=== PATIENT | female | born 1985 | race Caucasian/White ===

== ENCOUNTER 2016-10-04 06:00 | Emergency (ER) | payer OTHER ==
[~2016-10-04] VITALS: Ht 152.4 cm; Wt 102.1 kg
[~2016-10-04 06:00] MED LIST: AMIKACIN S500 MG/2 M IJ; AMPICILLIN500 MG PO; ATIVAN1 MG ORAL; BACTRIM-DS1 EA ORAL; CEFEPIME-D2 GM/50 ML IVPB; CEPHALEXIN500 MG ORAL; CLARITIN10 M1 ORAL; CLOTRIMAZOLE15 GM TOPIC; COLACE100 MG ORAL; CRANBERRY425 MG PO; DEPAKOTE250 MG ORAL; DEPAKOTE250 MG PO; DEPAKOTE500 MG PO; DIFLUCAN100 MG ORAL; DIFLUCAN200 MG ORAL; DILAUDID2 MG IM; DILAUDID2 MG ORAL; DIPHENHYDRAMINE25 M1 ORAL; DITROPAN10 MG ORAL; DIVALPROEX SOD125 MG PO; DOCUSATE SODIU100 M2 ORAL; DULCOLAX10 MG RECTAL; FLUOXETINE HCL10 MG ORAL; HUMALOG100 UNIT/4 SUBQ; HYDROMORPHONE HC2 MG PO; IMITREX50 MG ORAL; KEFLEX500 MG ORAL; LANTUS SOL100 UNIT/1 SUBQ; LANTUS5 UNITS SUBQ; LEVOTHYROXINE100 MCG ORAL; LEVOTHYROXINE112 MCG ORAL; LEVOTHYROXINE25 MCG PO; LEVOTHYROXINE75 MCG ORAL; MACROBID100 MG ORAL; MELATONIN5 M5 ORAL; METFORMIN HCL1000 M1 ORAL; METFORMIN HCL500 M1 ORAL; MIRALAX17 GM ORAL; MULTIVITAMINS1 EAC2 ORAL; MULTIVITAMINS1 EAC8 ORAL; MVI; NEURONTIN100 MG ORAL; NORCO 10-325 T1 EACH PO; NORCO 5-325 TA1 EACH ORAL; NOVOLIN R100 UNIT/1 SUBQ; NOVOLOG100 UNIT/3 SUBQ; NOVOLOG100 UNITS1 SUBQ; NYSTOP POWDER15 GM TOPIC; OXYCODONE HCL15 M1 ORAL; PROTONIX40 MG ORAL; PROZAC10 MG ORAL; QUETIAPINE FUMA25 MG ORAL; RANITIDINE HCL150 MG ORAL; RESTORIL30 MG ORAL; SEROQUEL25 MG PO; SIMETHICONE80 MG ORAL; SUMATRIPTA6 MG/0.54 SQ; SYNTHROID75 MCG ORAL; TYGACIL50 MG IVPB; TYLENOL #21 EA ORAL; TYLENOL325 MG ORAL; VANCOMYCIN1 GM/2502 IVPB; VITAMIN C500 M1 ORAL; ZINC SULFATE220 M1 ORAL; ZOFRAN ODT4 MG ORAL; ZOFRAN ODT8 MG ORAL; ZOLPIDEM TARTRAT5 MG PO; ZOSYN 3.373.375 GM/1 IVPB; ZYVOX600 MG ORAL; mylicon PO
[2016-10-04] MEDS ORDERED: DiphenhydrAMINE 50mg/ml Inj ONE (06:01)
[2016-10-04] MEDS ORDERED: NS 55 ML IV ONE (06:01)
[2016-10-04] MEDS ORDERED: HYDROmorphone 1mg/ml Carpuject ONE (06:01)
[2016-10-04 06:20] VITALS: BP 125/88
[2016-10-04] MEDS ORDERED: DuoNeb 0.5-3(2.5)mg/3ml neb HHN ONE (06:45)
[2016-10-04] MEDS ORDERED: HYDROmorphone 1 MG, DiphenhydrAMINE 25 MG in NS 55 ML IVPB ONE (07:00)
[2016-10-04 07:36] LABS: BASOPHILS % (AUTO) 0.7 % (0.0-2.0); EOSINOPHILS % (AUTO) 2.2 % (0.0-3.0); MEAN CORPUSCULAR HEMOGLOBIN 28.8 PG (27.0-31.0); MEAN CORPUSCULAR HGB CONC 31.5 G/DL (32.0-36.0); MEAN CORPUSCULAR VOLUME 91 FL (80-99); MEAN PLATELET VOLUME 5.9 FL (6.5-10.1); MONOCYTES % (AUTO) 5.5 % (1.0-10.0); NEUTROPHILS % (AUTO) 82.7 % (45.0-75.0); PLATELET COUNT 341 K/UL (150-450); RED BLOOD COUNT 3.35 M/UL (4.20-5.40); RED CELL DISTRIBUTION WIDTH 17.5 % (11.6-14.8)
[2016-10-04 07:48] LABS: TROPONIN I < 0.30 ng/mL (<=0.30)
[2016-10-04 07:49] LABS: ALANINE AMINOTRANSFERASE 8 U/L (3-33); ANION GAP 14 (5-15); ASPARTATE AMINO TRANSFERASE 9 U/L (5-40); CALCIUM 7.5 mg/dL (8.6-10.2); CARBON DIOXIDE 27 mEQ/L (20-30); CHLORIDE 100 mEQ/L (98-107); CREATININE 1.3 mg/dL (0.5-0.9); GLOMERULAR FILTRATION RATE 47.5 mL/min (>60); HEMOLYSIS 10; POTASSIUM 3.7 mEQ/L (3.4-4.9); SODIUM 141 mEQ/L (135-145); TOTAL PROTEIN 6.4 g/dL (6.6-8.7)
[2016-10-04 07:52] VITALS: BP 150/92
[2016-10-04 07:59] LABS: CKMB < 1.5 ng/mL (< 3.8)
--- NOTE | 2016-10-04 08:04 | Emergency Room Report ---
History of Present Illness General Chief Complaint: Upper Respiratory Illness Source: Patient Present Illness HPI Patient is a 31-year-old female who is brought in by ambulance after increased cough and difficulty breathing. Patient prior history of asthma. Patient has not recently been taking any steroids been previously been hospitalized for urinary tract infection. Patient had been getting IV vancomycin and meropenem for urinary tract infection. Patient has a prior complex medical course. Patient noted have multiple different types of allergies. Patient states that she has been having some recurrent cough. Allergies: Coded Allergies: CIPROFLOXACIN (Verified Allergy, Severe, Anaphylaxis, 05/18/12) KETOROLAC (Unverified Allergy, Severe, Anaphylaxis, 03/04/14) Throat collapsed LATEX (Verified Allergy, Severe, Anaphylaxis, 03/06/14) verbalized by pt LEVOFLOXACIN (Verified Allergy, Severe, Anaphylaxis, 05/18/12) MORPHINE (Verified Allergy, Intermediate, Itching, 05/18/12) ACETAMINOPHEN (Unverified Allergy, Unknown, 04/01/15) ALOE (Unverified Allergy, Unknown, 11/03/15) ALOE VERA (Unverified Allergy, Unknown, 04/01/15) CELERY (Unverified Allergy, Unknown, 04/01/15) COCONUT (Unverified Allergy, Unknown, 11/03/15) COCONUT OIL (Unverified Allergy, Unknown, 04/01/15) FISH CONTAINING PRODUCTS (Unverified Allergy, Unknown, 10/04/16) HYDROCODONE (Unverified Allergy, Unknown, 04/01/15) LIDOCAINE (Unverified Allergy, Unknown, Rash, 09/21/15) with lidocaine cream MELON (Unverified Allergy, Unknown, 04/01/15) ONION (Unverified Allergy, Unknown, 11/03/15) PINEAPPLE (Unverified Allergy, Unknown, 10/04/16) Red Pepper (Unverified Allergy, Unknown, 04/01/15) TRAMADOL (Unverified Allergy, Unknown, 04/01/15) TROMETHAMINE (Unverified Allergy, Unknown, 04/01/15) WITCH ANNA (Unverified Allergy, Unknown, 04/01/15) Uncoded Allergies: CRANBERRY JUICE (Allergy, Unknown, 10/04/16) onion (Allergy, Unknown, 04/01/15) glueten (Adverse Reaction, Unknown, 09/17/15) Patient History Past Medical History: see triage record Last Menstrual Period: TWO WEEKS AGO Now: No Reviewed Nursing Documentation: PMH: Agreed, PSxH: Agreed Nursing Documentation-PMH Hx Cardiac Problems: Yes Hx Hypertension: Yes Hx Asthma: Yes Hx Diabetes: Yes Hx Cancer: No Hx Dialysis: No Hx Cerebrovascular Accident: No Hx Transient Ischemic Attacks: No Hx Dementia: No Hx Alzheimer's Disease: No Hx Parkinson's Disease: No Hx Meningitis: No Hx Encephalitis: No Hx Seizures: Yes Hx Epilepsy: No Hx Multiple Sclerosis: No Hx Cerebral Palsy: No Hx Amyotrophic Lat Sclerosis: No Hx Guillian-[place] Syndrome: No Hx Paralysis: No Hx Peripheral Neuropathy: No Hx Spinal Cord Injury: Yes Hx Head Trauma: No Hx Traumatic Brain Injury: No Hx Memory Loss: No Hx Concentration Difficulty: No Hx Speech Problem: No Hx Tremors: No Hx Aphasia: No Hx Dysphasia: No Hx Neurologic Surgery: No Hx Brain Shunt: No Review of Systems All Other Systems: negative except mentioned in HPI Physical Exam Vital Signs Date Time Temp Pulse Resp B/P Pulse Ox O2 Delivery O2 Flow Rate FiO2 10/04/16 05:57 98.2 80 18 183/110 97 Room Air 10/04/16 06:20 2.0 General Appearance: alert, GCS 15, non-toxic, obese - cushenoid, Chronically Ill Eyes: bilateral eye PERRL ENT: hearing grossly normal, normal pharynx Neck: supple Respiratory: chest non-tender, lungs clear, normal breath sounds Cardiovascular #1: normal peripheral pulses, regular rate, rhythm Gastrointestinal: normal bowel sounds, non tender Musculoskeletal: decreased range of motion, other Neurologic: normal inspection, alert, oriented x3, responsive, manager printing III-XII nml as tested, motor weakness Skin: normal inspection Medical Decision Making Diagnostic Impression: Primary Impression: Narcotic dependence Additional Impressions: Chronic pain Spina bifida Diabetes mellitus ER Course Patient presented for cough. Differential diagnosis included but was not limited to bronchitis, pneumonia, pulmonary embolism, pericarditis, asthma, foreign body. Chest x-ray one view interpreted by me showed atelectasis without evident infiltrateThe patient was noted to have a white blood count was minimally elevated. The patient is currently on IV antibiotics. The patient was given pain medications. Patient was discussed with Dr. mendenhall. Patient will be sent back to her nursing facility for further IV antibiotics. She does not appear to require inpatient management at this time. Labs Test 10/04/16 07:30 White Blood Count 14.0 K/UL (4.8-10.8) Red Blood Count 3.35 M/UL (4.20-5.40) Hemoglobin 9.6 G/DL (12.0-16.0) Hematocrit 30.6 % (37.0-47.0) Mean Corpuscular Volume 91 FL (80-99) Mean Corpuscular Hemoglobin 28.8 PG (27.0-31.0) Mean Corpuscular Hemoglobin Concent 31.5 G/DL (32.0-36.0) Red Cell Distribution Width 17.5 % (11.6-14.8) Platelet Count 341 K/UL (150-450) Mean Platelet Volume 5.9 FL (6.5-10.1) Neutrophils (%) (Auto) 82.7 % (45.0-75.0) Lymphocytes (%) (Auto) 9.0 % (20.0-45.0) Monocytes (%) (Auto) 5.5 % (1.0-10.0) Eosinophils (%) (Auto) 2.2 % (0.0-3.0) Basophils (%) (Auto) 0.7 % (0.0-2.0) Sodium Level 141 mEQ/L (135-145) Potassium Level 3.7 mEQ/L (3.4-4.9) Chloride Level 100 mEQ/L (98-107) Carbon Dioxide Level 27 mEQ/L (20-30) Anion Gap 14 (5-15) Blood Urea Nitrogen 22 mg/dL (7-23) Creatinine 1.3 mg/dL (0.5-0.9) Estimat Glomerular Filtration Rate 47.5 mL/min (>60) Glucose Level 135 mg/dL (74-106) Lactic Acid Level 0.80 mmol/L (0.66-2.22) Calcium Level 7.5 mg/dL (8.6-10.2) Total Bilirubin 0.2 mg/dL (0.0-1.2) Aspartate Amino Transf (AST/SGOT) 9 U/L (5-40) Alanine Aminotransferase (ALT/SGPT) 8 U/L (3-33) Alkaline Phosphatase 97 U/L (35-104) Total Creatine Kinase 23 U/L (26-140) Creatine Kinase MB < 1.5 ng/mL (< 3.8) Creatine Kinase MB Relative Index Troponin I < 0.30 ng/mL (<=0.30) Total Protein 6.4 g/dL (6.6-8.7) Albumin 3.2 g/dL (3.5-5.2) Globulin 3.2 g/dL Albumin/Globulin Ratio 1.0 (1.0-2.7) Last Vital Signs Date Time Temp Pulse Resp B/P Pulse Ox O2 Delivery O2 Flow Rate FiO2 10/04/16 06:20 98.8 76 24 125/88 96 Nasal Cannula 2.0 Status: improved Disposition: HOME, SELF-CARE Condition: Stable Referrals: [facility],REFERRING (PCP) Bob Rae Oct 04, 2016 08:04
[2016-10-04 09:21] VITALS: BP 149/94
[2016-10-04] MEDS ORDERED: HYDROmorphone 1mg/ml Carpuject IM ONE (11:15)
--- NOTE | 2016-10-04 11:39 | Diagnostic Imaging Report ---
Indication: Chest Pain Comparison: 08/01/16 A single view chest radiograph was obtained. Findings: Tubes and lines are stable. Heart is mildly enlarged but stable. Lung volumes are low. There maybe mild interstitial edema present. Impression: No significant change. Mild interstitial edema may be present
[2016-10-04 11:40] VITALS: BP 139/89
--- NOTE | 2016-10-05 23:25 | Cardiology Report ---
APPROVED REPORT EKG Measurement Heart [id number] Normal sinus rhythm Right axis deviation Possible Right ventricular hypertrophy Abnormal ECG
== END 2016-10-04 11:43 | disposition home or self-care (01) ==
LOC: EDBD 06:00 → EMR 06:54
DX: F11.20 Opioid dependence, uncomplicated (principal); G89.29 Other chronic pain; Z88.6 Allergy status to analgesic agent; Z91.040 Latex allergy status; Z88.8 Allergy status to other drugs, medicaments and biological substances; Z91.018 Allergy to other foods; I10 Essential (primary) hypertension; E11.9 Type 2 diabetes mellitus without complications
CPT/HCPCS: 36415; 71010; 80053; 82550; 82553; 83605; 84484; 85025; 93005; 94640; 94664; 96372; 99283; J1170; J1200; J7620

== ENCOUNTER 2017-02-27 13:35 | Inpatient (IN) | payer OTHER ==
[~2017-02-27] VITALS: Ht 152.4 cm; Wt 103.9 kg
[2017-02-27] VITALS (14 sets, daily range): BP systolic 103–145; BP diastolic 58–78
[2017-02-27] MEDS ORDERED: Ipratropium 0.02% Inh Soln 2.5ml UD HHN ONE (13:45)
[2017-02-27] MEDS ORDERED: Solu-MEDROL 125mg Inj IVP ONE (13:45)
[2017-02-27] MEDS ORDERED: Albuterol ud Inhalation HHN ONE (13:45)
[2017-02-27 14:13] LABS: APPEARANCE,URINE CLOUDY; KETONES,URINE NEGATIVE (NEGATIVE); LEUKOCYTE ESTERASE ,URINE 3+ (NEGATIVE); NITRITE,URINE POSITIVE (NEGATIVE); PH,URINE 6 (4.5-8.0); PROTEIN,URINE 3+ (NEGATIVE); UROBILINOGEN,URINE NORMAL MG/DL (0.0-1.0)
[2017-02-27 14:14] LABS: MEAN CORPUSCULAR VOLUME 97 FL (80-99); MEAN PLATELET VOLUME 5.9 FL (6.5-10.1); PLATELET COUNT 379 K/UL (150-450); RED BLOOD COUNT 3.86 M/UL (4.20-5.40); RED CELL DISTRIBUTION WIDTH 17.4 % (11.6-14.8); WHITE BLOOD COUNT 14.2 K/UL (4.8-10.8)
[2017-02-27 14:24] LABS: BACTERIA,URINE MODERATE /HPF; SQUAMOUS EPITHELIAL CELL,UR FEW /LPF (NONE/OCC); WBC,URINE 60-80 /HPF (0 - 2)
[2017-02-27] MEDS ORDERED: Piperacillin/Tazobactam 3.375 GM in NS 110 ML IVPB ONE (14:30)
[2017-02-27 14:32] LABS: TROPONIN I < 0.30 ng/mL (<=0.30)
[2017-02-27 14:33] LABS: ALANINE AMINOTRANSFERASE 12 U/L (3-33); ALBUMIN/GLOBULIN RATIO 1.2 (1.0-2.7); ANION GAP 14 (5-15); ASPARTATE AMINO TRANSFERASE 7 U/L (5-40); CALCIUM 8.9 mg/dL (8.6-10.2); CARBON DIOXIDE 19 mEQ/L (20-30); CHLORIDE 100 mEQ/L (98-107); CREATININE 2.3 mg/dL (0.5-0.9); GLOMERULAR FILTRATION RATE 24.6 mL/min (>60); HEMOLYSIS 6; POTASSIUM 5.1 mEQ/L (3.4-4.9); SODIUM 133 mEQ/L (135-145); TOTAL PROTEIN 7.3 g/dL (6.6-8.7)
[2017-02-27 14:37] LABS: ANISOCYTOSIS 1+; BAND NEUTROPHILS % (MANUAL) 0 % (0-8); BASOPHILS % (MANUAL) 0 % (0-2); EOSINOPHILS % (MANUAL) 0 % (0-3); HYPOCHROMASIA 1+; LYMPHOCYTES % (MANUAL) 6 % (20-45); NEUTROPHILS % (MANUAL) 87 % (45-75); PLATELET ESTIMATE ADEQUATE; PLATELET MORPHOLOGY NORMAL; TOTAL CELLS COUNTED 100
[2017-02-27 14:38] LABS: POLYCHROMASIA RARE
[2017-02-27 14:44] LABS: ABG PCO2 85.2 mmHg (35.0-45.0)
[2017-02-27 14:44] LABS: CKMB 2.2 ng/mL (< 3.8)
[2017-02-27 14:45] LABS: ABG ALLEN TEST POSITIVE; ABG BASE EXCESS -13.9
[2017-02-27] MEDS ORDERED: Zosyn 3.375gm inj ONE (14:57)
[2017-02-27] MEDS ORDERED: TRICOR48 MG ORAL (15:06)
[2017-02-27] MEDS ORDERED: BENADRYL25 MG ORAL (15:06)
[2017-02-27] MEDS ORDERED: DUONEB 0.5-3(2.53 ML HHN (15:06)
[2017-02-27] MEDS ORDERED: PEPCID20 MG ORAL (15:06)
[2017-02-27] MEDS ORDERED: GLIMEPIRIDE1 MG ORAL (15:06)
[2017-02-27] MEDS ORDERED: METOPROLOL TART25 MG ORAL (15:06)
[2017-02-27] MEDS ORDERED: FERROUS SULFAT325 MG ORAL (15:06)
[2017-02-27] MEDS ORDERED: LANTUS SOL100 UNIT/1 SUBQ (15:06)
[2017-02-27] MEDS ORDERED: PROMETHAZI6.25 MG/1 ORAL (15:06)
[2017-02-27] MEDS ORDERED: DITROPAN XL5 MG ORAL (15:06)
[2017-02-27] MEDS ORDERED: MAGNESIUM OXID500 M2 PO (15:06)
[2017-02-27] MEDS ORDERED: PROZAC20 MG ORAL (15:06)
[2017-02-27] MEDS ORDERED: ZOFRAN ODT4 MG ORAL (15:06)
[2017-02-27] MEDS ORDERED: SIMVASTATIN40 MG ORAL (15:06)
[2017-02-27] MEDS ORDERED: NIACIN50 MG PO (15:06)
[2017-02-27 15:23] LABS: ABG ALLEN TEST POSITIVE; ABG BASE EXCESS -13.9
--- NOTE | 2017-02-27 15:50 | Diagnostic Imaging Report ---
Indication: SOB Technique: One view of the chest Comparison: 10/04/2016 Findings: Again demonstrated is a left chest Port-A-Cath. The shaft of the catheter appears to be broken at the level of the jugular vein insertion site. Again demonstrated is right-sided ventriculoperitoneal shunt tubing. The heart is enlarged. There are left perihilar atelectatic changes. There is suggestion of mild interstitial congestion. The pleural spaces are clear Impression: Cardiomegaly and suggestion of mild interstitial congestion Left chest Port-A-Cath, with interim fracture of the tubing at or near the left jugular vein insertion site Other findings as noted, including ventriculoperitoneal shunt Findings discussed by phone with Dr. Abbott emergency room at the time of interpretation.
[2017-02-27] MEDS ORDERED: Sodium Polystyrene Sulfonate 15gm Powder GT ONE (16:15)
--- NOTE | 2017-02-27 16:26 | Emergency Room Report ---
History of Present Illness General Chief Complaint: Dyspnea/Respdistress Source: Patient Present Illness HPI 31-year-old female presents ED for evaluation. Per EMS patient has short of breath and altered from her group home. Upon arrival patient is in labor breathing and altered. O2 saturations improved after placed on supplemental. Patient is unable to provide any additional history at this time. No reported fevers or chills. No reported chest pain. No other aggravating or relieving factors. No other associated symptoms Allergies: Coded Allergies: CIPROFLOXACIN (Verified Allergy, Severe, Anaphylaxis, 05/18/12) KETOROLAC (Unverified Allergy, Severe, Anaphylaxis, 03/04/14) Throat collapsed LATEX (Verified Allergy, Severe, Anaphylaxis, 03/06/14) verbalized by pt LEVOFLOXACIN (Verified Allergy, Severe, Anaphylaxis, 05/18/12) MORPHINE (Verified Allergy, Intermediate, Itching, 05/18/12) ACETAMINOPHEN (Unverified Allergy, Unknown, 04/01/15) ALOE (Unverified Allergy, Unknown, 11/03/15) ALOE VERA (Unverified Allergy, Unknown, 04/01/15) CELERY (Unverified Allergy, Unknown, 04/01/15) COCONUT (Unverified Allergy, Unknown, 11/03/15) COCONUT OIL (Unverified Allergy, Unknown, 04/01/15) FISH CONTAINING PRODUCTS (Unverified Allergy, Unknown, 10/04/16) HYDROCODONE (Unverified Allergy, Unknown, 04/01/15) LIDOCAINE (Unverified Allergy, Unknown, Rash, 09/21/15) with lidocaine cream MELON (Unverified Allergy, Unknown, 04/01/15) ONION (Unverified Allergy, Unknown, 11/03/15) PINEAPPLE (Unverified Allergy, Unknown, 10/04/16) Red Pepper (Unverified Allergy, Unknown, 04/01/15) TRAMADOL (Unverified Allergy, Unknown, 04/01/15) TROMETHAMINE (Unverified Allergy, Unknown, 04/01/15) WITCH ANNA (Unverified Allergy, Unknown, 04/01/15) Uncoded Allergies: CRANBERRY JUICE (Allergy, Unknown, 10/04/16) onion (Allergy, Unknown, 04/01/15) glueten (Adverse Reaction, Unknown, 09/17/15) Patient History Past Medical History: none Past Surgical History: none Pertinent Family History: none Social History: Denies: alcohol use, drug use, smoking Now: No Immunizations: UTD Reviewed Nursing Documentation: PMH: Agreed, PSxH: Agreed Nursing Documentation-PMH Hx Cardiac Problems: Yes Hx Hypertension: Yes Hx Asthma: Yes Hx Diabetes: Yes Hx Cancer: No Hx Dialysis: No Hx Cerebrovascular Accident: No Hx Transient Ischemic Attacks: No Hx Dementia: No Hx Alzheimer's Disease: No Hx Parkinson's Disease: No Hx Meningitis: No Hx Encephalitis: No Hx Seizures: Yes Hx Epilepsy: No Hx Multiple Sclerosis: No Hx Cerebral Palsy: No Hx Amyotrophic Lat Sclerosis: No Hx Guillian-[place] Syndrome: No Hx Paralysis: No Hx Peripheral Neuropathy: No Hx Spinal Cord Injury: Yes Hx Head Trauma: No Hx Traumatic Brain Injury: No Hx Memory Loss: No Hx Concentration Difficulty: No Hx Speech Problem: No Hx Tremors: No Hx Aphasia: No Hx Dysphasia: No Hx Neurologic Surgery: No Hx Brain Shunt: No Review of Systems All Other Systems: limited Physical Exam Vital Signs Date Time Temp Pulse Resp B/P Pulse Ox O2 Delivery O2 Flow Rate FiO2 02/27/17 13:17 90 18 99 Facial 15.0 50 02/27/17 13:35 97.9 113/66 Sp02 EP Interpretation: reviewed, normal General Appearance: mild distress, lethargic, obese Head: normocephalic Eyes: bilateral eye PERRL, bilateral eye normal inspection ENT: hearing grossly normal, normal pharynx, no angioedema, normal voice Neck: full range of motion, supple/symm/no masses Respiratory: chest non-tender, decreased breath sounds, speaking full sentences , wheezing Cardiovascular #1: regular rate, rhythm, no edema Gastrointestinal: normal inspection Rectal: deferred Genitourinary: no CVA tenderness Musculoskeletal: normal inspection Neurologic: other - lethargic Psychiatric: other - lethargic Skin: normal inspection Lymphatic: normal inspection Procedures Critical Care Time Critical Care Time i. I feel this is a highly complex case requiring extensive working including EKG/Rhythm strip, Xray/CT/US, Blood/urine lab work, repeat exams while in ED, and administration of strong opiates/narcotics for pain control, admission to hospital or close patient follow up. Total time: 30 min bedside evaluation and treatment excludes procedures (EKG). Reason for critical care: respiratory distress. hypercapnia. Possible complications: hypotension, hypertension, GA, shock, arrhythmias, metabolic acidosis, end organ damage, respiratory failure. Interventions: labs, IVFs, EKG, CXR. Abx. BIPAP. nebs. intuabtion. central line Course: Patient brought in with respiratory distress. Hypoxic, lethargic. Patient started on BiPAP. PH 6.9 with PCO2 markedly elevated. Patient intubated. Central line placed. Propofol started. Antibiotics given Consultations: nursing staff, EMS, family Performed by: Dr Abbott Tolerated well condition = critical j. because of unstable vital signs this patient had a condition that could potentially threaten life or limb. I feel this is a critical patient who required my full attention while patient was considered critical. Total Critical Care Time excluding procedures was greater than 35 minutes Central Line Central Line : Consent: Emergent Central Line Lumen: triple Maximal Sterile Barrier Tech: yes cap, yes mask, yes sterile gown, yes sterile gloves, yes large sterile sheet, yes hand hygiene, yes chlorhexidine prep Central Line Postion: femoral (R) Complications: none Central Line Post Position: sutured, good blood return Attempts: One Patient Tolerated: Well Complications: None Intubation Intubation : Consent: Emergent Intubation Method: orotracheal Tube Size (cm): 7.0 Medications: Etomidate, Rocuronium Breath Sounds after Intubation: equal Intubation Complications: no complications Post Intubation Xray: Yes Attempts: One Patient Tolerated: Well Complications: None Medical Decision Making Diagnostic Impression: Primary Impression: Respiratory distress Additional Impressions: UTI (lower urinary tract infection) Morbid obesity Hypercapnia Spina bifida Qualified Codes: Q05.9 - Spina bifida, unspecified ARF (acute renal failure) Qualified Codes: N17.9 - Acute kidney failure, unspecified Hyperkalemia, diminished renal excretion ER Course Hospital Course 31-year-old F presenting to ED with respiratory distress, altered Differential diagnoses include: Pneumonia, CHF exacerbation, pneumothorax, fluid overload Clinical course Patient placed on stretcher. On telemetry monitor with hypoxia on room air. After initial history and physical, I ordered nebulizer treatments, BIPAP. I ordered labs, IV fluids, EKG, chest x-ray, blood cultures, UA. Labs -leukocytosis noted, hemoglobin/hematocrit stable, BUN/Cr elevated, K 5.1, UA grossly positive, lactate ok, trop negative CXR - cardiomegaly. bilalateral congestion ABG - pH 6.9, PCO2 > 80; unimproved while on BiPAP EKG - NSR, no acute changes interpreted by me Patient intubated for airway protection using glidescope. Right femoral central line placed. IV fluids continued. Propofol started. Antibiotics given. Kayexelate given Case discussed with Dr. Smith and he agreed to the patient to his service for further care and support I feel this is a highly complex case requiring extensive working including EKG/ Rhythm strip, Xray/CT/US, Blood/urine lab work, repeat exams while in ED, and administration of strong opiates/narcotics for pain control, admission to hospital or close patient follow up. Diagnosis - respiratory distress, UTI, morbid obesity, hypertension and, spina bifida, ARF, hyperkalemia Patient admitted to ICU in critical condiiton Labs Test 02/27/17 13:50 02/27/17 14:30 02/27/17 15:12 White Blood Count 14.2 K/UL (4.8-10.8) Red Blood Count 3.86 M/UL (4.20-5.40) Hemoglobin 11.2 G/DL (12.0-16.0) Hematocrit 37.3 % (37.0-47.0) Mean Corpuscular Volume 97 FL (80-99) Mean Corpuscular Hemoglobin 29.0 PG (27.0-31.0) Mean Corpuscular Hemoglobin Concent 30.0 G/DL (32.0-36.0) Red Cell Distribution Width 17.4 % (11.6-14.8) Platelet Count 379 K/UL (150-450) Mean Platelet Volume 5.9 FL (6.5-10.1) Neutrophils (%) (Auto) % (45.0-75.0) Lymphocytes (%) (Auto) % (20.0-45.0) Monocytes (%) (Auto) % (1.0-10.0) Eosinophils (%) (Auto) % (0.0-3.0) Basophils (%) (Auto) % (0.0-2.0) Differential Total Cells Counted 100 Neutrophils % (Manual) 87 % (45-75) Lymphocytes % (Manual) 6 % (20-45) Monocytes % (Manual) 7 % (1-10) Eosinophils % (Manual) 0 % (0-3) Basophils % (Manual) 0 % (0-2) Band Neutrophils 0 % (0-8) Platelet Estimate Adequate Platelet Morphology Normal Polychromasia Rare Hypochromasia 1+ Anisocytosis 1+ Urine Color Pale yellow Urine Appearance Cloudy Urine pH 6 (4.5-8.0) Urine Specific [place] 1.015 (1.005-1.035) Urine Protein 3+ (NEGATIVE) Urine Glucose (UA) 3+ (NEGATIVE) Urine Ketones Negative (NEGATIVE) Urine Occult Blood 3+ (NEGATIVE) Urine Nitrite Positive (NEGATIVE) Urine Bilirubin Negative (NEGATIVE) Urine Urobilinogen Normal MG/DL (0.0-1.0) Urine Leukocyte Esterase 3+ (NEGATIVE) Urine RBC 5-10 /HPF (0 - 2) Urine WBC 60-80 /HPF (0 - 2) Urine Squamous Epithelial Cells Few /LPF (NONE/OCC) Urine Bacteria Moderate /HPF (NONE) Sodium Level 133 mEQ/L (135-145) Potassium Level 5.1 mEQ/L (3.4-4.9) Chloride Level 100 mEQ/L (98-107) Carbon Dioxide Level 19 mEQ/L (20-30) Anion Gap 14 (5-15) Blood Urea Nitrogen 61 mg/dL (7-23) Creatinine 2.3 mg/dL (0.5-0.9) Estimat Glomerular Filtration Rate 24.6 mL/min (>60) Glucose Level 359 mg/dL (74-106) Lactic Acid Level 1.10 mmol/L (0.66-2.22) Calcium Level 8.9 mg/dL (8.6-10.2) Total Bilirubin < 0.2 mg/dL (0.0-1.2) Aspartate Amino Transf (AST/SGOT) 7 U/L (5-40) Alanine Aminotransferase (ALT/SGPT) 12 U/L (3-33) Alkaline Phosphatase 106 U/L (35-104) Total Creatine Kinase 27 U/L (26-140) Creatine Kinase MB 2.2 ng/mL (< 3.8) Creatine Kinase MB Relative Index 8.1 Troponin I < 0.30 ng/mL (<=0.30) Pro-B-Type Natriuretic Peptide 9607 pg/mL (0-125) Total Protein 7.3 g/dL (6.6-8.7) Albumin 4.0 g/dL (3.5-5.2) Globulin 3.3 g/dL Albumin/Globulin Ratio 1.2 (1.0-2.7) Arterial Blood pH 6.963 (7.350-7.450) 6.960 (7.350-7.450) Arterial Blood Partial Pressure CO2 85.2 mmHg (35.0-45.0) 86.0 mmHg (35.0-45.0) Arterial Blood Partial Pressure O2 180.4 mmHg (75.0-100.0) 160.6 mmHg (75.0-100.0) Arterial Blood HCO3 18.9 mmol/L (22.0-26.0) 18.9 mmol/L (22.0-26.0) Arterial Blood Oxygen Saturation 97.8 % (92.0-98.0) 98.0 % (92.0-98.0) Arterial Blood Base Excess -13.9 -13.9 Cristian Test Positive Positive EKG Diagnostic Results Rate: normal Rhythm: NSR ST Segments: no acute changes ASA given to the pt in ED: No Rhythm Strip Diag. Results EP Interpretation: yes Rhythm: NSR, no PVC's, no ectopy Chest X-Ray Diagnostic Results Chest X-Ray Diagnostic Results : Chest X-Ray Ordered: Yes # of Views/Limited/Complete: 1 View Indication: Shortness of Breath EP Interpretation: Yes Interpretation: no pneumothorax, no acute cardiopulmonary disease, other - cardiomegaly. interstitial congestion. Impression: Other - cardiomegaly Interpreting ER Provider: Electronically signed by Willie Abbott MD Last Vital Signs Date Time Temp Pulse Resp B/P Pulse Ox O2 Delivery O2 Flow Rate FiO2 02/27/17 15:05 96 20 99 Facial 15.0 50 02/27/17 13:40 97.9 124/67 Status: improved Disposition: ADMITTED INPATIENT Condition: Critical Referrals: [facility],REFERRING (PCP) WILLIE ABBOTT M.D. Feb 27, 2017 16:26
[2017-02-27] MEDS ORDERED: Atropine Inj 1mg/10ml Syr ONE (16:50)
[2017-02-27] MEDS ORDERED: Sodium Polystyrene Sulfonate Enema RECTAL ONE (17:00)
[2017-02-27] MEDS ORDERED: Tubing IV Cassette IV ONE (17:02)
[2017-02-27 17:41] LABS: ABG ALLEN TEST POSITIVE; ABG BASE EXCESS -12.9
[2017-02-27] MEDS ORDERED: DuoNeb 0.5-3(2.5)mg/3ml neb HHN PRN (18:00)
[2017-02-27] MEDS ORDERED: Miralax 17gm pkt ORAL PRN (18:00)
[2017-02-27] MEDS ORDERED: Amikacin Rx to dose MISC PRN (19:30)
[2017-02-27] MEDS ORDERED: Ertapenem 1 GM in NS 55 ML IV ONE (20:00)
[2017-02-27] MEDS ORDERED: Depakote 125mg Sprinkles GT SCH (21:00)
--- NOTE | 2017-02-27 21:10 | History and Physical ---
History of Present Illness General Date patient seen: Feb 27, 2017 Reason for Hospitalization: Dyspnea/Respdistress Present Illness HPI 31-year-old female, with hx of DM, bed bound presents ED for evaluation of short of breath and altered from her group home. Upon arrival patient is in labor breathing and altered. O2 saturations improved after placed on supplemental. Patient is unable to provide any additional history at this time. No reported fevers or chills. Pt was intubated and transferred to ICU. Allergies: Coded Allergies: CIPROFLOXACIN (Verified Allergy, Severe, Anaphylaxis, 05/18/12) KETOROLAC (Unverified Allergy, Severe, Anaphylaxis, 03/04/14) Throat collapsed LATEX (Verified Allergy, Severe, Anaphylaxis, 03/06/14) verbalized by pt LEVOFLOXACIN (Verified Allergy, Severe, Anaphylaxis, 05/18/12) MORPHINE (Verified Allergy, Intermediate, Itching, 05/18/12) ACETAMINOPHEN (Unverified Allergy, Unknown, 04/01/15) ALOE (Unverified Allergy, Unknown, 11/03/15) ALOE VERA (Unverified Allergy, Unknown, 04/01/15) CELERY (Unverified Allergy, Unknown, 04/01/15) COCONUT (Unverified Allergy, Unknown, 11/03/15) COCONUT OIL (Unverified Allergy, Unknown, 04/01/15) FISH CONTAINING PRODUCTS (Unverified Allergy, Unknown, 10/04/16) HYDROCODONE (Unverified Allergy, Unknown, 04/01/15) LIDOCAINE (Unverified Allergy, Unknown, Rash, 09/21/15) with lidocaine cream MELON (Unverified Allergy, Unknown, 04/01/15) ONION (Unverified Allergy, Unknown, 11/03/15) PINEAPPLE (Unverified Allergy, Unknown, 10/04/16) Red Pepper (Unverified Allergy, Unknown, 04/01/15) TRAMADOL (Unverified Allergy, Unknown, 04/01/15) TROMETHAMINE (Unverified Allergy, Unknown, 04/01/15) WITCH ANNA (Unverified Allergy, Unknown, 04/01/15) Uncoded Allergies: CRANBERRY JUICE (Allergy, Unknown, 10/04/16) onion (Allergy, Unknown, 04/01/15) glueten (Adverse Reaction, Unknown, 09/17/15) Medication History Scheduled Amikacin Sulfate (Amikacin Sulfate*), 1,000 MG IJ DAILY Ascorbic Acid* (Vitamin C*), 500 MG ORAL TWICE A DAY, (Reported) Divalproex Sodium (Depakote), 500 MG PO BID, (Reported) Divalproex Sodium* (Depakote*), 500 MG PO Q12HR, (Reported) Docusate Sodium (Docusate Sodium), 100 MG ORAL TWICE A DAY, (Reported) Famotidine (Pepcid), 20 MG ORAL BID, (Reported) Fenofibrate Nanocrystallized (Tricor), 48 MG ORAL HS, (Reported) Ferrous Sulfate* (Ferrous Sulfate*), 325 MG ORAL DAILY, (Reported) Fluoxetine Hcl* (Prozac*), 10 MG ORAL BID, (Reported) Fluoxetine Hcl* (Prozac*), 20 MG ORAL DAILY, (Reported) Glimepiride* (Glimepiride*), 2 MG ORAL DAILY, (Reported) Hydromorphone HCl (Dilaudid), 2 MG IM Q4H, (Reported) Insulin Aspart (Novolog Flexpen), 10 UNITS SUBQ TIAC Insulin Glargine (Lantus), 10 SUBQ BEDTIME, (Reported) Insulin Glargine (Lantus), 20 SUBQ DAILY, (Reported) Insulin Regular, Human* (Novolin R*), 0 SUBQ .SLIDING SCALE, (Reported) Levothyroxine Sodium* (Levothyroxine Sodium*), 100 MCG ORAL DAILY@0630 Levothyroxine Sodium* (Synthroid*), 75 MCG ORAL DAILY, (Reported) Levothyroxine Sodium* (Levothyroxine Sodium*), 112 MCG ORAL DAILY@0630 Loratadine (Claritin), 10 MG ORAL DAILY, (Reported) Magnesium Oxide (Magnesium Oxide), 400 MG PO BID, (Reported) Metformin Hcl* (Metformin Hcl*), 1,000 MG ORAL BID, (Reported) Metoprolol Tartrate* (Metoprolol Tartrate*), 25 MG ORAL EVERY 12 HOURS, ( Reported) Multivitamin With Minerals (Multivitamins With Minerals*), 1 TAB ORAL DAILY, ( Reported) Niacin* (Niacin*), 250 MG PO DAILY, (Reported) Oxybutynin Chloride (Ditropan Xl), 5 MG ORAL DAILY, (Reported) Lyefiywwgtri-Fsgw-Iduafyax,Iso (Zosyn 3.375 Gm Pre Mix-Bag), 3.375 GM IVPB EVERY 8 HOURS Quetiapine Fumarate* (Seroquel*), 50 MG PO DAILY, (Reported) Ranitidine Hcl* (Zantac*), 150 MG ORAL TWICE A DAY, (Reported) Simvastatin (Zocor), 40 MG ORAL BEDTIME, (Reported) Sumatriptan Succinate* (Imitrex*), 25 MG ORAL DAILY PRN MIGRAINE, (Reported) Temazepam (Restoril*), 30 MG ORAL BEDTIME, (Reported) Tigecycline (Tygacil), 12 MG IVPB EVERY 12 HOURS Vancomycin Hcl/D5w (Vancomycin-D5w 1 G/250 Ml), 1.25 GM IVPB Q24H Zinc Sulfate (Zinc Sulfate*), 220 MG ORAL DAILY, (Reported) Scheduled PRN Acetaminophen (Tylenol), 650 MG ORAL Q6H PRN for Mild Pain (Pain Scale 1-3), ( Reported) Acetaminophen/Codeine (Acetaminophen-Cod #2 Tablet), Unknown Dose ORAL Q4H PRN for For Pain, (Reported) Bisacodyl (Dulcolax), 10 MG RECTAL HSPRN PRN for Constipation Diphenhydramine Hcl* (Diphenhydramine Hcl*), 25 MG ORAL Q6H PRN for Itching, ( Reported) Diphenhydramine Hcl* (Benadryl*), 50 MG ORAL Q6H PRN for Itching, (Reported) Hydromorphone HCl (Dilaudid), 2 MG ORAL Q4H PRN for severe pain Ipratropium/Albuterol Sulfate (DuoNeb 0.5-3(2.5)mg/3ml), 3 ML HHN Q4HR PRN for Shortness of Breath, (Reported) Lorazepam* (Ativan*), 1.5 MG ORAL Q6HR PRN for For Anxiety, (Reported) Melatonin (Melatonin), 5 MG ORAL BEDTIME PRN for Insomnia, (Reported) Ondansetron Odt* (Zofran Odt*), 4 MG ORAL Q4HR PRN for Nausea & Vomiting, ( Reported) Promethazine Hcl (Promethazine Hcl*), 5 ML ORAL Q6H PRN for For Cough, (Reported ) Simethicone* (Simethicone*), 80 MG ORAL EVERY 6 HOURS PRN for For Pain, ( Reported) Miscellaneous Medications Cranberry Extract (Cranberry), 425 MG PO, (Reported) Insulin Lispro (Humalog), 0 SUBQ, (Reported) Sumatriptan Succinate (Sumatriptan Succinate), 4 MG SQ, (Reported) Patient History Healthcare decision maker Resuscitation status Advanced Directive on File Past Medical/Surgical History Past Medical/Surgical History: (1) Spina bifida (2) Diabetes mellitus (3) Neuropathic pain (4) Hypothyroidism (5) Bipolar 1 disorder Review of Systems All Other Systems: negative except mentioned in HPI Physical Exam General Appearance: WD/WN Lines, tubes and drains: central line HEENT: normocephalic Neck: non-tender, normal alignment Respiratory/Chest: chest wall non-tender, normal breath sounds Cardiovascular/Chest: normal peripheral pulses, normal rate Last 24 Hour Vital Signs Date Time Temp Pulse Resp B/P Pulse Ox O2 Delivery O2 Flow Rate FiO2 02/27/17 20:48 40 02/27/17 20:30 99.4 100 18 145/68 100 Mechanical Ventilator 40 02/27/17 20:30 100 02/27/17 19:32 97.9 76 18 131/64 100 Mechanical Ventilator 15.0 40 02/27/17 19:02 78 18 Mechanical Ventilator 02/27/17 19:00 76 18 131/64 100 Mechanical Ventilator 40 02/27/17 18:46 79 18 40 02/27/17 18:30 81 18 125/69 100 Mechanical Ventilator 40 02/27/17 18:10 18 02/27/17 18:00 75 18 119/64 100 Mechanical Ventilator 40 02/27/17 17:35 40 02/27/17 17:35 91 18 40 02/27/17 17:30 88 18 127/78 100 Mechanical Ventilator 35 02/27/17 17:14 35 02/27/17 17:10 18 02/27/17 17:00 90 18 122/69 100 Mechanical Ventilator 35 02/27/17 16:30 88 18 121/78 97 Mechanical Ventilator 35 02/27/17 16:00 103 18 145/69 99 Mechanical Ventilator 35 02/27/17 15:55 103 18 35 02/27/17 15:05 96 20 99 Facial 15.0 50 02/27/17 15:00 96 26 127/72 99 Bi-pap 50 02/27/17 14:00 99 28 127/72 100 Bi-pap 50 02/27/17 13:40 97.9 93 20 124/67 97 Non-Rebreather 15.0 02/27/17 13:35 97.9 97 21 113/66 100 Venturi Mask 50 02/27/17 13:35 50 02/27/17 13:35 97 28 Bi-pap 50 02/27/17 13:17 90 18 99 Facial 15.0 50 Laboratory Tests Test 02/27/17 13:50 02/27/17 14:30 02/27/17 15:12 02/27/17 17:18 White Blood Count 14.2 K/UL (4.8-10.8) H Red Blood Count 3.86 M/UL (4.20-5.40) L Hemoglobin 11.2 G/DL (12.0-16.0) L Hematocrit 37.3 % (37.0-47.0) Mean Corpuscular Volume 97 FL (80-99) Mean Corpuscular Hemoglobin 29.0 PG (27.0-31.0) Mean Corpuscular Hemoglobin Concent 30.0 G/DL (32.0-36.0) L Red Cell Distribution Width 17.4 % (11.6-14.8) H Platelet Count 379 K/UL (150-450) Mean Platelet Volume 5.9 FL (6.5-10.1) L Neutrophils (%) (Auto) % (45.0-75.0) Lymphocytes (%) (Auto) % (20.0-45.0) Monocytes (%) (Auto) % (1.0-10.0) Eosinophils (%) (Auto) % (0.0-3.0) Basophils (%) (Auto) % (0.0-2.0) Differential Total Cells Counted 100 Neutrophils % (Manual) 87 % (45-75) H Lymphocytes % (Manual) 6 % (20-45) L Monocytes % (Manual) 7 % (1-10) Eosinophils % (Manual) 0 % (0-3) Basophils % (Manual) 0 % (0-2) Band Neutrophils 0 % (0-8) Platelet Estimate Adequate Platelet Morphology Normal Polychromasia Rare Hypochromasia 1+ Anisocytosis 1+ Urine Color Pale yellow Urine Appearance Cloudy Urine pH 6 (4.5-8.0) Urine Specific [place] 1.015 (1.005-1.035) Urine Protein 3+ (NEGATIVE) H Urine Glucose (UA) 3+ (NEGATIVE) H Urine Ketones Negative (NEGATIVE) Urine Occult Blood 3+ (NEGATIVE) H Urine Nitrite Positive (NEGATIVE) H Urine Bilirubin Negative (NEGATIVE) Urine Urobilinogen Normal MG/DL (0.0-1.0) Urine Leukocyte Esterase 3+ (NEGATIVE) H Urine RBC 5-10 /HPF (0 - 2) H Urine WBC 60-80 /HPF (0 - 2) H Urine Squamous Epithelial Cells Few /LPF (NONE/OCC) Urine Bacteria Moderate /HPF (NONE) H Sodium Level 133 mEQ/L (135-145) L Potassium Level 5.1 mEQ/L (3.4-4.9) H Chloride Level 100 mEQ/L (98-107) Carbon Dioxide Level 19 mEQ/L (20-30) L Anion Gap 14 (5-15) Blood Urea Nitrogen 61 mg/dL (7-23) H Creatinine 2.3 mg/dL (0.5-0.9) H Estimat Glomerular Filtration Rate 24.6 mL/min (>60) Glucose Level 359 mg/dL (74-106) H Lactic Acid Level 1.10 mmol/L (0.66-2.22) Calcium Level 8.9 mg/dL (8.6-10.2) Total Bilirubin < 0.2 mg/dL (0.0-1.2) Aspartate Amino Transf (AST/SGOT) 7 U/L (5-40) Alanine Aminotransferase (ALT/SGPT) 12 U/L (3-33) Alkaline Phosphatase 106 U/L (35-104) H Total Creatine Kinase 27 U/L (26-140) Creatine Kinase MB 2.2 ng/mL (< 3.8) Creatine Kinase MB Relative Index 8.1 Troponin I < 0.30 ng/mL (<=0.30) Pro-B-Type Natriuretic Peptide 9607 pg/mL (0-125) H Total Protein 7.3 g/dL (6.6-8.7) Albumin 4.0 g/dL (3.5-5.2) Globulin 3.3 g/dL Albumin/Globulin Ratio 1.2 (1.0-2.7) Triglycerides Level 792 mg/dL (< 150) H Arterial Blood pH 6.963 (7.350-7.450) 6.960 (7.350-7.450) 7.124 (7.350-7.450) Arterial Blood Partial Pressure CO2 85.2 mmHg (35.0-45.0) *H 86.0 mmHg (35.0-45.0) *H 50.0 mmHg (35.0-45.0) H Arterial Blood Partial Pressure O2 180.4 mmHg (75.0-100.0) H 160.6 mmHg (75.0-100.0) H 67.1 mmHg (75.0-100.0) L Arterial Blood HCO3 18.9 mmol/L (22.0-26.0) L 18.9 mmol/L (22.0-26.0) L 16.0 mmol/L (22.0-26.0) L Arterial Blood Oxygen Saturation 97.8 % (92.0-98.0) 98.0 % (92.0-98.0) 89.5 % (92.0-98.0) L Arterial Blood Base Excess -13.9 -13.9 -12.9 Cristian Test Positive Positive Positive Height (Feet): 5 Height (Inches): 3.00 Weight (Pounds): 200 Medications Current Medications Medications (Trade) Dose Ordered Sig/Cabrera Route PRN Reason Start Time Stop Time Status Last Admin Dose Admin Albuterol/ Ipratropium (DuoNeb 0.5-3(2.5)mg/3ml) 3 ml Q4H PRN HHN Shortness of Breath 02/27/17 18:00 03/04/17 17:59 Amikacin Protocol (Amikacin pharmacy to dose) 1 ea DAILY PRN MISC PRN RX PROTOCOL 02/27/17 19:30 03/29/17 19:29 Amikacin Sulfate/ Sodium Chloride (Amikin/Sodium Chloride) 114 ml @ 114 mls/hr Q48H IV 02/27/17 23:00 03/06/17 22:59 Divalproex Sodium (Depakote Sprinkles) 500 mg Q12HR GT 02/27/17 21:00 03/29/17 20:59 Heparin Sodium (Porcine) (Heparin 5000 units/ml) 5,000 units EVERY 12 HOURS SUBQ 02/27/17 21:00 03/29/17 20:59 Levothyroxine Sodium 100 mcg 100 mcg DAILY@0630 ORAL 02/28/17 06:30 03/30/17 06:29 Lorazepam 2 mg 2 mg Q2H PRN IV For Anxiety 02/27/17 18:00 03/06/17 17:59 Norepinephrine Bitartrate/ Dextrose (Levophed/D5W) 254 ml @ 0 mls/hr Q24H IV 02/27/17 18:00 03/29/17 17:59 Ondansetron HCl (Zofran) 4 mg Q6H PRN IVP Nausea & Vomiting 02/27/17 18:00 03/29/17 17:59 Pantoprazole (Protonix) 40 mg DAILY IVP 02/28/17 09:00 03/30/17 08:59 Polyethylene Glycol (Miralax) 17 gm DAILYPRN PRN ORAL Constipation 02/27/17 18:00 03/29/17 17:59 Propofol (Diprivan) 100 ml @ 0 mls/hr Q24H IV 02/27/17 16:15 03/01/17 16:14 02/27/17 17:10 Sodium Chloride (Sodium Chloride 1000ml bag) 1,000 ml @ 100 mls/hr Q10H IVLG 02/27/17 19:00 03/29/17 18:59 Vancomycin HCl 1 ea 1 ea DAILY PRN MISC PRN RX PROTOCOL 02/27/17 19:15 03/29/17 19:14 Vancomycin HCl/ Dextrose 250 ml @ 125 mls/hr QHS IVPB 02/27/17 21:00 03/04/17 20:59 Assessment/Plan Problem List: (1) Septic shock ICD Codes: A41.9 - Sepsis, unspecified organism; R65.21 - Severe sepsis with septic shock SNOMED: 04461587 (2) Respiratory distress ICD Codes: R06.00 - Dyspnea, unspecified SNOMED: 081048397 (3) ATN (acute tubular necrosis) ICD Codes: N17.0 - Acute kidney failure with tubular necrosis SNOMED: 08388214 (4) Hypothyroidism ICD Codes: E03.9 - Hypothyroidism SNOMED: 09701488 (5) Diabetes mellitus ICD Codes: E11.9 - Diabetes mellitus SNOMED: 73913650 Respiratory: monitor respiratory rate, adjust FIO2, CXR Cardiac: continue to monitor HR/BP Renal: F/U I&O, keep IV fluid Infectious Disease: check cultures Gastrointestinal: continue feedings/current rate Endocrine: monitor blood sugar, check TSH, continue sliding scale insulin Hematologic: monitor H/H, transfuse if hgb<8.5 Neurologic: PRN Ativan, keep patient comfortable Affect: PRN ativan Prophylaxis: Protonix Time Spent (Minutes): 40 Notes Reviewed: pharmaceutical development technician, cardio, 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, consultants, director case management LORNE DENNEY Feb 27, 2017 21:10
[2017-02-27] MEDS: Vancomycin 1.5gm/D5W 250ml 250 ML IVPB SCH (21:56)
[2017-02-27] MEDS: Heparin 5000 units/ml inj SUBQ SCH (22:11)
[2017-02-27] MEDS ORDERED: Amikacin 1,000 MG in NS 110 ML IV SCH (23:00)
[2017-02-27] MEDS: Valproic Acid 250mg/5ml Liquid GT SCH (23:20)
[2017-02-27] MEDS ORDERED: Amikacin 0 MG in NS 110 ML IV SCH (23:45)
[2017-02-27] MEDS ORDERED: Vancomycin 1 GM in D5W 275 ML IV SCH (23:45)
[2017-02-28] VITALS (24 sets, daily range): BP systolic 99–150; BP diastolic 58–80
--- NOTE | 2017-02-28 01:10 | Wound Care Consultation ---
Wound Assessment Wound Assessment #1: Wound Number: #1 Wound Present on Admission: Yes New Wound: No Status Change of Wound: No Wound Location Body Site Modif: mid Wound Location Body Site: sacral Wound Type: pressure ulcer Fred Test: Does not Fred Pressure Ulcer Stage: II - scattered Wound Thickness: Partial Thickness Wound Length: 4.0 Wound Width: 3.0 Wound Depth: less than 0.1 Percent of Wound [place]/Red: 100 Wound Drainage Description: Serosanguineous Wound Drainage Amount: Scant Wound Drainage Odor: None/Absent Tissue Surrounding Wound: Erythemic Wound General Appearance: Reddened Wound Assessment #2: Wound Number: #2 Wound Present on Admission: Yes New Wound: No Status Change of Wound: No Wound Location Body Site Modif: right, lateral Wound Location Body Site: metatarsal head - 1st Wound Type: scab Fred Test: Does not Fred Pressure Ulcer Stage: IV/unstageable - dry scab Wound Thickness: Full Thickness Wound Length: 0.5 Wound Width: 0.5 Wound Depth: utd Percent of Wound Bed Yellow/Wh: 100 Wound Drainage Amount: None Wound Drainage Odor: None/Absent Tissue Surrounding Wound: Erythemic Wound General Appearance: Asymptomatic, Reddened Wound Assessment #3: Wound Number: #3 Wound Present on Admission: Yes New Wound: No Status Change of Wound: No Wound Location Body Site Modif: right, plantar Wound Location Body Site: metatarsal head - 3rd Fred Test: Does not Fred Vascular Issues: diabetic foot ulcers Wound Thickness: Full Thickness Wound Length: 1.0 Wound Width: 1.0 Wound Depth: 0.2 Percent of Wound Bed Yellow/Wh: 100 Wound Drainage Description: Serosanguineous Wound Drainage Amount: Scant Wound Drainage Odor: None/Absent Tissue Surrounding Wound: Intact Wound General Appearance: Draining Wound Assessment #4: Wound Number: #4 Wound Present on Admission: Yes New Wound: No Status Change of Wound: No Wound Location Body Site: perineal area Wound Type: chemical burn Fred Test: Does not Fred Percent of Wound [place]/Red: 100 Wound Drainage Amount: None Wound Drainage Odor: None/Absent Tissue Surrounding Wound: Erythemic Wound General Appearance: Reddened Wound Assessment #5: Wound Number: #5 Wound Present on Admission: Yes New Wound: No Status Change of Wound: No Wound Location Body Site: abdominal fold Wound Type: rash Fred Test: Does not Fred Percent of Wound [place]/Red: 100 Wound Drainage Amount: None Wound Drainage Odor: None/Absent Tissue Surrounding Wound: Erythemic Wound General Appearance: Reddened Wound Comment #1 Sacral scattered stage II pressure ulcers #2 Left ischial tuberosity scattered stage II pressure ulcers #3 Perineal chemical burn #4 Right lateral metatarsal head pressure ulcer with dry yellow scab #5 Right plantar 3rd metatarsal head DM ulcer #6 Abdominal fold rashes Recommendation -Sacral scattered stage II pressure ulcers and Left ischial tuberosity scattered stage II pressure ulcers Cleanse with saline, pat dry, apply Triad cream, cover with bordered gauze daily and PRN soiled/dislodged -Perineal chemical burn and Abdominal fold rashes Cleanse with saline, pat dry, apply Lotrimin lotion daily and leave area open to air -Right plantar 3rd metatarsal head DM ulcer Cleanse with saline, apply Silvasorb gel to wound bed, cover with bordered gauze daily and PRN soiled/dislodged -Right lateral metatarsal head pressure ulcer with dry yellow scab Cleanse with saline, pat dry, apply skin barrier film daily and leave area open to air -keep clean and dry -Turn and reposition -Optimize nutrition -Low air loss mattress -Offload both heels -Heel protector on both heels -Assess and f/u accordingly for any changes EDER ANGUIANO RN Feb 28, 2017 01:10
[2017-02-28] MEDS: LORazepam Inj 2mg/ml 1ml IV PRN (04:51)
[2017-02-28 05:25] LABS: MEAN CORPUSCULAR HEMOGLOBIN 29.7 PG (27.0-31.0); MEAN CORPUSCULAR VOLUME 96 FL (80-99); MEAN PLATELET VOLUME 5.7 FL (6.5-10.1); PLATELET COUNT 294 K/UL (150-450); RED BLOOD COUNT 3.13 M/UL (4.20-5.40); RED CELL DISTRIBUTION WIDTH 17.1 % (11.6-14.8)
[2017-02-28 05:45] LABS: ALANINE AMINOTRANSFERASE 12 U/L (3-33); ALBUMIN/GLOBULIN RATIO 0.9 (1.0-2.7); ANION GAP 13 (5-15); ASPARTATE AMINO TRANSFERASE 9 U/L (5-40); CALCIUM 8.2 mg/dL (8.6-10.2); CARBON DIOXIDE 17 mEQ/L (20-30); CHLORIDE 108 mEQ/L (98-107); CREATININE 2.2 mg/dL (0.5-0.9); GLOMERULAR FILTRATION RATE 25.9 mL/min (>60); HEMOLYSIS 7; POTASSIUM 4.2 mEQ/L (3.4-4.9); SODIUM 138 mEQ/L (135-145); TOTAL PROTEIN 6.3 g/dL (6.6-8.7)
[2017-02-28] MEDS ORDERED: Amikacin 1,000 MG in NS 110 ML IV SCH (07:17)
[2017-02-28 07:28] LABS: BILIRUBIN,DIRECT 0.1 mg/dL (0.1-0.3)
--- NOTE | 2017-02-28 08:16 | Consultation ---
DATE OF CONSULTATION: 02/28/2017 ENDOCRINE CONSULTATION CONSULTING PHYSICIAN: Michael Yepez M.D. REFERRING PHYSICIAN: Micheal Smith M.D. REASON FOR CONSULTATION: 1. Diabetes management. 2. Hypothyroidism. HISTORY OF PRESENT ILLNESS: It is important to know that history is obtained from review of the chart and medical record since the patient is intubated in the ICU and not able to provide any meaningful history. The patient is a 31-year-old morbidly obese female with history of sleep apnea as well as spina bifida, hypothyroidism, and diabetes, who was brought to the emergency department for evaluation by paramedics. The patient has been short of breath and she had altered mental status. She was intubated and admitted in the ICU. Blood glucose is about 300 to 400 mg/dL. Endocrinology was consulted. PAST MEDICAL HISTORY: 1. Morbid Obesity. 2. Spina bifida. 3. Hypothyroidism. 4. Diabetes. 5. Sleep apnea. MEDICATIONS: Medication as an outpatient reviewed and reconciled. SOCIAL HISTORY: Residing in the assisted facility. FAMILY HISTORY: Noncontributory. REVIEW OF SYSTEMS: Unobtainable. PHYSICAL EXAMINATION: VITAL SIGNS: Blood pressure is 113/66, respiratory rate 18, pulse of 90, and temperature of 97.9. HEENT: Pupils are equal and reactive to light. Orally intubated. NECK: No JVD. HEART: Regular. LUNGS: Decreased breath sounds. ABDOMEN: Distended. EXTREMITIES: Positive for edema. LABORATORY VALUES: Sodium 138, potassium 4.2, chloride 108, bicarb 17, BUN 58, creatinine 2.2, and glucose of 356. Lactic acid 1.0. Triglycerides 792. DIAGNOSES: 1. Respiratory failure. 2. Urinary tract infection. 3. Sleep apnea. 4. Spina bifida. 5. Diabetes out of control. 6. Hypothyroidism. PLAN: 1. Discontinue all the outpatient diabetic medication. 2. Blood glucose was monitored every four hours with high dose NovoLog sliding scale. 3. Add Levemir 15 units b.i.d. 4. Check thyroid function test. TSH and free T4. 5. Adjust Levothyroxine dosage as indicated. 6. I will follow the patient during hospital stay. Thank you, Dr. Smith, for the courtesy of this consultation. Michael Yepez M.D. DR: DORIS JOB#: [id number] CC: JEFF
[2017-02-28 08:57] LABS: THYROID STIMULATING HORMONE 2.44 uIU/mL (0.300-4.500)
--- NOTE | 2017-02-28 09:28 | Pulmonolgy Critical Care Note ---
Critical Care - Asmt/Plan Problems: (1) Respiratory distress (2) Septic shock (3) ATN (acute tubular necrosis) (4) Diabetes mellitus (5) Spina bifida Respiratory: monitor respiratory rate, adjust FIO2, CXR Cardiac: continue to monitor HR/BP Renal: F/U I&O, keep IV fluid Infectious Disease: check cultures, continue antibiotics Gastrointestinal: continue feedings/current rate Endocrine: monitor blood sugar, check TSH, check HgA1C Hematologic: transfuse if hgb<8.5 Neurologic: PRN Ativan, PRN Morphine, keep patient comfortable Affect: PRN ativan Prophylaxis: Protonix, Heparin Notes Reviewed: childcare provider, cardio 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, consultants, family caseworkermanager clinical applications - Objective Last 24 Hour Vital Signs Date Time Temp Pulse Resp B/P Pulse Ox O2 Delivery O2 Flow Rate FiO2 02/28/17 07:40 100 16 40 02/28/17 07:40 100 16 Mechanical Ventilator 40 02/28/17 07:18 107/66 02/28/17 07:00 102 18 107/68 99 Mechanical Ventilator 40 02/28/17 06:00 100 18 113/60 99 Mechanical Ventilator 40 02/28/17 05:00 100 18 113/71 99 Mechanical Ventilator 40 02/28/17 04:54 118 18 40 02/28/17 04:00 98.5 103 18 104/68 99 Mechanical Ventilator 40 02/28/17 04:00 101 02/28/17 04:00 40 02/28/17 03:12 101 16 40 02/28/17 03:00 102 18 108/65 99 Mechanical Ventilator 40 02/28/17 02:00 102 18 105/67 99 Mechanical Ventilator 40 02/28/17 01:17 99 16 40 02/28/17 01:00 102 18 103/58 99 Mechanical Ventilator 40 02/28/17 00:00 97 18 103/58 98 Mechanical Ventilator 40 02/28/17 00:00 101 02/27/17 23:10 92 16 40 02/27/17 23:00 99.5 94 16 103/58 99 Mechanical Ventilator 40 02/27/17 22:00 98 18 103/58 100 Mechanical Ventilator 40 02/27/17 21:28 92 16 40 02/27/17 21:00 94 18 105/63 100 Mechanical Ventilator 40 02/27/17 20:48 40 02/27/17 20:30 99.4 100 18 145/68 100 Mechanical Ventilator 40 02/27/17 20:30 100 02/27/17 19:32 97.9 76 18 131/64 100 Mechanical Ventilator 15.0 40 02/27/17 19:02 78 18 Mechanical Ventilator 02/27/17 19:00 76 18 131/64 100 Mechanical Ventilator 40 02/27/17 18:46 79 18 40 02/27/17 18:30 81 18 125/69 100 Mechanical Ventilator 40 02/27/17 18:10 18 02/27/17 18:00 75 18 119/64 100 Mechanical Ventilator 40 02/27/17 18:00 103/58 02/27/17 17:35 40 02/27/17 17:35 91 18 40 02/27/17 17:30 88 18 127/78 100 Mechanical Ventilator 35 02/27/17 17:14 35 02/27/17 17:10 18 02/27/17 17:00 90 18 122/69 100 Mechanical Ventilator 35 02/27/17 16:30 88 18 121/78 97 Mechanical Ventilator 35 02/27/17 16:00 103 18 145/69 99 Mechanical Ventilator 35 02/27/17 15:55 103 18 35 02/27/17 15:05 96 20 99 Facial 15.0 50 02/27/17 15:00 96 26 127/72 99 Bi-pap 50 02/27/17 14:00 99 28 127/72 100 Bi-pap 50 02/27/17 13:40 97.9 93 20 124/67 97 Non-Rebreather 15.0 02/27/17 13:35 97.9 97 21 113/66 100 Venturi Mask 50 02/27/17 13:35 50 02/27/17 13:35 97 28 Bi-pap 50 02/27/17 13:17 90 18 99 Facial 15.0 50 Status: sedated Condition: critical HEENT: atraumatic Neck: full ROM Lungs: clear Heart: HR/BP stable, regular Abdomen: soft, active bowel sounds, feeding tube Extremities: no C/C/E, edema Accucheck: 385 Critical Care - Subjective ICU Day: 2 Intubation Day: 2 Condition: critical EKG Rhythm: Sinus Rhythm FI02: 40 Vent Support Breath Rate: 16 Vent Support Mode: AC Vent Tidal Volume: 600 Sputum Amount: None PIP: 29 Fluids: NS 100 cc/hour Drips: none I&O: Intake and Output 02/27/17 02/28/17 19:00 07:00 Intake Total 2112.7 ml 1039 ml Output Total 1200 ml 1920 ml Balance 912.7 ml -881 ml Intake Oral 0 ml IV Total 2112.7 ml 1039 ml Output Urine Total 1200 ml 1920 ml # Bowel Movements 4 CXR: ET in good position ET-Tube: 7.5 ET Position: 23 Labs: Laboratory Tests Test 02/27/17 13:50 02/27/17 14:30 02/27/17 15:12 02/27/17 17:18 White Blood Count 14.2 K/UL (4.8-10.8) H Red Blood Count 3.86 M/UL (4.20-5.40) L Hemoglobin 11.2 G/DL (12.0-16.0) L Hematocrit 37.3 % (37.0-47.0) Mean Corpuscular Volume 97 FL (80-99) Mean Corpuscular Hemoglobin 29.0 PG (27.0-31.0) Mean Corpuscular Hemoglobin Concent 30.0 G/DL (32.0-36.0) L Red Cell Distribution Width 17.4 % (11.6-14.8) H Platelet Count 379 K/UL (150-450) Mean Platelet Volume 5.9 FL (6.5-10.1) L Neutrophils (%) (Auto) % (45.0-75.0) Lymphocytes (%) (Auto) % (20.0-45.0) Monocytes (%) (Auto) % (1.0-10.0) Eosinophils (%) (Auto) % (0.0-3.0) Basophils (%) (Auto) % (0.0-2.0) Differential Total Cells Counted 100 Neutrophils % (Manual) 87 % (45-75) H Lymphocytes % (Manual) 6 % (20-45) L Monocytes % (Manual) 7 % (1-10) Eosinophils % (Manual) 0 % (0-3) Basophils % (Manual) 0 % (0-2) Band Neutrophils 0 % (0-8) Platelet Estimate Adequate Platelet Morphology Normal Polychromasia Rare Hypochromasia 1+ Anisocytosis 1+ Urine Color Pale yellow Urine Appearance Cloudy Urine pH 6 (4.5-8.0) Urine Specific [place] 1.015 (1.005-1.035) Urine Protein 3+ (NEGATIVE) H Urine Glucose (UA) 3+ (NEGATIVE) H Urine Ketones Negative (NEGATIVE) Urine Occult Blood 3+ (NEGATIVE) H Urine Nitrite Positive (NEGATIVE) H Urine Bilirubin Negative (NEGATIVE) Urine Urobilinogen Normal MG/DL (0.0-1.0) Urine Leukocyte Esterase 3+ (NEGATIVE) H Urine RBC 5-10 /HPF (0 - 2) H Urine WBC 60-80 /HPF (0 - 2) H Urine Squamous Epithelial Cells Few /LPF (NONE/OCC) Urine Bacteria Moderate /HPF (NONE) H Sodium Level 133 mEQ/L (135-145) L Potassium Level 5.1 mEQ/L (3.4-4.9) H Chloride Level 100 mEQ/L (98-107) Carbon Dioxide Level 19 mEQ/L (20-30) L Anion Gap 14 (5-15) Blood Urea Nitrogen 61 mg/dL (7-23) H Creatinine 2.3 mg/dL (0.5-0.9) H Estimat Glomerular Filtration Rate 24.6 mL/min (>60) Glucose Level 359 mg/dL (74-106) H Lactic Acid Level 1.10 mmol/L (0.66-2.22) Calcium Level 8.9 mg/dL (8.6-10.2) Total Bilirubin < 0.2 mg/dL (0.0-1.2) Aspartate Amino Transf (AST/SGOT) 7 U/L (5-40) Alanine Aminotransferase (ALT/SGPT) 12 U/L (3-33) Alkaline Phosphatase 106 U/L (35-104) H Total Creatine Kinase 27 U/L (26-140) Creatine Kinase MB 2.2 ng/mL (< 3.8) Creatine Kinase MB Relative Index 8.1 Troponin I < 0.30 ng/mL (<=0.30) Pro-B-Type Natriuretic Peptide 9607 pg/mL (0-125) H Total Protein 7.3 g/dL (6.6-8.7) Albumin 4.0 g/dL (3.5-5.2) Globulin 3.3 g/dL Albumin/Globulin Ratio 1.2 (1.0-2.7) Triglycerides Level 792 mg/dL (< 150) H Arterial Blood pH 6.963 (7.350-7.450) 6.960 (7.350-7.450) 7.124 (7.350-7.450) Arterial Blood Partial Pressure CO2 85.2 mmHg (35.0-45.0) *H 86.0 mmHg (35.0-45.0) *H 50.0 mmHg (35.0-45.0) H Arterial Blood Partial Pressure O2 180.4 mmHg (75.0-100.0) H 160.6 mmHg (75.0-100.0) H 67.1 mmHg (75.0-100.0) L Arterial Blood HCO3 18.9 mmol/L (22.0-26.0) L 18.9 mmol/L (22.0-26.0) L 16.0 mmol/L (22.0-26.0) L Arterial Blood Oxygen Saturation 97.8 % (92.0-98.0) 98.0 % (92.0-98.0) 89.5 % (92.0-98.0) L Arterial Blood Base Excess -13.9 -13.9 -12.9 Cristian Test Positive Positive Positive Test 02/28/17 04:00 02/28/17 04:10 White Blood Count 11.0 K/UL (4.8-10.8) H Red Blood Count 3.13 M/UL (4.20-5.40) L Hemoglobin 9.3 G/DL (12.0-16.0) L Hematocrit 30.0 % (37.0-47.0) L Mean Corpuscular Volume 96 FL (80-99) Mean Corpuscular Hemoglobin 29.7 PG (27.0-31.0) Mean Corpuscular Hemoglobin Concent 31.0 G/DL (32.0-36.0) L Red Cell Distribution Width 17.1 % (11.6-14.8) H Platelet Count 294 K/UL (150-450) Mean Platelet Volume 5.7 FL (6.5-10.1) L Neutrophils (%) (Auto) % (45.0-75.0) Lymphocytes (%) (Auto) % (20.0-45.0) Monocytes (%) (Auto) % (1.0-10.0) Eosinophils (%) (Auto) % (0.0-3.0) Basophils (%) (Auto) % (0.0-2.0) Sodium Level 138 mEQ/L (135-145) Potassium Level 4.2 mEQ/L (3.4-4.9) Chloride Level 108 mEQ/L (98-107) H Carbon Dioxide Level 17 mEQ/L (20-30) L Anion Gap 13 (5-15) Blood Urea Nitrogen 58 mg/dL (7-23) H Creatinine 2.2 mg/dL (0.5-0.9) H Estimat Glomerular Filtration Rate 25.9 mL/min (>60) Glucose Level 256 mg/dL (74-106) #H Calcium Level 8.2 mg/dL (8.6-10.2) L Total Bilirubin < 0.2 mg/dL (0.0-1.2) Direct Bilirubin 0.1 mg/dL (0.1-0.3) Aspartate Amino Transf (AST/SGOT) 9 U/L (5-40) Alanine Aminotransferase (ALT/SGPT) 12 U/L (3-33) Alkaline Phosphatase 98 U/L (35-104) Total Protein 6.3 g/dL (6.6-8.7) L Albumin 3.1 g/dL (3.5-5.2) L Globulin 3.2 g/dL Albumin/Globulin Ratio 0.9 (1.0-2.7) L Thyroid Stimulating Hormone (TSH) 2.440 uIU/mL (0.300-4.500) Free Thyroxine 0.79 ng/dL (0.86-1.85) L LORNE DENNEY Feb 28, 2017 09:28
[2017-02-28] MEDS: Valproic Acid 250mg/5ml Liquid GT SCH ×2 (09:37→21:16)
[2017-02-28] MEDS: Pantoprazole Inj IVP SCH (09:37)
[2017-02-28] MEDS: NovoLOG Insulin Flexpen SUBQ SCH ×4 (09:39→21:18)
[2017-02-28] MEDS: Levemir Flexpen SUBQ SCH ×2 (09:39→18:03)
[2017-02-28] MEDS: Heparin 5000 units/ml inj SUBQ SCH ×2 (09:40→21:19)
--- NOTE | 2017-02-28 10:05 | Infectious Diseases Prog Note ---
Assessment/Plan Assessment/Plan ID consult dictated # [id number] Subjective Allergies: Coded Allergies: CIPROFLOXACIN (Verified Allergy, Severe, Anaphylaxis, 05/18/12) KETOROLAC (Unverified Allergy, Severe, Anaphylaxis, 03/04/14) Throat collapsed LATEX (Verified Allergy, Severe, Anaphylaxis, 03/06/14) verbalized by pt LEVOFLOXACIN (Verified Allergy, Severe, Anaphylaxis, 05/18/12) MORPHINE (Verified Allergy, Intermediate, Itching, 05/18/12) ACETAMINOPHEN (Unverified Allergy, Unknown, 04/01/15) ALOE (Unverified Allergy, Unknown, 11/03/15) ALOE VERA (Unverified Allergy, Unknown, 04/01/15) CELERY (Unverified Allergy, Unknown, 04/01/15) COCONUT (Unverified Allergy, Unknown, 11/03/15) COCONUT OIL (Unverified Allergy, Unknown, 04/01/15) FISH CONTAINING PRODUCTS (Unverified Allergy, Unknown, 10/04/16) HYDROCODONE (Unverified Allergy, Unknown, 04/01/15) LIDOCAINE (Unverified Allergy, Unknown, Rash, 09/21/15) with lidocaine cream MELON (Unverified Allergy, Unknown, 04/01/15) ONION (Unverified Allergy, Unknown, 11/03/15) PINEAPPLE (Unverified Allergy, Unknown, 10/04/16) Red Pepper (Unverified Allergy, Unknown, 04/01/15) TRAMADOL (Unverified Allergy, Unknown, 04/01/15) TROMETHAMINE (Unverified Allergy, Unknown, 04/01/15) WITCH ANNA (Unverified Allergy, Unknown, 04/01/15) Uncoded Allergies: CRANBERRY JUICE (Allergy, Unknown, 10/04/16) onion (Allergy, Unknown, 04/01/15) glueten (Adverse Reaction, Unknown, 09/17/15) Objective Vital Signs Last 24 Hour Vital Signs Date Time Temp Pulse Resp B/P Pulse Ox O2 Delivery O2 Flow Rate FiO2 02/28/17 07:40 100 16 40 02/28/17 07:40 100 16 Mechanical Ventilator 40 02/28/17 07:18 107/66 02/28/17 07:00 102 18 107/68 99 Mechanical Ventilator 40 02/28/17 06:00 100 18 113/60 99 Mechanical Ventilator 40 02/28/17 05:00 100 18 113/71 99 Mechanical Ventilator 40 02/28/17 04:54 118 18 40 02/28/17 04:00 98.5 103 18 104/68 99 Mechanical Ventilator 40 02/28/17 04:00 101 02/28/17 04:00 40 02/28/17 03:12 101 16 40 02/28/17 03:00 102 18 108/65 99 Mechanical Ventilator 40 02/28/17 02:00 102 18 105/67 99 Mechanical Ventilator 40 02/28/17 01:17 99 16 40 02/28/17 01:00 102 18 103/58 99 Mechanical Ventilator 40 02/28/17 00:00 97 18 103/58 98 Mechanical Ventilator 40 02/28/17 00:00 101 02/27/17 23:10 92 16 40 02/27/17 23:00 99.5 94 16 103/58 99 Mechanical Ventilator 40 02/27/17 22:00 98 18 103/58 100 Mechanical Ventilator 40 02/27/17 21:28 92 16 40 02/27/17 21:00 94 18 105/63 100 Mechanical Ventilator 40 02/27/17 20:48 40 02/27/17 20:30 99.4 100 18 145/68 100 Mechanical Ventilator 40 02/27/17 20:30 100 02/27/17 19:32 97.9 76 18 131/64 100 Mechanical Ventilator 15.0 40 02/27/17 19:02 78 18 Mechanical Ventilator 02/27/17 19:00 76 18 131/64 100 Mechanical Ventilator 40 02/27/17 18:46 79 18 40 02/27/17 18:30 81 18 125/69 100 Mechanical Ventilator 40 17 18:10 18 17 18:00 75 18 119/64 100 Mechanical Ventilator 40 17 18:00 103/58 17 17:35 40 24/17 17:35 91 18 40 724/17 17:30 88 18 127/78 100 Mechanical Ventilator 35 24/17 17:14 35 724/17 17:10 18 724/17 17:00 90 18 122/69 100 Mechanical Ventilator 35 24/17 16:30 88 18 121/78 97 Mechanical Ventilator 35 7/24/17 16:00 103 18 145/69 99 Mechanical Ventilator 35 02/27/17 15:55 103 18 35 02/27/17 15:05 96 20 99 Facial 15.0 50 02/27/17 15:00 96 26 127/72 99 Bi-pap 50 02/27/17 14:00 99 28 127/72 100 Bi-pap 50 02/27/17 13:40 97.9 93 20 124/67 97 Non-Rebreather 15.0 02/27/17 13:35 97.9 97 21 113/66 100 Venturi Mask 50 02/27/17 13:35 50 02/27/17 13:35 97 28 Bi-pap 50 02/27/17 13:17 90 18 99 Facial 15.0 50 Height (Feet): 5 Height (Inches): 3.00 Weight (Pounds): 250 Laboratory Tests Test 02/27/17 13:50 02/27/17 14:30 02/27/17 15:12 02/27/17 17:18 White Blood Count 14.2 K/UL (4.8-10.8) H Red Blood Count 3.86 M/UL (4.20-5.40) L Hemoglobin 11.2 G/DL (12.0-16.0) L Hematocrit 37.3 % (37.0-47.0) Mean Corpuscular Volume 97 FL (80-99) Mean Corpuscular Hemoglobin 29.0 PG (27.0-31.0) Mean Corpuscular Hemoglobin Concent 30.0 G/DL (32.0-36.0) L Red Cell Distribution Width 17.4 % (11.6-14.8) H Platelet Count 379 K/UL (150-450) Mean Platelet Volume 5.9 FL (6.5-10.1) L Neutrophils (%) (Auto) % (45.0-75.0) Lymphocytes (%) (Auto) % (20.0-45.0) Monocytes (%) (Auto) % (1.0-10.0) Eosinophils (%) (Auto) % (0.0-3.0) Basophils (%) (Auto) % (0.0-2.0) Differential Total Cells Counted 100 Neutrophils % (Manual) 87 % (45-75) H Lymphocytes % (Manual) 6 % (20-45) L Monocytes % (Manual) 7 % (1-10) Eosinophils % (Manual) 0 % (0-3) Basophils % (Manual) 0 % (0-2) Band Neutrophils 0 % (0-8) Platelet Estimate Adequate Platelet Morphology Normal Polychromasia Rare Hypochromasia 1+ Anisocytosis 1+ Urine Color Pale yellow Urine Appearance Cloudy Urine pH 6 (4.5-8.0) Urine Specific [place] 1.015 (1.005-1.035) Urine Protein 3+ (NEGATIVE) H Urine Glucose (UA) 3+ (NEGATIVE) H Urine Ketones Negative (NEGATIVE) Urine Occult Blood 3+ (NEGATIVE) H Urine Nitrite Positive (NEGATIVE) H Urine Bilirubin Negative (NEGATIVE) Urine Urobilinogen Normal MG/DL (0.0-1.0) Urine Leukocyte Esterase 3+ (NEGATIVE) H Urine RBC 5-10 /HPF (0 - 2) H Urine WBC 60-80 /HPF (0 - 2) H Urine Squamous Epithelial Cells Few /LPF (NONE/OCC) Urine Bacteria Moderate /HPF (NONE) H Sodium Level 133 mEQ/L (135-145) L Potassium Level 5.1 mEQ/L (3.4-4.9) H Chloride Level 100 mEQ/L (98-107) Carbon Dioxide Level 19 mEQ/L (20-30) L Anion Gap 14 (5-15) Blood Urea Nitrogen 61 mg/dL (7-23) H Creatinine 2.3 mg/dL (0.5-0.9) H Estimat Glomerular Filtration Rate 24.6 mL/min (>60) Glucose Level 359 mg/dL (74-106) H Lactic Acid Level 1.10 mmol/L (0.66-2.22) Calcium Level 8.9 mg/dL (8.6-10.2) Total Bilirubin < 0.2 mg/dL (0.0-1.2) Aspartate Amino Transf (AST/SGOT) 7 U/L (5-40) Alanine Aminotransferase (ALT/SGPT) 12 U/L (3-33) Alkaline Phosphatase 106 U/L (35-104) H Total Creatine Kinase 27 U/L (26-140) Creatine Kinase MB 2.2 ng/mL (< 3.8) Creatine Kinase MB Relative Index 8.1 Troponin I < 0.30 ng/mL (<=0.30) Pro-B-Type Natriuretic Peptide 9607 pg/mL (0-125) H Total Protein 7.3 g/dL (6.6-8.7) Albumin 4.0 g/dL (3.5-5.2) Globulin 3.3 g/dL Albumin/Globulin Ratio 1.2 (1.0-2.7) Triglycerides Level 792 mg/dL (< 150) H Arterial Blood pH 6.963 (7.350-7.450) 6.960 (7.350-7.450) 7.124 (7.350-7.450) Arterial Blood Partial Pressure CO2 85.2 mmHg (35.0-45.0) *H 86.0 mmHg (35.0-45.0) *H 50.0 mmHg (35.0-45.0) H Arterial Blood Partial Pressure O2 180.4 mmHg (75.0-100.0) H 160.6 mmHg (75.0-100.0) H 67.1 mmHg (75.0-100.0) L Arterial Blood HCO3 18.9 mmol/L (22.0-26.0) L 18.9 mmol/L (22.0-26.0) L 16.0 mmol/L (22.0-26.0) L Arterial Blood Oxygen Saturation 97.8 % (92.0-98.0) 98.0 % (92.0-98.0) 89.5 % (92.0-98.0) L Arterial Blood Base Excess -13.9 -13.9 -12.9 Cristian Test Positive Positive Positive Test 02/28/17 04:00 02/28/17 04:10 White Blood Count 11.0 K/UL (4.8-10.8) H Red Blood Count 3.13 M/UL (4.20-5.40) L Hemoglobin 9.3 G/DL (12.0-16.0) L Hematocrit 30.0 % (37.0-47.0) L Mean Corpuscular Volume 96 FL (80-99) Mean Corpuscular Hemoglobin 29.7 PG (27.0-31.0) Mean Corpuscular Hemoglobin Concent 31.0 G/DL (32.0-36.0) L Red Cell Distribution Width 17.1 % (11.6-14.8) H Platelet Count 294 K/UL (150-450) Mean Platelet Volume 5.7 FL (6.5-10.1) L Neutrophils (%) (Auto) % (45.0-75.0) Lymphocytes (%) (Auto) % (20.0-45.0) Monocytes (%) (Auto) % (1.0-10.0) Eosinophils (%) (Auto) % (0.0-3.0) Basophils (%) (Auto) % (0.0-2.0) Sodium Level 138 mEQ/L (135-145) Potassium Level 4.2 mEQ/L (3.4-4.9) Chloride Level 108 mEQ/L (98-107) H Carbon Dioxide Level 17 mEQ/L (20-30) L Anion Gap 13 (5-15) Blood Urea Nitrogen 58 mg/dL (7-23) H Creatinine 2.2 mg/dL (0.5-0.9) H Estimat Glomerular Filtration Rate 25.9 mL/min (>60) Glucose Level 256 mg/dL (74-106) #H Calcium Level 8.2 mg/dL (8.6-10.2) L Total Bilirubin < 0.2 mg/dL (0.0-1.2) Direct Bilirubin 0.1 mg/dL (0.1-0.3) Aspartate Amino Transf (AST/SGOT) 9 U/L (5-40) Alanine Aminotransferase (ALT/SGPT) 12 U/L (3-33) Alkaline Phosphatase 98 U/L (35-104) Total Protein 6.3 g/dL (6.6-8.7) L Albumin 3.1 g/dL (3.5-5.2) L Globulin 3.2 g/dL Albumin/Globulin Ratio 0.9 (1.0-2.7) L Thyroid Stimulating Hormone (TSH) 2.440 uIU/mL (0.300-4.500) Free Thyroxine 0.79 ng/dL (0.86-1.85) L Current Medications Medications (Trade) Dose Ordered Sig/Cabrera Route PRN Reason Start Time Stop Time Status Last Admin Dose Admin Albuterol/ Ipratropium (DuoNeb 0.5-3(2.5)mg/3ml) 3 ml Q4H PRN HHN Shortness of Breath 02/27/17 18:00 03/04/17 17:59 Clotrimazole (Lotrimin) 1 applic EVERY 12 HOURS TOPIC 02/28/17 09:00 03/30/17 08:59 02/28/17 09:00 Dextrose STAT PRN IV Hypoglycemia 02/28/17 07:30 03/30/17 07:29 Heparin Sodium (Porcine) (Heparin 5000 units/ml) 5,000 units EVERY 12 HOURS SUBQ 02/27/17 21:00 03/29/17 20:59 02/28/17 09:40 Insulin Aspart (NovoLOG) EVERY 4 HOURS SUBQ 02/28/17 09:00 03/30/17 08:59 02/28/17 09:39 Insulin Detemir (Levemir) 15 units BID SUBQ 02/28/17 09:00 03/30/17 08:59 02/28/17 09:39 Levothyroxine Sodium 100 mcg 100 mcg DAILY@0630 ORAL 02/28/17 06:30 03/30/17 06:29 02/28/17 06:13 Lorazepam (Ativan 2mg/ml 1ml) 2 mg Q2H PRN IV For Anxiety 02/27/17 18:00 03/06/17 17:59 02/28/17 04:51 Ondansetron HCl (Zofran) 4 mg Q6H PRN IVP Nausea & Vomiting 02/27/17 18:00 03/29/17 17:59 02/28/17 09:38 Pantoprazole (Protonix) 40 mg DAILY IVP 02/28/17 09:00 03/30/17 08:59 02/28/17 09:37 Piperacillin Sod/ Tazobactam Sod/ Dextrose (Zosyn/D5W) 110 ml @ 27.5 mls/hr EVERY 12 HOURS IVPB 02/28/17 10:00 03/05/17 09:59 UNV Polyethylene Glycol (Miralax) 17 gm DAILYPRN PRN ORAL Constipation 02/27/17 18:00 03/29/17 17:59 Sodium Chloride (Sodium Chloride 1000ml bag) 1,000 ml @ 100 mls/hr Q10H IVLG 02/27/17 19:00 03/29/17 18:59 02/28/17 05:00 Valproic Acid (Depakene) 500 mg Q12HR GT 02/27/17 23:00 03/29/17 22:59 02/28/17 09:37 Vancomycin HCl 1 ea 1 ea DAILY PRN MISC PRN RX PROTOCOL 02/27/17 19:15 03/29/17 19:14 Vancomycin HCl/ Dextrose (Vancomycin 1.5gm/D5W 250ml) 250 ml @ 125 mls/hr QHS IVPB 02/27/17 21:00 03/04/17 20:59 02/27/17 21:56 JILL HOLLEY Feb 28, 2017 10:04
[2017-02-28 10:08] LABS: ABG BASE EXCESS -9.2; ABG PCO2 43.7 mmHg (35.0-45.0)
[2017-02-28 10:09] LABS: ABG ALLEN TEST POSITIVE
--- NOTE | 2017-02-28 10:13 | Diagnostic Imaging Report ---
Indication: TUBE PLCWY Technique: One view of the chest Comparison: 2-1/2 hours earlier Findings: Endotracheal intubation, endotracheal tube tip approximately 2 cm above the myla. Other findings are unchanged. Impression: Satisfactory endotracheal intubation
[2017-02-28 10:21] LABS: MAGNESIUM 1.8 mg/dL (1.7-2.5); PHOSPHORUS 4.4 mg/dL (2.5-4.8)
[2017-02-28] MEDS ORDERED: Piperacillin/Tazobactam 3.375 GM in D5W 110 ML IVPB SCH (11:30)
--- NOTE | 2017-02-28 11:57 | Diagnostic Imaging Report ---
Indication: DYSPNEA Technique: One view of the chest Comparison: 02/27/2017 Findings: Interstitial congestive changes persist. Probably unchanged. Heart remains borderline enlarged. Right-sided ventriculoperitoneal shunt tubing, broken left chest port catheter again demonstrated Impression: Unchanged, over one day, findings as above.
--- NOTE | 2017-02-28 13:36 | Diagnostic Imaging Report ---
Indication: Abnormal renal function tests Technique: Grayscale and duplex images of the kidneys, retroperitoneum, and bladder were obtained. Comparison:03/21/2016 Findings: Right kidney measures 12.3 cm in length. Left kidney measures 8.6 cm in length. Both kidneys demonstrate slightly increased echogenicity. No hydronephrosis. The right kidney demonstrates a 13 mm upper pole cyst. This is also described previously.. Normal inferior vena cava. Bladder is empty, contains a Alvarado catheter. Increased renal echogenicity is a new finding Impression: Mildly increased renal echogenicity, compatible with medical renal disease Negative for hydronephrosis Right renal upper pole cyst. Alvarado catheter within empty bladder
--- NOTE | 2017-02-28 15:46 | Consultation ---
DATE OF CONSULTATION: 02/28/2017 INFECTIOUS DISEASE CONSULTATION This consult is for coverage of Dr. Palma. PRIMARY ATTENDING PHYSICIAN: Micheal Smith M.D. REASON FOR CONSULT: Sepsis and UTI. HISTORY OF PRESENT ILLNESS: This is a 31-year-old white female who is a intermediate resident admitted with altered mental status and shortness of breath. It was found that the patient has acidosis, hypercapnic respiratory failure, and sepsis. She was admitted through the ICU and intubated. Currently, she is not a source of history. PAST MEDICAL HISTORY: Significant for morbid obesity, spina bifida, diabetes mellitus, hypothyroidism, bipolar disorder, and has left side Port-A-Cath. MEDICATIONS: The patient is getting medications, Protonix, Amikacin Levemir insulin, levothyroxine, valproic acid, vancomycin, DuoNeb inhaler, MiraLax, Zofran, and lorazepam. ALLERGIES: Allergy to Cipro, coconut, cranberry, fish, hydrocodone, and Latex. SOCIAL HISTORY: half-way resident. No history of alcohol, drug abuse, or smoking. REVIEW OF SYSTEMS: Unobtainable. PHYSICAL EXAMINATION: GENERAL APPEARANCE: She seems morbidly obese. VITAL SIGNS: Temperature 98.5 degrees, T-max is 99.5. HEAD AND NECK: Status post intubated orally. She has a NG tube. HEART: Tachycardic. LUNGS: Clear. ABDOMEN: Soft. Obese. The patient has a suprapubic catheter. EXTREMITIES: Recently had bilateral compression devices for legs. LABORATORY AND DIAGNOSTIC DATA: Blood gas showed pH of 7.124, pCO2 of 50, pO2 of 67, and O2 saturation 89.5. Sodium 138, potassium 4.2, chloride 108, bicarbonate 17, BUN 58, creatinine 2.2, and glucose is 256. . UA showed, leukocyte is trace 2+, nitrite positive. WBC today is 11 coming down from 14.2, hemoglobin 11.3, hematocrit 30, and platelets 294,000. Chest x-ray showed cardiomegaly, mild congestion, left side Port-A-Cath. IMPRESSION: 1. Severe sepsis. 2. Acute renal failure. 3. Hypercapnic respiratory failure. 4. The patient has complicated urinary tract infection. 5. Status post suprapubic catheter. 6. Diabetes mellitus, uncontrolled. 7. Hypothyroidism. 8. Morbid obesity. RECOMMENDATION: Continue with vancomycin. We will change amikacin to Zosyn. We will follow up the cultures. At the end of my exam, I thank Dr. Smith, for involving me in the care of this patient. Lalo Haddad M.D. DR: EDINSON JOB#: [id number] CC: [id number]
[2017-02-28] MEDS: Piperacillin/Tazobactam 3.375 GM in D5W 110 ML IVPB SCH (18:02)
--- NOTE | 2017-02-28 18:09 | Cardiology Report ---
APPROVED REPORT EXAM: Two-dimensional and M-mode echocardiogram with Doppler and color Doppler. INDICATION Left ventricular function M-Mode DIMENSIONS IVSd1.1 (0.7-1.1cm)Left Atrium (MM)3.2 (1.6-4.0cm) LVDd4.1 (3.5-5.6cm)Aortic Root2.3 (2.0-3.7cm) PWd1.0 (0.7-1.1cm)Aortic Cusp Exc.1.5 (1.5-2.0cm) LVDs2.7 (2.5-4.0cm) PWs1.1 cm Technically difficult study due to poor acoustic windows. Limited images due to lack of apical windows. Normal left ventricular chamber size, systolic function and wall motion. Left ventricular ejection fraction estimated to be 55-60% to extend visualized. No evidence of left ventricular hypertrophy. No evidence of pericardial fat or effusion. Focal aortic valve sclerosis with adequate cusp excursion Thickened mitral valve leaflets with normal excursion. Mitral annulus and aortic root calcification. Pulmonic valve not well visualized. Normal tricuspid valve structure. IVC not obtainable. A color flow and spectral Doppler study was performed and revealed: Trace tricuspid regurgitation. Tricuspid systolic velocities suggests peak right ventricular systolic pressure of 11 mmHg
--- NOTE | 2017-02-28 18:15 | Cardiology Report ---
APPROVED REPORT EKG Measurement Heart [id number] Normal sinus rhythm Inferior-posterior infarct, age undetermined Abnormal ECG
[2017-02-28] MEDS: Vancomycin 1.5gm/D5W 250ml 250 ML IVPB SCH (21:40)
[2017-03-01] VITALS (24 sets, daily range): BP systolic 93–159; BP diastolic 58–94
[2017-03-01] MEDS: LORazepam Inj 2mg/ml 1ml IV PRN ×3 (00:30→19:27)
[2017-03-01] MEDS: NovoLOG Insulin Flexpen SUBQ SCH ×6 (00:33→20:30)
[2017-03-01] MEDS: Piperacillin/Tazobactam 3.375 GM in D5W 110 ML IVPB SCH ×3 (04:11→18:04)
[2017-03-01] MEDS: Morphine Sulfate 2mg/ml Inj IVP PRN ×4 (05:07→23:00)
[2017-03-01 05:19] LABS: BASOPHILS % (AUTO) 0.8 % (0.0-2.0); EOSINOPHILS % (AUTO) 2.6 % (0.0-3.0); LYMPHOCYTES % (AUTO) 12.3 % (20.0-45.0); MEAN CORPUSCULAR HEMOGLOBIN 29.2 PG (27.0-31.0); MEAN CORPUSCULAR HGB CONC 30.5 G/DL (32.0-36.0); MEAN CORPUSCULAR VOLUME 96 FL (80-99); MEAN PLATELET VOLUME 6.9 FL (6.5-10.1); MONOCYTES % (AUTO) 7.5 % (1.0-10.0); NEUTROPHILS % (AUTO) 76.8 % (45.0-75.0); PLATELET COUNT 342 K/UL (150-450); RED BLOOD COUNT 3.35 M/UL (4.20-5.40); RED CELL DISTRIBUTION WIDTH 16.8 % (11.6-14.8); WHITE BLOOD COUNT 12.8 K/UL (4.8-10.8)
--- NOTE | 2017-03-01 05:59 | General Progress Note ---
Assessment/Plan Problem List: (1) UTI (lower urinary tract infection) ICD Codes: N39.0 - Urinary tract infection, site not specified SNOMED: 3739709 (2) Spina bifida ICD Codes: Q05.9 - Spina bifida SNOMED: 17055304 (3) Morbid obesity ICD Codes: E66.01 - Morbid (severe) obesity due to excess calories SNOMED: 648570617 (4) Hyperglycemia ICD Codes: R73.9 - Hyperglycemia, unspecified SNOMED: 85075547 (5) Hypercapnia ICD Codes: R06.89 - Other abnormalities of breathing SNOMED: 83068877 (6) Diabetes mellitus ICD Codes: E11.9 - Diabetes mellitus SNOMED: 06820369 (7) Hypothyroidism ICD Codes: E03.9 - Hypothyroidism SNOMED: 94192809 Assessment/Plan intubated in icu - not on TF BG values improved TSH is at target - continue Levemir 15 units bid + high dose SSI every 4 hours - continue LT4 100 mcg daily Subjective ROS Limited/Unobtainable: Yes Allergies: Coded Allergies: CIPROFLOXACIN (Verified Allergy, Severe, Anaphylaxis, 05/18/12) KETOROLAC (Unverified Allergy, Severe, Anaphylaxis, 03/04/14) Throat collapsed LATEX (Verified Allergy, Severe, Anaphylaxis, 03/06/14) verbalized by pt LEVOFLOXACIN (Verified Allergy, Severe, Anaphylaxis, 05/18/12) MORPHINE (Verified Allergy, Intermediate, Itching, 05/18/12) ACETAMINOPHEN (Unverified Allergy, Unknown, 04/01/15) ALOE (Unverified Allergy, Unknown, 11/03/15) ALOE VERA (Unverified Allergy, Unknown, 04/01/15) CELERY (Unverified Allergy, Unknown, 04/01/15) COCONUT (Unverified Allergy, Unknown, 11/03/15) COCONUT OIL (Unverified Allergy, Unknown, 04/01/15) FISH CONTAINING PRODUCTS (Unverified Allergy, Unknown, 10/04/16) HYDROCODONE (Unverified Allergy, Unknown, 04/01/15) LIDOCAINE (Unverified Allergy, Unknown, Rash, 09/21/15) with lidocaine cream MELON (Unverified Allergy, Unknown, 04/01/15) ONION (Unverified Allergy, Unknown, 11/03/15) PINEAPPLE (Unverified Allergy, Unknown, 10/04/16) Red Pepper (Unverified Allergy, Unknown, 04/01/15) TRAMADOL (Unverified Allergy, Unknown, 04/01/15) TROMETHAMINE (Unverified Allergy, Unknown, 04/01/15) WITCH ANNA (Unverified Allergy, Unknown, 04/01/15) Uncoded Allergies: CRANBERRY JUICE (Allergy, Unknown, 10/04/16) onion (Allergy, Unknown, 04/01/15) glueten (Adverse Reaction, Unknown, 09/17/15) Subjective remained intubated in icu awake Objective Last 24 Hour Vital Signs Date Time Temp Pulse Resp B/P Pulse Ox O2 Delivery O2 Flow Rate FiO2 03/01/17 05:12 75 22 40 03/01/17 03:10 75 16 40 03/01/17 01:09 85 16 40 03/01/17 00:00 40 02/28/17 23:14 81 16 40 02/28/17 22:00 78 17 125/73 99 Mechanical Ventilator 40 02/28/17 21:08 75 16 40 02/28/17 21:00 79 17 120/71 99 Mechanical Ventilator 40 02/28/17 20:00 80 02/28/17 20:00 40 02/28/17 20:00 99.4 80 16 129/71 99 Mechanical Ventilator 40 02/28/17 19:13 75 16 Mechanical Ventilator 40 02/28/17 19:12 77 16 40 02/28/17 19:00 81 20 113/70 99 Mechanical Ventilator 40 02/28/17 18:00 101 18 150/80 99 Mechanical Ventilator 40 02/28/17 17:20 106 20 40 02/28/17 17:00 109 18 115/67 99 Mechanical Ventilator 40 02/28/17 16:00 99.0 109 18 121/73 99 Mechanical Ventilator 40 02/28/17 16:00 40 02/28/17 16:00 110 02/28/17 15:00 106 20 40 02/28/17 15:00 114 18 106/61 99 Mechanical Ventilator 40 02/28/17 14:00 114 18 119/73 99 Mechanical Ventilator 40 02/28/17 13:06 103 16 40 02/28/17 13:00 113 1 111/67 99 Mechanical Ventilator 40 02/28/17 12:00 40 02/28/17 12:00 99 02/28/17 12:00 99.0 111 21 109/61 99 Mechanical Ventilator 40 02/28/17 11:22 105 16 40 02/28/17 11:00 105 23 113/78 99 Mechanical Ventilator 40 02/28/17 10:00 112 21 111/68 99 Mechanical Ventilator 40 02/28/17 09:30 104 16 40 02/28/17 09:00 110 22 103/65 99 Mechanical Ventilator 40 02/28/17 08:00 104 02/28/17 08:00 99.1 115 20 99/59 99 Mechanical Ventilator 40 02/28/17 08:00 40 02/28/17 07:40 100 16 40 02/28/17 07:40 100 16 Mechanical Ventilator 40 02/28/17 07:18 107/66 02/28/17 07:00 102 18 107/68 99 Mechanical Ventilator 40 02/28/17 06:00 100 18 113/60 99 Mechanical Ventilator 40 Intake and Output 02/28/17 03/01/17 19:00 07:00 Intake Total 1170.0 ml 0 ml Output Total 1235 ml 850 ml Balance -65.0 ml -850 ml Intake Oral 0 ml 0 ml IV Total 1170.0 ml Output Urine Total 1235 ml 850 ml # Bowel Movements 3 1 Laboratory Tests 02/28/17 09:45: Arterial Blood pH 7.230*L, Arterial Blood Partial Pressure CO2 43.7, Arterial Blood Partial Pressure O2 90.1, Arterial Blood HCO3 17.9L, Arterial Blood Oxygen Saturation 95.0, Arterial Blood Base Excess -9.2, Cristian Test Positive 03/01/17 04:45: White Blood Count 12.8H, Red Blood Count 3.35L, Hemoglobin 9.8L, Hematocrit 32.1L, Mean Corpuscular Volume 96, Mean Corpuscular Hemoglobin 29.2, Mean Corpuscular Hemoglobin Concent 30.5L, Red Cell Distribution Width 16.8H, Platelet Count 342, Mean Platelet Volume 6.9, Neutrophils (%) (Auto) 76.8H, Lymphocytes (%) (Auto) 12.3L, Monocytes (%) (Auto) 7.5, Eosinophils (%) (Auto) 2.6, Basophils (%) (Auto) 0.8, Sodium Level [Pending], Potassium Level [Pending] , Chloride Level [Pending], Carbon Dioxide Level [Pending], Blood Urea Nitrogen [Pending], Creatinine [Pending], Estimat Glomerular Filtration Rate [Pending], Glucose Level [Pending], Calcium Level [Pending], Phosphorus Level [Pending], Magnesium Level [Pending], Total Bilirubin [Pending], Aspartate Amino Transf ( AST/SGOT) [Pending], Alanine Aminotransferase (ALT/SGPT) [Pending], Alkaline Phosphatase [Pending], Total Protein [Pending], Albumin [Pending], Globulin [ Pending] Height (Feet): 5 Height (Inches): 3.00 Weight (Pounds): 246 General Appearance: no apparent distress Neck: normal alignment Cardiovascular: normal peripheral pulses Respiratory/Chest: decreased breath sounds Abdomen: normal bowel sounds Pelvis: normal external exam Edema: 1+ Arm (L), 1+ Arm (R), 1+ Leg (L), 1+ Leg (R), 1+ Pedal (L), 1+ Pedal ( R), 1+ Generalized Objective Current Medications Medications (Trade) Dose Ordered Sig/Cabrera Route PRN Reason Start Time Stop Time Status Last Admin Dose Admin Albuterol/ Ipratropium (DuoNeb 0.5-3(2.5)mg/3ml) 3 ml Q4H PRN HHN Shortness of Breath 02/27/17 18:00 03/04/17 17:59 Clotrimazole (Lotrimin) 1 applic EVERY 12 HOURS TOPIC 02/28/17 09:00 03/30/17 08:59 02/28/17 21:21 Dextrose STAT PRN IV Hypoglycemia 02/28/17 07:30 03/30/17 07:29 Heparin Sodium (Porcine) (Heparin 5000 units/ml) 5,000 units EVERY 12 HOURS SUBQ 02/27/17 21:00 03/29/17 20:59 02/28/17 21:19 Insulin Aspart (NovoLOG) EVERY 4 HOURS SUBQ 02/28/17 09:00 03/30/17 08:59 03/01/17 05:02 Insulin Detemir (Levemir) 15 units BID SUBQ 02/28/17 09:00 03/30/17 08:59 02/28/17 18:03 Levothyroxine Sodium 100 mcg 100 mcg DAILY@0630 ORAL 02/28/17 06:30 03/30/17 06:29 02/28/17 06:13 Lorazepam (Ativan 2mg/ml 1ml) 2 mg Q2H PRN IV For Anxiety 02/27/17 18:00 03/06/17 17:59 03/01/17 00:30 Morphine Sulfate (Morphine Sulfate) 2 mg Q4H PRN IVP Severe Pain (Pain Scale 7-10) 02/28/17 19:00 03/07/17 18:59 03/01/17 05:07 Ondansetron HCl (Zofran) 4 mg Q6H PRN IVP Nausea & Vomiting 02/27/17 18:00 03/29/17 17:59 02/28/17 09:38 Pantoprazole (Protonix) 40 mg DAILY IVP 02/28/17 09:00 03/30/17 08:59 02/28/17 09:37 Piperacillin Sod/ Tazobactam Sod/ Dextrose (Zosyn/D5W) 110 ml @ 27.5 mls/hr Q8HR@0400,1200,1800 IVPB 02/28/17 18:00 03/07/17 17:59 03/01/17 04:11 Polyethylene Glycol (Miralax) 17 gm DAILYPRN PRN ORAL Constipation 02/27/17 18:00 03/29/17 17:59 Sodium Chloride (Sodium Chloride 1000ml bag) 1,000 ml @ 100 mls/hr Q10H IVLG 02/27/17 19:00 03/29/17 18:59 02/28/17 22:42 Valproic Acid (Depakene) 500 mg Q12HR GT 02/27/17 23:00 03/29/17 22:59 02/28/17 21:16 Vancomycin HCl 1 ea 1 ea DAILY PRN MISC PRN RX PROTOCOL 02/27/17 19:15 03/29/17 19:14 Vancomycin HCl/ Dextrose (Vancomycin 1.5gm/D5W 250ml) 250 ml @ 125 mls/hr QHS IVPB 02/27/17 21:00 03/04/17 20:59 02/28/17 21:40 Item Value Date Time Bedside Blood Glucose 125 mg/dl H 03/01/17 0502 Bedside Blood Glucose 173 mg/dl H 03/01/17 0033 Bedside Blood Glucose 176 mg/dl H 02/28/17 2118 Bedside Blood Glucose 225 mg/dl H 02/28/17 1803 Bedside Blood Glucose 110 mg/dl 02/28/17 1300 Bedside Blood Glucose 254 mg/dl H 02/28/17 0939 LUPE MALDONADO Mar 01, 2017 05:59
[2017-03-01 06:03] LABS: ALANINE AMINOTRANSFERASE 11 U/L (3-33); ALBUMIN/GLOBULIN RATIO 0.9 (1.0-2.7); ANION GAP 16 (5-15); ASPARTATE AMINO TRANSFERASE 9 U/L (5-40); CALCIUM 8.4 mg/dL (8.6-10.2); CARBON DIOXIDE 17 mEQ/L (20-30); CHLORIDE 114 mEQ/L (98-107); CREATININE 2.3 mg/dL (0.5-0.9); GLOMERULAR FILTRATION RATE 24.6 mL/min (>60); HEMOLYSIS 2; MAGNESIUM 1.7 mg/dL (1.7-2.5); PHOSPHORUS 3.5 mg/dL (2.5-4.8); SODIUM 147 mEQ/L (135-145); TOTAL PROTEIN 6.4 g/dL (6.6-8.7)
--- NOTE | 2017-03-01 08:07 | Infectious Diseases Prog Note ---
Assessment/Plan Assessment/Plan A: 1. Severe sepsis. 2. Acute renal failure. 3. Hypercapnic respiratory failure. 4. The patient has complicated urinary tract infection. 5. Status post suprapubic catheter. 6. Diabetes mellitus, uncontrolled. 7. Hypothyroidism. 8. Morbid obesity. 9. s/p [employer] shunt, ? fractured P; Continue Zosyn & Vancomycin Will f/u cultures Subjective ROS Limited/Unobtainable: Yes Gastrointestinal/Abdominal: Reports: nausea, vomiting Allergies: Coded Allergies: CIPROFLOXACIN (Verified Allergy, Severe, Anaphylaxis, 05/18/12) KETOROLAC (Unverified Allergy, Severe, Anaphylaxis, 03/04/14) Throat collapsed LATEX (Verified Allergy, Severe, Anaphylaxis, 03/06/14) verbalized by pt LEVOFLOXACIN (Verified Allergy, Severe, Anaphylaxis, 05/18/12) MORPHINE (Verified Allergy, Intermediate, Itching, 05/18/12) ACETAMINOPHEN (Unverified Allergy, Unknown, 04/01/15) ALOE (Unverified Allergy, Unknown, 11/03/15) ALOE VERA (Unverified Allergy, Unknown, 04/01/15) CELERY (Unverified Allergy, Unknown, 04/01/15) COCONUT (Unverified Allergy, Unknown, 11/03/15) COCONUT OIL (Unverified Allergy, Unknown, 04/01/15) FISH CONTAINING PRODUCTS (Unverified Allergy, Unknown, 10/04/16) HYDROCODONE (Unverified Allergy, Unknown, 04/01/15) LIDOCAINE (Unverified Allergy, Unknown, Rash, 09/21/15) with lidocaine cream MELON (Unverified Allergy, Unknown, 04/01/15) ONION (Unverified Allergy, Unknown, 11/03/15) PINEAPPLE (Unverified Allergy, Unknown, 10/04/16) Red Pepper (Unverified Allergy, Unknown, 04/01/15) TRAMADOL (Unverified Allergy, Unknown, 04/01/15) TROMETHAMINE (Unverified Allergy, Unknown, 04/01/15) WITCH ANNA (Unverified Allergy, Unknown, 04/01/15) Uncoded Allergies: CRANBERRY JUICE (Allergy, Unknown, 10/04/16) onion (Allergy, Unknown, 04/01/15) glueten (Adverse Reaction, Unknown, 09/17/15) Objective Vital Signs Last 24 Hour Vital Signs Date Time Temp Pulse Resp B/P Pulse Ox O2 Delivery O2 Flow Rate FiO2 03/01/17 06:54 85 16 40 03/01/17 06:00 89 17 138/73 99 Mechanical Ventilator 40 03/01/17 05:12 75 22 40 03/01/17 05:00 93 18 149/88 100 Mechanical Ventilator 40 03/01/17 04:00 40 03/01/17 04:00 98.8 74 18 115/68 100 Mechanical Ventilator 40 03/01/17 04:00 92 03/01/17 03:10 75 16 40 03/01/17 03:00 74 16 119/72 99 Mechanical Ventilator 40 03/01/17 02:00 73 20 105/64 100 Mechanical Ventilator 40 03/01/17 01:09 85 16 40 03/01/17 01:00 85 20 147/84 98 Mechanical Ventilator 40 03/01/17 00:00 88 03/01/17 00:00 40 03/01/17 00:00 99.0 88 18 147/84 100 Mechanical Ventilator 40 02/28/17 23:14 81 16 40 02/28/17 23:00 81 16 129/77 100 Mechanical Ventilator 40 02/28/17 22:00 78 17 125/73 99 Mechanical Ventilator 40 02/28/17 21:08 75 16 40 02/28/17 21:00 79 17 120/71 99 Mechanical Ventilator 40 02/28/17 20:00 80 02/28/17 20:00 40 02/28/17 20:00 99.4 80 16 129/71 99 Mechanical Ventilator 40 02/28/17 19:13 75 16 Mechanical Ventilator 40 02/28/17 19:12 77 16 40 02/28/17 19:00 81 20 113/70 99 Mechanical Ventilator 40 02/28/17 18:00 101 18 150/80 99 Mechanical Ventilator 40 02/28/17 17:20 106 20 40 02/28/17 17:00 109 18 115/67 99 Mechanical Ventilator 40 02/28/17 16:00 99.0 109 18 121/73 99 Mechanical Ventilator 40 02/28/17 16:00 40 02/28/17 16:00 110 02/28/17 15:00 106 20 40 02/28/17 15:00 114 18 106/61 99 Mechanical Ventilator 40 02/28/17 14:00 114 18 119/73 99 Mechanical Ventilator 40 02/28/17 13:06 103 16 40 02/28/17 13:00 113 1 111/67 99 Mechanical Ventilator 40 02/28/17 12:00 40 02/28/17 12:00 99 02/28/17 12:00 99.0 111 21 109/61 99 Mechanical Ventilator 40 02/28/17 11:22 105 16 40 02/28/17 11:00 105 23 113/78 99 Mechanical Ventilator 40 02/28/17 10:00 112 21 111/68 99 Mechanical Ventilator 40 02/28/17 09:30 104 16 40 02/28/17 09:00 110 22 103/65 99 Mechanical Ventilator 40 02/28/17 08:00 104 02/28/17 08:00 99.1 115 20 99/59 99 Mechanical Ventilator 40 02/28/17 08:00 40 Height (Feet): 5 Height (Inches): 3.00 Weight (Pounds): 246 HEENT: other - orally intubated Respiratory/Chest: lungs clear, other - on ventilator Cardiovascular: normal rate, regular rhythm Abdomen: soft, non tender, other - NG tube Genitourinary: other - suprapubic catheter Extremities: other - righ femoral central line Neurologic/Psychiatric: alert, responsive Microbiology Date/Time Source Procedure Growth Status 02/27/17 13:50 Blood Blood Culture - Preliminary NO GROWTH AFTER 24 HOURS Resulted 02/27/17 13:40 Blood Blood Culture - Preliminary NO GROWTH AFTER 24 HOURS Resulted Laboratory Tests Test 02/28/17 09:45 03/01/17 04:45 Arterial Blood pH 7.230 (7.350-7.450) Arterial Blood Partial Pressure CO2 43.7 mmHg (35.0-45.0) Arterial Blood Partial Pressure O2 90.1 mmHg (75.0-100.0) Arterial Blood HCO3 17.9 mmol/L (22.0-26.0) L Arterial Blood Oxygen Saturation 95.0 % (92.0-98.0) Arterial Blood Base Excess -9.2 Cristian Test Positive White Blood Count 12.8 K/UL (4.8-10.8) H Red Blood Count 3.35 M/UL (4.20-5.40) L Hemoglobin 9.8 G/DL (12.0-16.0) L Hematocrit 32.1 % (37.0-47.0) L Mean Corpuscular Volume 96 FL (80-99) Mean Corpuscular Hemoglobin 29.2 PG (27.0-31.0) Mean Corpuscular Hemoglobin Concent 30.5 G/DL (32.0-36.0) L Red Cell Distribution Width 16.8 % (11.6-14.8) H Platelet Count 342 K/UL (150-450) Mean Platelet Volume 6.9 FL (6.5-10.1) Neutrophils (%) (Auto) 76.8 % (45.0-75.0) H Lymphocytes (%) (Auto) 12.3 % (20.0-45.0) L Monocytes (%) (Auto) 7.5 % (1.0-10.0) Eosinophils (%) (Auto) 2.6 % (0.0-3.0) Basophils (%) (Auto) 0.8 % (0.0-2.0) Sodium Level 147 mEQ/L (135-145) H Potassium Level 4.0 mEQ/L (3.4-4.9) Chloride Level 114 mEQ/L (98-107) H Carbon Dioxide Level 17 mEQ/L (20-30) L Anion Gap 16 (5-15) H Blood Urea Nitrogen 49 mg/dL (7-23) H Creatinine 2.3 mg/dL (0.5-0.9) H Estimat Glomerular Filtration Rate 24.6 mL/min (>60) Glucose Level 138 mg/dL (74-106) #H Calcium Level 8.4 mg/dL (8.6-10.2) L Phosphorus Level 3.5 mg/dL (2.5-4.8) Magnesium Level 1.7 mg/dL (1.7-2.5) Total Bilirubin < 0.2 mg/dL (0.0-1.2) Aspartate Amino Transf (AST/SGOT) 9 U/L (5-40) Alanine Aminotransferase (ALT/SGPT) 11 U/L (3-33) Alkaline Phosphatase 89 U/L (35-104) Total Protein 6.4 g/dL (6.6-8.7) L Albumin 3.1 g/dL (3.5-5.2) L Globulin 3.3 g/dL Albumin/Globulin Ratio 0.9 (1.0-2.7) L Current Medications Medications (Trade) Dose Ordered Sig/Cabrera Route PRN Reason Start Time Stop Time Status Last Admin Dose Admin Albuterol/ Ipratropium (DuoNeb 0.5-3(2.5)mg/3ml) 3 ml Q4H PRN HHN Shortness of Breath 02/27/17 18:00 03/04/17 17:59 Clotrimazole (Lotrimin) 1 applic EVERY 12 HOURS TOPIC 02/28/17 09:00 03/30/17 08:59 02/28/17 21:21 Dextrose STAT PRN IV Hypoglycemia 02/28/17 07:30 03/30/17 07:29 Heparin Sodium (Porcine) (Heparin 5000 units/ml) 5,000 units EVERY 12 HOURS SUBQ 02/27/17 21:00 03/29/17 20:59 02/28/17 21:19 Insulin Aspart (NovoLOG) EVERY 4 HOURS SUBQ 02/28/17 09:00 03/30/17 08:59 03/01/17 05:02 Insulin Detemir (Levemir) 15 units BID SUBQ 02/28/17 09:00 03/30/17 08:59 02/28/17 18:03 Levothyroxine Sodium 100 mcg 100 mcg DAILY@0630 ORAL 02/28/17 06:30 03/30/17 06:29 03/01/17 06:06 Lorazepam (Ativan 2mg/ml 1ml) 2 mg Q2H PRN IV For Anxiety 02/27/17 18:00 03/06/17 17:59 03/01/17 06:10 Morphine Sulfate (Morphine Sulfate) 2 mg Q4H PRN IVP Severe Pain (Pain Scale 7-10) 02/28/17 19:00 03/07/17 18:59 03/01/17 05:07 Ondansetron HCl (Zofran) 4 mg Q6H PRN IVP Nausea & Vomiting 02/27/17 18:00 03/29/17 17:59 02/28/17 09:38 Pantoprazole (Protonix) 40 mg DAILY IVP 02/28/17 09:00 03/30/17 08:59 02/28/17 09:37 Piperacillin Sod/ Tazobactam Sod/ Dextrose (Zosyn/D5W) 110 ml @ 27.5 mls/hr Q8HR@0400,1200,1800 IVPB 02/28/17 18:00 03/07/17 17:59 03/01/17 04:11 Polyethylene Glycol (Miralax) 17 gm DAILYPRN PRN ORAL Constipation 02/27/17 18:00 03/29/17 17:59 Sodium Chloride (Sodium Chloride 1000ml bag) 1,000 ml @ 100 mls/hr Q10H IVLG 02/27/17 19:00 03/29/17 18:59 02/28/17 22:42 Valproic Acid (Depakene) 500 mg Q12HR GT 02/27/17 23:00 03/29/17 22:59 02/28/17 21:16 Vancomycin HCl 1 ea 1 ea DAILY PRN MISC PRN RX PROTOCOL 02/27/17 19:15 03/29/17 19:14 Vancomycin HCl/ Dextrose (Vancomycin 1.5gm/D5W 250ml) 250 ml @ 125 mls/hr QHS IVPB 02/27/17 21:00 03/04/17 20:59 02/28/17 21:40 JILL HOLLEY Mar 01, 2017 08:07
[2017-03-01] MEDS: Pantoprazole Inj IVP SCH (09:02)
[2017-03-01] MEDS: Valproic Acid 250mg/5ml Liquid GT SCH ×2 (09:02→20:28)
[2017-03-01] MEDS: Heparin 5000 units/ml inj SUBQ SCH ×2 (09:04→20:30)
[2017-03-01] MEDS: Levemir Flexpen SUBQ SCH ×2 (09:05→18:04)
[2017-03-01 09:41] LABS: ABG ALLEN TEST POSITIVE; ABG BASE EXCESS -11.1; ABG PCO2 38.1 mmHg (35.0-45.0)
--- NOTE | 2017-03-01 11:24 | Pulmonolgy Critical Care Note ---
Critical Care - Asmt/Plan Problems: (1) Respiratory distress (2) Septic shock (3) ATN (acute tubular necrosis) (4) Diabetes mellitus (5) Spina bifida Respiratory: monitor respiratory rate, adjust FIO2, CXR Cardiac: continue pressors, continue to monitor HR/BP Renal: F/U I&O, keep IV fluid Infectious Disease: check cultures, continue antibiotics Gastrointestinal: continue feedings/current rate, hold feedings Endocrine: check TSH, check HgA1C Neurologic: PRN Ativan, PRN Morphine Prophylaxis: Protonix Disposition: keep in ICU Notes Reviewed: ID 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, consultants, case management directormanager configuration - Objective Last 24 Hour Vital Signs Date Time Temp Pulse Resp B/P Pulse Ox O2 Delivery O2 Flow Rate FiO2 03/01/17 10:00 78 17 103/59 100 Mechanical Ventilator 40 03/01/17 09:15 96 16 40 03/01/17 09:00 79 17 112/61 99 Mechanical Ventilator 40 03/01/17 08:00 40 03/01/17 08:00 79 03/01/17 08:00 98.8 80 15 117/70 100 Mechanical Ventilator 40 03/01/17 07:00 81 17 121/73 99 Mechanical Ventilator 40 03/01/17 06:54 85 16 40 03/01/17 06:00 89 17 138/73 99 Mechanical Ventilator 40 03/01/17 05:12 75 22 40 03/01/17 05:00 93 18 149/88 100 Mechanical Ventilator 40 03/01/17 04:00 40 03/01/17 04:00 98.8 74 18 115/68 100 Mechanical Ventilator 40 03/01/17 04:00 92 03/01/17 03:10 75 16 40 03/01/17 03:00 74 16 119/72 99 Mechanical Ventilator 40 03/01/17 02:00 73 20 105/64 100 Mechanical Ventilator 40 03/01/17 01:09 85 16 40 03/01/17 01:00 85 20 147/84 98 Mechanical Ventilator 40 03/01/17 00:00 88 03/01/17 00:00 40 03/01/17 00:00 99.0 88 18 147/84 100 Mechanical Ventilator 40 02/28/17 23:14 81 16 40 02/28/17 23:00 81 16 129/77 100 Mechanical Ventilator 40 02/28/17 22:00 78 17 125/73 99 Mechanical Ventilator 40 02/28/17 21:08 75 16 40 02/28/17 21:00 79 17 120/71 99 Mechanical Ventilator 40 02/28/17 20:00 80 02/28/17 20:00 40 02/28/17 20:00 99.4 80 16 129/71 99 Mechanical Ventilator 40 02/28/17 19:13 75 16 Mechanical Ventilator 40 02/28/17 19:12 77 16 40 02/28/17 19:00 81 20 113/70 99 Mechanical Ventilator 40 02/28/17 18:00 101 18 150/80 99 Mechanical Ventilator 40 02/28/17 17:20 106 20 40 02/28/17 17:00 109 18 115/67 99 Mechanical Ventilator 40 02/28/17 16:00 99.0 109 18 121/73 99 Mechanical Ventilator 40 02/28/17 16:00 40 02/28/17 16:00 110 02/28/17 15:00 106 20 40 02/28/17 15:00 114 18 106/61 99 Mechanical Ventilator 40 02/28/17 14:00 114 18 119/73 99 Mechanical Ventilator 40 02/28/17 13:06 103 16 40 02/28/17 13:00 113 1 111/67 99 Mechanical Ventilator 40 02/28/17 12:00 40 02/28/17 12:00 99 02/28/17 12:00 99.0 111 21 109/61 99 Mechanical Ventilator 40 Status: awake Condition: critical, grave HEENT: atraumatic Neck: full ROM Lungs: clear, chest wall tender Heart: HR/BP stable, regular Abdomen: soft, non-tender, active bowel sounds Extremities: no C/C/E, edema Decubiti: stage Micro: Microbiology Date/Time Source Procedure Growth Status 02/27/17 13:50 Blood Blood Culture - Preliminary NO GROWTH AFTER 24 HOURS Resulted 02/27/17 13:40 Blood Blood Culture - Preliminary NO GROWTH AFTER 24 HOURS Resulted 02/27/17 13:50 Urine,Clean Catch Urine Culture - Preliminary Gram Negative Bacillus 1 Gram Negative Bacillus 2 Resulted Accucheck: 182 Critical Care - Subjective ROS Limited/Unobtainable: Yes ICU Day: 3 Intubation Day: 3 Condition: critical EKG Rhythm: Sinus Rhythm FI02: 40 Vent Support Breath Rate: 16 Vent Support Mode: AC Vent Tidal Volume: 600 Sputum Amount: Small PIP: 29 I&O: Intake and Output 02/28/17 03/01/17 19:00 07:00 Intake Total 1170.0 ml 1282.5 ml Output Total 1235 ml 1350 ml Balance -65.0 ml -67.5 ml Intake Oral 0 ml 0 ml IV Total 1170.0 ml 1282.5 ml Output Urine Total 1235 ml 1350 ml # Bowel Movements 3 1 CXR: no change ET-Tube: 7.5 ET Position: 23 Labs: Laboratory Tests Test 03/01/17 04:45 03/01/17 09:10 White Blood Count 12.8 K/UL (4.8-10.8) H Red Blood Count 3.35 M/UL (4.20-5.40) L Hemoglobin 9.8 G/DL (12.0-16.0) L Hematocrit 32.1 % (37.0-47.0) L Mean Corpuscular Volume 96 FL (80-99) Mean Corpuscular Hemoglobin 29.2 PG (27.0-31.0) Mean Corpuscular Hemoglobin Concent 30.5 G/DL (32.0-36.0) L Red Cell Distribution Width 16.8 % (11.6-14.8) H Platelet Count 342 K/UL (150-450) Mean Platelet Volume 6.9 FL (6.5-10.1) Neutrophils (%) (Auto) 76.8 % (45.0-75.0) H Lymphocytes (%) (Auto) 12.3 % (20.0-45.0) L Monocytes (%) (Auto) 7.5 % (1.0-10.0) Eosinophils (%) (Auto) 2.6 % (0.0-3.0) Basophils (%) (Auto) 0.8 % (0.0-2.0) Sodium Level 147 mEQ/L (135-145) H Potassium Level 4.0 mEQ/L (3.4-4.9) Chloride Level 114 mEQ/L (98-107) H Carbon Dioxide Level 17 mEQ/L (20-30) L Anion Gap 16 (5-15) H Blood Urea Nitrogen 49 mg/dL (7-23) H Creatinine 2.3 mg/dL (0.5-0.9) H Estimat Glomerular Filtration Rate 24.6 mL/min (>60) Glucose Level 138 mg/dL (74-106) #H Calcium Level 8.4 mg/dL (8.6-10.2) L Phosphorus Level 3.5 mg/dL (2.5-4.8) Magnesium Level 1.7 mg/dL (1.7-2.5) Total Bilirubin < 0.2 mg/dL (0.0-1.2) Aspartate Amino Transf (AST/SGOT) 9 U/L (5-40) Alanine Aminotransferase (ALT/SGPT) 11 U/L (3-33) Alkaline Phosphatase 89 U/L (35-104) Total Protein 6.4 g/dL (6.6-8.7) L Albumin 3.1 g/dL (3.5-5.2) L Globulin 3.3 g/dL Albumin/Globulin Ratio 0.9 (1.0-2.7) L Arterial Blood pH 7.229 (7.350-7.450) Arterial Blood Partial Pressure CO2 38.1 mmHg (35.0-45.0) Arterial Blood Partial Pressure O2 114.6 mmHg (75.0-100.0) H Arterial Blood HCO3 15.6 mmol/L (22.0-26.0) L Arterial Blood Oxygen Saturation 96.8 % (92.0-98.0) Arterial Blood Base Excess -11.1 Cristian Test Positive LORNE DENNEY Mar 01, 2017 11:24
[2017-03-01] MEDS ORDERED: Sodium Bicarbonate 50ml Carp IV ONE ×2 (13:00→13:15)
[2017-03-01] MEDS ORDERED: Tubing IV Secondary IV ONE ×2 (13:55→14:13)
[2017-03-01] MEDS ORDERED: NS 275ml ONE (13:55)
--- NOTE | 2017-03-01 15:49 | Diagnostic Imaging Report ---
Indication: DYSPNEA Technique: One view of the chest Comparison: 02/28/17 Findings: Patient's chin obscures the upper mediastinum and lung apices. Interstitial and alveolar infiltrates versus edema persists, unchanged. Heart size is borderline enlarged. Pleural spaces are clear. Right-sided ventricular peritoneal shunt tubing, left chest port catheter with broken shaft, endotracheal and nasogastric tubes remain. Findings are overall unchanged Impression: Unchanged, over one day, findings as above.
[2017-03-01] MEDS: Vancomycin 1.5gm/D5W 250ml 250 ML IVPB SCH (21:49)
[2017-03-01] MEDS ORDERED: Amikacin 1,000 MG in NS 110 ML IV SCH (23:00)
[2017-03-02] VITALS (24 sets, daily range): BP systolic 112–155; BP diastolic 45–77
[2017-03-02] MEDS: LORazepam Inj 2mg/ml 1ml IV PRN ×4 (00:38→22:55)
[2017-03-02] MEDS: NovoLOG Insulin Flexpen SUBQ SCH ×6 (00:38→20:31)
[2017-03-02] MEDS: Piperacillin/Tazobactam 3.375 GM in D5W 110 ML IVPB SCH ×2 (03:50→11:36)
[2017-03-02] MEDS: Morphine Sulfate 2mg/ml Inj IVP PRN ×3 (05:28→20:34)
[2017-03-02 05:59] LABS: BASOPHILS % (AUTO) 0.6 % (0.0-2.0); EOSINOPHILS % (AUTO) 3.8 % (0.0-3.0); LYMPHOCYTES % (AUTO) 9.9 % (20.0-45.0); MEAN CORPUSCULAR HEMOGLOBIN 29.6 PG (27.0-31.0); MEAN CORPUSCULAR HGB CONC 30.7 G/DL (32.0-36.0); MEAN CORPUSCULAR VOLUME 96 FL (80-99); MEAN PLATELET VOLUME 5.7 FL (6.5-10.1); MONOCYTES % (AUTO) 6.4 % (1.0-10.0); NEUTROPHILS % (AUTO) 79.3 % (45.0-75.0); PLATELET COUNT 277 K/UL (150-450); RED CELL DISTRIBUTION WIDTH 17.3 % (11.6-14.8); WHITE BLOOD COUNT 9.9 K/UL (4.8-10.8)
[2017-03-02 06:20] LABS: ALBUMIN/GLOBULIN RATIO 0.9 (1.0-2.7); CALCIUM 8.2 mg/dL (8.6-10.2); CREATININE 2.2 mg/dL (0.5-0.9); GLOMERULAR FILTRATION RATE 25.9 mL/min (>60); MAGNESIUM 1.6 mg/dL (1.7-2.5); PHOSPHORUS 3.5 mg/dL (2.5-4.8); POTASSIUM 3.8 mEQ/L (3.4-4.9); TOTAL PROTEIN 6.2 g/dL (6.6-8.7)
--- NOTE | 2017-03-02 06:39 | General Progress Note ---
Assessment/Plan Problem List: (1) UTI (lower urinary tract infection) ICD Codes: N39.0 - Urinary tract infection, site not specified SNOMED: 5140318 (2) Spina bifida ICD Codes: Q05.9 - Spina bifida SNOMED: 09797385 (3) Morbid obesity ICD Codes: E66.01 - Morbid (severe) obesity due to excess calories SNOMED: 742618986 (4) Hyperglycemia ICD Codes: R73.9 - Hyperglycemia, unspecified SNOMED: 07805434 (5) Hypercapnia ICD Codes: R06.89 - Other abnormalities of breathing SNOMED: 55413491 (6) Diabetes mellitus ICD Codes: E11.9 - Diabetes mellitus SNOMED: 90251702 (7) Hypothyroidism ICD Codes: E03.9 - Hypothyroidism SNOMED: 06620765 Assessment/Plan - continue Levemir 15 units bid + high dose SSI every 4 hours - continue LT4 100 mcg daily Subjective ROS Limited/Unobtainable: Yes Allergies: Coded Allergies: CIPROFLOXACIN (Verified Allergy, Severe, Anaphylaxis, 05/18/12) KETOROLAC (Unverified Allergy, Severe, Anaphylaxis, 03/04/14) Throat collapsed LATEX (Verified Allergy, Severe, Anaphylaxis, 03/06/14) verbalized by pt LEVOFLOXACIN (Verified Allergy, Severe, Anaphylaxis, 05/18/12) MORPHINE (Verified Allergy, Intermediate, Itching, 05/18/12) ACETAMINOPHEN (Unverified Allergy, Unknown, 04/01/15) ALOE (Unverified Allergy, Unknown, 11/03/15) ALOE VERA (Unverified Allergy, Unknown, 04/01/15) CELERY (Unverified Allergy, Unknown, 04/01/15) COCONUT (Unverified Allergy, Unknown, 11/03/15) COCONUT OIL (Unverified Allergy, Unknown, 04/01/15) FISH CONTAINING PRODUCTS (Unverified Allergy, Unknown, 10/04/16) HYDROCODONE (Unverified Allergy, Unknown, 04/01/15) LIDOCAINE (Unverified Allergy, Unknown, Rash, 09/21/15) with lidocaine cream MELON (Unverified Allergy, Unknown, 04/01/15) ONION (Unverified Allergy, Unknown, 11/03/15) PINEAPPLE (Unverified Allergy, Unknown, 10/04/16) Red Pepper (Unverified Allergy, Unknown, 04/01/15) TRAMADOL (Unverified Allergy, Unknown, 04/01/15) TROMETHAMINE (Unverified Allergy, Unknown, 04/01/15) WITCH ANNA (Unverified Allergy, Unknown, 04/01/15) Uncoded Allergies: CRANBERRY JUICE (Allergy, Unknown, 10/04/16) onion (Allergy, Unknown, 04/01/15) glueten (Adverse Reaction, Unknown, 09/17/15) Subjective remained intubated in icu awake Objective Last 24 Hour Vital Signs Date Time Temp Pulse Resp B/P Pulse Ox O2 Delivery O2 Flow Rate FiO2 03/02/17 06:00 94 18 146/67 100 Mechanical Ventilator 40 03/02/17 05:20 99 18 40 03/02/17 05:00 98 18 138/58 99 Mechanical Ventilator 40 03/02/17 04:00 73 03/02/17 04:00 98.6 74 16 125/48 100 Mechanical Ventilator 40 03/02/17 04:00 40 03/02/17 03:17 72 16 40 03/02/17 03:00 77 16 133/58 100 Mechanical Ventilator 40 03/02/17 02:00 85 16 129/55 100 Mechanical Ventilator 40 03/02/17 01:04 101 17 40 03/02/17 01:00 99 16 116/66 100 Mechanical Ventilator 40 03/02/17 00:00 98.6 93 17 119/59 100 Mechanical Ventilator 40 03/02/17 00:00 40 03/02/17 00:00 101 03/01/17 23:25 92 16 40 03/01/17 23:00 96 16 159/87 100 Mechanical Ventilator 40 03/01/17 22:00 80 16 110/94 100 Mechanical Ventilator 40 03/01/17 21:00 78 20 114/65 98 Mechanical Ventilator 40 03/01/17 20:54 70 16 40 03/01/17 20:00 40 03/01/17 20:00 98.3 73 17 93/63 100 Mechanical Ventilator 40 03/01/17 20:00 95 03/01/17 19:00 97 20 120/72 98 Mechanical Ventilator 40 03/01/17 18:59 92 16 40 03/01/17 18:33 98.1 03/01/17 18:00 103 19 120/91 98 Mechanical Ventilator 40 03/01/17 17:00 98 18 128/87 100 Mechanical Ventilator 40 03/01/17 16:57 94 16 40 03/01/17 16:00 40 03/01/17 16:00 98.1 71 17 115/58 100 Mechanical Ventilator 40 03/01/17 16:00 80 03/01/17 15:29 85 19 40 03/01/17 15:00 92 18 106/63 100 Mechanical Ventilator 40 03/01/17 14:00 92 18 147/83 100 Mechanical Ventilator 40 03/01/17 13:20 107 19 40 03/01/17 13:00 98 18 130/69 100 Mechanical Ventilator 40 03/01/17 12:00 74 03/01/17 12:00 40 03/01/17 12:00 98.1 72 17 109/58 100 Mechanical Ventilator 40 03/01/17 11:25 92 18 40 03/01/17 11:00 77 18 105/63 100 Mechanical Ventilator 40 03/01/17 10:00 78 17 103/59 100 Mechanical Ventilator 40 03/01/17 09:15 96 16 40 03/01/17 09:00 79 17 112/61 99 Mechanical Ventilator 40 03/01/17 08:00 40 03/01/17 08:00 79 03/01/17 08:00 98.8 80 15 117/70 100 Mechanical Ventilator 40 03/01/17 07:00 81 17 121/73 99 Mechanical Ventilator 40 03/01/17 06:54 85 16 40 Intake and Output 03/01/17 03/02/17 19:00 07:00 Intake Total 1365.0 ml 1824.5 ml Output Total 790 ml 910 ml Balance 575.0 ml 914.5 ml Intake Oral 0 ml IV Total 1265.0 ml 1462.5 ml Tube Feeding 100 ml 332 ml Other 30 ml Output Urine Total 790 ml 910 ml # Bowel Movements 1 Laboratory Tests 03/01/17 09:10: Arterial Blood pH 7.229*L, Arterial Blood Partial Pressure CO2 38.1, Arterial Blood Partial Pressure O2 114.6H, Arterial Blood HCO3 15.6L, Arterial Blood Oxygen Saturation 96.8, Arterial Blood Base Excess -11.1, Cristian Test Positive 03/02/17 05:00: White Blood Count 9.9, Red Blood Count 3.10L, Hemoglobin 9.2L, Hematocrit 29.8L , Mean Corpuscular Volume 96, Mean Corpuscular Hemoglobin 29.6, Mean Corpuscular Hemoglobin Concent 30.7L, Red Cell Distribution Width 17.3H, Platelet Count 277, Mean Platelet Volume 5.7L, Neutrophils (%) (Auto) 79.3H, Lymphocytes (%) (Auto) 9.9L, Monocytes (%) (Auto) 6.4, Eosinophils (%) (Auto) 3.8H, Basophils (%) (Auto) 0.6, Sodium Level 148H, Potassium Level 3.8, Chloride Level 116H, Carbon Dioxide Level 18L, Anion Gap 14, Blood Urea Nitrogen 41H, Creatinine 2.2H, Estimat Glomerular Filtration Rate 25.9, Glucose Level 187H, Calcium Level 8.2L, Phosphorus Level 3.5, Magnesium Level 1.6L, Total Bilirubin 0.2, Aspartate Amino Transf (AST/SGOT) 18, Alanine Aminotransferase (ALT/SGPT) 16, Alkaline Phosphatase 95, Total Protein 6.2L, Albumin 3.0L, Globulin 3.2, Albumin/Globulin Ratio 0.9L Height (Feet): 5 Height (Inches): 3.00 Weight (Pounds): 250 General Appearance: no apparent distress Neck: normal alignment Cardiovascular: normal rate Respiratory/Chest: lungs clear Abdomen: normal bowel sounds Pelvis: normal external exam Edema: 1+ Arm (L), 1+ Arm (R), 1+ Leg (L), 1+ Leg (R), 1+ Pedal (L), 1+ Pedal ( R), 1+ Generalized Objective Current Medications Medications (Trade) Dose Ordered Sig/Cabrera Route PRN Reason Start Time Stop Time Status Last Admin Dose Admin Albuterol/ Ipratropium (DuoNeb 0.5-3(2.5)mg/3ml) 3 ml Q4H PRN HHN Shortness of Breath 02/27/17 18:00 03/04/17 17:59 Chlorhexidine Gluconate (Karen-Hex 2%) 1 applic DAILY TOPIC 03/02/17 09:00 04/01/17 08:59 03/02/17 05:28 Clotrimazole (Lotrimin) 1 applic EVERY 12 HOURS TOPIC 02/28/17 09:00 8/24/17 08:59 03/01/17 20:32 Dextrose STAT PRN IV Hypoglycemia 02/28/17 07:30 03/30/17 07:29 Heparin Sodium (Porcine) (Heparin 5000 units/ml) 5,000 units EVERY 12 HOURS SUBQ 02/27/17 21:00 03/29/17 20:59 03/01/17 20:30 Insulin Aspart (NovoLOG) EVERY 4 HOURS SUBQ 02/28/17 09:00 03/30/17 08:59 03/02/17 05:28 Insulin Detemir (Levemir) 15 units BID SUBQ 02/28/17 09:00 03/30/17 08:59 03/01/17 18:04 Levothyroxine Sodium 100 mcg 100 mcg DAILY@0630 ORAL 02/28/17 06:30 03/30/17 06:29 03/02/17 05:48 Lorazepam (Ativan 2mg/ml 1ml) 2 mg Q2H PRN IV For Anxiety 02/27/17 18:00 03/06/17 17:59 03/02/17 00:38 Morphine Sulfate (Morphine Sulfate) 2 mg Q4H PRN IVP Severe Pain (Pain Scale 7-10) 02/28/17 19:00 03/07/17 18:59 03/02/17 05:28 Ondansetron HCl (Zofran) 4 mg Q6H PRN IVP Nausea & Vomiting 02/27/17 18:00 03/29/17 17:59 03/01/17 09:02 Pantoprazole (Protonix) 40 mg DAILY IVP 02/28/17 09:00 03/30/17 08:59 03/01/17 09:02 Piperacillin Sod/ Tazobactam Sod/ Dextrose (Zosyn/D5W) 110 ml @ 27.5 mls/hr Q8HR@0400,1200,1800 IVPB 02/28/17 18:00 03/07/17 17:59 03/02/17 03:50 Polyethylene Glycol (Miralax) 17 gm DAILYPRN PRN ORAL Constipation 02/27/17 18:00 03/29/17 17:59 Sodium Chloride (Sodium Chloride 1000ml bag) 1,000 ml @ 100 mls/hr Q10H IVLG 02/27/17 19:00 03/29/17 18:59 03/02/17 05:32 Valproic Acid (Depakene) 500 mg Q12HR GT 02/27/17 23:00 03/29/17 22:59 03/01/17 20:28 Vancomycin HCl 1 ea 1 ea DAILY PRN MISC PRN RX PROTOCOL 02/27/17 19:15 03/29/17 19:14 Vancomycin HCl/ Dextrose (Vancomycin 1.5gm/D5W 250ml) 250 ml @ 125 mls/hr QHS IVPB 02/27/17 21:00 03/04/17 20:59 03/01/17 21:49 Item Value Date Time Bedside Blood Glucose 169 mg/dl H 03/02/17 0528 Bedside Blood Glucose 174 mg/dl H 03/02/17 0038 Bedside Blood Glucose 162 mg/dl H 03/01/17 2032 Bedside Blood Glucose 178 mg/dl H 03/01/17 1805 Bedside Blood Glucose 157 mg/dl H 03/01/17 1300 Bedside Blood Glucose 182 mg/dl H 03/01/17 0906 Bedside Blood Glucose 125 mg/dl H 03/01/17 0502 Bedside Blood Glucose 173 mg/dl H 03/01/17 0033 LUPE MALDONADO Mar 02, 2017 06:39
[2017-03-02] MEDS: Valproic Acid 250mg/5ml Liquid GT SCH ×2 (08:37→20:29)
[2017-03-02] MEDS: Pantoprazole Inj IVP SCH (08:37)
[2017-03-02] MEDS: Heparin 5000 units/ml inj SUBQ SCH ×2 (08:37→20:32)
[2017-03-02] MEDS: Levemir Flexpen SUBQ SCH ×2 (08:38→17:19)
[2017-03-02] MEDS ORDERED: Dyna-Hex 2% Top Sol 8oz TOPIC SCH (09:00)
[2017-03-02 09:10] LABS: ABG ALLEN TEST POSITIVE; ABG BASE EXCESS -8.7; ABG PCO2 38.2 mmHg (35.0-45.0)
[2017-03-02] MEDS: Heparin 2000 units/Ns 1000ml INJ SCH (10:00)
[2017-03-02] MEDS ORDERED: Lidocaine 1% Plain 30 ml INJ SCH (10:00)
--- NOTE | 2017-03-02 10:53 | Diagnostic Imaging Report ---
Indications: DYSPNEA Technique: Portable AP chest Findings: Comparison: None Image quality remains poor, limiting evaluation. Bilateral interstitial prominence unchanged. Left midlung subsegmental atelectasis versus scarring more prominent. Focal consolidative opacity right lung base unchanged. Cardiac mediastinal silhouette stable. Lines and tubes remain in place. No new abnormality identified. IMPRESSION: No significant change from one day prior
--- NOTE | 2017-03-02 11:34 | Pulmonolgy Critical Care Note ---
Critical Care - Asmt/Plan Problems: (1) Respiratory distress (2) Septic shock (3) ATN (acute tubular necrosis) (4) Diabetes mellitus (5) Spina bifida Respiratory: monitor respiratory rate, adjust FIO2, CXR Cardiac: continue pressors, continue to monitor HR/BP Renal: F/U I&O, keep IV fluid Infectious Disease: check cultures, continue antibiotics Gastrointestinal: hold feedings Endocrine: check TSH, check HgA1C, continue sliding scale insulin Hematologic: transfuse if hgb<8.5 Neurologic: PRN Ativan, PRN Morphine, keep patient comfortable Prophylaxis: Protonix Notes Reviewed: cardio, 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, consultants, onsite case managertrade show manager - Objective Last 24 Hour Vital Signs Date Time Temp Pulse Resp B/P Pulse Ox O2 Delivery O2 Flow Rate FiO2 03/02/17 11:18 93 16 40 03/02/17 11:00 95 20 155/77 100 Mechanical Ventilator 40 03/02/17 10:00 67 19 112/46 100 Mechanical Ventilator 40 03/02/17 09:00 75 18 115/49 100 Mechanical Ventilator 40 03/02/17 08:55 79 16 40 03/02/17 08:00 40 03/02/17 08:00 85 03/02/17 08:00 98.1 83 17 114/45 100 Mechanical Ventilator 40 03/02/17 07:25 84 16 40 03/02/17 07:00 90 18 154/71 100 Mechanical Ventilator 40 03/02/17 06:00 94 18 146/67 100 Mechanical Ventilator 40 03/02/17 05:20 99 18 40 03/02/17 05:00 98 18 138/58 99 Mechanical Ventilator 40 03/02/17 04:00 73 03/02/17 04:00 98.6 74 16 125/48 100 Mechanical Ventilator 40 03/02/17 04:00 40 03/02/17 03:17 72 16 40 03/02/17 03:00 77 16 133/58 100 Mechanical Ventilator 40 03/02/17 02:00 85 16 129/55 100 Mechanical Ventilator 40 03/02/17 01:04 101 17 40 03/02/17 01:00 99 16 116/66 100 Mechanical Ventilator 40 03/02/17 00:00 98.6 93 17 119/59 100 Mechanical Ventilator 40 03/02/17 00:00 40 03/02/17 00:00 101 03/01/17 23:25 92 16 40 03/01/17 23:00 96 16 159/87 100 Mechanical Ventilator 40 03/01/17 22:00 80 16 110/94 100 Mechanical Ventilator 40 03/01/17 21:00 78 20 114/65 98 Mechanical Ventilator 40 03/01/17 20:54 70 16 40 03/01/17 20:00 40 03/01/17 20:00 98.3 73 17 93/63 100 Mechanical Ventilator 40 03/01/17 20:00 95 03/01/17 19:00 97 20 120/72 98 Mechanical Ventilator 40 03/01/17 18:59 92 16 40 03/01/17 18:33 98.1 03/01/17 18:00 103 19 120/91 98 Mechanical Ventilator 40 03/01/17 17:00 98 18 128/87 100 Mechanical Ventilator 40 03/01/17 16:57 94 16 40 03/01/17 16:00 40 03/01/17 16:00 98.1 71 17 115/58 100 Mechanical Ventilator 40 03/01/17 16:00 80 03/01/17 15:29 85 19 40 03/01/17 15:00 92 18 106/63 100 Mechanical Ventilator 40 03/01/17 14:00 92 18 147/83 100 Mechanical Ventilator 40 03/01/17 13:20 107 19 40 03/01/17 13:00 98 18 130/69 100 Mechanical Ventilator 40 03/01/17 12:00 74 03/01/17 12:00 40 03/01/17 12:00 98.1 72 17 109/58 100 Mechanical Ventilator 40 Status: awake Condition: critical, grave Neck: full ROM Lungs: clear Abdomen: active bowel sounds, feeding tube Extremities: edema Decubiti: location Micro: Microbiology Date/Time Source Procedure Growth Status 02/27/17 13:50 Blood Blood Culture - Preliminary Staphylococcus Sp Coag Neg Resulted 02/27/17 13:40 Blood Blood Culture - Preliminary NO GROWTH AFTER 48 HOURS Resulted 02/27/17 13:50 Urine,Clean Catch Urine Culture - Final Escherichia Coli Proteus Mirabilis Complete Accucheck: 170 Critical Care - Subjective ROS Limited/Unobtainable: No Condition: critical EKG Rhythm: Sinus Rhythm FI02: 40 Vent Support Breath Rate: 16 Vent Support Mode: AC Vent Tidal Volume: 600 Sputum Amount: Moderate PIP: 37 Fluids: Ns 100 cc.hour Tube Feeding Amount: 34 I&O: Intake and Output 03/01/17 03/02/17 19:00 07:00 Intake Total 1365.0 ml 1958.5 ml Output Total 790 ml 990 ml Balance 575.0 ml 968.5 ml Intake Oral 0 ml IV Total 1265.0 ml 1562.5 ml Tube Feeding 100 ml 366 ml Other 30 ml Output Urine Total 790 ml 990 ml # Bowel Movements 1 CXR: Et in good position RLL infiltrate ET-Tube: 7.0 ET Position: 23 Labs: Laboratory Tests Test 03/02/17 05:00 03/02/17 08:59 White Blood Count 9.9 K/UL (4.8-10.8) Red Blood Count 3.10 M/UL (4.20-5.40) L Hemoglobin 9.2 G/DL (12.0-16.0) L Hematocrit 29.8 % (37.0-47.0) L Mean Corpuscular Volume 96 FL (80-99) Mean Corpuscular Hemoglobin 29.6 PG (27.0-31.0) Mean Corpuscular Hemoglobin Concent 30.7 G/DL (32.0-36.0) L Red Cell Distribution Width 17.3 % (11.6-14.8) H Platelet Count 277 K/UL (150-450) Mean Platelet Volume 5.7 FL (6.5-10.1) L Neutrophils (%) (Auto) 79.3 % (45.0-75.0) H Lymphocytes (%) (Auto) 9.9 % (20.0-45.0) L Monocytes (%) (Auto) 6.4 % (1.0-10.0) Eosinophils (%) (Auto) 3.8 % (0.0-3.0) H Basophils (%) (Auto) 0.6 % (0.0-2.0) Sodium Level 148 mEQ/L (135-145) H Potassium Level 3.8 mEQ/L (3.4-4.9) Chloride Level 116 mEQ/L (98-107) H Carbon Dioxide Level 18 mEQ/L (20-30) L Anion Gap 14 (5-15) Blood Urea Nitrogen 41 mg/dL (7-23) H Creatinine 2.2 mg/dL (0.5-0.9) H Estimat Glomerular Filtration Rate 25.9 mL/min (>60) Glucose Level 187 mg/dL (74-106) H Calcium Level 8.2 mg/dL (8.6-10.2) L Phosphorus Level 3.5 mg/dL (2.5-4.8) Magnesium Level 1.6 mg/dL (1.7-2.5) L Total Bilirubin 0.2 mg/dL (0.0-1.2) Aspartate Amino Transf (AST/SGOT) 18 U/L (5-40) Alanine Aminotransferase (ALT/SGPT) 16 U/L (3-33) Alkaline Phosphatase 95 U/L (35-104) Total Protein 6.2 g/dL (6.6-8.7) L Albumin 3.0 g/dL (3.5-5.2) L Globulin 3.2 g/dL Albumin/Globulin Ratio 0.9 (1.0-2.7) L Arterial Blood pH 7.270 (7.350-7.450) Arterial Blood Partial Pressure CO2 38.2 mmHg (35.0-45.0) Arterial Blood Partial Pressure O2 119.1 mmHg (75.0-100.0) H Arterial Blood HCO3 17.4 mmol/L (22.0-26.0) L Arterial Blood Oxygen Saturation 97.3 % (92.0-98.0) Arterial Blood Base Excess -8.7 Cristian Test Positive LORNE DENNEY Mar 02, 2017 11:34
--- NOTE | 2017-03-02 13:09 | Infectious Diseases Prog Note ---
Assessment/Plan Assessment/Plan ASSESSMENT: 31 y/o female with: Recurrent complicated UTI - UCx P.mirabilis, E.coli - US: Mildly increased renal echogenicity, compatible with medical renal disease. Negative for hydronephrosis. Right renal upper pole cyst. - SPC in place - h/o E Coli and Morganella, PSA CONS bacteremia 08/10 c/w contaminant - TTE(-) SBE Left chest Port-A-Cath, with interim fracture of the tubing at or near the left jugular vein insertion site Leukocytosis - resolved, afebrile Acute VDRF - intubated 02/27 Possible CHF exacerbation - TTE: EF 65% ARF on CKD3 - stable - US: Mildly increased renal echogenicity, compatible with medical renal disease. Negative for hydronephrosis. Right renal upper pole cyst. hx of CVA s/p VPS seizure disorder DM Bipolar disorder Spina bifida [place] resident Quinolone allergy Full Code PLAN: - change IV vancomycin, zosyn d# 4 to rocephin d# 1 ( ABX d# / ) based on cultures - f/u final cultures - monitor CBC, temperatures - monitor BMP - vent support, wean as tolerated Subjective Allergies: Coded Allergies: CIPROFLOXACIN (Verified Allergy, Severe, Anaphylaxis, 05/18/12) KETOROLAC (Unverified Allergy, Severe, Anaphylaxis, 03/04/14) Throat collapsed LATEX (Verified Allergy, Severe, Anaphylaxis, 03/06/14) verbalized by pt LEVOFLOXACIN (Verified Allergy, Severe, Anaphylaxis, 05/18/12) MORPHINE (Verified Allergy, Intermediate, Itching, 05/18/12) ACETAMINOPHEN (Unverified Allergy, Unknown, 04/01/15) ALOE (Unverified Allergy, Unknown, 11/03/15) ALOE VERA (Unverified Allergy, Unknown, 04/01/15) CELERY (Unverified Allergy, Unknown, 04/01/15) COCONUT (Unverified Allergy, Unknown, 11/03/15) COCONUT OIL (Unverified Allergy, Unknown, 04/01/15) FISH CONTAINING PRODUCTS (Unverified Allergy, Unknown, 10/04/16) HYDROCODONE (Unverified Allergy, Unknown, 04/01/15) LIDOCAINE (Unverified Allergy, Unknown, Rash, 09/21/15) with lidocaine cream MELON (Unverified Allergy, Unknown, 04/01/15) ONION (Unverified Allergy, Unknown, 11/03/15) PINEAPPLE (Unverified Allergy, Unknown, 10/04/16) Red Pepper (Unverified Allergy, Unknown, 04/01/15) TRAMADOL (Unverified Allergy, Unknown, 04/01/15) TROMETHAMINE (Unverified Allergy, Unknown, 04/01/15) WITCH ANNA (Unverified Allergy, Unknown, 04/01/15) Uncoded Allergies: CRANBERRY JUICE (Allergy, Unknown, 10/04/16) onion (Allergy, Unknown, 04/01/15) glueten (Adverse Reaction, Unknown, 09/17/15) Subjective remains afebrile on vent Objective Vital Signs Last 24 Hour Vital Signs Date Time Temp Pulse Resp B/P Pulse Ox O2 Delivery O2 Flow Rate FiO2 03/02/17 12:43 79 16 40 03/02/17 12:06 98.4 03/02/17 12:00 98.4 77 18 120/52 100 Mechanical Ventilator 40 03/02/17 12:00 77 03/02/17 12:00 40 03/02/17 11:18 93 16 40 03/02/17 11:00 95 20 155/77 100 Mechanical Ventilator 40 03/02/17 10:00 67 19 112/46 100 Mechanical Ventilator 40 03/02/17 09:00 75 18 115/49 100 Mechanical Ventilator 40 03/02/17 08:55 79 16 40 03/02/17 08:00 40 03/02/17 08:00 85 03/02/17 08:00 98.1 83 17 114/45 100 Mechanical Ventilator 40 03/02/17 07:25 84 16 40 03/02/17 07:00 90 18 154/71 100 Mechanical Ventilator 40 03/02/17 06:00 94 18 146/67 100 Mechanical Ventilator 40 03/02/17 05:20 99 18 40 03/02/17 05:00 98 18 138/58 99 Mechanical Ventilator 40 03/02/17 04:00 73 03/02/17 04:00 98.6 74 16 125/48 100 Mechanical Ventilator 40 03/02/17 04:00 40 03/02/17 03:17 72 16 40 03/02/17 03:00 77 16 133/58 100 Mechanical Ventilator 40 03/02/17 02:00 85 16 129/55 100 Mechanical Ventilator 40 03/02/17 01:04 101 17 40 03/02/17 01:00 99 16 116/66 100 Mechanical Ventilator 40 03/02/17 00:00 98.6 93 17 119/59 100 Mechanical Ventilator 40 03/02/17 00:00 40 03/02/17 00:00 101 03/01/17 23:25 92 16 40 03/01/17 23:00 96 16 159/87 100 Mechanical Ventilator 40 03/01/17 22:00 80 16 110/94 100 Mechanical Ventilator 40 03/01/17 21:00 78 20 114/65 98 Mechanical Ventilator 40 03/01/17 20:54 70 16 40 03/01/17 20:00 40 03/01/17 20:00 98.3 73 17 93/63 100 Mechanical Ventilator 40 03/01/17 20:00 95 03/01/17 19:00 97 20 120/72 98 Mechanical Ventilator 40 03/01/17 18:59 92 16 40 03/01/17 18:00 103 19 120/91 98 Mechanical Ventilator 40 03/01/17 17:00 98 18 128/87 100 Mechanical Ventilator 40 03/01/17 16:57 94 16 40 03/01/17 16:00 40 03/01/17 16:00 98.1 71 17 115/58 100 Mechanical Ventilator 40 03/01/17 16:00 80 03/01/17 15:29 85 19 40 03/01/17 15:00 92 18 106/63 100 Mechanical Ventilator 40 03/01/17 14:00 92 18 147/83 100 Mechanical Ventilator 40 03/01/17 13:20 107 19 40 Height (Feet): 5 Height (Inches): 3.00 Weight (Pounds): 250 General Appearance: other - intubated, sedated Respiratory/Chest: decreased breath sounds Cardiovascular: normal rate, regular rhythm Abdomen: normal bowel sounds, soft, non tender, non distended Microbiology Date/Time Source Procedure Growth Status 02/27/17 13:50 Blood Blood Culture - Preliminary Staphylococcus Sp Coag Neg Resulted 02/27/17 13:40 Blood Blood Culture - Preliminary NO GROWTH AFTER 48 HOURS Resulted 02/27/17 13:50 Urine,Clean Catch Urine Culture - Final Escherichia Coli Proteus Mirabilis Complete Laboratory Tests Test 03/02/17 05:00 03/02/17 08:59 White Blood Count 9.9 K/UL (4.8-10.8) Red Blood Count 3.10 M/UL (4.20-5.40) L Hemoglobin 9.2 G/DL (12.0-16.0) L Hematocrit 29.8 % (37.0-47.0) L Mean Corpuscular Volume 96 FL (80-99) Mean Corpuscular Hemoglobin 29.6 PG (27.0-31.0) Mean Corpuscular Hemoglobin Concent 30.7 G/DL (32.0-36.0) L Red Cell Distribution Width 17.3 % (11.6-14.8) H Platelet Count 277 K/UL (150-450) Mean Platelet Volume 5.7 FL (6.5-10.1) L Neutrophils (%) (Auto) 79.3 % (45.0-75.0) H Lymphocytes (%) (Auto) 9.9 % (20.0-45.0) L Monocytes (%) (Auto) 6.4 % (1.0-10.0) Eosinophils (%) (Auto) 3.8 % (0.0-3.0) H Basophils (%) (Auto) 0.6 % (0.0-2.0) Sodium Level 148 mEQ/L (135-145) H Potassium Level 3.8 mEQ/L (3.4-4.9) Chloride Level 116 mEQ/L (98-107) H Carbon Dioxide Level 18 mEQ/L (20-30) L Anion Gap 14 (5-15) Blood Urea Nitrogen 41 mg/dL (7-23) H Creatinine 2.2 mg/dL (0.5-0.9) H Estimat Glomerular Filtration Rate 25.9 mL/min (>60) Glucose Level 187 mg/dL (74-106) H Calcium Level 8.2 mg/dL (8.6-10.2) L Phosphorus Level 3.5 mg/dL (2.5-4.8) Magnesium Level 1.6 mg/dL (1.7-2.5) L Total Bilirubin 0.2 mg/dL (0.0-1.2) Aspartate Amino Transf (AST/SGOT) 18 U/L (5-40) Alanine Aminotransferase (ALT/SGPT) 16 U/L (3-33) Alkaline Phosphatase 95 U/L (35-104) Total Protein 6.2 g/dL (6.6-8.7) L Albumin 3.0 g/dL (3.5-5.2) L Globulin 3.2 g/dL Albumin/Globulin Ratio 0.9 (1.0-2.7) L Arterial Blood pH 7.270 (7.350-7.450) Arterial Blood Partial Pressure CO2 38.2 mmHg (35.0-45.0) Arterial Blood Partial Pressure O2 119.1 mmHg (75.0-100.0) H Arterial Blood HCO3 17.4 mmol/L (22.0-26.0) L Arterial Blood Oxygen Saturation 97.3 % (92.0-98.0) Arterial Blood Base Excess -8.7 Cristian Test Positive Current Medications Medications (Trade) Dose Ordered Sig/Cabrera Route PRN Reason Start Time Stop Time Status Last Admin Dose Admin Albuterol/ Ipratropium (DuoNeb 0.5-3(2.5)mg/3ml) 3 ml Q4H PRN HHN Shortness of Breath 02/27/17 18:00 03/04/17 17:59 Chlorhexidine Gluconate 1 applic 1 applic QHS TOPIC 03/02/17 21:00 04/01/17 20:59 Clotrimazole (Lotrimin) 1 applic EVERY 12 HOURS TOPIC 02/28/17 09:00 03/30/17 08:59 03/02/17 08:39 Dextrose STAT PRN IV Hypoglycemia 02/28/17 07:30 03/30/17 07:29 Heparin Sodium (Porcine) (Heparin 5000 units/ml) 5,000 units EVERY 12 HOURS SUBQ 02/27/17 21:00 03/29/17 20:59 03/02/17 08:37 Heparin Sodium/ Sodium Chloride (Heparin 2000 units/Ns 1000ml premix) 2,000 unit ONCE INJ 03/02/17 10:00 03/03/17 23:59 Insulin Aspart (NovoLOG) EVERY 4 HOURS SUBQ 02/28/17 09:00 03/30/17 08:59 03/02/17 12:55 Insulin Detemir (Levemir) 15 units BID SUBQ 02/28/17 09:00 03/30/17 08:59 03/02/17 08:38 Levothyroxine Sodium (Synthroid) 100 mcg DAILY@0630 ORAL 02/28/17 06:30 03/30/17 06:29 03/02/17 05:48 Lorazepam (Ativan 2mg/ml 1ml) 2 mg Q2H PRN IV For Anxiety 02/27/17 18:00 03/06/17 17:59 03/02/17 07:36 Morphine Sulfate (Morphine Sulfate) 2 mg Q4H PRN IVP Severe Pain (Pain Scale 7-10) 02/28/17 19:00 03/07/17 18:59 03/02/17 11:36 Ondansetron HCl (Zofran) 4 mg Q6H PRN IVP Nausea & Vomiting 02/27/17 18:00 03/29/17 17:59 03/01/17 09:02 Pantoprazole (Protonix) 40 mg DAILY IVP 02/28/17 09:00 03/30/17 08:59 03/02/17 08:37 Piperacillin Sod/ Tazobactam Sod/ Dextrose (Zosyn/D5W) 110 ml @ 27.5 mls/hr Q8HR@0400,1200,1800 IVPB 02/28/17 18:00 03/07/17 17:59 03/02/17 11:36 Polyethylene Glycol (Miralax) 17 gm DAILYPRN PRN ORAL Constipation 02/27/17 18:00 03/29/17 17:59 Valproic Acid (Depakene) 500 mg Q12HR GT 02/27/17 23:00 03/29/17 22:59 03/02/17 08:37 Vancomycin HCl (Vanco rx to dose) 1 ea DAILY PRN MISC PRN RX PROTOCOL 02/27/17 19:15 03/29/17 19:14 Vancomycin HCl/ Dextrose (Vancomycin 1.5gm/D5W 250ml) 250 ml @ 125 mls/hr Q24H IVPB 03/02/17 21:00 03/07/17 20:59 LUCITA WEBSTER Mar 02, 2017 13:09
[2017-03-02] MEDS: cefTRIAXone 1 GM in D5W 55 ML IVPB SCH (17:18)
[2017-03-02] MEDS: Dyna-Hex 2% Top Sol 8oz TOPIC SCH (20:33)
[2017-03-02] MEDS ORDERED: Vancomycin 1.5gm/D5W 250ml 250 ML IVPB SCH ×2 (21:00)
[2017-03-03] VITALS (24 sets, daily range): BP systolic 100–155; BP diastolic 42–85
[2017-03-03] MEDS: Morphine Sulfate 2mg/ml Inj IVP PRN ×4 (00:38→20:06)
[2017-03-03] MEDS: NovoLOG Insulin Flexpen SUBQ SCH ×6 (00:42→20:45)
[2017-03-03] MEDS: LORazepam Inj 2mg/ml 1ml IV PRN ×5 (00:59→20:59)
[2017-03-03 06:53] LABS: CALCIUM 8.7 mg/dL (8.6-10.2); CREATININE 2.4 mg/dL (0.5-0.9); GLOMERULAR FILTRATION RATE 23.4 mL/min (>60); POTASSIUM 4.1 mEQ/L (3.4-4.9)
[2017-03-03 06:54] LABS: ALBUMIN/GLOBULIN RATIO 0.9 (1.0-2.7); TOTAL PROTEIN 6.4 g/dL (6.6-8.7)
[2017-03-03 07:00] LABS: BASOPHILS % (AUTO) 0.6 % (0.0-2.0); EOSINOPHILS % (AUTO) 3.9 % (0.0-3.0); LYMPHOCYTES % (AUTO) 8.1 % (20.0-45.0); MEAN CORPUSCULAR HEMOGLOBIN 31.2 PG (27.0-31.0); MEAN CORPUSCULAR HGB CONC 31.4 G/DL (32.0-36.0); MEAN CORPUSCULAR VOLUME 100 FL (80-99); MEAN PLATELET VOLUME 5.9 FL (6.5-10.1); MONOCYTES % (AUTO) 5.2 % (1.0-10.0); NEUTROPHILS % (AUTO) 82.2 % (45.0-75.0); PLATELET COUNT 252 K/UL (150-450); RED BLOOD COUNT 3.07 M/UL (4.20-5.40); RED CELL DISTRIBUTION WIDTH 17.8 % (11.6-14.8); WHITE BLOOD COUNT 10.4 K/UL (4.8-10.8)
[2017-03-03] MEDS: Valproic Acid 250mg/5ml Liquid GT SCH ×2 (09:10→20:44)
[2017-03-03] MEDS: Heparin 5000 units/ml inj SUBQ SCH ×2 (09:11→20:45)
[2017-03-03] MEDS: Docusate 100mg/10ml Liq ORAL SCH ×2 (09:11→17:57)
[2017-03-03] MEDS: Pantoprazole Inj IVP SCH (09:11)
[2017-03-03] MEDS: Levemir Flexpen SUBQ SCH ×2 (09:12→17:57)
[2017-03-03] MEDS: Heparin 2000 units/Ns 1000ml INJ SCH (09:15)
--- NOTE | 2017-03-03 09:18 | Infectious Diseases Prog Note ---
Assessment/Plan Assessment/Plan ASSESSMENT: 31 y/o female with: Recurrent complicated UTI - UCx P.mirabilis, E.coli - US: Mildly increased renal echogenicity, compatible with medical renal disease. Negative for hydronephrosis. Right renal upper pole cyst. - SPC in place - h/o E Coli and Morganella, PSA CONS bacteremia 08/10 c/w contaminant - TTE(-) SBE Left chest Port-A-Cath, with interim fracture of the tubing at or near the left jugular vein insertion site Leukocytosis - resolved, afebrile Acute VDRF - intubated 02/27 Possible CHF exacerbation - TTE: EF 65% ARF on CKD3 - stable - US: Mildly increased renal echogenicity, compatible with medical renal disease. Negative for hydronephrosis. Right renal upper pole cyst. hx of CVA s/p VPS seizure disorder DM Bipolar disorder Spina bifida [place] resident Quinolone allergy Full Code PLAN: - continue rocephin d# 2 ( ABX d# 5 / 10 ) ( 03/02 SP IV vancomycin, zosyn d# 4 ) - f/u final cultures - monitor CBC, temperatures - monitor BMP - vent support, wean as tolerated Subjective Allergies: Coded Allergies: CIPROFLOXACIN (Verified Allergy, Severe, Anaphylaxis, 05/18/12) KETOROLAC (Unverified Allergy, Severe, Anaphylaxis, 03/04/14) Throat collapsed LATEX (Verified Allergy, Severe, Anaphylaxis, 03/06/14) verbalized by pt LEVOFLOXACIN (Verified Allergy, Severe, Anaphylaxis, 05/18/12) MORPHINE (Verified Allergy, Intermediate, Itching, 05/18/12) ACETAMINOPHEN (Unverified Allergy, Unknown, 04/01/15) ALOE (Unverified Allergy, Unknown, 11/03/15) ALOE VERA (Unverified Allergy, Unknown, 04/01/15) CELERY (Unverified Allergy, Unknown, 04/01/15) COCONUT (Unverified Allergy, Unknown, 11/03/15) COCONUT OIL (Unverified Allergy, Unknown, 04/01/15) FISH CONTAINING PRODUCTS (Unverified Allergy, Unknown, 10/04/16) HYDROCODONE (Unverified Allergy, Unknown, 04/01/15) LIDOCAINE (Unverified Allergy, Unknown, Rash, 09/21/15) with lidocaine cream MELON (Unverified Allergy, Unknown, 04/01/15) ONION (Unverified Allergy, Unknown, 11/03/15) PINEAPPLE (Unverified Allergy, Unknown, 10/04/16) Red Pepper (Unverified Allergy, Unknown, 04/01/15) TRAMADOL (Unverified Allergy, Unknown, 04/01/15) TROMETHAMINE (Unverified Allergy, Unknown, 04/01/15) WITCH ANNA (Unverified Allergy, Unknown, 04/01/15) Uncoded Allergies: CRANBERRY JUICE (Allergy, Unknown, 10/04/16) onion (Allergy, Unknown, 04/01/15) glueten (Adverse Reaction, Unknown, 09/17/15) Subjective remains afebrile on vent Objective Vital Signs Last 24 Hour Vital Signs Date Time Temp Pulse Resp B/P Pulse Ox O2 Delivery O2 Flow Rate FiO2 03/03/17 08:00 97.7 100 20 155/77 99 Mechanical Ventilator 40 03/03/17 08:00 40 03/03/17 07:02 100 16 40 03/03/17 07:00 101 19 146/83 99 Mechanical Ventilator 40 03/03/17 06:00 106 18 151/85 99 Mechanical Ventilator 40 03/03/17 05:12 102 16 40 03/03/17 05:00 103 18 152/81 99 Mechanical Ventilator 40 03/03/17 04:00 103 03/03/17 04:00 40 03/03/17 04:00 98.2 103 17 152/81 99 Mechanical Ventilator 40 03/03/17 03:29 107 18 40 03/03/17 03:00 107 20 122/60 99 Mechanical Ventilator 40 03/03/17 02:00 102 18 122/60 98 Mechanical Ventilator 40 03/03/17 01:20 103 16 40 03/03/17 01:00 101 20 140/59 98 Mechanical Ventilator 40 03/03/17 00:00 40 03/03/17 00:00 98.4 102 20 138/70 98 Mechanical Ventilator 40 03/03/17 00:00 96 03/02/17 23:25 97 16 40 03/02/17 23:00 96 20 140/70 98 Mechanical Ventilator 40 03/02/17 22:00 99 18 139/68 98 Mechanical Ventilator 40 03/02/17 21:14 102 18 40 03/02/17 21:00 101 18 145/68 98 Mechanical Ventilator 40 03/02/17 20:00 40 03/02/17 20:00 98.6 106 20 137/54 97 Mechanical Ventilator 40 03/02/17 20:00 96 03/02/17 19:18 95 16 40 03/02/17 19:00 98 17 140/57 100 Mechanical Ventilator 40 03/02/17 18:00 70 18 140/57 100 Mechanical Ventilator 40 03/02/17 17:15 82 16 40 03/02/17 17:00 98.1 62 19 132/61 100 Mechanical Ventilator 40 03/02/17 16:00 77 18 137/71 100 Mechanical Ventilator 40 03/02/17 16:00 40 03/02/17 16:00 72 03/02/17 15:00 78 20 129/60 99 Mechanical Ventilator 40 03/02/17 14:35 73 15 40 03/02/17 14:00 74 19 115/46 99 Mechanical Ventilator 40 03/02/17 13:00 72 19 115/46 100 Mechanical Ventilator 40 03/02/17 12:43 79 16 40 03/02/17 12:06 98.4 03/02/17 12:00 98.4 77 18 120/52 100 Mechanical Ventilator 40 03/02/17 12:00 77 03/02/17 12:00 40 03/02/17 11:18 93 16 40 03/02/17 11:00 95 20 155/77 100 Mechanical Ventilator 40 03/02/17 10:00 67 19 112/46 100 Mechanical Ventilator 40 Height (Feet): 5 Height (Inches): 3.00 Weight (Pounds): 248 General Appearance: other - intubated, awake Respiratory/Chest: decreased breath sounds Cardiovascular: normal rate, regular rhythm Abdomen: normal bowel sounds, soft, non tender, non distended Laboratory Tests Test 03/03/17 05:00 03/03/17 09:05 White Blood Count 10.4 K/UL (4.8-10.8) Red Blood Count 3.07 M/UL (4.20-5.40) L Hemoglobin 9.6 G/DL (12.0-16.0) L Hematocrit 30.6 % (37.0-47.0) L Mean Corpuscular Volume 100 FL (80-99) H Mean Corpuscular Hemoglobin 31.2 PG (27.0-31.0) H Mean Corpuscular Hemoglobin Concent 31.4 G/DL (32.0-36.0) L Red Cell Distribution Width 17.8 % (11.6-14.8) H Platelet Count 252 K/UL (150-450) Mean Platelet Volume 5.9 FL (6.5-10.1) L Neutrophils (%) (Auto) 82.2 % (45.0-75.0) H Lymphocytes (%) (Auto) 8.1 % (20.0-45.0) L Monocytes (%) (Auto) 5.2 % (1.0-10.0) Eosinophils (%) (Auto) 3.9 % (0.0-3.0) H Basophils (%) (Auto) 0.6 % (0.0-2.0) Sodium Level 152 mEQ/L (135-145) H Potassium Level 4.1 mEQ/L (3.4-4.9) Chloride Level 119 mEQ/L (98-107) H Carbon Dioxide Level 19 mEQ/L (20-30) L Anion Gap 3 (5-15) L Blood Urea Nitrogen 39 mg/dL (7-23) H Creatinine 2.4 mg/dL (0.5-0.9) H Estimat Glomerular Filtration Rate 23.4 mL/min (>60) Glucose Level 176 mg/dL (74-106) H Calcium Level 8.7 mg/dL (8.6-10.2) Total Bilirubin 0.3 mg/dL (0.0-1.2) Aspartate Amino Transf (AST/SGOT) 55 U/L (5-40) H Alanine Aminotransferase (ALT/SGPT) 43 U/L (3-33) H Alkaline Phosphatase 131 U/L (35-104) H Total Protein 6.4 g/dL (6.6-8.7) L Albumin 3.1 g/dL (3.5-5.2) L Globulin 3.3 g/dL Albumin/Globulin Ratio 0.9 (1.0-2.7) L Arterial Blood pH Pending Arterial Blood Partial Pressure CO2 Pending Arterial Blood Partial Pressure O2 Pending Arterial Blood HCO3 Pending Arterial Blood Oxygen Saturation Pending Arterial Blood Base Excess Pending Cristian Test Pending Current Medications Medications (Trade) Dose Ordered Sig/Cabrera Route PRN Reason Start Time Stop Time Status Last Admin Dose Admin Albuterol/ Ipratropium (DuoNeb 0.5-3(2.5)mg/3ml) 3 ml Q4H PRN HHN Shortness of Breath 02/27/17 18:00 03/04/17 17:59 Ceftriaxone Sodium/Dextrose (Rocephin/D5W) 55 ml @ 110 mls/hr Q24H IVPB 03/02/17 18:00 03/09/17 17:59 03/02/17 17:18 Chlorhexidine Gluconate 1 applic 1 applic QHS TOPIC 03/02/17 21:00 04/01/17 20:59 03/02/17 20:33 Clotrimazole (Lotrimin) 1 applic EVERY 12 HOURS TOPIC 02/28/17 09:00 03/30/17 08:59 03/03/17 09:13 Dextrose (Dextrose 50%) STAT PRN IV Hypoglycemia 02/28/17 07:30 03/30/17 07:29 Docusate Sodium (Colace) 100 mg TWICE A DAY ORAL 03/03/17 09:00 04/02/17 08:59 03/03/17 09:11 Heparin Sodium (Porcine) (Heparin 5000 units/ml) 5,000 units EVERY 12 HOURS SUBQ 02/27/17 21:00 03/29/17 20:59 03/03/17 09:11 Heparin Sodium/ Sodium Chloride (Heparin 2000 units/Ns 1000ml premix) 2,000 unit ONCE INJ 03/02/17 10:00 03/03/17 23:59 Insulin Aspart (NovoLOG) EVERY 4 HOURS SUBQ 02/28/17 09:00 03/30/17 08:59 03/03/17 09:13 Insulin Detemir (Levemir) 15 units BID SUBQ 02/28/17 09:00 03/30/17 08:59 03/03/17 09:12 Levothyroxine Sodium (Synthroid) 100 mcg DAILY@0630 ORAL 02/28/17 06:30 03/30/17 06:29 03/03/17 06:31 Lorazepam (Ativan 2mg/ml 1ml) 2 mg Q2H PRN IV For Anxiety 02/27/17 18:00 03/06/17 17:59 03/03/17 09:11 Morphine Sulfate (Morphine Sulfate) 2 mg Q4H PRN IVP Severe Pain (Pain Scale 7-10) 02/28/17 19:00 03/07/17 18:59 03/03/17 05:15 Ondansetron HCl (Zofran) 4 mg Q6H PRN IVP Nausea & Vomiting 02/27/17 18:00 03/29/17 17:59 03/01/17 09:02 Pantoprazole (Protonix) 40 mg DAILY IVP 02/28/17 09:00 03/30/17 08:59 03/03/17 09:11 Polyethylene Glycol (Miralax) 17 gm DAILYPRN PRN ORAL Constipation 02/27/17 18:00 03/29/17 17:59 Valproic Acid (Depakene) 500 mg Q12HR GT 02/27/17 23:00 03/29/17 22:59 03/03/17 09:10 LUCITA WEBSTER Mar 03, 2017 09:18
--- NOTE | 2017-03-03 11:30 | Pulmonolgy Critical Care Note ---
Critical Care - Asmt/Plan Problems: (1) Respiratory distress (2) Septic shock (3) ATN (acute tubular necrosis) (4) Diabetes mellitus (5) Spina bifida Respiratory: monitor respiratory rate, adjust FIO2, CXR Cardiac: continue to monitor HR/BP Renal: F/U I&O, keep IV fluid, check electrolytes Infectious Disease: check cultures, continue antibiotics Gastrointestinal: continue feedings/current rate Endocrine: monitor blood sugar, check TSH, continue sliding scale insulin Hematologic: transfuse if hgb<8.5 Neurologic: PRN Ativan, PRN Morphine, keep patient comfortable Affect: PRN ativan Prophylaxis: Protonix, Heparin Notes Reviewed: cardio, 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, consultants, 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 - Objective Last 24 Hour Vital Signs Date Time Temp Pulse Resp B/P Pulse Ox O2 Delivery O2 Flow Rate FiO2 03/03/17 11:23 82 15 40 03/03/17 11:00 91 18 113/57 100 Mechanical Ventilator 50 03/03/17 10:00 91 18 130/58 100 Mechanical Ventilator 50 03/03/17 09:20 50 03/03/17 09:00 103 16 129/57 99 Mechanical Ventilator 40 03/03/17 08:59 96 15 40 03/03/17 08:00 97.7 100 20 155/77 99 Mechanical Ventilator 40 03/03/17 08:00 103 03/03/17 08:00 40 03/03/17 07:02 100 16 40 03/03/17 07:00 101 19 146/83 99 Mechanical Ventilator 40 03/03/17 06:00 106 18 151/85 99 Mechanical Ventilator 40 03/03/17 05:12 102 16 40 03/03/17 05:00 103 18 152/81 99 Mechanical Ventilator 40 03/03/17 04:00 103 03/03/17 04:00 40 03/03/17 04:00 98.2 103 17 152/81 99 Mechanical Ventilator 40 03/03/17 03:29 107 18 40 03/03/17 03:00 107 20 122/60 99 Mechanical Ventilator 40 03/03/17 02:00 102 18 122/60 98 Mechanical Ventilator 40 03/03/17 01:20 103 16 40 03/03/17 01:00 101 20 140/59 98 Mechanical Ventilator 40 03/03/17 00:00 40 03/03/17 00:00 98.4 102 20 138/70 98 Mechanical Ventilator 40 03/03/17 00:00 96 03/02/17 23:25 97 16 40 03/02/17 23:00 96 20 140/70 98 Mechanical Ventilator 40 03/02/17 22:00 99 18 139/68 98 Mechanical Ventilator 40 03/02/17 21:14 102 18 40 03/02/17 21:00 101 18 145/68 98 Mechanical Ventilator 40 03/02/17 20:00 40 03/02/17 20:00 98.6 106 20 137/54 97 Mechanical Ventilator 40 03/02/17 20:00 96 03/02/17 19:18 95 16 40 03/02/17 19:00 98 17 140/57 100 Mechanical Ventilator 40 03/02/17 18:00 70 18 140/57 100 Mechanical Ventilator 40 03/02/17 17:15 82 16 40 03/02/17 17:00 98.1 62 19 132/61 100 Mechanical Ventilator 40 03/02/17 16:00 77 18 137/71 100 Mechanical Ventilator 40 03/02/17 16:00 40 03/02/17 16:00 72 03/02/17 15:00 78 20 129/60 99 Mechanical Ventilator 40 03/02/17 14:35 73 15 40 03/02/17 14:00 74 19 115/46 99 Mechanical Ventilator 40 03/02/17 13:00 72 19 115/46 100 Mechanical Ventilator 40 03/02/17 12:43 79 16 40 03/02/17 12:06 98.4 03/02/17 12:00 98.4 77 18 120/52 100 Mechanical Ventilator 40 03/02/17 12:00 77 03/02/17 12:00 40 Status: awake Condition: critical HEENT: atraumatic Heart: HR/BP stable, HR/BP unstable Abdomen: soft, non-tender Extremities: no C/C/E Decubiti: location Accucheck: 154 Critical Care - Subjective ROS Limited/Unobtainable: No ICU Day: 4 Intubation Day: 4 Condition: critical EKG Rhythm: Sinus Rhythm FI02: 40 Vent Support Breath Rate: 16 Vent Support Mode: AC Vent Tidal Volume: 600 Sputum Amount: Moderate PIP: 33 Tube Feeding Amount: 34 I&O: Intake and Output 03/02/17 03/03/17 19:00 07:00 Intake Total 1023.0 ml 370 ml Output Total 1390 ml 1250 ml Balance -367.0 ml -880 ml Free Water 100 ml IV Total 455.0 ml Tube Feeding 408 ml 340 ml Other 60 ml 30 ml Output Urine Total 1390 ml 1250 ml Stool Total 0 ml # Bowel Movements 1 CXR: no change ET-Tube: 7.0 ET Position: 23 Labs: Laboratory Tests Test 03/03/17 05:00 03/03/17 09:05 White Blood Count 10.4 K/UL (4.8-10.8) Red Blood Count 3.07 M/UL (4.20-5.40) L Hemoglobin 9.6 G/DL (12.0-16.0) L Hematocrit 30.6 % (37.0-47.0) L Mean Corpuscular Volume 100 FL (80-99) H Mean Corpuscular Hemoglobin 31.2 PG (27.0-31.0) H Mean Corpuscular Hemoglobin Concent 31.4 G/DL (32.0-36.0) L Red Cell Distribution Width 17.8 % (11.6-14.8) H Platelet Count 252 K/UL (150-450) Mean Platelet Volume 5.9 FL (6.5-10.1) L Neutrophils (%) (Auto) 82.2 % (45.0-75.0) H Lymphocytes (%) (Auto) 8.1 % (20.0-45.0) L Monocytes (%) (Auto) 5.2 % (1.0-10.0) Eosinophils (%) (Auto) 3.9 % (0.0-3.0) H Basophils (%) (Auto) 0.6 % (0.0-2.0) Sodium Level 152 mEQ/L (135-145) H Potassium Level 4.1 mEQ/L (3.4-4.9) Chloride Level 119 mEQ/L (98-107) H Carbon Dioxide Level 19 mEQ/L (20-30) L Anion Gap 3 (5-15) L Blood Urea Nitrogen 39 mg/dL (7-23) H Creatinine 2.4 mg/dL (0.5-0.9) H Estimat Glomerular Filtration Rate 23.4 mL/min (>60) Glucose Level 176 mg/dL (74-106) H Calcium Level 8.7 mg/dL (8.6-10.2) Total Bilirubin 0.3 mg/dL (0.0-1.2) Aspartate Amino Transf (AST/SGOT) 55 U/L (5-40) H Alanine Aminotransferase (ALT/SGPT) 43 U/L (3-33) H Alkaline Phosphatase 131 U/L (35-104) H Total Protein 6.4 g/dL (6.6-8.7) L Albumin 3.1 g/dL (3.5-5.2) L Globulin 3.3 g/dL Albumin/Globulin Ratio 0.9 (1.0-2.7) L Arterial Blood pH Pending Arterial Blood Partial Pressure CO2 Pending Arterial Blood Partial Pressure O2 Pending Arterial Blood HCO3 Pending Arterial Blood Oxygen Saturation Pending Arterial Blood Base Excess Pending Cristian Test Pending LORNE DENNEY Mar 03, 2017 11:30
--- NOTE | 2017-03-03 15:04 | General Progress Note ---
Assessment/Plan Problem List: (1) UTI (lower urinary tract infection) ICD Codes: N39.0 - Urinary tract infection, site not specified SNOMED: 1628047 (2) Spina bifida ICD Codes: Q05.9 - Spina bifida SNOMED: 88023741 (3) Morbid obesity ICD Codes: E66.01 - Morbid (severe) obesity due to excess calories SNOMED: 880236258 (4) Hyperglycemia ICD Codes: R73.9 - Hyperglycemia, unspecified SNOMED: 84125907 (5) Hypercapnia ICD Codes: R06.89 - Other abnormalities of breathing SNOMED: 59175879 (6) Diabetes mellitus ICD Codes: E11.9 - Diabetes mellitus SNOMED: 24016187 (7) Hypothyroidism ICD Codes: E03.9 - Hypothyroidism SNOMED: 19797659 Assessment/Plan - continue Levemir 15 units bid + high dose SSI every 4 hours - continue LT4 100 mcg daily Subjective Allergies: Coded Allergies: CIPROFLOXACIN (Verified Allergy, Severe, Anaphylaxis, 05/18/12) KETOROLAC (Unverified Allergy, Severe, Anaphylaxis, 03/04/14) Throat collapsed LATEX (Verified Allergy, Severe, Anaphylaxis, 03/06/14) verbalized by pt LEVOFLOXACIN (Verified Allergy, Severe, Anaphylaxis, 05/18/12) MORPHINE (Verified Allergy, Intermediate, Itching, 05/18/12) ACETAMINOPHEN (Unverified Allergy, Unknown, 04/01/15) ALOE (Unverified Allergy, Unknown, 11/03/15) ALOE VERA (Unverified Allergy, Unknown, 04/01/15) CELERY (Unverified Allergy, Unknown, 04/01/15) COCONUT (Unverified Allergy, Unknown, 11/03/15) COCONUT OIL (Unverified Allergy, Unknown, 04/01/15) FISH CONTAINING PRODUCTS (Unverified Allergy, Unknown, 10/04/16) HYDROCODONE (Unverified Allergy, Unknown, 04/01/15) LIDOCAINE (Unverified Allergy, Unknown, Rash, 09/21/15) with lidocaine cream MELON (Unverified Allergy, Unknown, 04/01/15) ONION (Unverified Allergy, Unknown, 11/03/15) PINEAPPLE (Unverified Allergy, Unknown, 10/04/16) Red Pepper (Unverified Allergy, Unknown, 04/01/15) TRAMADOL (Unverified Allergy, Unknown, 04/01/15) TROMETHAMINE (Unverified Allergy, Unknown, 04/01/15) WITCH ANNA (Unverified Allergy, Unknown, 04/01/15) Uncoded Allergies: CRANBERRY JUICE (Allergy, Unknown, 10/04/16) onion (Allergy, Unknown, 04/01/15) glueten (Adverse Reaction, Unknown, 09/17/15) Subjective remained intubated in icu awake Objective Last 24 Hour Vital Signs Date Time Temp Pulse Resp B/P Pulse Ox O2 Delivery O2 Flow Rate FiO2 03/03/17 14:00 98 17 144/76 100 Mechanical Ventilator 50 03/03/17 13:32 97.8 03/03/17 13:05 97 16 40 03/03/17 13:00 99 16 130/61 100 Mechanical Ventilator 50 03/03/17 12:00 97.8 88 20 111/56 99 Mechanical Ventilator 50 03/03/17 12:00 95 03/03/17 11:23 82 15 40 03/03/17 11:00 91 18 113/57 100 Mechanical Ventilator 50 03/03/17 10:00 91 18 130/58 100 Mechanical Ventilator 50 03/03/17 09:20 50 03/03/17 09:00 103 16 129/57 99 Mechanical Ventilator 40 03/03/17 08:59 96 15 40 03/03/17 08:00 97.7 100 20 155/77 99 Mechanical Ventilator 40 03/03/17 08:00 103 03/03/17 08:00 40 03/03/17 07:02 100 16 40 03/03/17 07:00 101 19 146/83 99 Mechanical Ventilator 40 03/03/17 06:00 106 18 151/85 99 Mechanical Ventilator 40 03/03/17 05:12 102 16 40 03/03/17 05:00 103 18 152/81 99 Mechanical Ventilator 40 03/03/17 04:00 103 03/03/17 04:00 40 03/03/17 04:00 98.2 103 17 152/81 99 Mechanical Ventilator 40 03/03/17 03:29 107 18 40 03/03/17 03:00 107 20 122/60 99 Mechanical Ventilator 40 03/03/17 02:00 102 18 122/60 98 Mechanical Ventilator 40 03/03/17 01:20 103 16 40 03/03/17 01:00 101 20 140/59 98 Mechanical Ventilator 40 03/03/17 00:00 40 03/03/17 00:00 98.4 102 20 138/70 98 Mechanical Ventilator 40 03/03/17 00:00 96 03/02/17 23:25 97 16 40 03/02/17 23:00 96 20 140/70 98 Mechanical Ventilator 40 03/02/17 22:00 99 18 139/68 98 Mechanical Ventilator 40 03/02/17 21:14 102 18 40 03/02/17 21:00 101 18 145/68 98 Mechanical Ventilator 40 03/02/17 20:00 40 03/02/17 20:00 98.6 106 20 137/54 97 Mechanical Ventilator 40 03/02/17 20:00 96 03/02/17 19:18 95 16 40 03/02/17 19:00 98 17 140/57 100 Mechanical Ventilator 40 03/02/17 18:00 70 18 140/57 100 Mechanical Ventilator 40 03/02/17 17:15 82 16 40 03/02/17 17:00 98.1 62 19 132/61 100 Mechanical Ventilator 40 03/02/17 16:00 77 18 137/71 100 Mechanical Ventilator 40 03/02/17 16:00 40 03/02/17 16:00 72 Intake and Output 03/02/17 03/03/17 19:00 07:00 Intake Total 1023.0 ml 370 ml Output Total 1390 ml 1250 ml Balance -367.0 ml -880 ml Free Water 100 ml IV Total 455.0 ml Tube Feeding 408 ml 340 ml Other 60 ml 30 ml Output Urine Total 1390 ml 1250 ml Stool Total 0 ml # Bowel Movements 1 Laboratory Tests 03/03/17 05:00: White Blood Count 10.4, Red Blood Count 3.07L, Hemoglobin 9.6L, Hematocrit 30.6L , Mean Corpuscular Volume 100H, Mean Corpuscular Hemoglobin 31.2H, Mean Corpuscular Hemoglobin Concent 31.4L, Red Cell Distribution Width 17.8H, Platelet Count 252, Mean Platelet Volume 5.9L, Neutrophils (%) (Auto) 82.2H, Lymphocytes (%) (Auto) 8.1L, Monocytes (%) (Auto) 5.2, Eosinophils (%) (Auto) 3.9H, Basophils (%) (Auto) 0.6, Sodium Level 152H, Potassium Level 4.1, Chloride Level 119H, Carbon Dioxide Level 19L, Anion Gap 3L, Blood Urea Nitrogen 39H, Creatinine 2.4H, Estimat Glomerular Filtration Rate 23.4, Glucose Level 176H, Calcium Level 8.7, Total Bilirubin 0.3, Aspartate Amino Transf (AST/ SGOT) 55H, Alanine Aminotransferase (ALT/SGPT) 43H, Alkaline Phosphatase 131H, Total Protein 6.4L, Albumin 3.1L, Globulin 3.3, Albumin/Globulin Ratio 0.9L 03/03/17 09:05: Arterial Blood pH [Pending], Arterial Blood Partial Pressure CO2 [Pending], Arterial Blood Partial Pressure O2 [Pending], Arterial Blood HCO3 [Pending], Arterial Blood Oxygen Saturation [Pending], Arterial Blood Base Excess [Pending] , Cristian Test [Pending] Height (Feet): 5 Height (Inches): 3.00 Weight (Pounds): 248 General Appearance: moderate distress Cardiovascular: normal rate Respiratory/Chest: decreased breath sounds Abdomen: normal bowel sounds Pelvis: normal external exam Edema: 1+ Arm (L), 1+ Arm (R), 1+ Leg (L), 1+ Leg (R), 1+ Pedal (L), 1+ Pedal ( R), 1+ Generalized Objective Current Medications Medications (Trade) Dose Ordered Sig/Cabrera Route PRN Reason Start Time Stop Time Status Last Admin Dose Admin Albuterol/ Ipratropium (DuoNeb 0.5-3(2.5)mg/3ml) 3 ml Q4H PRN HHN Shortness of Breath 02/27/17 18:00 03/04/17 17:59 Ceftriaxone Sodium/Dextrose (Rocephin/D5W) 55 ml @ 110 mls/hr Q24H IVPB 03/02/17 18:00 03/09/17 17:59 03/02/17 17:18 Chlorhexidine Gluconate 1 applic 1 applic QHS TOPIC 03/02/17 21:00 04/01/17 20:59 03/02/17 20:33 Clotrimazole (Lotrimin) 1 applic EVERY 12 HOURS TOPIC 02/28/17 09:00 03/30/17 08:59 03/03/17 09:13 Dextrose (Dextrose 50%) STAT PRN IV Hypoglycemia 02/28/17 07:30 03/30/17 07:29 Docusate Sodium (Colace) 100 mg TWICE A DAY ORAL 03/03/17 09:00 04/02/17 08:59 03/03/17 09:11 Heparin Sodium (Porcine) (Heparin 5000 units/ml) 5,000 units EVERY 12 HOURS SUBQ 02/27/17 21:00 03/29/17 20:59 03/03/17 09:11 Heparin Sodium/ Sodium Chloride (Heparin 2000 units/Ns 1000ml premix) 2,000 unit ONCE INJ 03/02/17 10:00 03/03/17 23:59 Insulin Aspart (NovoLOG) EVERY 4 HOURS SUBQ 02/28/17 09:00 03/30/17 08:59 03/03/17 12:57 Insulin Detemir (Levemir) 15 units BID SUBQ 02/28/17 09:00 03/30/17 08:59 03/03/17 09:12 Levothyroxine Sodium (Synthroid) 100 mcg DAILY@0630 ORAL 02/28/17 06:30 03/30/17 06:29 03/03/17 06:31 Lorazepam (Ativan 2mg/ml 1ml) 2 mg Q2H PRN IV For Anxiety 02/27/17 18:00 03/06/17 17:59 03/03/17 09:11 Morphine Sulfate (Morphine Sulfate) 2 mg Q4H PRN IVP Severe Pain (Pain Scale 7-10) 02/28/17 19:00 03/07/17 18:59 03/03/17 13:02 Ondansetron HCl (Zofran) 4 mg Q6H PRN IVP Nausea & Vomiting 02/27/17 18:00 03/29/17 17:59 03/01/17 09:02 Pantoprazole (Protonix) 40 mg DAILY IVP 02/28/17 09:00 03/30/17 08:59 03/03/17 09:11 Polyethylene Glycol (Miralax) 17 gm DAILYPRN PRN ORAL Constipation 02/27/17 18:00 03/29/17 17:59 Valproic Acid (Depakene) 500 mg Q12HR GT 02/27/17 23:00 03/29/17 22:59 03/03/17 09:10 Item Value Date Time Bedside Blood Glucose 156 mg/dl H 03/03/17 1258 Bedside Blood Glucose 154 mg/dl H 03/03/17 0913 Bedside Blood Glucose 183 mg/dl H 03/03/17 0523 Bedside Blood Glucose 124 mg/dl H 03/03/17 0042 Bedside Blood Glucose 158 mg/dl H 03/02/17 2042 Bedside Blood Glucose 197 mg/dl H 03/02/17 1722 Bedside Blood Glucose 183 mg/dl H 03/02/17 1256 LUPE MALDONADO Mar 03, 2017 15:04
[2017-03-03 15:54] LABS: ABG PCO2 44.8 mmHg (35.0-45.0)
[2017-03-03 15:55] LABS: ABG ALLEN TEST POSITIVE; ABG BASE EXCESS -8.5
[2017-03-03] MEDS ORDERED: NS 275ml ONE (16:37)
--- NOTE | 2017-03-03 17:24 | Consultation ---
Consult Note Consult Note asked to evsl for renal failure- This is a 31-year-old white female who is a prison resident admitted with altered mental status and shortness of breath. It was found that the patient has acidosis, hypercapnic respiratory failure, and sepsis. She was admitted through the ICU and intubated. Currently, she is not a source of history. PAST MEDICAL HISTORY: Significant for morbid obesity, spina bifida, diabetes mellitus, hypothyroidism, bipolar disorder, and has left side Port-A-Cath. Assessment/Plan (1) Respiratory distress, intubated (2) Septic shock , UTI and Pneumonia (3) Renal Failure ( Diabetic) and Hyper Natremia (4) Diabetes mellitus (5) Spina bifida (6) HypoThyroid (7) Anemia (8) Sz disorder (9) Full Code D5W Monitor renal parameters Avoid nephrotoxics Anemia chanel per orders ALVIN LUQUE Mar 03, 2017 17:24
[2017-03-03] MEDS: cefTRIAXone 1 GM in D5W 55 ML IVPB SCH (17:57)
[2017-03-03] MEDS: Dyna-Hex 2% Top Sol 8oz TOPIC SCH (20:49)
[2017-03-04] VITALS (24 sets, daily range): BP systolic 104–156; BP diastolic 54–96
[2017-03-04] MEDS: Morphine Sulfate 2mg/ml Inj IVP PRN ×4 (00:30→23:29)
[2017-03-04] MEDS: NovoLOG Insulin Flexpen SUBQ SCH ×6 (00:35→21:09)
[2017-03-04] MEDS: Levemir Flexpen SUBQ SCH ×2 (08:51→17:31)
[2017-03-04] MEDS: Pantoprazole Inj IVP SCH (08:52)
[2017-03-04] MEDS: Docusate 100mg/10ml Liq ORAL SCH ×2 (08:52→17:31)
[2017-03-04] MEDS: LORazepam Inj 2mg/ml 1ml IV PRN ×3 (08:52→19:51)
[2017-03-04] MEDS: Valproic Acid 250mg/5ml Liquid GT SCH ×2 (08:52→21:03)
[2017-03-04] MEDS: Heparin 5000 units/ml inj SUBQ SCH ×2 (08:53→21:07)
[2017-03-04 09:13] LABS: BASOPHILS % (AUTO) 0.8 % (0.0-2.0); EOSINOPHILS % (AUTO) 4.8 % (0.0-3.0); LYMPHOCYTES % (AUTO) 11.6 % (20.0-45.0); MEAN CORPUSCULAR HEMOGLOBIN 28.6 PG (27.0-31.0); MEAN CORPUSCULAR HGB CONC 29.6 G/DL (32.0-36.0); MEAN CORPUSCULAR VOLUME 97 FL (80-99); MEAN PLATELET VOLUME 5.9 FL (6.5-10.1); MONOCYTES % (AUTO) 5.4 % (1.0-10.0); NEUTROPHILS % (AUTO) 77.3 % (45.0-75.0); PLATELET COUNT 264 K/UL (150-450); RED BLOOD COUNT 3.22 M/UL (4.20-5.40); RED CELL DISTRIBUTION WIDTH 17.7 % (11.6-14.8); WHITE BLOOD COUNT 9.1 K/UL (4.8-10.8)
[2017-03-04 09:26] LABS: HEMOGLOBIN A1C 10.2 % (< 6.0)
[2017-03-04 09:38] LABS: ALANINE AMINOTRANSFERASE 59 U/L (3-33); ANION GAP 13 (5-15); ASPARTATE AMINO TRANSFERASE 40 U/L (5-40); CALCIUM 8.7 mg/dL (8.6-10.2); CARBON DIOXIDE 20 mEQ/L (20-30); CHLORIDE 115 mEQ/L (98-107); CHOLESTEROL 252 mg/dL (< 200); CHOLESTEROL/HDL RATIO 7.9 (3.3-4.4); CREATININE 2.4 mg/dL (0.5-0.9); CRP QUANT 5.8 mg/dL (< 0.5); GLOMERULAR FILTRATION RATE 23.4 mL/min (>60); LDL CHOLESTEROL (CALC.) 76 mg/dL (60-99); POTASSIUM 4.2 mEQ/L (3.4-4.9); SODIUM 148 mEQ/L (135-145); TOTAL PROTEIN 6.2 g/dL (6.6-8.7); URIC ACID 6.9 mg/dL (3.0-7.5)
[2017-03-04 09:39] LABS: HEMOLYSIS 7; IRON 50 ug/dL (37-145); TOTAL IRON BINDING CAPACITY 270 ug/dL (250-400)
--- NOTE | 2017-03-04 09:44 | General Progress Note ---
Assessment/Plan Status: unchanged Assessment/Plan status: (1) Respiratory distress, intubated (2) Septic shock , UTI and Pneumonia (3) Renal Failure ( Diabetic) and Hyper Natremia (4) Diabetes mellitus (5) Spina bifida (6) HypoThyroid (7) Anemia (8) Sz disorder (9) Full Code status: Today's labs pending D5W Monitor renal parameters Avoid nephrotoxics Anemia chanel per orders Subjective ROS Limited/Unobtainable: Yes Allergies: Coded Allergies: CIPROFLOXACIN (Verified Allergy, Severe, Anaphylaxis, 05/18/12) KETOROLAC (Unverified Allergy, Severe, Anaphylaxis, 03/04/14) Throat collapsed LATEX (Verified Allergy, Severe, Anaphylaxis, 03/06/14) verbalized by pt LEVOFLOXACIN (Verified Allergy, Severe, Anaphylaxis, 05/18/12) MORPHINE (Verified Allergy, Intermediate, Itching, 05/18/12) ACETAMINOPHEN (Unverified Allergy, Unknown, 04/01/15) ALOE (Unverified Allergy, Unknown, 11/03/15) ALOE VERA (Unverified Allergy, Unknown, 04/01/15) CELERY (Unverified Allergy, Unknown, 04/01/15) COCONUT (Unverified Allergy, Unknown, 11/03/15) COCONUT OIL (Unverified Allergy, Unknown, 04/01/15) FISH CONTAINING PRODUCTS (Unverified Allergy, Unknown, 10/04/16) HYDROCODONE (Unverified Allergy, Unknown, 04/01/15) LIDOCAINE (Unverified Allergy, Unknown, Rash, 09/21/15) with lidocaine cream MELON (Unverified Allergy, Unknown, 04/01/15) ONION (Unverified Allergy, Unknown, 11/03/15) PINEAPPLE (Unverified Allergy, Unknown, 10/04/16) Red Pepper (Unverified Allergy, Unknown, 04/01/15) TRAMADOL (Unverified Allergy, Unknown, 04/01/15) TROMETHAMINE (Unverified Allergy, Unknown, 04/01/15) WITCH ANNA (Unverified Allergy, Unknown, 04/01/15) Uncoded Allergies: CRANBERRY JUICE (Allergy, Unknown, 10/04/16) onion (Allergy, Unknown, 04/01/15) glueten (Adverse Reaction, Unknown, 09/17/15) Objective Last 24 Hour Vital Signs Date Time Temp Pulse Resp B/P Pulse Ox O2 Delivery O2 Flow Rate FiO2 03/04/17 09:00 93 18 142/71 100 Mechanical Ventilator 40 03/04/17 09:00 99 16 40 03/04/17 08:00 40 03/04/17 08:00 98.5 80 16 124/63 100 Mechanical Ventilator 40 03/04/17 08:00 84 03/04/17 07:08 101 19 40 03/04/17 07:00 98 16 133/65 98 Mechanical Ventilator 40 03/04/17 06:00 90 16 127/96 100 Mechanical Ventilator 40 03/04/17 05:29 101 17 40 03/04/17 05:21 98.0 03/04/17 05:00 102 19 127/96 100 Mechanical Ventilator 40 03/04/17 04:00 103 03/04/17 04:00 98.1 98 17 145/71 100 Mechanical Ventilator 40 03/04/17 04:00 40 03/04/17 03:34 96 18 40 03/04/17 03:00 99 17 141/81 100 Mechanical Ventilator 40 03/04/17 02:00 91 16 119/57 100 Mechanical Ventilator 40 03/04/17 01:48 99 16 40 03/04/17 01:00 100 18 135/69 100 Mechanical Ventilator 40 03/04/17 00:00 98.0 103 16 118/64 100 Mechanical Ventilator 40 03/04/17 00:00 40 03/04/17 00:00 102 03/03/17 23:37 103 18 40 03/03/17 23:00 98 16 105/50 100 Mechanical Ventilator 40 03/03/17 22:00 93 16 100/56 98 Mechanical Ventilator 40 03/03/17 21:40 95 16 40 03/03/17 21:00 93 16 119/73 100 Mechanical Ventilator 40 03/03/17 20:00 103 03/03/17 20:00 40 03/03/17 20:00 98.4 103 19 137/62 100 Mechanical Ventilator 40 03/03/17 19:50 101 17 40 03/03/17 19:00 96 19 124/71 100 Mechanical Ventilator 40 03/03/17 18:00 98 20 122/71 100 Mechanical Ventilator 40 03/03/17 17:15 97 16 40 03/03/17 17:00 92 19 130/68 100 Mechanical Ventilator 40 03/03/17 16:00 98.1 81 18 104/42 100 Mechanical Ventilator 50 03/03/17 16:00 103 03/03/17 16:00 40 03/03/17 15:11 93 16 40 03/03/17 15:00 95 18 121/53 100 Mechanical Ventilator 50 03/03/17 14:00 98 17 144/76 100 Mechanical Ventilator 50 03/03/17 13:05 97 16 40 03/03/17 13:00 99 16 130/61 100 Mechanical Ventilator 50 03/03/17 12:00 97.8 88 20 111/56 99 Mechanical Ventilator 50 03/03/17 12:00 50 03/03/17 12:00 95 03/03/17 11:23 82 15 40 03/03/17 11:00 91 18 113/57 100 Mechanical Ventilator 50 03/03/17 10:00 91 18 130/58 100 Mechanical Ventilator 50 Intake and Output 03/03/17 03/04/17 19:00 07:00 Intake Total 758 ml 1460 ml Output Total 1450 ml 1300 ml Balance -692 ml 160 ml Free Water 100 ml 100 ml IV Total 130 ml 900 ml Tube Feeding 408 ml 340 ml Other 120 ml 120 ml Output Urine Total 1450 ml 1300 ml # Bowel Movements 1 Laboratory Tests 03/04/17 08:45: White Blood Count 9.1, Red Blood Count 3.22L, Hemoglobin 9.2L, Hematocrit 31.2L , Mean Corpuscular Volume 97, Mean Corpuscular Hemoglobin 28.6, Mean Corpuscular Hemoglobin Concent 29.6L, Red Cell Distribution Width 17.7H, Platelet Count 264, Mean Platelet Volume 5.9L, Neutrophils (%) (Auto) 77.3H, Lymphocytes (%) (Auto) 11.6L, Monocytes (%) (Auto) 5.4, Eosinophils (%) (Auto) 4.8H, Basophils (%) (Auto) 0.8, Sodium Level 148H, Potassium Level 4.2, Chloride Level 115H, Carbon Dioxide Level 20, Anion Gap 13, Blood Urea Nitrogen 39H, Creatinine 2.4H, Estimat Glomerular Filtration Rate 23.4, Glucose Level 191H, Hemoglobin A1c 10.2H, Uric Acid 6.9, Calcium Level 8.7, Magnesium Level 2.0, Iron Level [Pending], Unsaturated Iron Binding [Pending], Ferritin [Pending ], Total Bilirubin < 0.2, Gamma Glutamyl Transpeptidase 129H, Aspartate Amino Transf (AST/SGOT) 40, Alanine Aminotransferase (ALT/SGPT) 59H, Alkaline Phosphatase 149H, Total Creatine Kinase 16L, C-Reactive Protein, Quantitative 5.8H, Pro-B-Type Natriuretic Peptide [Pending], Total Protein 6.2L, Albumin 3.1L , Globulin 3.1, Albumin/Globulin Ratio 1.0, Triglycerides Level 722H, Cholesterol Level 252H, LDL Cholesterol 76, HDL Cholesterol 32, Cholesterol/HDL Ratio 7.9H, Vitamin B12 Level [Pending], Folate [Pending], Thyroid Stimulating Hormone (TSH) [Pending], Cortisol AM Sample [Pending] Height (Feet): 5 Height (Inches): 3.00 Weight (Pounds): 242 General Appearance: no apparent distress Cardiovascular: tachycardia Respiratory/Chest: decreased breath sounds Abdomen: distended Objective no change in PE ALVIN LUUQE Mar 04, 2017 09:44
[2017-03-04 09:49] LABS: CORTISOL AM 17.7 ug/dL (6.0-20.0); FERRITIN 130 ng/mL (13-150)
--- NOTE | 2017-03-04 11:18 | Pulmonolgy Critical Care Note ---
Critical Care - Asmt/Plan Problems: (1) Respiratory distress (2) Septic shock (3) ATN (acute tubular necrosis) (4) Diabetes mellitus (5) Spina bifida Respiratory: monitor respiratory rate Cardiac: continue pressors, continue to monitor HR/BP Renal: F/U I&O, keep IV fluid, check electrolytes Infectious Disease: check cultures, continue antibiotics Gastrointestinal: continue feedings/current rate, adjust feedings, start feedings Endocrine: check TSH, check HgA1C, continue sliding scale insulin Hematologic: monitor H/H Neurologic: PRN Ativan, PRN Morphine Prophylaxis: Heparin Disposition: keep in ICU Notes Reviewed: renal, ID 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, 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, 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 - Objective Last 24 Hour Vital Signs Date Time Temp Pulse Resp B/P Pulse Ox O2 Delivery O2 Flow Rate FiO2 03/04/17 11:00 86 16 108/54 100 Mechanical Ventilator 40 03/04/17 10:56 83 16 40 03/04/17 10:00 79 16 118/56 98 Mechanical Ventilator 40 03/04/17 09:00 93 18 142/71 100 Mechanical Ventilator 40 03/04/17 09:00 99 16 40 03/04/17 08:00 40 03/04/17 08:00 98.5 80 16 124/63 100 Mechanical Ventilator 40 03/04/17 08:00 84 03/04/17 07:08 101 19 40 03/04/17 07:00 98 16 133/65 98 Mechanical Ventilator 40 03/04/17 06:00 90 16 127/96 100 Mechanical Ventilator 40 03/04/17 05:29 101 17 40 03/04/17 05:21 98.0 03/04/17 05:00 102 19 127/96 100 Mechanical Ventilator 40 03/04/17 04:00 103 03/04/17 04:00 98.1 98 17 145/71 100 Mechanical Ventilator 40 03/04/17 04:00 40 03/04/17 03:34 96 18 40 03/04/17 03:00 99 17 141/81 100 Mechanical Ventilator 40 03/04/17 02:00 91 16 119/57 100 Mechanical Ventilator 40 03/04/17 01:48 99 16 40 03/04/17 01:00 100 18 135/69 100 Mechanical Ventilator 40 03/04/17 00:00 98.0 103 16 118/64 100 Mechanical Ventilator 40 03/04/17 00:00 40 03/04/17 00:00 102 03/03/17 23:37 103 18 40 03/03/17 23:00 98 16 105/50 100 Mechanical Ventilator 40 03/03/17 22:00 93 16 100/56 98 Mechanical Ventilator 40 03/03/17 21:40 95 16 40 03/03/17 21:00 93 16 119/73 100 Mechanical Ventilator 40 03/03/17 20:00 103 03/03/17 20:00 40 03/03/17 20:00 98.4 103 19 137/62 100 Mechanical Ventilator 40 03/03/17 19:50 101 17 40 03/03/17 19:00 96 19 124/71 100 Mechanical Ventilator 40 03/03/17 18:00 98 20 122/71 100 Mechanical Ventilator 40 03/03/17 17:15 97 16 40 03/03/17 17:00 92 19 130/68 100 Mechanical Ventilator 40 03/03/17 16:00 98.1 81 18 104/42 100 Mechanical Ventilator 50 03/03/17 16:00 103 03/03/17 16:00 40 03/03/17 15:11 93 16 40 03/03/17 15:00 95 18 121/53 100 Mechanical Ventilator 50 03/03/17 14:00 98 17 144/76 100 Mechanical Ventilator 50 03/03/17 13:05 97 16 40 03/03/17 13:00 99 16 130/61 100 Mechanical Ventilator 50 03/03/17 12:00 97.8 88 20 111/56 99 Mechanical Ventilator 50 03/03/17 12:00 50 03/03/17 12:00 95 03/03/17 11:23 82 15 40 Status: awake Condition: critical HEENT: atraumatic Neck: full ROM Heart: HR/BP unstable Abdomen: soft, non-tender, active bowel sounds Extremities: no C/C/E, edema Decubiti: location Accucheck: 184 Critical Care - Subjective ROS Limited/Unobtainable: Yes - 6 ICU Day: 6 Condition: critical EKG Rhythm: Sinus Rhythm FI02: 40 Vent Support Breath Rate: 16 Vent Support Mode: AC Vent Tidal Volume: 600 Sputum Amount: Moderate PIP: 32 Fluids: d5w 75 cc.hour Drips: none Tube Feeding Amount: 34 I&O: Intake and Output 03/03/17 03/04/17 19:00 07:00 Intake Total 758 ml 1460 ml Output Total 1450 ml 1300 ml Balance -692 ml 160 ml Free Water 100 ml 100 ml IV Total 130 ml 900 ml Tube Feeding 408 ml 340 ml Other 120 ml 120 ml Output Urine Total 1450 ml 1300 ml # Bowel Movements 1 CXR: no change ET-Tube: 7.0 ET Position: 23 Labs: Laboratory Tests Test 03/04/17 08:45 White Blood Count 9.1 K/UL (4.8-10.8) Red Blood Count 3.22 M/UL (4.20-5.40) L Hemoglobin 9.2 G/DL (12.0-16.0) L Hematocrit 31.2 % (37.0-47.0) L Mean Corpuscular Volume 97 FL (80-99) Mean Corpuscular Hemoglobin 28.6 PG (27.0-31.0) Mean Corpuscular Hemoglobin Concent 29.6 G/DL (32.0-36.0) L Red Cell Distribution Width 17.7 % (11.6-14.8) H Platelet Count 264 K/UL (150-450) Mean Platelet Volume 5.9 FL (6.5-10.1) L Neutrophils (%) (Auto) 77.3 % (45.0-75.0) H Lymphocytes (%) (Auto) 11.6 % (20.0-45.0) L Monocytes (%) (Auto) 5.4 % (1.0-10.0) Eosinophils (%) (Auto) 4.8 % (0.0-3.0) H Basophils (%) (Auto) 0.8 % (0.0-2.0) Sodium Level 148 mEQ/L (135-145) H Potassium Level 4.2 mEQ/L (3.4-4.9) Chloride Level 115 mEQ/L (98-107) H Carbon Dioxide Level 20 mEQ/L (20-30) Anion Gap 13 (5-15) Blood Urea Nitrogen 39 mg/dL (7-23) H Creatinine 2.4 mg/dL (0.5-0.9) H Estimat Glomerular Filtration Rate 23.4 mL/min (>60) Glucose Level 191 mg/dL (74-106) H Hemoglobin A1c 10.2 % (< 6.0) H Uric Acid 6.9 mg/dL (3.0-7.5) Calcium Level 8.7 mg/dL (8.6-10.2) Magnesium Level 2.0 mg/dL (1.7-2.5) Iron Level 50 ug/dL (37-145) Total Iron Binding Capacity 270 ug/dL (250-400) Percent Iron Saturation 19 % (15-50) Unsaturated Iron Binding 220 ug/dL (112-346) Ferritin 130 ng/mL (13-150) Total Bilirubin < 0.2 mg/dL (0.0-1.2) Gamma Glutamyl Transpeptidase 129 U/L (5-36) H Aspartate Amino Transf (AST/SGOT) 40 U/L (5-40) Alanine Aminotransferase (ALT/SGPT) 59 U/L (3-33) H Alkaline Phosphatase 149 U/L (35-104) H Total Creatine Kinase 16 U/L (26-140) L C-Reactive Protein, Quantitative 5.8 mg/dL (< 0.5) H Pro-B-Type Natriuretic Peptide 531 pg/mL (0-125) H Total Protein 6.2 g/dL (6.6-8.7) L Albumin 3.1 g/dL (3.5-5.2) L Globulin 3.1 g/dL Albumin/Globulin Ratio 1.0 (1.0-2.7) Triglycerides Level 722 mg/dL (< 150) H Cholesterol Level 252 mg/dL (< 200) H LDL Cholesterol 76 mg/dL (60-99) HDL Cholesterol 32 mg/dL (> 60) Cholesterol/HDL Ratio 7.9 (3.3-4.4) H Vitamin B12 Level 808 pg/mL (211-946) Folate Pending Thyroid Stimulating Hormone (TSH) 3.980 uIU/mL (0.300-4.500) Cortisol AM Sample 17.7 ug/dL (6.0-20.0) LORNE DENNEY Mar 04, 2017 11:18
[2017-03-04] MEDS: cefTRIAXone 1 GM in D5W 55 ML IVPB SCH (17:30)
[2017-03-04] MEDS: Dyna-Hex 2% Top Sol 8oz TOPIC SCH (21:09)
[2017-03-05] VITALS (24 sets, daily range): BP systolic 99–142; BP diastolic 42–84
[2017-03-05] MEDS: NovoLOG Insulin Flexpen SUBQ SCH ×6 (01:06→20:45)
[2017-03-05] MEDS: LORazepam Inj 2mg/ml 1ml IV PRN ×3 (02:23→20:07)
[2017-03-05] MEDS: Morphine Sulfate 2mg/ml Inj IVP PRN ×3 (04:53→18:01)
[2017-03-05 05:33] LABS: BASOPHILS % (AUTO) 0.6 % (0.0-2.0); EOSINOPHILS % (AUTO) 4.5 % (0.0-3.0); LYMPHOCYTES % (AUTO) 11.1 % (20.0-45.0); MEAN CORPUSCULAR HEMOGLOBIN 29.8 PG (27.0-31.0); MEAN CORPUSCULAR HGB CONC 30.5 G/DL (32.0-36.0); MEAN CORPUSCULAR VOLUME 97 FL (80-99); MEAN PLATELET VOLUME 5.7 FL (6.5-10.1); MONOCYTES % (AUTO) 5.1 % (1.0-10.0); NEUTROPHILS % (AUTO) 78.6 % (45.0-75.0); PLATELET COUNT 258 K/UL (150-450); RED BLOOD COUNT 3.01 M/UL (4.20-5.40); RED CELL DISTRIBUTION WIDTH 17.8 % (11.6-14.8)
[2017-03-05 06:03] LABS: ALANINE AMINOTRANSFERASE 44 U/L (3-33); ANION GAP 15 (5-15); ASPARTATE AMINO TRANSFERASE 16 U/L (5-40); CALCIUM 8.6 mg/dL (8.6-10.2); CARBON DIOXIDE 18 mEQ/L (20-30); CHLORIDE 112 mEQ/L (98-107); CREATININE 2.2 mg/dL (0.5-0.9); GLOMERULAR FILTRATION RATE 25.9 mL/min (>60); HEMOLYSIS 8; PHOSPHORUS 4.2 mg/dL (2.5-4.8); POTASSIUM 4.1 mEQ/L (3.4-4.9); SODIUM 145 mEQ/L (135-145); TOTAL PROTEIN 6.5 g/dL (6.6-8.7)
--- NOTE | 2017-03-05 09:04 | Infectious Diseases Prog Note ---
Assessment/Plan Assessment/Plan A: 1. Severe sepsis. 2. Acute renal failure. 3. Hypercapnic respiratory failure. 4. The patient has complicated urinary tract infection. 5. Status post suprapubic catheter. 6. Diabetes mellitus, uncontrolled. 7. Hypothyroidism. 8. Morbid obesity. 9. elevated transaminase P; Continue Rocephin Gallbladder/liver US Subjective ROS Limited/Unobtainable: Yes Neurologic: Reports: other - more alert Musculoskeletal: Reports: other - in right flank, pain Allergies: Coded Allergies: CIPROFLOXACIN (Verified Allergy, Severe, Anaphylaxis, 05/18/12) KETOROLAC (Unverified Allergy, Severe, Anaphylaxis, 03/04/14) Throat collapsed LATEX (Verified Allergy, Severe, Anaphylaxis, 03/06/14) verbalized by pt LEVOFLOXACIN (Verified Allergy, Severe, Anaphylaxis, 05/18/12) MORPHINE (Verified Allergy, Intermediate, Itching, 05/18/12) ACETAMINOPHEN (Unverified Allergy, Unknown, 04/01/15) ALOE (Unverified Allergy, Unknown, 11/03/15) ALOE VERA (Unverified Allergy, Unknown, 04/01/15) CELERY (Unverified Allergy, Unknown, 04/01/15) COCONUT (Unverified Allergy, Unknown, 11/03/15) COCONUT OIL (Unverified Allergy, Unknown, 04/01/15) FISH CONTAINING PRODUCTS (Unverified Allergy, Unknown, 10/04/16) HYDROCODONE (Unverified Allergy, Unknown, 04/01/15) LIDOCAINE (Unverified Allergy, Unknown, Rash, 09/21/15) with lidocaine cream MELON (Unverified Allergy, Unknown, 04/01/15) ONION (Unverified Allergy, Unknown, 11/03/15) PINEAPPLE (Unverified Allergy, Unknown, 10/04/16) Red Pepper (Unverified Allergy, Unknown, 04/01/15) TRAMADOL (Unverified Allergy, Unknown, 04/01/15) TROMETHAMINE (Unverified Allergy, Unknown, 04/01/15) WITCH ANNA (Unverified Allergy, Unknown, 04/01/15) Uncoded Allergies: CRANBERRY JUICE (Allergy, Unknown, 10/04/16) onion (Allergy, Unknown, 04/01/15) glueten (Adverse Reaction, Unknown, 09/17/15) Objective Vital Signs Last 24 Hour Vital Signs Date Time Temp Pulse Resp B/P Pulse Ox O2 Delivery O2 Flow Rate FiO2 03/05/17 08:00 40 03/05/17 08:00 103 03/05/17 07:03 102 20 40 03/05/17 07:00 102 17 121/84 100 Mechanical Ventilator 40 03/05/17 06:00 104 16 104/56 100 Mechanical Ventilator 40 03/05/17 05:22 89 22 40 03/05/17 05:00 103 16 101/42 100 Mechanical Ventilator 40 03/05/17 04:00 103 03/05/17 04:00 40 03/05/17 04:00 98.0 100 16 128/65 100 Mechanical Ventilator 40 03/05/17 03:06 98 17 40 03/05/17 03:00 100 16 116/56 100 Mechanical Ventilator 40 03/05/17 02:00 99 16 115/51 100 Mechanical Ventilator 40 03/05/17 01:22 98 17 40 03/05/17 01:00 84 16 113/56 100 Mechanical Ventilator 40 03/05/17 00:00 94 03/05/17 00:00 40 03/05/17 00:00 84 16 110/53 100 Mechanical Ventilator 40 03/04/17 23:47 107 25 40 03/04/17 23:00 84 16 128/64 100 Mechanical Ventilator 40 03/04/17 22:00 84 16 104/56 100 Mechanical Ventilator 40 03/04/17 21:55 97 21 40 03/04/17 21:00 86 16 104/55 100 Mechanical Ventilator 40 03/04/17 20:00 98.6 98 20 113/62 100 Mechanical Ventilator 40 03/04/17 20:00 40 03/04/17 20:00 98 03/04/17 19:35 100 22 40 03/04/17 19:00 84 16 113/62 100 Mechanical Ventilator 40 03/04/17 18:00 86 16 124/60 99 Mechanical Ventilator 40 03/04/17 17:00 88 16 122/56 98 Mechanical Ventilator 40 03/04/17 16:40 101 17 40 03/04/17 16:00 107 03/04/17 16:00 98.6 107 19 156/88 99 Mechanical Ventilator 40 03/04/17 16:00 40 03/04/17 15:00 109 16 150/84 100 Mechanical Ventilator 40 03/04/17 14:58 107 21 40 03/04/17 14:00 79 16 122/66 100 Mechanical Ventilator 40 03/04/17 13:09 93 16 40 03/04/17 13:00 98.8 03/04/17 13:00 93 17 128/63 100 Mechanical Ventilator 40 03/04/17 12:00 98.8 99 18 134/74 99 Mechanical Ventilator 40 03/04/17 12:00 40 03/04/17 12:00 99 03/04/17 11:00 86 16 108/54 100 Mechanical Ventilator 40 03/04/17 10:56 83 16 40 03/04/17 10:00 79 16 118/56 98 Mechanical Ventilator 40 03/04/17 09:00 93 18 142/71 100 Mechanical Ventilator 40 03/04/17 09:00 99 16 40 Height (Feet): 5 Height (Inches): 3.00 Weight (Pounds): 241 HEENT: other - orally intubated Respiratory/Chest: lungs clear, other - on ventilator Cardiovascular: tachycardia, other - R femoral line Abdomen: non distended, other - NG tube feeding Genitourinary: other - Suprapubic catheter Extremities: no edema Neurologic/Psychiatric: alert, responsive Laboratory Tests Test 03/05/17 04:45 White Blood Count 11.0 K/UL (4.8-10.8) H Red Blood Count 3.01 M/UL (4.20-5.40) L Hemoglobin 9.0 G/DL (12.0-16.0) L Hematocrit 29.4 % (37.0-47.0) L Mean Corpuscular Volume 97 FL (80-99) Mean Corpuscular Hemoglobin 29.8 PG (27.0-31.0) Mean Corpuscular Hemoglobin Concent 30.5 G/DL (32.0-36.0) L Red Cell Distribution Width 17.8 % (11.6-14.8) H Platelet Count 258 K/UL (150-450) Mean Platelet Volume 5.7 FL (6.5-10.1) L Neutrophils (%) (Auto) 78.6 % (45.0-75.0) H Lymphocytes (%) (Auto) 11.1 % (20.0-45.0) L Monocytes (%) (Auto) 5.1 % (1.0-10.0) Eosinophils (%) (Auto) 4.5 % (0.0-3.0) H Basophils (%) (Auto) 0.6 % (0.0-2.0) Sodium Level 145 mEQ/L (135-145) Potassium Level 4.1 mEQ/L (3.4-4.9) Chloride Level 112 mEQ/L (98-107) H Carbon Dioxide Level 18 mEQ/L (20-30) L Anion Gap 15 (5-15) Blood Urea Nitrogen 38 mg/dL (7-23) H Creatinine 2.2 mg/dL (0.5-0.9) H Estimat Glomerular Filtration Rate 25.9 mL/min (>60) Glucose Level 208 mg/dL (74-106) H Calcium Level 8.6 mg/dL (8.6-10.2) Phosphorus Level 4.2 mg/dL (2.5-4.8) Magnesium Level 2.0 mg/dL (1.7-2.5) Total Bilirubin < 0.2 mg/dL (0.0-1.2) Aspartate Amino Transf (AST/SGOT) 16 U/L (5-40) Alanine Aminotransferase (ALT/SGPT) 44 U/L (3-33) H Alkaline Phosphatase 144 U/L (35-104) H Total Protein 6.5 g/dL (6.6-8.7) L Albumin 3.4 g/dL (3.5-5.2) L Globulin 3.1 g/dL Albumin/Globulin Ratio 1.0 (1.0-2.7) Current Medications Medications (Trade) Dose Ordered Sig/Cabrera Route PRN Reason Start Time Stop Time Status Last Admin Dose Admin Ceftriaxone Sodium/Dextrose (Rocephin/D5W) 55 ml @ 110 mls/hr Q24H IVPB 03/02/17 18:00 03/09/17 17:59 03/04/17 17:30 Chlorhexidine Gluconate 1 applic 1 applic QHS TOPIC 03/02/17 21:00 04/01/17 20:59 03/04/17 21:09 Clotrimazole (Lotrimin) 1 applic EVERY 12 HOURS TOPIC 02/28/17 09:00 03/30/17 08:59 03/04/17 21:09 Dextrose (D5W 1000ml) 1,000 ml @ 75 mls/hr [id number] IV 03/03/17 18:00 04/02/17 17:59 03/04/17 21:02 Dextrose (Dextrose 50%) STAT PRN IV Hypoglycemia 02/28/17 07:30 03/30/17 07:29 Docusate Sodium 100 mg 100 mg TWICE A DAY ORAL 03/03/17 09:00 04/02/17 08:59 03/04/17 17:31 Heparin Sodium (Porcine) (Heparin 5000 units/ml) 5,000 units EVERY 12 HOURS SUBQ 02/27/17 21:00 03/29/17 20:59 03/04/17 21:07 Insulin Aspart (NovoLOG) EVERY 4 HOURS SUBQ 02/28/17 09:00 03/30/17 08:59 03/05/17 04:56 Insulin Detemir (Levemir) 15 units BID SUBQ 02/28/17 09:00 03/30/17 08:59 03/04/17 17:31 Levothyroxine Sodium (Synthroid) 100 mcg DAILY@0630 ORAL 02/28/17 06:30 03/30/17 06:29 03/05/17 06:34 Lorazepam (Ativan 2mg/ml 1ml) 2 mg Q2H PRN IV For Anxiety 02/27/17 18:00 03/06/17 17:59 03/05/17 06:34 Morphine Sulfate (Morphine Sulfate) 2 mg Q4H PRN IVP Severe Pain (Pain Scale 7-10) 02/28/17 19:00 03/07/17 18:59 03/05/17 04:53 Ondansetron HCl (Zofran) 4 mg Q6H PRN IVP Nausea & Vomiting 02/27/17 18:00 03/29/17 17:59 03/01/17 09:02 Pantoprazole (Protonix) 40 mg DAILY IVP 02/28/17 09:00 03/30/17 08:59 03/04/17 08:52 Polyethylene Glycol (Miralax) 17 gm DAILYPRN PRN ORAL Constipation 02/27/17 18:00 03/29/17 17:59 Valproic Acid (Depakene) 500 mg Q12HR GT 02/27/17 23:00 03/29/17 22:59 03/04/17 21:03 JILL HOLLEY Mar 05, 2017 09:04
[2017-03-05] MEDS: Levemir Flexpen SUBQ SCH ×2 (09:24→18:04)
[2017-03-05] MEDS: Pantoprazole Inj IVP SCH (09:25)
[2017-03-05] MEDS: Heparin 5000 units/ml inj SUBQ SCH ×2 (09:25→20:46)
[2017-03-05] MEDS: Docusate 100mg/10ml Liq ORAL SCH ×2 (09:26→18:01)
[2017-03-05] MEDS: Valproic Acid 250mg/5ml Liquid GT SCH ×2 (09:26→20:43)
[2017-03-05 09:36] LABS: ABG ALLEN TEST POSITIVE; ABG BASE EXCESS -7.1; ABG PCO2 45.6 mmHg (35.0-45.0)
--- NOTE | 2017-03-05 11:15 | General Progress Note ---
Assessment/Plan Status: stable Status Narrative Cr down 2.2 Assessment/Plan status: (1) Respiratory distress, intubated (2) Septic shock , UTI and Pneumonia (3) Renal Failure ( Diabetic) and Hyper Natremia (4) Diabetes mellitus (5) Spina bifida (6) HypoThyroid (7) Anemia (8) Sz disorder (9) Full Code status: D5W Monitor renal parameters Avoid nephrotoxics Anemia chanel per orders Subjective ROS Limited/Unobtainable: Yes Allergies: Coded Allergies: CIPROFLOXACIN (Verified Allergy, Severe, Anaphylaxis, 05/18/12) KETOROLAC (Unverified Allergy, Severe, Anaphylaxis, 03/04/14) Throat collapsed LATEX (Verified Allergy, Severe, Anaphylaxis, 03/06/14) verbalized by pt LEVOFLOXACIN (Verified Allergy, Severe, Anaphylaxis, 05/18/12) MORPHINE (Verified Allergy, Intermediate, Itching, 05/18/12) ACETAMINOPHEN (Unverified Allergy, Unknown, 04/01/15) ALOE (Unverified Allergy, Unknown, 11/03/15) ALOE VERA (Unverified Allergy, Unknown, 04/01/15) CELERY (Unverified Allergy, Unknown, 04/01/15) COCONUT (Unverified Allergy, Unknown, 11/03/15) COCONUT OIL (Unverified Allergy, Unknown, 04/01/15) FISH CONTAINING PRODUCTS (Unverified Allergy, Unknown, 10/04/16) HYDROCODONE (Unverified Allergy, Unknown, 04/01/15) LIDOCAINE (Unverified Allergy, Unknown, Rash, 09/21/15) with lidocaine cream MELON (Unverified Allergy, Unknown, 04/01/15) ONION (Unverified Allergy, Unknown, 11/03/15) PINEAPPLE (Unverified Allergy, Unknown, 10/04/16) Red Pepper (Unverified Allergy, Unknown, 04/01/15) TRAMADOL (Unverified Allergy, Unknown, 04/01/15) TROMETHAMINE (Unverified Allergy, Unknown, 04/01/15) WITCH ANNA (Unverified Allergy, Unknown, 04/01/15) Uncoded Allergies: CRANBERRY JUICE (Allergy, Unknown, 10/04/16) onion (Allergy, Unknown, 04/01/15) glueten (Adverse Reaction, Unknown, 09/17/15) Objective Last 24 Hour Vital Signs Date Time Temp Pulse Resp B/P Pulse Ox O2 Delivery O2 Flow Rate FiO2 03/05/17 11:00 92 20 119/53 100 Mechanical Ventilator 40 03/05/17 10:00 94 19 106/47 100 Mechanical Ventilator 40 03/05/17 09:19 92 16 40 03/05/17 09:00 101 19 120/60 100 Mechanical Ventilator 40 03/05/17 08:00 97.9 103 17 135/79 100 Mechanical Ventilator 40 03/05/17 08:00 40 03/05/17 08:00 103 03/05/17 07:03 102 20 40 03/05/17 07:00 102 17 121/84 100 Mechanical Ventilator 40 03/05/17 06:00 104 16 104/56 100 Mechanical Ventilator 40 03/05/17 05:22 89 22 40 03/05/17 05:00 103 16 101/42 100 Mechanical Ventilator 40 03/05/17 04:00 103 03/05/17 04:00 40 03/05/17 04:00 98.0 100 16 128/65 100 Mechanical Ventilator 40 03/05/17 03:06 98 17 40 03/05/17 03:00 100 16 116/56 100 Mechanical Ventilator 40 03/05/17 02:00 99 16 115/51 100 Mechanical Ventilator 40 03/05/17 01:22 98 17 40 03/05/17 01:00 84 16 113/56 100 Mechanical Ventilator 40 03/05/17 00:00 94 03/05/17 00:00 40 03/05/17 00:00 84 16 110/53 100 Mechanical Ventilator 40 03/04/17 23:47 107 25 40 03/04/17 23:00 84 16 128/64 100 Mechanical Ventilator 40 03/04/17 22:00 84 16 104/56 100 Mechanical Ventilator 40 03/04/17 21:55 97 21 40 03/04/17 21:00 86 16 104/55 100 Mechanical Ventilator 40 03/04/17 20:00 98.6 98 20 113/62 100 Mechanical Ventilator 40 03/04/17 20:00 40 03/04/17 20:00 98 03/04/17 19:35 100 22 40 03/04/17 19:00 84 16 113/62 100 Mechanical Ventilator 40 03/04/17 18:00 86 16 124/60 99 Mechanical Ventilator 40 03/04/17 17:00 88 16 122/56 98 Mechanical Ventilator 40 03/04/17 16:40 101 17 40 03/04/17 16:00 107 03/04/17 16:00 98.6 107 19 156/88 99 Mechanical Ventilator 40 03/04/17 16:00 40 03/04/17 15:00 109 16 150/84 100 Mechanical Ventilator 40 03/04/17 14:58 107 21 40 03/04/17 14:00 79 16 122/66 100 Mechanical Ventilator 40 03/04/17 13:09 93 16 40 03/04/17 13:00 98.8 03/04/17 13:00 93 17 128/63 100 Mechanical Ventilator 40 03/04/17 12:00 98.8 99 18 134/74 99 Mechanical Ventilator 40 03/04/17 12:00 40 03/04/17 12:00 99 Intake and Output 03/04/17 03/05/17 19:00 07:00 Intake Total 1503 ml 1493 ml Output Total 1295 ml 2225 ml Balance 208 ml -732 ml Free Water 60 ml 200 ml IV Total 915 ml 825 ml Tube Feeding 408 ml 408 ml Other 120 ml 60 ml Output Urine Total 1295 ml 2225 ml Laboratory Tests 03/05/17 04:45: White Blood Count 11.0H, Red Blood Count 3.01L, Hemoglobin 9.0L, Hematocrit 29.4L, Mean Corpuscular Volume 97, Mean Corpuscular Hemoglobin 29.8, Mean Corpuscular Hemoglobin Concent 30.5L, Red Cell Distribution Width 17.8H, Platelet Count 258, Mean Platelet Volume 5.7L, Neutrophils (%) (Auto) 78.6H, Lymphocytes (%) (Auto) 11.1L, Monocytes (%) (Auto) 5.1, Eosinophils (%) (Auto) 4.5H, Basophils (%) (Auto) 0.6, Sodium Level 145, Potassium Level 4.1, Chloride Level 112H, Carbon Dioxide Level 18L, Anion Gap 15, Blood Urea Nitrogen 38H, Creatinine 2.2H, Estimat Glomerular Filtration Rate 25.9, Glucose Level 208H, Calcium Level 8.6, Phosphorus Level 4.2, Magnesium Level 2.0, Total Bilirubin < 0.2, Aspartate Amino Transf (AST/SGOT) 16, Alanine Aminotransferase (ALT/SGPT) 44H, Alkaline Phosphatase 144H, Total Protein 6.5L, Albumin 3.4L, Globulin 3.1, Albumin/Globulin Ratio 1.0 03/05/17 09:20: Arterial Blood pH 7.256L, Arterial Blood Partial Pressure CO2 45.6H, Arterial Blood Partial Pressure O2 106.6H, Arterial Blood HCO3 19.8L, Arterial Blood Oxygen Saturation 96.8, Arterial Blood Base Excess -7.1, Cristian Test Positive Height (Feet): 5 Height (Inches): 3.00 Weight (Pounds): 241 General Appearance: no apparent distress Objective no change in PE ALVIN LUUQE Mar 05, 2017 11:15
--- NOTE | 2017-03-05 11:17 | Pulmonolgy Critical Care Note ---
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, 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, 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, 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 - Objective Last 24 Hour Vital Signs Date Time Temp Pulse Resp B/P Pulse Ox O2 Delivery O2 Flow Rate FiO2 03/05/17 11:00 92 20 119/53 100 Mechanical Ventilator 40 03/05/17 10:00 94 19 106/47 100 Mechanical Ventilator 40 03/05/17 09:19 92 16 40 03/05/17 09:00 101 19 120/60 100 Mechanical Ventilator 40 03/05/17 08:00 97.9 103 17 135/79 100 Mechanical Ventilator 40 03/05/17 08:00 40 03/05/17 08:00 103 03/05/17 07:03 102 20 40 03/05/17 07:00 102 17 121/84 100 Mechanical Ventilator 40 03/05/17 06:00 104 16 104/56 100 Mechanical Ventilator 40 03/05/17 05:22 89 22 40 03/05/17 05:00 103 16 101/42 100 Mechanical Ventilator 40 03/05/17 04:00 103 03/05/17 04:00 40 03/05/17 04:00 98.0 100 16 128/65 100 Mechanical Ventilator 40 03/05/17 03:06 98 17 40 03/05/17 03:00 100 16 116/56 100 Mechanical Ventilator 40 03/05/17 02:00 99 16 115/51 100 Mechanical Ventilator 40 03/05/17 01:22 98 17 40 03/05/17 01:00 84 16 113/56 100 Mechanical Ventilator 40 03/05/17 00:00 94 03/05/17 00:00 40 03/05/17 00:00 84 16 110/53 100 Mechanical Ventilator 40 03/04/17 23:47 107 25 40 03/04/17 23:00 84 16 128/64 100 Mechanical Ventilator 40 03/04/17 22:00 84 16 104/56 100 Mechanical Ventilator 40 03/04/17 21:55 97 21 40 03/04/17 21:00 86 16 104/55 100 Mechanical Ventilator 40 03/04/17 20:00 98.6 98 20 113/62 100 Mechanical Ventilator 40 03/04/17 20:00 40 03/04/17 20:00 98 03/04/17 19:35 100 22 40 03/04/17 19:00 84 16 113/62 100 Mechanical Ventilator 40 03/04/17 18:00 86 16 124/60 99 Mechanical Ventilator 40 03/04/17 17:00 88 16 122/56 98 Mechanical Ventilator 40 03/04/17 16:40 101 17 40 03/04/17 16:00 107 03/04/17 16:00 98.6 107 19 156/88 99 Mechanical Ventilator 40 03/04/17 16:00 40 03/04/17 15:00 109 16 150/84 100 Mechanical Ventilator 40 03/04/17 14:58 107 21 40 03/04/17 14:00 79 16 122/66 100 Mechanical Ventilator 40 03/04/17 13:09 93 16 40 03/04/17 13:00 98.8 03/04/17 13:00 93 17 128/63 100 Mechanical Ventilator 40 03/04/17 12:00 98.8 99 18 134/74 99 Mechanical Ventilator 40 03/04/17 12:00 40 03/04/17 12:00 99 Status: awake Condition: critical HEENT: atraumatic Neck: full ROM Lungs: chest wall tender Heart: HR/BP unstable, regular Abdomen: soft, active bowel sounds, feeding tube Extremities: no C/C/E Decubiti: location Accucheck: 200 Critical Care - Subjective ROS Limited/Unobtainable: No EKG Rhythm: Sinus Rhythm FI02: 40 Vent Support Breath Rate: 16 Vent Support Mode: AC Vent Tidal Volume: 600 Sputum Amount: Small PIP: 22 Fluids: d5 w 75 cc.hour Tube Feeding Amount: 34 I&O: Intake and Output 03/04/17 03/05/17 19:00 07:00 Intake Total 1503 ml 1493 ml Output Total 1295 ml 2225 ml Balance 208 ml -732 ml Free Water 60 ml 200 ml IV Total 915 ml 825 ml Tube Feeding 408 ml 408 ml Other 120 ml 60 ml Output Urine Total 1295 ml 2225 ml CXR: no change ET-Tube: 7.0 ET Position: 23 Labs: Laboratory Tests Test 03/05/17 04:45 03/05/17 09:20 White Blood Count 11.0 K/UL (4.8-10.8) H Red Blood Count 3.01 M/UL (4.20-5.40) L Hemoglobin 9.0 G/DL (12.0-16.0) L Hematocrit 29.4 % (37.0-47.0) L Mean Corpuscular Volume 97 FL (80-99) Mean Corpuscular Hemoglobin 29.8 PG (27.0-31.0) Mean Corpuscular Hemoglobin Concent 30.5 G/DL (32.0-36.0) L Red Cell Distribution Width 17.8 % (11.6-14.8) H Platelet Count 258 K/UL (150-450) Mean Platelet Volume 5.7 FL (6.5-10.1) L Neutrophils (%) (Auto) 78.6 % (45.0-75.0) H Lymphocytes (%) (Auto) 11.1 % (20.0-45.0) L Monocytes (%) (Auto) 5.1 % (1.0-10.0) Eosinophils (%) (Auto) 4.5 % (0.0-3.0) H Basophils (%) (Auto) 0.6 % (0.0-2.0) Sodium Level 145 mEQ/L (135-145) Potassium Level 4.1 mEQ/L (3.4-4.9) Chloride Level 112 mEQ/L (98-107) H Carbon Dioxide Level 18 mEQ/L (20-30) L Anion Gap 15 (5-15) Blood Urea Nitrogen 38 mg/dL (7-23) H Creatinine 2.2 mg/dL (0.5-0.9) H Estimat Glomerular Filtration Rate 25.9 mL/min (>60) Glucose Level 208 mg/dL (74-106) H Calcium Level 8.6 mg/dL (8.6-10.2) Phosphorus Level 4.2 mg/dL (2.5-4.8) Magnesium Level 2.0 mg/dL (1.7-2.5) Total Bilirubin < 0.2 mg/dL (0.0-1.2) Aspartate Amino Transf (AST/SGOT) 16 U/L (5-40) Alanine Aminotransferase (ALT/SGPT) 44 U/L (3-33) H Alkaline Phosphatase 144 U/L (35-104) H Total Protein 6.5 g/dL (6.6-8.7) L Albumin 3.4 g/dL (3.5-5.2) L Globulin 3.1 g/dL Albumin/Globulin Ratio 1.0 (1.0-2.7) Arterial Blood pH 7.256 (7.350-7.450) Arterial Blood Partial Pressure CO2 45.6 mmHg (35.0-45.0) H Arterial Blood Partial Pressure O2 106.6 mmHg (75.0-100.0) H Arterial Blood HCO3 19.8 mmol/L (22.0-26.0) L Arterial Blood Oxygen Saturation 96.8 % (92.0-98.0) Arterial Blood Base Excess -7.1 Cristian Test Positive LORNE DENNEY Mar 05, 2017 11:17
[2017-03-05] MEDS ORDERED: NS 275ml ONE (13:56)
[2017-03-05] MEDS ORDERED: Tubing IV Secondary IV ONE (13:56)
[2017-03-05] MEDS: cefTRIAXone 1 GM in D5W 55 ML IVPB SCH (18:01)
[2017-03-05] MEDS: Dyna-Hex 2% Top Sol 8oz TOPIC SCH (20:46)
[2017-03-06] VITALS (24 sets, daily range): BP systolic 90–154; BP diastolic 44–85
[2017-03-06] MEDS: NovoLOG Insulin Flexpen SUBQ SCH ×6 (01:05→20:44)
[2017-03-06] MEDS: Morphine Sulfate 2mg/ml Inj IVP PRN ×4 (01:15→20:16)
[2017-03-06] MEDS: LORazepam Inj 2mg/ml 1ml IV PRN ×3 (02:31→23:44)
[2017-03-06 04:44] LABS: BASOPHILS % (AUTO) 0.8 % (0.0-2.0); EOSINOPHILS % (AUTO) 3.6 % (0.0-3.0); LYMPHOCYTES % (AUTO) 9.3 % (20.0-45.0); MEAN CORPUSCULAR HEMOGLOBIN 30.3 PG (27.0-31.0); MEAN CORPUSCULAR VOLUME 98 FL (80-99); MEAN PLATELET VOLUME 6.5 FL (6.5-10.1); MONOCYTES % (AUTO) 5.2 % (1.0-10.0); NEUTROPHILS % (AUTO) 81.2 % (45.0-75.0); PLATELET COUNT 252 K/UL (150-450); RED BLOOD COUNT 2.83 M/UL (4.20-5.40); RED CELL DISTRIBUTION WIDTH 17.9 % (11.6-14.8); WHITE BLOOD COUNT 11.2 K/UL (4.8-10.8)
[2017-03-06 05:10] LABS: ALANINE AMINOTRANSFERASE 30 U/L (3-33); ALBUMIN/GLOBULIN RATIO 1.1 (1.0-2.7); ANION GAP 14 (5-15); ASPARTATE AMINO TRANSFERASE 12 U/L (5-40); CALCIUM 8.3 mg/dL (8.6-10.2); CARBON DIOXIDE 21 mEQ/L (20-30); CHLORIDE 110 mEQ/L (98-107); CREATININE 1.9 mg/dL (0.5-0.9); GLOMERULAR FILTRATION RATE 30.6 mL/min (>60); HEMOLYSIS 3; PHOSPHORUS 4.2 mg/dL (2.5-4.8); SODIUM 145 mEQ/L (135-145)
--- NOTE | 2017-03-06 08:45 | Infectious Diseases Prog Note ---
Assessment/Plan Assessment/Plan ASSESSMENT: 31 y/o female with: Recurrent complicated UTI - UCx P.mirabilis, E.coli - US: Mildly increased renal echogenicity, compatible with medical renal disease. Negative for hydronephrosis. Right renal upper pole cyst. - SPC in place - h/o E Coli and Morganella, PSA CONS bacteremia 08/10 c/w contaminant - TTE(-) SBE Left chest Port-A-Cath, with interim fracture of the tubing at or near the left jugular vein insertion site Leukocytosis - recurrent, mild, afebrile Acute VDRF - intubated 02/27 Possible CHF exacerbation - TTE: EF 65% ARF on CKD3 - stable - US: Mildly increased renal echogenicity, compatible with medical renal disease. Negative for hydronephrosis. Right renal upper pole cyst. hx of CVA s/p VPS seizure disorder DM Bipolar disorder Spina bifida [place] resident Quinolone allergy Full Code PLAN: - continue rocephin d# 5 ( ABX d# 8 / 10 ) ( 03/02 SP IV vancomycin, zosyn d# 4 ) - monitor CBC, temperatures, re-culture if acute change - monitor BMP - vent support, wean as tolerated Subjective Allergies: Coded Allergies: CIPROFLOXACIN (Verified Allergy, Severe, Anaphylaxis, 05/18/12) KETOROLAC (Unverified Allergy, Severe, Anaphylaxis, 03/04/14) Throat collapsed LATEX (Verified Allergy, Severe, Anaphylaxis, 03/06/14) verbalized by pt LEVOFLOXACIN (Verified Allergy, Severe, Anaphylaxis, 05/18/12) MORPHINE (Verified Allergy, Intermediate, Itching, 05/18/12) ACETAMINOPHEN (Unverified Allergy, Unknown, 04/01/15) ALOE (Unverified Allergy, Unknown, 11/03/15) ALOE VERA (Unverified Allergy, Unknown, 04/01/15) CELERY (Unverified Allergy, Unknown, 04/01/15) COCONUT (Unverified Allergy, Unknown, 11/03/15) COCONUT OIL (Unverified Allergy, Unknown, 04/01/15) FISH CONTAINING PRODUCTS (Unverified Allergy, Unknown, 10/04/16) HYDROCODONE (Unverified Allergy, Unknown, 04/01/15) LIDOCAINE (Unverified Allergy, Unknown, Rash, 09/21/15) with lidocaine cream MELON (Unverified Allergy, Unknown, 04/01/15) ONION (Unverified Allergy, Unknown, 11/03/15) PINEAPPLE (Unverified Allergy, Unknown, 10/04/16) Red Pepper (Unverified Allergy, Unknown, 04/01/15) TRAMADOL (Unverified Allergy, Unknown, 04/01/15) TROMETHAMINE (Unverified Allergy, Unknown, 04/01/15) WITCH ANNA (Unverified Allergy, Unknown, 04/01/15) Uncoded Allergies: CRANBERRY JUICE (Allergy, Unknown, 10/04/16) onion (Allergy, Unknown, 04/01/15) glueten (Adverse Reaction, Unknown, 09/17/15) Subjective remains afebrile on vent Objective Vital Signs Last 24 Hour Vital Signs Date Time Temp Pulse Resp B/P Pulse Ox O2 Delivery O2 Flow Rate FiO2 03/06/17 08:00 98.6 93 16 130/46 100 Mechanical Ventilator 40 03/06/17 08:00 96 03/06/17 08:00 40 03/06/17 07:00 94 16 131/54 100 Mechanical Ventilator 40 03/06/17 06:49 98 18 40 03/06/17 06:00 99 17 114/61 97 Mechanical Ventilator 40 03/06/17 05:09 109 20 40 03/06/17 05:00 100 17 125/66 100 Mechanical Ventilator 40 03/06/17 04:00 98.7 98 16 127/69 95 Mechanical Ventilator 40 03/06/17 04:00 40 03/06/17 04:00 99 03/06/17 03:30 95 16 40 03/06/17 03:00 96 16 125/61 100 Mechanical Ventilator 40 03/06/17 02:00 98 16 135/80 100 Mechanical Ventilator 40 03/06/17 01:30 100 16 40 03/06/17 01:00 95 16 112/53 87 Mechanical Ventilator 40 03/06/17 00:00 77 03/06/17 00:00 40 03/06/17 00:00 98.6 77 16 96/44 95 Mechanical Ventilator 40 03/05/17 23:30 87 16 40 03/05/17 23:00 88 16 137/66 92 Mechanical Ventilator 40 03/05/17 22:00 80 16 107/51 100 Mechanical Ventilator 40 03/05/17 21:28 84 16 40 03/05/17 21:00 85 16 121/56 99 Mechanical Ventilator 40 03/05/17 20:00 98.4 90 16 119/68 100 Mechanical Ventilator 40 03/05/17 20:00 90 03/05/17 20:00 40 03/05/17 19:30 75 16 40 03/05/17 19:00 86 16 99/47 98 Mechanical Ventilator 40 03/05/17 18:00 87 17 142/69 100 Mechanical Ventilator 40 03/05/17 17:00 80 16 108/53 100 Mechanical Ventilator 40 03/05/17 16:49 96 16 40 03/05/17 16:00 40 03/05/17 16:00 98.2 94 20 137/72 98 Mechanical Ventilator 40 03/05/17 16:00 89 03/05/17 15:06 71 16 40 03/05/17 15:00 91 19 117/53 98 Mechanical Ventilator 40 03/05/17 14:00 81 19 109/46 98 Mechanical Ventilator 40 03/05/17 13:28 96 17 40 03/05/17 13:00 97 20 142/81 100 Mechanical Ventilator 40 03/05/17 12:00 40 03/05/17 12:00 86 03/05/17 12:00 98.0 84 19 110/55 100 Mechanical Ventilator 40 03/05/17 11:23 82 16 40 03/05/17 11:00 92 20 119/53 100 Mechanical Ventilator 40 03/05/17 10:00 94 19 106/47 100 Mechanical Ventilator 40 03/05/17 09:19 92 16 40 03/05/17 09:00 101 19 120/60 100 Mechanical Ventilator 40 Height (Feet): 5 Height (Inches): 3.00 Weight (Pounds): 243 General Appearance: other - intubated Respiratory/Chest: decreased breath sounds Cardiovascular: normal rate, regular rhythm Abdomen: normal bowel sounds, soft, non tender, non distended Laboratory Tests Test 03/05/17 09:20 03/06/17 04:00 Arterial Blood pH 7.256 (7.350-7.450) Arterial Blood Partial Pressure CO2 45.6 mmHg (35.0-45.0) H Arterial Blood Partial Pressure O2 106.6 mmHg (75.0-100.0) H Arterial Blood HCO3 19.8 mmol/L (22.0-26.0) L Arterial Blood Oxygen Saturation 96.8 % (92.0-98.0) Arterial Blood Base Excess -7.1 Cristian Test Positive White Blood Count 11.2 K/UL (4.8-10.8) H Red Blood Count 2.83 M/UL (4.20-5.40) L Hemoglobin 8.6 G/DL (12.0-16.0) L Hematocrit 27.6 % (37.0-47.0) L Mean Corpuscular Volume 98 FL (80-99) Mean Corpuscular Hemoglobin 30.3 PG (27.0-31.0) Mean Corpuscular Hemoglobin Concent 31.0 G/DL (32.0-36.0) L Red Cell Distribution Width 17.9 % (11.6-14.8) H Platelet Count 252 K/UL (150-450) Mean Platelet Volume 6.5 FL (6.5-10.1) Neutrophils (%) (Auto) 81.2 % (45.0-75.0) H Lymphocytes (%) (Auto) 9.3 % (20.0-45.0) L Monocytes (%) (Auto) 5.2 % (1.0-10.0) Eosinophils (%) (Auto) 3.6 % (0.0-3.0) H Basophils (%) (Auto) 0.8 % (0.0-2.0) Sodium Level 145 mEQ/L (135-145) Potassium Level 4.0 mEQ/L (3.4-4.9) Chloride Level 110 mEQ/L (98-107) H Carbon Dioxide Level 21 mEQ/L (20-30) Anion Gap 14 (5-15) Blood Urea Nitrogen 38 mg/dL (7-23) H Creatinine 1.9 mg/dL (0.5-0.9) H Estimat Glomerular Filtration Rate 30.6 mL/min (>60) Glucose Level 219 mg/dL (74-106) H Calcium Level 8.3 mg/dL (8.6-10.2) L Phosphorus Level 4.2 mg/dL (2.5-4.8) Magnesium Level 2.0 mg/dL (1.7-2.5) Total Bilirubin < 0.2 mg/dL (0.0-1.2) Aspartate Amino Transf (AST/SGOT) 12 U/L (5-40) Alanine Aminotransferase (ALT/SGPT) 30 U/L (3-33) Alkaline Phosphatase 135 U/L (35-104) H Total Protein 6.0 g/dL (6.6-8.7) L Albumin 3.2 g/dL (3.5-5.2) L Globulin 2.8 g/dL Albumin/Globulin Ratio 1.1 (1.0-2.7) Current Medications Medications (Trade) Dose Ordered Sig/Cabrera Route PRN Reason Start Time Stop Time Status Last Admin Dose Admin Ceftriaxone Sodium/Dextrose (Rocephin/D5W) 55 ml @ 110 mls/hr Q24H IVPB 03/02/17 18:00 03/09/17 17:59 03/05/17 18:01 Chlorhexidine Gluconate 1 applic 1 applic QHS TOPIC 03/02/17 21:00 04/01/17 20:59 03/05/17 20:46 Clotrimazole (Lotrimin) 1 applic EVERY 12 HOURS TOPIC 02/28/17 09:00 03/30/17 08:59 03/05/17 20:46 Dextrose (D5W 1000ml) 1,000 ml @ 75 mls/hr [id number] IV 03/03/17 18:00 04/02/17 17:59 03/05/17 22:48 Dextrose (Dextrose 50%) STAT PRN IV Hypoglycemia 02/28/17 07:30 03/30/17 07:29 Docusate Sodium 100 mg 100 mg TWICE A DAY ORAL 03/03/17 09:00 04/02/17 08:59 03/05/17 18:01 Heparin Sodium (Porcine) (Heparin 5000 units/ml) 5,000 units EVERY 12 HOURS SUBQ 02/27/17 21:00 03/29/17 20:59 03/05/17 20:46 Insulin Aspart (NovoLOG) EVERY 4 HOURS SUBQ 02/28/17 09:00 03/30/17 08:59 03/06/17 04:52 Insulin Detemir (Levemir) 15 units BID SUBQ 02/28/17 09:00 03/30/17 08:59 03/05/17 18:04 Levothyroxine Sodium (Synthroid) 100 mcg DAILY@0630 ORAL 02/28/17 06:30 03/30/17 06:29 03/06/17 05:52 Lorazepam (Ativan 2mg/ml 1ml) 2 mg Q2H PRN IV For Anxiety 02/27/17 18:00 03/06/17 17:59 03/06/17 02:31 Morphine Sulfate (Morphine Sulfate) 2 mg Q4H PRN IVP Severe Pain (Pain Scale 7-10) 02/28/17 19:00 03/07/17 18:59 03/06/17 05:20 Ondansetron HCl (Zofran) 4 mg Q6H PRN IVP Nausea & Vomiting 02/27/17 18:00 03/29/17 17:59 03/01/17 09:02 Pantoprazole (Protonix) 40 mg DAILY IVP 02/28/17 09:00 03/30/17 08:59 03/05/17 09:25 Polyethylene Glycol (Miralax) 17 gm DAILYPRN PRN ORAL Constipation 02/27/17 18:00 03/29/17 17:59 Valproic Acid (Depakene) 500 mg Q12HR GT 02/27/17 23:00 03/29/17 22:59 03/05/17 20:43 LUCITA WEBSTER Mar 06, 2017 08:45
[2017-03-06] MEDS: Valproic Acid 250mg/5ml Liquid GT SCH ×2 (08:51→20:42)
[2017-03-06] MEDS: Docusate 100mg/10ml Liq ORAL SCH ×2 (08:51→17:26)
[2017-03-06] MEDS: Pantoprazole Inj IVP SCH (08:51)
[2017-03-06] MEDS: Heparin 5000 units/ml inj SUBQ SCH ×2 (09:00→20:43)
[2017-03-06] MEDS: Levemir Flexpen SUBQ SCH ×2 (09:00→17:30)
--- NOTE | 2017-03-06 10:16 | Pulmonolgy Critical Care Note ---
Critical Care - Asmt/Plan Problems: (1) Respiratory distress (2) Septic shock (3) ATN (acute tubular necrosis) (4) Diabetes mellitus (5) Spina bifida Respiratory: monitor respiratory rate, weaning trial Cardiac: continue pressors, continue to monitor HR/BP Renal: F/U I&O, keep IV fluid Infectious Disease: check cultures, continue antibiotics Gastrointestinal: continue feedings/current rate Endocrine: monitor blood sugar Hematologic: monitor H/H Neurologic: PRN Morphine Prophylaxis: Protonix Disposition: keep in ICU Notes Reviewed: cardio, 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 Critical Care - Objective Last 24 Hour Vital Signs Date Time Temp Pulse Resp B/P Pulse Ox O2 Delivery O2 Flow Rate FiO2 03/06/17 09:15 90 18 40 03/06/17 09:00 84 16 143/72 99 Mechanical Ventilator 40 03/06/17 08:00 98.6 93 16 130/46 100 Mechanical Ventilator 40 03/06/17 08:00 96 03/06/17 08:00 40 03/06/17 07:00 94 16 131/54 100 Mechanical Ventilator 40 03/06/17 06:49 98 18 40 03/06/17 06:00 99 17 114/61 97 Mechanical Ventilator 40 03/06/17 05:09 109 20 40 03/06/17 05:00 100 17 125/66 100 Mechanical Ventilator 40 03/06/17 04:00 98.7 98 16 127/69 95 Mechanical Ventilator 40 03/06/17 04:00 40 03/06/17 04:00 99 03/06/17 03:30 95 16 40 03/06/17 03:00 96 16 125/61 100 Mechanical Ventilator 40 03/06/17 02:00 98 16 135/80 100 Mechanical Ventilator 40 03/06/17 01:30 100 16 40 03/06/17 01:00 95 16 112/53 87 Mechanical Ventilator 40 03/06/17 00:00 77 03/06/17 00:00 40 03/06/17 00:00 98.6 77 16 96/44 95 Mechanical Ventilator 40 03/05/17 23:30 87 16 40 03/05/17 23:00 88 16 137/66 92 Mechanical Ventilator 40 03/05/17 22:00 80 16 107/51 100 Mechanical Ventilator 40 03/05/17 21:28 84 16 40 03/05/17 21:00 85 16 121/56 99 Mechanical Ventilator 40 03/05/17 20:00 98.4 90 16 119/68 100 Mechanical Ventilator 40 03/05/17 20:00 90 03/05/17 20:00 40 03/05/17 19:30 75 16 40 03/05/17 19:00 86 16 99/47 98 Mechanical Ventilator 40 03/05/17 18:00 87 17 142/69 100 Mechanical Ventilator 40 03/05/17 17:00 80 16 108/53 100 Mechanical Ventilator 40 03/05/17 16:49 96 16 40 03/05/17 16:00 40 03/05/17 16:00 98.2 94 20 137/72 98 Mechanical Ventilator 40 03/05/17 16:00 89 03/05/17 15:06 71 16 40 03/05/17 15:00 91 19 117/53 98 Mechanical Ventilator 40 03/05/17 14:00 81 19 109/46 98 Mechanical Ventilator 40 03/05/17 13:28 96 17 40 03/05/17 13:00 97 20 142/81 100 Mechanical Ventilator 40 03/05/17 12:00 40 03/05/17 12:00 86 03/05/17 12:00 98.0 84 19 110/55 100 Mechanical Ventilator 40 03/05/17 11:23 82 16 40 03/05/17 11:00 92 20 119/53 100 Mechanical Ventilator 40 Accucheck: 179 Critical Care - Subjective ICU Day: 7 Intubation Day: 7 Condition: critical EKG Rhythm: Sinus Rhythm FI02: 40 Vent Support Breath Rate: 16 Vent Support Mode: AC Vent Tidal Volume: 600 Sputum Amount: Small PIP: 26 Fluids: d5w 75n cc/hour Tube Feeding Amount: 34 I&O: Intake and Output 03/05/17 03/06/17 19:00 07:00 Intake Total 1663 ml 1170 ml Output Total 1640 ml 1620 ml Balance 23 ml -450 ml Free Water 300 ml IV Total 955 ml 900 ml Tube Feeding 408 ml 170 ml Other 100 ml Output Urine Total 1640 ml 1620 ml CXR: no change ET-Tube: 7.0 ET Position: 23 Labs: Laboratory Tests Test 03/06/17 04:00 White Blood Count 11.2 K/UL (4.8-10.8) H Red Blood Count 2.83 M/UL (4.20-5.40) L Hemoglobin 8.6 G/DL (12.0-16.0) L Hematocrit 27.6 % (37.0-47.0) L Mean Corpuscular Volume 98 FL (80-99) Mean Corpuscular Hemoglobin 30.3 PG (27.0-31.0) Mean Corpuscular Hemoglobin Concent 31.0 G/DL (32.0-36.0) L Red Cell Distribution Width 17.9 % (11.6-14.8) H Platelet Count 252 K/UL (150-450) Mean Platelet Volume 6.5 FL (6.5-10.1) Neutrophils (%) (Auto) 81.2 % (45.0-75.0) H Lymphocytes (%) (Auto) 9.3 % (20.0-45.0) L Monocytes (%) (Auto) 5.2 % (1.0-10.0) Eosinophils (%) (Auto) 3.6 % (0.0-3.0) H Basophils (%) (Auto) 0.8 % (0.0-2.0) Sodium Level 145 mEQ/L (135-145) Potassium Level 4.0 mEQ/L (3.4-4.9) Chloride Level 110 mEQ/L (98-107) H Carbon Dioxide Level 21 mEQ/L (20-30) Anion Gap 14 (5-15) Blood Urea Nitrogen 38 mg/dL (7-23) H Creatinine 1.9 mg/dL (0.5-0.9) H Estimat Glomerular Filtration Rate 30.6 mL/min (>60) Glucose Level 219 mg/dL (74-106) H Calcium Level 8.3 mg/dL (8.6-10.2) L Phosphorus Level 4.2 mg/dL (2.5-4.8) Magnesium Level 2.0 mg/dL (1.7-2.5) Total Bilirubin < 0.2 mg/dL (0.0-1.2) Aspartate Amino Transf (AST/SGOT) 12 U/L (5-40) Alanine Aminotransferase (ALT/SGPT) 30 U/L (3-33) Alkaline Phosphatase 135 U/L (35-104) H Total Protein 6.0 g/dL (6.6-8.7) L Albumin 3.2 g/dL (3.5-5.2) L Globulin 2.8 g/dL Albumin/Globulin Ratio 1.1 (1.0-2.7) LORNE DENNEY Mar 06, 2017 10:16
--- NOTE | 2017-03-06 11:04 | Diagnostic Imaging Report ---
Indication: DYSPNEA Technique: One view of the chest Comparison: 03/05/2017 Findings: Stable satisfactory positions of endotracheal and nasogastric tube. Perihilar interstitial congestion persists. Heart remains enlarged. Other findings are stable Impression: Unchanged, over one day, findings as above.
--- NOTE | 2017-03-06 12:04 | General Progress Note ---
Assessment/Plan Status: stable Status Narrative Cr lower- High Na corrected Assessment/Plan status: (1) Respiratory distress, intubated (2) Septic shock , UTI and Pneumonia (3) Renal Failure ( Diabetic) and Hyper Natremia (4) Diabetes mellitus (5) Spina bifida (6) HypoThyroid (7) Anemia (8) Sz disorder (9) Full Code status: stop D5W Monitor renal parameters Avoid nephrotoxics Anemia chanel per orders Subjective ROS Limited/Unobtainable: Yes Allergies: Coded Allergies: CIPROFLOXACIN (Verified Allergy, Severe, Anaphylaxis, 05/18/12) KETOROLAC (Unverified Allergy, Severe, Anaphylaxis, 03/04/14) Throat collapsed LATEX (Verified Allergy, Severe, Anaphylaxis, 03/06/14) verbalized by pt LEVOFLOXACIN (Verified Allergy, Severe, Anaphylaxis, 05/18/12) MORPHINE (Verified Allergy, Intermediate, Itching, 05/18/12) ACETAMINOPHEN (Unverified Allergy, Unknown, 04/01/15) ALOE (Unverified Allergy, Unknown, 11/03/15) ALOE VERA (Unverified Allergy, Unknown, 04/01/15) CELERY (Unverified Allergy, Unknown, 04/01/15) COCONUT (Unverified Allergy, Unknown, 11/03/15) COCONUT OIL (Unverified Allergy, Unknown, 04/01/15) FISH CONTAINING PRODUCTS (Unverified Allergy, Unknown, 10/04/16) HYDROCODONE (Unverified Allergy, Unknown, 04/01/15) LIDOCAINE (Unverified Allergy, Unknown, Rash, 09/21/15) with lidocaine cream MELON (Unverified Allergy, Unknown, 04/01/15) ONION (Unverified Allergy, Unknown, 11/03/15) PINEAPPLE (Unverified Allergy, Unknown, 10/04/16) Red Pepper (Unverified Allergy, Unknown, 04/01/15) TRAMADOL (Unverified Allergy, Unknown, 04/01/15) TROMETHAMINE (Unverified Allergy, Unknown, 04/01/15) WITCH ANNA (Unverified Allergy, Unknown, 04/01/15) Uncoded Allergies: CRANBERRY JUICE (Allergy, Unknown, 10/04/16) onion (Allergy, Unknown, 04/01/15) glueten (Adverse Reaction, Unknown, 09/17/15) Objective Last 24 Hour Vital Signs Date Time Temp Pulse Resp B/P Pulse Ox O2 Delivery O2 Flow Rate FiO2 03/06/17 11:00 77 16 93/57 98 Mechanical Ventilator 40 03/06/17 10:38 75 18 40 03/06/17 10:00 81 16 104/67 99 Mechanical Ventilator 40 03/06/17 09:15 90 18 40 03/06/17 09:00 84 16 143/72 99 Mechanical Ventilator 40 03/06/17 08:00 98.6 93 16 130/46 100 Mechanical Ventilator 40 03/06/17 08:00 96 03/06/17 08:00 40 03/06/17 07:00 94 16 131/54 100 Mechanical Ventilator 40 03/06/17 06:49 98 18 40 03/06/17 06:00 99 17 114/61 97 Mechanical Ventilator 40 03/06/17 05:09 109 20 40 03/06/17 05:00 100 17 125/66 100 Mechanical Ventilator 40 03/06/17 04:00 98.7 98 16 127/69 95 Mechanical Ventilator 40 03/06/17 04:00 40 03/06/17 04:00 99 03/06/17 03:30 95 16 40 03/06/17 03:00 96 16 125/61 100 Mechanical Ventilator 40 03/06/17 02:00 98 16 135/80 100 Mechanical Ventilator 40 03/06/17 01:30 100 16 40 03/06/17 01:00 95 16 112/53 87 Mechanical Ventilator 40 03/06/17 00:00 77 03/06/17 00:00 40 03/06/17 00:00 98.6 77 16 96/44 95 Mechanical Ventilator 40 03/05/17 23:30 87 16 40 03/05/17 23:00 88 16 137/66 92 Mechanical Ventilator 40 03/05/17 22:00 80 16 107/51 100 Mechanical Ventilator 40 03/05/17 21:28 84 16 40 03/05/17 21:00 85 16 121/56 99 Mechanical Ventilator 40 03/05/17 20:00 98.4 90 16 119/68 100 Mechanical Ventilator 40 03/05/17 20:00 90 03/05/17 20:00 40 03/05/17 19:30 75 16 40 03/05/17 19:00 86 16 99/47 98 Mechanical Ventilator 40 03/05/17 18:00 87 17 142/69 100 Mechanical Ventilator 40 03/05/17 17:00 80 16 108/53 100 Mechanical Ventilator 40 03/05/17 16:49 96 16 40 03/05/17 16:00 40 03/05/17 16:00 98.2 94 20 137/72 98 Mechanical Ventilator 40 03/05/17 16:00 89 03/05/17 15:06 71 16 40 03/05/17 15:00 91 19 117/53 98 Mechanical Ventilator 40 03/05/17 14:00 81 19 109/46 98 Mechanical Ventilator 40 03/05/17 13:28 96 17 40 03/05/17 13:00 97 20 142/81 100 Mechanical Ventilator 40 Intake and Output 03/05/17 03/06/17 19:00 07:00 Intake Total 1663 ml 1170 ml Output Total 1640 ml 1620 ml Balance 23 ml -450 ml Free Water 300 ml IV Total 955 ml 900 ml Tube Feeding 408 ml 170 ml Other 100 ml Output Urine Total 1640 ml 1620 ml Laboratory Tests 03/06/17 04:00: White Blood Count 11.2H, Red Blood Count 2.83L, Hemoglobin 8.6L, Hematocrit 27.6L, Mean Corpuscular Volume 98, Mean Corpuscular Hemoglobin 30.3, Mean Corpuscular Hemoglobin Concent 31.0L, Red Cell Distribution Width 17.9H, Platelet Count 252, Mean Platelet Volume 6.5, Neutrophils (%) (Auto) 81.2H, Lymphocytes (%) (Auto) 9.3L, Monocytes (%) (Auto) 5.2, Eosinophils (%) (Auto) 3.6H, Basophils (%) (Auto) 0.8, Sodium Level 145, Potassium Level 4.0, Chloride Level 110H, Carbon Dioxide Level 21, Anion Gap 14, Blood Urea Nitrogen 38H, Creatinine 1.9H, Estimat Glomerular Filtration Rate 30.6, Glucose Level 219H, Calcium Level 8.3L, Phosphorus Level 4.2, Magnesium Level 2.0, Total Bilirubin < 0.2, Aspartate Amino Transf (AST/SGOT) 12, Alanine Aminotransferase (ALT/SGPT ) 30, Alkaline Phosphatase 135H, Total Protein 6.0L, Albumin 3.2L, Globulin 2.8 , Albumin/Globulin Ratio 1.1 Height (Feet): 5 Height (Inches): 3.00 Weight (Pounds): 243 General Appearance: no apparent distress Objective no change in PE ALVIN LUQUE Mar 06, 2017 12:04
[2017-03-06 12:55] LABS: ABG ALLEN TEST POSITIVE; ABG BASE EXCESS -6.3; ABG PCO2 47.9 mmHg (35.0-45.0)
--- NOTE | 2017-03-06 17:22 | Diagnostic Imaging Report ---
Indication: ABD PAIN Technique: Dykes-scale and duplex images of the upper abdomen were obtained Comparison: 05/07/2014 Findings: Exam is limited, due to body habitus Gallbladder is surgically absent. Common bile duct measures 5 mm in diameter. No intrahepatic biliary ductal dilatation. Liver demonstrates diffusely increased echogenicity, consistent with diffuse hepatocellular disease, most likely fatty change. Portal vein and hepatic veins are patent. Pancreas is incompletely visualized due to overlying bowel gas, visualized portions are unremarkable. The spleen is enlarged, measuring 17 cm long axis dimension this is also described previously Left kidney measures 9.7 cm in length. Right kidney measures 11.3 cm length. Both kidneys demonstrate increased echogenicity There is no hydronephrosis. No focal abnormality . Non-aneurysmal abdominal aorta . When compared to prior exam, previously demonstrated hydronephrosis is no longer evident. The bladder is empty, contains a Alvarado catheter Impression: Surgically absent gallbladder. Negative for dilated ducts Liver demonstrates diffusely increased echogenicity, consistent with diffuse hepatocellular disease, most likely fatty change. Splenomegaly Echogenic kidneys, suspect medical renal disease No that hydronephrosis reported on 2013 exam is no longer evident Alvarado catheter within empty bladder
[2017-03-06] MEDS: cefTRIAXone 1 GM in D5W 55 ML IVPB SCH (17:26)
[2017-03-06] MEDS: Dyna-Hex 2% Top Sol 8oz TOPIC SCH (20:42)
[2017-03-07] VITALS (26 sets, daily range): BP systolic 107–151; BP diastolic 49–88
[2017-03-07] MEDS: NovoLOG Insulin Flexpen SUBQ SCH ×5 (01:03→21:20)
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
[2017-03-07] MEDS: Morphine Sulfate 2mg/ml Inj IVP PRN (05:27)
[2017-03-07 05:41] LABS: BASOPHILS % (AUTO) 0.5 % (0.0-2.0); EOSINOPHILS % (AUTO) 3.8 % (0.0-3.0); LYMPHOCYTES % (AUTO) 9.1 % (20.0-45.0); MEAN CORPUSCULAR HEMOGLOBIN 30.9 PG (27.0-31.0); MEAN CORPUSCULAR HGB CONC 31.6 G/DL (32.0-36.0); MEAN CORPUSCULAR VOLUME 98 FL (80-99); MEAN PLATELET VOLUME 6.1 FL (6.5-10.1); MONOCYTES % (AUTO) 4.7 % (1.0-10.0); NEUTROPHILS % (AUTO) 81.9 % (45.0-75.0); PLATELET COUNT 244 K/UL (150-450); RED BLOOD COUNT 2.83 M/UL (4.20-5.40)
[2017-03-07 06:07] LABS: ALANINE AMINOTRANSFERASE 23 U/L (3-33); ALBUMIN/GLOBULIN RATIO 0.9 (1.0-2.7); ANION GAP 15 (5-15); ASPARTATE AMINO TRANSFERASE 17 U/L (5-40); CALCIUM 8.8 mg/dL (8.6-10.2); CARBON DIOXIDE 20 mEQ/L (20-30); CHLORIDE 112 mEQ/L (98-107); CREATININE 1.9 mg/dL (0.5-0.9); GLOMERULAR FILTRATION RATE 30.6 mL/min (>60); HEMOLYSIS 47; POTASSIUM 4.2 mEQ/L (3.4-4.9); SODIUM 147 mEQ/L (135-145); TOTAL PROTEIN 6.4 g/dL (6.6-8.7)
--- NOTE | 2017-03-07 07:00 | Geriatric Medicine Prog Note ---
DATE: 03/01/2017 NOTE: POOR AUDIO QUALITY ENDOCRINOLOGY PROGRESS NOTE SUBJECTIVE: The patient is in the ICU bed J ____. The patient is on ventilator receiving NG feedings . She is spina bifida . OBJECTIVE: VITAL SIGNS: Blood pressure 122/68, pulse 65, respiratory rate 14, and temperature 98.4 degrees. RESPIRATORY: Decreased breath sounds. CVS: Regular. LABORATORY DATA: glucose 100 ____. ASSESSMENT: 1. Diabetes mellitus type 2, controlled. 2. Acute respiratory failure. 3. malnutrition. PLAN: Continue Glucerna 1.5 three to four mL/hour per NG-tube 22 hours per day and Levemir insulin 15 units q.12 h. a day q.6 h. NovoLog. The patient the age of 31 years. Georgi Crowley M.D. DR: KAYDEN JOB#: [id number] CC:
[2017-03-07] MEDS: Pantoprazole Inj IVP SCH (09:07)
[2017-03-07] MEDS: Valproic Acid 250mg/5ml Liquid GT SCH ×2 (09:07→21:47)
[2017-03-07] MEDS: Docusate 100mg/10ml Liq ORAL SCH ×2 (09:07→18:00)
[2017-03-07] MEDS: LORazepam Inj 2mg/ml 1ml IV PRN ×3 (09:07→18:47)
[2017-03-07] MEDS: Heparin 5000 units/ml inj SUBQ SCH ×2 (09:08→21:18)
[2017-03-07] MEDS: Levemir Flexpen SUBQ SCH ×2 (09:09→21:47)
--- NOTE | 2017-03-07 10:00 | Pulmonolgy Critical Care Note ---
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 - Objective Last 24 Hour Vital Signs Date Time Temp Pulse Resp B/P Pulse Ox O2 Delivery O2 Flow Rate FiO2 03/07/17 09:48 40 03/07/17 09:10 107 27 40 03/07/17 09:09 100 03/07/17 09:00 105 20 132/75 100 Mechanical Ventilator 35 03/07/17 08:00 109 03/07/17 08:00 35 03/07/17 08:00 98.0 109 19 108/67 100 Mechanical Ventilator 35 03/07/17 07:00 35 03/07/17 07:00 100 20 127/61 100 Mechanical Ventilator 35 03/07/17 06:56 108 24 40 03/07/17 06:00 103 21 127/61 100 Mechanical Ventilator 35 03/07/17 05:57 98.5 03/07/17 05:21 104 20 40 03/07/17 05:00 101 20 151/83 94 Mechanical Ventilator 35 03/07/17 04:00 101 03/07/17 04:00 107 20 115/67 94 Mechanical Ventilator 35 03/07/17 04:00 35 03/07/17 03:00 103 20 131/73 100 Mechanical Ventilator 35 03/07/17 02:46 99 16 40 03/07/17 02:00 109 20 136/87 100 Mechanical Ventilator 35 03/07/17 01:23 99 16 40 03/07/17 01:00 103 17 111/65 94 Mechanical Ventilator 35 03/07/17 01:00 105 17 111/65 99 Mechanical Ventilator 35 03/07/17 00:00 35 03/07/17 00:00 98.4 80 17 123/76 99 Mechanical Ventilator 35 03/07/17 00:00 82 03/06/17 23:25 97 16 40 03/06/17 23:00 100 17 140/78 99 Mechanical Ventilator 35 03/06/17 22:29 94 16 40 03/06/17 22:00 100 17 122/68 99 Mechanical Ventilator 35 03/06/17 21:00 101 17 118/68 98 Mechanical Ventilator 35 03/06/17 20:00 79 03/06/17 20:00 98.5 101 18 129/70 98 Mechanical Ventilator 35 03/06/17 19:00 88 16 90/45 99 Mechanical Ventilator 35 03/06/17 18:00 35 03/06/17 18:00 110 22 90/70 98 Mechanical Ventilator 35 03/06/17 17:00 79 22 120/70 98 Mechanical Ventilator 40 03/06/17 16:40 83 18 40 03/06/17 16:00 98.6 85 14 110/61 98 Mechanical Ventilator 40 03/06/17 16:00 77 03/06/17 16:00 40 03/06/17 15:00 89 22 125/73 98 Mechanical Ventilator 40 03/06/17 14:40 85 18 40 03/06/17 14:00 90 19 97/48 98 Mechanical Ventilator 40 03/06/17 13:00 40 03/06/17 13:00 100 24 154/85 98 Mechanical Ventilator 40 03/06/17 12:58 100 03/06/17 12:58 97 18 40 03/06/17 12:00 40 03/06/17 12:00 70 03/06/17 12:00 98.5 72 16 96/56 98 Mechanical Ventilator 40 03/06/17 11:00 77 16 93/57 98 Mechanical Ventilator 40 03/06/17 10:38 75 18 40 03/06/17 10:00 81 16 104/67 99 Mechanical Ventilator 40 Status: awake Condition: critical HEENT: atraumatic, normocephalic Neck: full ROM Lungs: clear, chest wall tender Heart: HR/BP stable Abdomen: soft, active bowel sounds, feeding tube Accucheck: 166 Critical Care - Subjective ROS Limited/Unobtainable: No ICU Day: 8 Intubation Day: 8 Condition: critical EKG Rhythm: Sinus Rhythm FI02: 40 Vent Support Breath Rate: 8 Vent Support Mode: CPAP Vent Tidal Volume: 600 Sputum Amount: Small PIP: 22 Tube Feeding Amount: 34 I&O: Intake and Output 03/06/17 03/07/17 19:00 07:00 Intake Total 741 ml 683 ml Output Total 950 ml 1400 ml Balance -209 ml -717 ml Free Water 100 ml 300 ml IV Total 335 ml Tube Feeding 306 ml 323 ml Other 60 ml Output Urine Total 950 ml 1400 ml # Bowel Movements 1 CXR: no change ET-Tube: 7.0 ET Position: 23 Labs: Laboratory Tests Test 03/06/17 12:47 03/07/17 04:00 Arterial Blood pH 7.252 (7.350-7.450) Arterial Blood Partial Pressure CO2 47.9 mmHg (35.0-45.0) H Arterial Blood Partial Pressure O2 121.1 mmHg (75.0-100.0) H Arterial Blood HCO3 20.6 mmol/L (22.0-26.0) L Arterial Blood Oxygen Saturation 97.5 % (92.0-98.0) Arterial Blood Base Excess -6.3 Cristian Test Positive White Blood Count 12.0 K/UL (4.8-10.8) H Red Blood Count 2.83 M/UL (4.20-5.40) L Hemoglobin 8.7 G/DL (12.0-16.0) L Hematocrit 27.6 % (37.0-47.0) L Mean Corpuscular Volume 98 FL (80-99) Mean Corpuscular Hemoglobin 30.9 PG (27.0-31.0) Mean Corpuscular Hemoglobin Concent 31.6 G/DL (32.0-36.0) L Red Cell Distribution Width 18.0 % (11.6-14.8) H Platelet Count 244 K/UL (150-450) Mean Platelet Volume 6.1 FL (6.5-10.1) L Neutrophils (%) (Auto) 81.9 % (45.0-75.0) H Lymphocytes (%) (Auto) 9.1 % (20.0-45.0) L Monocytes (%) (Auto) 4.7 % (1.0-10.0) Eosinophils (%) (Auto) 3.8 % (0.0-3.0) H Basophils (%) (Auto) 0.5 % (0.0-2.0) Sodium Level 147 mEQ/L (135-145) H Potassium Level 4.2 mEQ/L (3.4-4.9) Chloride Level 112 mEQ/L (98-107) H Carbon Dioxide Level 20 mEQ/L (20-30) Anion Gap 15 (5-15) Blood Urea Nitrogen 37 mg/dL (7-23) H Creatinine 1.9 mg/dL (0.5-0.9) H Estimat Glomerular Filtration Rate 30.6 mL/min (>60) Glucose Level 206 mg/dL (74-106) H Calcium Level 8.8 mg/dL (8.6-10.2) Total Bilirubin < 0.2 mg/dL (0.0-1.2) Aspartate Amino Transf (AST/SGOT) 17 U/L (5-40) Alanine Aminotransferase (ALT/SGPT) 23 U/L (3-33) Alkaline Phosphatase 133 U/L (35-104) H Total Protein 6.4 g/dL (6.6-8.7) L Albumin 3.1 g/dL (3.5-5.2) L Globulin 3.3 g/dL Albumin/Globulin Ratio 0.9 (1.0-2.7) L LORNE DENNEY Mar 07, 2017 10:00
[2017-03-07 10:56] LABS: ABG ALLEN TEST POSITIVE; ABG BASE EXCESS -6.5; ABG PCO2 48.8 mmHg (35.0-45.0)
[2017-03-07] MEDS: HYDROmorphone 2 MG in NS 55ml IVPB PRN ×2 (11:37→19:58)
--- NOTE | 2017-03-07 12:39 | General Progress Note ---
Assessment/Plan Status: unchanged Status Narrative Cr 1.9 Assessment/Plan status: (1) Respiratory distress, intubated (2) Septic shock , UTI and Pneumonia (3) Renal Failure ( Diabetic) and Hyper Natremia (4) Diabetes mellitus (5) Spina bifida (6) HypoThyroid (7) Anemia (8) Sz disorder (9) Full Code status: stop D5W Monitor renal parameters Avoid nephrotoxics Anemia chanel per orders Subjective ROS Limited/Unobtainable: Yes Allergies: Coded Allergies: CIPROFLOXACIN (Verified Allergy, Severe, Anaphylaxis, 05/18/12) KETOROLAC (Unverified Allergy, Severe, Anaphylaxis, 03/04/14) Throat collapsed LATEX (Verified Allergy, Severe, Anaphylaxis, 03/06/14) verbalized by pt LEVOFLOXACIN (Verified Allergy, Severe, Anaphylaxis, 05/18/12) MORPHINE (Verified Allergy, Intermediate, Itching, 05/18/12) ACETAMINOPHEN (Unverified Allergy, Unknown, 04/01/15) ALOE (Unverified Allergy, Unknown, 11/03/15) ALOE VERA (Unverified Allergy, Unknown, 04/01/15) CELERY (Unverified Allergy, Unknown, 04/01/15) COCONUT (Unverified Allergy, Unknown, 11/03/15) COCONUT OIL (Unverified Allergy, Unknown, 04/01/15) FISH CONTAINING PRODUCTS (Unverified Allergy, Unknown, 10/04/16) HYDROCODONE (Unverified Allergy, Unknown, 04/01/15) LIDOCAINE (Unverified Allergy, Unknown, Rash, 09/21/15) with lidocaine cream MELON (Unverified Allergy, Unknown, 04/01/15) ONION (Unverified Allergy, Unknown, 11/03/15) PINEAPPLE (Unverified Allergy, Unknown, 10/04/16) Red Pepper (Unverified Allergy, Unknown, 04/01/15) TRAMADOL (Unverified Allergy, Unknown, 04/01/15) TROMETHAMINE (Unverified Allergy, Unknown, 04/01/15) WITCH ANNA (Unverified Allergy, Unknown, 04/01/15) Uncoded Allergies: CRANBERRY JUICE (Allergy, Unknown, 10/04/16) onion (Allergy, Unknown, 04/01/15) glueten (Adverse Reaction, Unknown, 09/17/15) Objective Last 24 Hour Vital Signs Date Time Temp Pulse Resp B/P Pulse Ox O2 Delivery O2 Flow Rate FiO2 03/07/17 12:10 98 Venturi Mask 10.0 45 03/07/17 12:00 Venturi Mask 10.0 45 03/07/17 12:00 Venturi Mask 10.0 45 03/07/17 11:00 107 19 107/65 100 Mechanical Ventilator 35 03/07/17 10:52 111 29 40 03/07/17 10:00 103 20 135/71 100 Mechanical Ventilator 35 03/07/17 09:48 40 03/07/17 09:10 107 27 40 03/07/17 09:09 100 03/07/17 09:00 105 20 132/75 100 Mechanical Ventilator 35 03/07/17 08:00 109 03/07/17 08:00 35 03/07/17 08:00 98.0 109 19 108/67 100 Mechanical Ventilator 35 03/07/17 07:00 35 03/07/17 07:00 100 20 127/61 100 Mechanical Ventilator 35 03/07/17 06:56 108 24 40 03/07/17 06:00 103 21 127/61 100 Mechanical Ventilator 35 03/07/17 05:57 98.5 03/07/17 05:21 104 20 40 03/07/17 05:00 101 20 151/83 94 Mechanical Ventilator 35 03/07/17 04:00 101 03/07/17 04:00 107 20 115/67 94 Mechanical Ventilator 35 03/07/17 04:00 35 03/07/17 03:00 103 20 131/73 100 Mechanical Ventilator 35 03/07/17 02:46 99 16 40 03/07/17 02:00 109 20 136/87 100 Mechanical Ventilator 35 03/07/17 01:23 99 16 40 03/07/17 01:00 103 17 111/65 94 Mechanical Ventilator 35 03/07/17 01:00 105 17 111/65 99 Mechanical Ventilator 35 03/07/17 00:00 35 03/07/17 00:00 98.4 80 17 123/76 99 Mechanical Ventilator 35 03/07/17 00:00 82 03/06/17 23:25 97 16 40 03/06/17 23:00 100 17 140/78 99 Mechanical Ventilator 35 03/06/17 22:29 94 16 40 03/06/17 22:00 100 17 122/68 99 Mechanical Ventilator 35 03/06/17 21:00 101 17 118/68 98 Mechanical Ventilator 35 03/06/17 20:00 79 03/06/17 20:00 98.5 101 18 129/70 98 Mechanical Ventilator 35 03/06/17 19:00 88 16 90/45 99 Mechanical Ventilator 35 03/06/17 18:00 35 03/06/17 18:00 110 22 90/70 98 Mechanical Ventilator 35 03/06/17 17:00 79 22 120/70 98 Mechanical Ventilator 40 03/06/17 16:40 83 18 40 03/06/17 16:00 98.6 85 14 110/61 98 Mechanical Ventilator 40 03/06/17 16:00 77 03/06/17 16:00 40 03/06/17 15:00 89 22 125/73 98 Mechanical Ventilator 40 03/06/17 14:40 85 18 40 03/06/17 14:00 90 19 97/48 98 Mechanical Ventilator 40 03/06/17 13:00 40 03/06/17 13:00 100 24 154/85 98 Mechanical Ventilator 40 03/06/17 12:58 100 03/06/17 12:58 97 18 40 Intake and Output 03/06/17 03/07/17 19:00 07:00 Intake Total 741 ml 683 ml Output Total 950 ml 1400 ml Balance -209 ml -717 ml Free Water 100 ml 300 ml IV Total 335 ml Tube Feeding 306 ml 323 ml Other 60 ml Output Urine Total 950 ml 1400 ml # Bowel Movements 1 Laboratory Tests 03/06/17 12:47: Arterial Blood pH 7.252L, Arterial Blood Partial Pressure CO2 47.9H, Arterial Blood Partial Pressure O2 121.1H, Arterial Blood HCO3 20.6L, Arterial Blood Oxygen Saturation 97.5, Arterial Blood Base Excess -6.3, Cristian Test Positive 03/07/17 04:00: White Blood Count 12.0H, Red Blood Count 2.83L, Hemoglobin 8.7L, Hematocrit 27.6L, Mean Corpuscular Volume 98, Mean Corpuscular Hemoglobin 30.9, Mean Corpuscular Hemoglobin Concent 31.6L, Red Cell Distribution Width 18.0H, Platelet Count 244, Mean Platelet Volume 6.1L, Neutrophils (%) (Auto) 81.9H, Lymphocytes (%) (Auto) 9.1L, Monocytes (%) (Auto) 4.7, Eosinophils (%) (Auto) 3.8H, Basophils (%) (Auto) 0.5, Sodium Level 147H, Potassium Level 4.2, Chloride Level 112H, Carbon Dioxide Level 20, Anion Gap 15, Blood Urea Nitrogen 37H, Creatinine 1.9H, Estimat Glomerular Filtration Rate 30.6, Glucose Level 206H, Calcium Level 8.8, Total Bilirubin < 0.2, Aspartate Amino Transf (AST/SGOT ) 17, Alanine Aminotransferase (ALT/SGPT) 23, Alkaline Phosphatase 133H, Total Protein 6.4L, Albumin 3.1L, Globulin 3.3, Albumin/Globulin Ratio 0.9L 03/07/17 10:50: Arterial Blood pH 7.240*L, Arterial Blood Partial Pressure CO2 48.8H, Arterial Blood Partial Pressure O2 81.9, Arterial Blood HCO3 20.6L, Arterial Blood Oxygen Saturation 92.7, Arterial Blood Base Excess -6.5, Cristian Test Positive Height (Feet): 5 Height (Inches): 3.00 Weight (Pounds): 232 General Appearance: no apparent distress Cardiovascular: tachycardia Respiratory/Chest: decreased breath sounds Abdomen: soft Objective no change in PE ALVIN LUQUE Mar 07, 2017 12:39
--- NOTE | 2017-03-07 15:34 | Infectious Diseases Prog Note ---
Assessment/Plan Assessment/Plan ASSESSMENT: 31 y/o female with: Recurrent complicated UTI - UCx P.mirabilis, E.coli - US: Mildly increased renal echogenicity, compatible with medical renal disease. Negative for hydronephrosis. Right renal upper pole cyst. - SPC in place - h/o E Coli and Morganella, PSA CONS bacteremia 08/10 c/w contaminant - TTE(-) SBE Left chest Port-A-Cath, with interim fracture of the tubing at or near the left jugular vein insertion site Leukocytosis - recurrent, mild, afebrile Acute VDRF SP - intubated 02/27, extubated-->BiPAP 03/07 Possible CHF exacerbation - TTE: EF 65% ARF on CKD3 - stable - US: Mildly increased renal echogenicity, compatible with medical renal disease. Negative for hydronephrosis. Right renal upper pole cyst. hx of CVA s/p VPS seizure disorder DM Bipolar disorder Spina bifida [place] resident Quinolone allergy Full Code PLAN: - continue rocephin d# 6 ( ABX d# 9 / 10 ) ( 03/02 SP IV vancomycin, zosyn d# 4 ) - monitor CBC, temperatures, re-culture if acute change - monitor BMP - BiPAP prn Subjective Allergies: Coded Allergies: CIPROFLOXACIN (Verified Allergy, Severe, Anaphylaxis, 05/18/12) KETOROLAC (Unverified Allergy, Severe, Anaphylaxis, 03/04/14) Throat collapsed LATEX (Verified Allergy, Severe, Anaphylaxis, 03/06/14) verbalized by pt LEVOFLOXACIN (Verified Allergy, Severe, Anaphylaxis, 05/18/12) MORPHINE (Verified Allergy, Intermediate, Itching, 05/18/12) ACETAMINOPHEN (Unverified Allergy, Unknown, 04/01/15) ALOE (Unverified Allergy, Unknown, 11/03/15) ALOE VERA (Unverified Allergy, Unknown, 04/01/15) CELERY (Unverified Allergy, Unknown, 04/01/15) COCONUT (Unverified Allergy, Unknown, 11/03/15) COCONUT OIL (Unverified Allergy, Unknown, 04/01/15) FISH CONTAINING PRODUCTS (Unverified Allergy, Unknown, 10/04/16) HYDROCODONE (Unverified Allergy, Unknown, 04/01/15) LIDOCAINE (Unverified Allergy, Unknown, Rash, 09/21/15) with lidocaine cream MELON (Unverified Allergy, Unknown, 04/01/15) ONION (Unverified Allergy, Unknown, 11/03/15) PINEAPPLE (Unverified Allergy, Unknown, 10/04/16) Red Pepper (Unverified Allergy, Unknown, 04/01/15) TRAMADOL (Unverified Allergy, Unknown, 04/01/15) TROMETHAMINE (Unverified Allergy, Unknown, 04/01/15) WITCH ANNA (Unverified Allergy, Unknown, 04/01/15) Uncoded Allergies: CRANBERRY JUICE (Allergy, Unknown, 10/04/16) onion (Allergy, Unknown, 04/01/15) glueten (Adverse Reaction, Unknown, 09/17/15) Subjective remains afebrile extubated, now on BiPAP Objective Vital Signs Last 24 Hour Vital Signs Date Time Temp Pulse Resp B/P Pulse Ox O2 Delivery O2 Flow Rate FiO2 03/07/17 15:14 112 34 95 Facial 60 03/07/17 15:00 106 24 118/78 96 Mechanical Ventilator 35 03/07/17 14:00 106 23 126/67 95 Mechanical Ventilator 35 03/07/17 13:00 112 20 142/71 100 Mechanical Ventilator 35 03/07/17 12:49 110 22 96 Facial 60 03/07/17 12:30 60 03/07/17 12:10 98 Venturi Mask 10.0 45 03/07/17 12:00 105 03/07/17 12:00 Venturi Mask 10.0 45 03/07/17 12:00 98.0 107 23 126/71 100 Mechanical Ventilator 35 03/07/17 12:00 Venturi Mask 10.0 45 03/07/17 11:00 107 19 107/65 100 Mechanical Ventilator 35 03/07/17 10:52 111 29 40 03/07/17 10:00 103 20 135/71 100 Mechanical Ventilator 35 03/07/17 09:48 40 03/07/17 09:10 107 27 40 03/07/17 09:09 100 03/07/17 09:00 105 20 132/75 100 Mechanical Ventilator 35 03/07/17 08:00 109 03/07/17 08:00 35 03/07/17 08:00 98.0 109 19 108/67 100 Mechanical Ventilator 35 03/07/17 07:00 35 03/07/17 07:00 100 20 127/61 100 Mechanical Ventilator 35 03/07/17 06:56 108 24 40 03/07/17 06:00 103 21 127/61 100 Mechanical Ventilator 35 03/07/17 05:57 98.5 03/07/17 05:21 104 20 40 03/07/17 05:00 101 20 151/83 94 Mechanical Ventilator 35 03/07/17 04:00 101 03/07/17 04:00 107 20 115/67 94 Mechanical Ventilator 35 03/07/17 04:00 35 03/07/17 03:00 103 20 131/73 100 Mechanical Ventilator 35 03/07/17 02:46 99 16 40 03/07/17 02:00 109 20 136/87 100 Mechanical Ventilator 35 03/07/17 01:23 99 16 40 03/07/17 01:00 103 17 111/65 94 Mechanical Ventilator 35 03/07/17 01:00 105 17 111/65 99 Mechanical Ventilator 35 03/07/17 00:00 35 03/07/17 00:00 98.4 80 17 123/76 99 Mechanical Ventilator 35 03/07/17 00:00 82 03/06/17 23:25 97 16 40 03/06/17 23:00 100 17 140/78 99 Mechanical Ventilator 35 03/06/17 22:29 94 16 40 03/06/17 22:00 100 17 122/68 99 Mechanical Ventilator 35 03/06/17 21:00 101 17 118/68 98 Mechanical Ventilator 35 03/06/17 20:00 79 03/06/17 20:00 98.5 101 18 129/70 98 Mechanical Ventilator 35 03/06/17 19:00 88 16 90/45 99 Mechanical Ventilator 35 03/06/17 18:00 35 03/06/17 18:00 110 22 90/70 98 Mechanical Ventilator 35 03/06/17 17:00 79 22 120/70 98 Mechanical Ventilator 40 03/06/17 16:40 83 18 40 03/06/17 16:00 98.6 85 14 110/61 98 Mechanical Ventilator 40 03/06/17 16:00 77 03/06/17 16:00 40 Height (Feet): 5 Height (Inches): 3.00 Weight (Pounds): 232 General Appearance: other - BIPAP Respiratory/Chest: decreased breath sounds Cardiovascular: normal rate, regular rhythm Abdomen: normal bowel sounds, soft, non tender, non distended Laboratory Tests Test 03/07/17 04:00 03/07/17 10:50 White Blood Count 12.0 K/UL (4.8-10.8) H Red Blood Count 2.83 M/UL (4.20-5.40) L Hemoglobin 8.7 G/DL (12.0-16.0) L Hematocrit 27.6 % (37.0-47.0) L Mean Corpuscular Volume 98 FL (80-99) Mean Corpuscular Hemoglobin 30.9 PG (27.0-31.0) Mean Corpuscular Hemoglobin Concent 31.6 G/DL (32.0-36.0) L Red Cell Distribution Width 18.0 % (11.6-14.8) H Platelet Count 244 K/UL (150-450) Mean Platelet Volume 6.1 FL (6.5-10.1) L Neutrophils (%) (Auto) 81.9 % (45.0-75.0) H Lymphocytes (%) (Auto) 9.1 % (20.0-45.0) L Monocytes (%) (Auto) 4.7 % (1.0-10.0) Eosinophils (%) (Auto) 3.8 % (0.0-3.0) H Basophils (%) (Auto) 0.5 % (0.0-2.0) Sodium Level 147 mEQ/L (135-145) H Potassium Level 4.2 mEQ/L (3.4-4.9) Chloride Level 112 mEQ/L (98-107) H Carbon Dioxide Level 20 mEQ/L (20-30) Anion Gap 15 (5-15) Blood Urea Nitrogen 37 mg/dL (7-23) H Creatinine 1.9 mg/dL (0.5-0.9) H Estimat Glomerular Filtration Rate 30.6 mL/min (>60) Glucose Level 206 mg/dL (74-106) H Calcium Level 8.8 mg/dL (8.6-10.2) Total Bilirubin < 0.2 mg/dL (0.0-1.2) Aspartate Amino Transf (AST/SGOT) 17 U/L (5-40) Alanine Aminotransferase (ALT/SGPT) 23 U/L (3-33) Alkaline Phosphatase 133 U/L (35-104) H Total Protein 6.4 g/dL (6.6-8.7) L Albumin 3.1 g/dL (3.5-5.2) L Globulin 3.3 g/dL Albumin/Globulin Ratio 0.9 (1.0-2.7) L Arterial Blood pH 7.240 (7.350-7.450) Arterial Blood Partial Pressure CO2 48.8 mmHg (35.0-45.0) H Arterial Blood Partial Pressure O2 81.9 mmHg (75.0-100.0) Arterial Blood HCO3 20.6 mmol/L (22.0-26.0) L Arterial Blood Oxygen Saturation 92.7 % (92.0-98.0) Arterial Blood Base Excess -6.5 Cristian Test Positive Current Medications Medications (Trade) Dose Ordered Sig/Cabrera Route PRN Reason Start Time Stop Time Status Last Admin Dose Admin Ceftriaxone Sodium/Dextrose (Rocephin/D5W) 55 ml @ 110 mls/hr Q24H IVPB 03/02/17 18:00 03/09/17 17:59 03/06/17 17:26 Chlorhexidine Gluconate 1 applic 1 applic QHS TOPIC 03/02/17 21:00 04/01/17 20:59 03/06/17 20:42 Dextrose (Dextrose 50%) STAT PRN IV Hypoglycemia 02/28/17 07:30 03/30/17 07:29 Docusate Sodium (Colace) 100 mg TWICE A DAY ORAL 03/03/17 09:00 04/02/17 08:59 03/07/17 09:07 Fluoxetine HCl (PROzac) 20 mg DAILY ORAL 03/07/17 13:45 04/06/17 13:44 Heparin Sodium (Porcine) (Heparin 5000 units/ml) 5,000 units EVERY 12 HOURS SUBQ 02/27/17 21:00 03/29/17 20:59 03/07/17 09:08 Hydromorphone HCl/ Sodium Chloride (Dilaudid/Sodium Chloride) 56 ml @ 224 mls/hr Q6H PRN IVPB Severe Pain (Pain Scale 7-10) 03/07/17 11:00 03/14/17 10:59 03/07/17 11:37 Insulin Aspart (NovoLOG) EVERY 4 HOURS SUBQ 02/28/17 09:00 03/30/17 08:59 03/07/17 13:22 Insulin Detemir (Levemir) 15 units EVERY 12 HOURS SUBQ 03/07/17 09:00 04/06/17 08:59 03/07/17 09:09 Levothyroxine Sodium (Synthroid) 100 mcg DAILY@0630 ORAL 02/28/17 06:30 03/30/17 06:29 03/07/17 06:29 Lorazepam (Ativan 2mg/ml 1ml) 2 mg Q2H PRN IV For Anxiety 03/06/17 23:15 03/13/17 23:14 03/07/17 13:08 Nystatin 1 applic 1 applic THREE TIMES A DAY TOPIC 03/07/17 21:00 04/06/17 20:59 Ondansetron HCl (Zofran) 4 mg Q6H PRN IVP Nausea & Vomiting 02/27/17 18:00 03/29/17 17:59 03/07/17 09:07 Pantoprazole (Protonix) 40 mg DAILY IVP 02/28/17 09:00 03/30/17 08:59 03/07/17 09:07 Polyethylene Glycol (Miralax) 17 gm DAILYPRN PRN ORAL Constipation 02/27/17 18:00 03/29/17 17:59 Quetiapine Fumarate (SEROquel) 50 mg BEDTIME ORAL 03/07/17 21:00 04/06/17 20:59 Valproic Acid (Depakene) 500 mg Q12HR GT 02/27/17 23:00 03/29/17 22:59 03/07/17 09:07 LUCITA WEBSTER Mar 07, 2017 15:34
[2017-03-07] MEDS ORDERED: NS 275ml ONE (15:42)
[2017-03-07] MEDS: cefTRIAXone 1 GM in D5W 55 ML IVPB SCH (18:00)
[2017-03-07] MEDS ORDERED: Nystatin Powder 100,000 units/gm 15gm TOPIC SCH (21:00)
[2017-03-07] MEDS: Dyna-Hex 2% Top Sol 8oz TOPIC SCH (21:23)
[2017-03-07] MEDS: Nystatin Powder 100,000 units/gm 15gm TOPIC SCH (21:23)
[2017-03-08] VITALS (26 sets, daily range): BP systolic 80–148; BP diastolic 42–85
[2017-03-08] MEDS ORDERED: Naloxone 0.4mg/ml Inj ONE (00:09)
[2017-03-08] MEDS ORDERED: Naloxone 0.4mg/ml Inj IVP ONE (00:15)
[2017-03-08] MEDS ORDERED: Naloxone 1mg/ml 2ml IVP ONE (00:15)
[2017-03-08 00:17] LABS: ABG PCO2 131.5 mmHg (35.0-45.0)
[2017-03-08 00:18] LABS: ABG ALLEN TEST POSITIVE; ABG BASE EXCESS -17.6
[2017-03-08] MEDS: HYDROmorphone 2 MG in NS 55ml IVPB PRN (01:46)
[2017-03-08] MEDS: NovoLOG Insulin Flexpen SUBQ SCH ×4 (02:02→18:38)
[2017-03-08 02:57] LABS: ABG BASE EXCESS -9.3; ABG PCO2 41.8 mmHg (35.0-45.0)
[2017-03-08 02:58] LABS: ABG ALLEN TEST POSITIVE
--- NOTE | 2017-03-08 05:18 | Emergency Room Report ---
History of Present Illness General Chief Complaint: Dyspnea/Respdistress Source: Medical Record Present Illness Allergies: Coded Allergies: CIPROFLOXACIN (Verified Allergy, Severe, Anaphylaxis, 05/18/12) KETOROLAC (Unverified Allergy, Severe, Anaphylaxis, 03/04/14) Throat collapsed LATEX (Verified Allergy, Severe, Anaphylaxis, 03/06/14) verbalized by pt LEVOFLOXACIN (Verified Allergy, Severe, Anaphylaxis, 05/18/12) MORPHINE (Verified Allergy, Intermediate, Itching, 05/18/12) ACETAMINOPHEN (Unverified Allergy, Unknown, 04/01/15) ALOE (Unverified Allergy, Unknown, 11/03/15) ALOE VERA (Unverified Allergy, Unknown, 04/01/15) CELERY (Unverified Allergy, Unknown, 04/01/15) COCONUT (Unverified Allergy, Unknown, 11/03/15) COCONUT OIL (Unverified Allergy, Unknown, 04/01/15) FISH CONTAINING PRODUCTS (Unverified Allergy, Unknown, 10/04/16) HYDROCODONE (Unverified Allergy, Unknown, 04/01/15) LIDOCAINE (Unverified Allergy, Unknown, Rash, 09/21/15) with lidocaine cream MELON (Unverified Allergy, Unknown, 04/01/15) ONION (Unverified Allergy, Unknown, 11/03/15) PINEAPPLE (Unverified Allergy, Unknown, 10/04/16) Red Pepper (Unverified Allergy, Unknown, 04/01/15) TRAMADOL (Unverified Allergy, Unknown, 04/01/15) TROMETHAMINE (Unverified Allergy, Unknown, 04/01/15) WITCH ANNA (Unverified Allergy, Unknown, 04/01/15) Uncoded Allergies: CRANBERRY JUICE (Allergy, Unknown, 10/04/16) onion (Allergy, Unknown, 04/01/15) glueten (Adverse Reaction, Unknown, 09/17/15) Patient History Now: No Nursing Documentation-PMH Hx Cardiac Problems: Yes Hx Hypertension: Yes Hx Asthma: Yes Hx Diabetes: Yes Hx Cancer: No Hx Gastrointestinal Problems: Yes Hx Dialysis: No Hx Neurological Problems: Yes Hx Cerebrovascular Accident: No Hx Transient Ischemic Attacks: No - spina bifida without hydrocephalus Hx Dementia: No Hx Alzheimer's Disease: No Hx Parkinson's Disease: No Hx Meningitis: No Hx Encephalitis: No Hx Seizures: Yes Hx Epilepsy: Yes Hx Multiple Sclerosis: No Hx Cerebral Palsy: No Hx Amyotrophic Lat Sclerosis: No Hx Guillian-[place] Syndrome: No Hx Paralysis: No Hx Peripheral Neuropathy: No Hx Spinal Cord Injury: Yes Hx Head Trauma: No Hx Traumatic Brain Injury: No Hx Memory Loss: No Hx Concentration Difficulty: No Hx Speech Problem: No Hx Tremors: No Hx Aphasia: No Hx Dysphasia: No Hx Neurologic Surgery: No Hx Brain Shunt: No Physical Exam Vital Signs Date Time Temp Pulse Resp B/P Pulse Ox O2 Delivery O2 Flow Rate FiO2 02/27/17 13:17 90 18 99 Facial 15.0 50 02/27/17 13:35 97.9 113/66 Procedures Intubation Intubation : Consent: Emergent Time of Intubation: 01:15 Intubation Method: orotracheal Tube Size (cm): 6.0 Medications: Succinylcholine Breath Sounds after Intubation: equal Intubation Complications: no complications Post Intubation Xray: Yes Attempts: One Patient Tolerated: Well Complications: None Progress some cord edema noted and unable to pass 7-0 ett Medical Decision Making Diagnostic Impression: Primary Impression: Respiratory distress Additional Impressions: ARF (acute renal failure) Morbid obesity UTI (lower urinary tract infection) Hypercapnia Spina bifida Hyperkalemia, diminished renal excretion Last Vital Signs Date Time Temp Pulse Resp B/P Pulse Ox O2 Delivery O2 Flow Rate FiO2 03/08/17 04:00 99 03/08/17 04:00 22 81/53 98 Mechanical Ventilator 30 03/08/17 00:00 98.3 03/07/17 22:00 2.0 Disposition: ADMITTED INPATIENT Condition: Critical Referrals: [facility],REFERRING (PCP) Bob Rae Mar 08, 2017 05:18
[2017-03-08 05:44] LABS: MEAN CORPUSCULAR HEMOGLOBIN 29.2 PG (27.0-31.0); MEAN CORPUSCULAR HGB CONC 29.6 G/DL (32.0-36.0); MEAN CORPUSCULAR VOLUME 99 FL (80-99); MEAN PLATELET VOLUME 5.7 FL (6.5-10.1); PLATELET COUNT 240 K/UL (150-450); RED CELL DISTRIBUTION WIDTH 18.6 % (11.6-14.8); WHITE BLOOD COUNT 13.5 K/UL (4.8-10.8)
[2017-03-08 06:16] LABS: ALBUMIN/GLOBULIN RATIO 0.8 (1.0-2.7); CREATININE 2.4 mg/dL (0.5-0.9); GLOMERULAR FILTRATION RATE 23.4 mL/min (>60); MAGNESIUM 2.3 mg/dL (1.7-2.5); POTASSIUM 5.2 mEQ/L (3.4-4.9); TOTAL PROTEIN 6.5 g/dL (6.6-8.7)
[2017-03-08 08:02] LABS: ABG ALLEN TEST POSITIVE; ABG BASE EXCESS -6.8; ABG PCO2 41.3 mmHg (35.0-45.0)
--- NOTE | 2017-03-08 08:30 | Geriatric Medicine Prog Note ---
NOTE: POOR AUDIO SUBJECTIVE: 1.35 mL per hour. OBJECTIVE: VITAL SIGNS: Blood pressure 117/70, pulse 117, respiratory rate 24, and temperature 98.1 degrees. LUNGS: Decreased breath sounds. CVS: Regular. LABORATORY DATA: Glucose 164 . ASSESSMENT: Diabetes mellitus, fair . PLAN: Continue with Glucerna 1.2 and Levemir insulin 15 units q.6 h. Georgi Crowley M.D. DR: KAYDEN JOB#: [id number] CC:
--- NOTE | 2017-03-08 09:13 | General Progress Note ---
Assessment/Plan Status: deteriorating Status Narrative patient was extubated yesterday noon and reintubated last night Cr now up again- BP low ! Assessment/Plan status: (1) Respiratory distress, intubated (2) Septic shock , UTI and Pneumonia (3) Renal Failure ( Diabetic) and Hyper Natremia (4) Diabetes mellitus (5) Spina bifida (6) HypoThyroid (7) Anemia (8) Sz disorder (9) Full Code status: Albumin 5% bollous- Midodrine- resume D5W Monitor renal parameters Avoid nephrotoxics Anemia chanel per orders Subjective ROS Limited/Unobtainable: Yes Allergies: Coded Allergies: CIPROFLOXACIN (Verified Allergy, Severe, Anaphylaxis, 05/18/12) KETOROLAC (Unverified Allergy, Severe, Anaphylaxis, 03/04/14) Throat collapsed LATEX (Verified Allergy, Severe, Anaphylaxis, 03/06/14) verbalized by pt LEVOFLOXACIN (Verified Allergy, Severe, Anaphylaxis, 05/18/12) MORPHINE (Verified Allergy, Intermediate, Itching, 05/18/12) ACETAMINOPHEN (Unverified Allergy, Unknown, 04/01/15) ALOE (Unverified Allergy, Unknown, 11/03/15) ALOE VERA (Unverified Allergy, Unknown, 04/01/15) CELERY (Unverified Allergy, Unknown, 04/01/15) COCONUT (Unverified Allergy, Unknown, 11/03/15) COCONUT OIL (Unverified Allergy, Unknown, 04/01/15) FISH CONTAINING PRODUCTS (Unverified Allergy, Unknown, 10/04/16) HYDROCODONE (Unverified Allergy, Unknown, 04/01/15) LIDOCAINE (Unverified Allergy, Unknown, Rash, 09/21/15) with lidocaine cream MELON (Unverified Allergy, Unknown, 04/01/15) ONION (Unverified Allergy, Unknown, 11/03/15) PINEAPPLE (Unverified Allergy, Unknown, 10/04/16) Red Pepper (Unverified Allergy, Unknown, 04/01/15) TRAMADOL (Unverified Allergy, Unknown, 04/01/15) TROMETHAMINE (Unverified Allergy, Unknown, 04/01/15) WITCH ANNA (Unverified Allergy, Unknown, 04/01/15) Uncoded Allergies: CRANBERRY JUICE (Allergy, Unknown, 10/04/16) onion (Allergy, Unknown, 04/01/15) glueten (Adverse Reaction, Unknown, 09/17/15) Objective Last 24 Hour Vital Signs Date Time Temp Pulse Resp B/P Pulse Ox O2 Delivery O2 Flow Rate FiO2 03/08/17 08:55 105 12 30 03/08/17 08:54 99 03/08/17 07:04 92 16 30 03/08/17 06:00 30 03/08/17 06:00 94 19 85/44 98 Mechanical Ventilator 30 03/08/17 05:25 92 16 30 03/08/17 05:00 93 22 85/44 98 Mechanical Ventilator 30 03/08/17 04:00 99 03/08/17 04:00 93 22 81/53 98 Mechanical Ventilator 03/08/17 03:01 30 03/08/17 03:00 93 16 81/53 98 Mechanical Ventilator 30 03/08/17 02:47 93 16 100 03/08/17 02:00 106 16 102/72 98 Mechanical Ventilator 30 03/08/17 02:00 30 03/08/17 01:30 93 22 80/52 98 Mechanical Ventilator 30 03/08/17 01:12 107 16 100 03/08/17 01:00 115 29 102/72 98 Mechanical Ventilator 30 03/08/17 00:45 100 03/08/17 00:30 115 29 101/61 98 Mechanical Ventilator 30 03/08/17 00:00 104 03/08/17 00:00 98.3 115 29 88/59 98 Mechanical Ventilator 30 03/07/17 23:58 109 25 Facial 60 03/07/17 23:00 115 29 112/60 98 Mechanical Ventilator 35 03/07/17 22:00 117 33 109/49 95 Nasal Cannula 2.0 03/07/17 21:00 98.5 117 32 142/71 95 Nasal Cannula 2.0 03/07/17 20:15 115 29 112/60 98 Mechanical Ventilator 35 03/07/17 20:00 2.0 03/07/17 20:00 98.5 118 28 116/71 95 Nasal Cannula 2.0 03/07/17 20:00 102 03/07/17 19:30 120 32 112/60 98 Mechanical Ventilator 2.0 35 03/07/17 19:20 Nasal Cannula 2.0 28 03/07/17 19:20 95 Nasal Cannula 2.0 28 03/07/17 19:00 115 20 112/60 98 Mechanical Ventilator 35 03/07/17 18:00 125 20 141/88 98 Mechanical Ventilator 35 03/07/17 17:03 105 24 100 Facial 60 03/07/17 17:00 117 20 117/70 98 Mechanical Ventilator 35 03/07/17 16:00 60 03/07/17 16:00 104 03/07/17 16:00 98.0 104 20 133/63 98 Mechanical Ventilator 35 03/07/17 15:14 112 34 95 Facial 60 03/07/17 15:00 106 24 118/78 96 Mechanical Ventilator 35 03/07/17 14:00 106 23 126/67 95 Mechanical Ventilator 35 03/07/17 13:00 112 20 142/71 100 Mechanical Ventilator 35 03/07/17 12:49 110 22 96 Facial 60 03/07/17 12:30 60 03/07/17 12:10 98 Venturi Mask 10.0 45 03/07/17 12:00 105 03/07/17 12:00 Venturi Mask 10.0 45 03/07/17 12:00 98.0 107 23 126/71 100 Mechanical Ventilator 35 03/07/17 12:00 Venturi Mask 10.0 45 03/07/17 11:00 107 19 107/65 100 Mechanical Ventilator 35 03/07/17 10:52 111 29 40 03/07/17 10:00 103 20 135/71 100 Mechanical Ventilator 35 03/07/17 09:48 40 03/07/17 09:10 107 27 40 03/07/17 09:09 100 Intake and Output 03/07/17 03/08/17 19:00 07:00 Intake Total 730 ml 741 ml Output Total 725 ml 190 ml Balance 5 ml 551 ml Free Water 300 ml 200 ml IV Total 56 ml 167 ml Tube Feeding 374 ml 374 ml Output Urine Total 725 ml 190 ml Laboratory Tests 03/07/17 10:50: Arterial Blood pH 7.240*L, Arterial Blood Partial Pressure CO2 48.8H, Arterial Blood Partial Pressure O2 81.9, Arterial Blood HCO3 20.6L, Arterial Blood Oxygen Saturation 92.7, Arterial Blood Base Excess -6.5, Cristian Test Positive 03/08/17 00:04: Arterial Blood pH 6.766*L, Arterial Blood Partial Pressure CO2 131.5*H, Arterial Blood Partial Pressure O2 36.3*L, Arterial Blood HCO3 18.5L, Arterial Blood Oxygen Saturation 43.9L, Arterial Blood Base Excess -17.6, Cristian Test Positive 03/08/17 02:00: Arterial Blood pH 7.239*L, Arterial Blood Partial Pressure CO2 41.8, Arterial Blood Partial Pressure O2 261.8H, Arterial Blood HCO3 17.5L, Arterial Blood Oxygen Saturation 99.2H, Arterial Blood Base Excess -9.3, Cristian Test Positive 03/08/17 04:15: White Blood Count 13.5H, Red Blood Count 2.70L, Hemoglobin 7.9L, Hematocrit 26.7L, Mean Corpuscular Volume 99, Mean Corpuscular Hemoglobin 29.2, Mean Corpuscular Hemoglobin Concent 29.6L, Red Cell Distribution Width 18.6H, Platelet Count 240, Mean Platelet Volume 5.7L, Neutrophils (%) (Auto) , Lymphocytes (%) (Auto) , Monocytes (%) (Auto) , Eosinophils (%) (Auto) , Basophils (%) (Auto) , Sodium Level 146H, Potassium Level 5.2H, Chloride Level 111H, Carbon Dioxide Level 19L, Anion Gap 16H, Blood Urea Nitrogen 43H, Creatinine 2.4H, Estimat Glomerular Filtration Rate 23.4, Glucose Level 282H, Calcium Level 9.0, Phosphorus Level 5.0H, Magnesium Level 2.3, Total Bilirubin 0.2, Aspartate Amino Transf (AST/SGOT) 21, Alanine Aminotransferase (ALT/SGPT) 22, Alkaline Phosphatase 136H, Total Protein 6.5L, Albumin 2.9L, Globulin 3.6, Albumin/Globulin Ratio 0.8L 03/08/17 07:55: Arterial Blood pH 7.288L, Arterial Blood Partial Pressure CO2 41.3, Arterial Blood Partial Pressure O2 83.9, Arterial Blood HCO3 19.3L, Arterial Blood Oxygen Saturation 94.7, Arterial Blood Base Excess -6.8, Cristian Test Positive Height (Feet): 5 Height (Inches): 3.00 Weight (Pounds): 244 General Appearance: no apparent distress Cardiovascular: tachycardia Respiratory/Chest: decreased breath sounds Objective no change in PE ALVIN LUQUE Mar 08, 2017 09:13
[2017-03-08] MEDS ORDERED: Succinylcholine 20mg/ml 10ml vial ONE (09:44)
[2017-03-08] MEDS: Valproic Acid 250mg/5ml Liquid GT SCH ×2 (09:51→20:53)
[2017-03-08] MEDS: Docusate 100mg/10ml Liq ORAL SCH ×2 (09:51→18:37)
[2017-03-08] MEDS: Midodrine 10mg tab NG SCH ×3 (09:51→21:57)
[2017-03-08] MEDS: Pantoprazole Inj IVP SCH (09:52)
[2017-03-08] MEDS: Morphine Sulfate 2mg/ml Inj IVP PRN (09:53)
[2017-03-08] MEDS: Levemir Flexpen SUBQ SCH ×2 (09:58→20:52)
[2017-03-08] MEDS: Heparin 5000 units/ml inj SUBQ SCH ×2 (09:59→20:52)
[2017-03-08] MEDS: Nystatin Powder 100,000 units/gm 15gm TOPIC SCH ×3 (10:00→18:21)
--- NOTE | 2017-03-08 11:26 | Infectious Diseases Prog Note ---
Assessment/Plan Assessment/Plan ASSESSMENT: 31 y/o female with: Recurrent complicated UTI - UCx P.mirabilis, E.coli - US: Mildly increased renal echogenicity, compatible with medical renal disease. Negative for hydronephrosis. Right renal upper pole cyst. - SPC in place - h/o E Coli and Morganella, PSA CONS bacteremia 08/10 c/w contaminant - TTE(-) SBE Left chest Port-A-Cath, with interim fracture of the tubing at or near the left jugular vein insertion site Leukocytosis - recurrent, creeping up, afebrile Recurrent Acute VDRF - intubated 02/27, extubated 03/07, re-intubated 03/07 Possible CHF exacerbation - TTE: EF 65% ARF on CKD3 - US: Mildly increased renal echogenicity, compatible with medical renal disease. Negative for hydronephrosis. Right renal upper pole cyst. hx of CVA s/p VPS seizure disorder DM Bipolar disorder Spina bifida [place] resident Quinolone allergy Full Code PLAN: - continue rocephin d# 7 ( ABX d# ). May DC in AM ( 03/02 SP IV vancomycin, zosyn d# 4 ) - monitor CBC, temperatures, re-culture if acute change - monitor BMP - vent support, wean as tolerated Subjective Allergies: Coded Allergies: CIPROFLOXACIN (Verified Allergy, Severe, Anaphylaxis, 05/18/12) KETOROLAC (Unverified Allergy, Severe, Anaphylaxis, 03/04/14) Throat collapsed LATEX (Verified Allergy, Severe, Anaphylaxis, 03/06/14) verbalized by pt LEVOFLOXACIN (Verified Allergy, Severe, Anaphylaxis, 05/18/12) MORPHINE (Verified Allergy, Intermediate, Itching, 05/18/12) ACETAMINOPHEN (Unverified Allergy, Unknown, 04/01/15) ALOE (Unverified Allergy, Unknown, 11/03/15) ALOE VERA (Unverified Allergy, Unknown, 04/01/15) CELERY (Unverified Allergy, Unknown, 04/01/15) COCONUT (Unverified Allergy, Unknown, 11/03/15) COCONUT OIL (Unverified Allergy, Unknown, 04/01/15) FISH CONTAINING PRODUCTS (Unverified Allergy, Unknown, 10/04/16) HYDROCODONE (Unverified Allergy, Unknown, 04/01/15) LIDOCAINE (Unverified Allergy, Unknown, Rash, 09/21/15) with lidocaine cream MELON (Unverified Allergy, Unknown, 04/01/15) ONION (Unverified Allergy, Unknown, 11/03/15) PINEAPPLE (Unverified Allergy, Unknown, 10/04/16) Red Pepper (Unverified Allergy, Unknown, 04/01/15) TRAMADOL (Unverified Allergy, Unknown, 04/01/15) TROMETHAMINE (Unverified Allergy, Unknown, 04/01/15) WITCH ANNA (Unverified Allergy, Unknown, 04/01/15) Uncoded Allergies: CRANBERRY JUICE (Allergy, Unknown, 10/04/16) onion (Allergy, Unknown, 04/01/15) glueten (Adverse Reaction, Unknown, 09/17/15) Subjective remains afebrile had to be re-intubated WBC creeping up Objective Vital Signs Last 24 Hour Vital Signs Date Time Temp Pulse Resp B/P Pulse Ox O2 Delivery O2 Flow Rate FiO2 03/08/17 10:45 102 21 30 03/08/17 08:55 105 12 30 03/08/17 08:54 99 03/08/17 08:00 30 03/08/17 07:04 92 16 30 03/08/17 06:00 30 03/08/17 06:00 94 19 85/44 98 Mechanical Ventilator 03/08/17 05:25 92 16 30 03/08/17 05:00 93 22 85/44 98 Mechanical Ventilator 03/08/17 04:00 99 03/08/17 04:00 93 22 81/53 98 Mechanical Ventilator 03/08/17 03:01 30 03/08/17 03:00 93 16 81/53 98 Mechanical Ventilator 30 03/08/17 02:47 93 16 100 03/08/17 02:00 106 16 102/72 98 Mechanical Ventilator 03/08/17 02:00 30 03/08/17 01:30 93 22 80/52 98 Mechanical Ventilator 03/08/17 01:12 107 16 100 03/08/17 01:00 115 29 102/72 98 Mechanical Ventilator 03/08/17 00:45 100 03/08/17 00:30 115 29 101/61 98 Mechanical Ventilator 03/08/17 00:00 104 03/08/17 00:00 98.3 115 29 88/59 98 Mechanical Ventilator 30 03/07/17 23:58 109 25 Facial 60 03/07/17 23:00 115 29 112/60 98 Mechanical Ventilator 35 03/07/17 22:00 117 33 109/49 95 Nasal Cannula 2.0 03/07/17 21:00 98.5 117 32 142/71 95 Nasal Cannula 2.0 03/07/17 20:15 115 29 112/60 98 Mechanical Ventilator 35 03/07/17 20:00 2.0 03/07/17 20:00 98.5 118 28 116/71 95 Nasal Cannula 2.0 03/07/17 20:00 102 03/07/17 19:30 120 32 112/60 98 Mechanical Ventilator 2.0 35 03/07/17 19:20 Nasal Cannula 2.0 28 03/07/17 19:20 95 Nasal Cannula 2.0 28 03/07/17 19:00 115 20 112/60 98 Mechanical Ventilator 35 03/07/17 18:00 125 20 141/88 98 Mechanical Ventilator 35 03/07/17 17:03 105 24 100 Facial 60 03/07/17 17:00 117 20 117/70 98 Mechanical Ventilator 35 03/07/17 16:00 60 03/07/17 16:00 104 03/07/17 16:00 98.0 104 20 133/63 98 Mechanical Ventilator 35 03/07/17 15:14 112 34 95 Facial 60 03/07/17 15:00 106 24 118/78 96 Mechanical Ventilator 35 03/07/17 14:00 106 23 126/67 95 Mechanical Ventilator 35 03/07/17 13:00 112 20 142/71 100 Mechanical Ventilator 35 03/07/17 12:49 110 22 96 Facial 60 03/07/17 12:30 60 03/07/17 12:10 98 Venturi Mask 10.0 45 03/07/17 12:00 105 03/07/17 12:00 Venturi Mask 10.0 45 03/07/17 12:00 98.0 107 23 126/71 100 Mechanical Ventilator 35 03/07/17 12:00 Venturi Mask 10.0 45 Height (Feet): 5 Height (Inches): 3.00 Weight (Pounds): 244 General Appearance: no acute distress HEENT: other - NGT Respiratory/Chest: no respiratory distress Cardiovascular: normal rate, regular rhythm Abdomen: normal bowel sounds, soft, non tender, non distended Laboratory Tests Test 03/08/17 00:04 03/08/17 02:00 03/08/17 04:15 03/08/17 07:55 Arterial Blood pH 6.766 (7.350-7.450) 7.239 (7.350-7.450) 7.288 (7.350-7.450) Arterial Blood Partial Pressure CO2 131.5 mmHg (35.0-45.0) *H 41.8 mmHg (35.0-45.0) 41.3 mmHg (35.0-45.0) Arterial Blood Partial Pressure O2 36.3 mmHg (75.0-100.0) 261.8 mmHg (75.0-100.0) H 83.9 mmHg (75.0-100.0) Arterial Blood HCO3 18.5 mmol/L (22.0-26.0) L 17.5 mmol/L (22.0-26.0) L 19.3 mmol/L (22.0-26.0) L Arterial Blood Oxygen Saturation 43.9 % (92.0-98.0) L 99.2 % (92.0-98.0) H 94.7 % (92.0-98.0) Arterial Blood Base Excess -17.6 -9.3 -6.8 Cristian Test Positive Positive Positive White Blood Count 13.5 K/UL (4.8-10.8) H Red Blood Count 2.70 M/UL (4.20-5.40) L Hemoglobin 7.9 G/DL (12.0-16.0) L Hematocrit 26.7 % (37.0-47.0) L Mean Corpuscular Volume 99 FL (80-99) Mean Corpuscular Hemoglobin 29.2 PG (27.0-31.0) Mean Corpuscular Hemoglobin Concent 29.6 G/DL (32.0-36.0) L Red Cell Distribution Width 18.6 % (11.6-14.8) H Platelet Count 240 K/UL (150-450) Mean Platelet Volume 5.7 FL (6.5-10.1) L Neutrophils (%) (Auto) % (45.0-75.0) Lymphocytes (%) (Auto) % (20.0-45.0) Monocytes (%) (Auto) % (1.0-10.0) Eosinophils (%) (Auto) % (0.0-3.0) Basophils (%) (Auto) % (0.0-2.0) Sodium Level 146 mEQ/L (135-145) H Potassium Level 5.2 mEQ/L (3.4-4.9) H Chloride Level 111 mEQ/L (98-107) H Carbon Dioxide Level 19 mEQ/L (20-30) L Anion Gap 16 (5-15) H Blood Urea Nitrogen 43 mg/dL (7-23) H Creatinine 2.4 mg/dL (0.5-0.9) H Estimat Glomerular Filtration Rate 23.4 mL/min (>60) Glucose Level 282 mg/dL (74-106) H Calcium Level 9.0 mg/dL (8.6-10.2) Phosphorus Level 5.0 mg/dL (2.5-4.8) H Magnesium Level 2.3 mg/dL (1.7-2.5) Total Bilirubin 0.2 mg/dL (0.0-1.2) Aspartate Amino Transf (AST/SGOT) 21 U/L (5-40) Alanine Aminotransferase (ALT/SGPT) 22 U/L (3-33) Alkaline Phosphatase 136 U/L (35-104) H Total Protein 6.5 g/dL (6.6-8.7) L Albumin 2.9 g/dL (3.5-5.2) L Globulin 3.6 g/dL Albumin/Globulin Ratio 0.8 (1.0-2.7) L Current Medications Medications (Trade) Dose Ordered Sig/Cabrera Route PRN Reason Start Time Stop Time Status Last Admin Dose Admin Ceftriaxone Sodium/Dextrose (Rocephin/D5W) 55 ml @ 110 mls/hr Q24H IVPB 03/02/17 18:00 03/09/17 17:59 03/07/17 18:00 Chlorhexidine Gluconate 1 applic 1 applic QHS TOPIC 03/02/17 21:00 04/01/17 20:59 03/07/17 21:23 Dextrose (D5W 1000ml) 1,000 ml @ 50 mls/hr Q20H IV 03/08/17 09:30 04/07/17 09:29 03/08/17 09:52 Dextrose (Dextrose 50%) STAT PRN IV Hypoglycemia 02/28/17 07:30 03/30/17 07:29 Docusate Sodium (Colace) 100 mg TWICE A DAY ORAL 03/03/17 09:00 04/02/17 08:59 03/08/17 09:51 Fluoxetine HCl (PROzac) 20 mg DAILY ORAL 03/07/17 13:45 04/06/17 13:44 03/08/17 09:51 Heparin Sodium (Porcine) (Heparin 5000 units/ml) 5,000 units EVERY 12 HOURS SUBQ 02/27/17 21:00 03/29/17 20:59 03/08/17 09:59 Insulin Aspart (NovoLOG) EVERY 6 HOURS SUBQ 03/07/17 19:00 04/06/17 18:59 03/08/17 06:43 Insulin Detemir (Levemir) 15 units EVERY 12 HOURS SUBQ 03/07/17 09:00 04/06/17 08:59 03/08/17 09:58 Levothyroxine Sodium (Synthroid) 100 mcg DAILY@0630 ORAL 02/28/17 06:30 03/30/17 06:29 03/08/17 06:40 Lorazepam (Ativan 2mg/ml 1ml) 2 mg Q2H PRN IV For Anxiety 03/06/17 23:15 03/13/17 23:14 03/07/17 18:47 Midodrine (Pro-Amatine) 10 mg Q8HR NG 03/08/17 09:30 04/07/17 09:29 03/08/17 09:51 Morphine Sulfate 2 mg 2 mg Q4H PRN IVP Severe Pain (Pain Scale 7-10) 03/08/17 08:15 03/15/17 08:14 03/08/17 09:53 Nystatin (Nystop Powder) 1 applic THREE TIMES A DAY TOPIC 03/07/17 21:00 04/06/17 20:59 03/08/17 10:00 Ondansetron HCl (Zofran) 4 mg Q6H PRN IVP Nausea & Vomiting 02/27/17 18:00 03/29/17 17:59 03/08/17 09:53 Pantoprazole (Protonix) 40 mg DAILY IVP 02/28/17 09:00 03/30/17 08:59 03/08/17 09:52 Polyethylene Glycol (Miralax) 17 gm DAILYPRN PRN ORAL Constipation 02/27/17 18:00 03/29/17 17:59 Quetiapine Fumarate (SEROquel) 50 mg BEDTIME ORAL 03/07/17 21:00 04/06/17 20:59 03/07/17 21:13 Valproic Acid (Depakene) 500 mg Q12HR GT 02/27/17 23:00 03/29/17 22:59 03/08/17 09:51 LUCITA WEBSTER Mar 08, 2017 11:26
--- NOTE | 2017-03-08 11:29 | Diagnostic Imaging Report ---
Indication: DYSPNEA, tube placement Technique: One view of the chest Comparison: 03/06/2017 Findings: Stable satisfactory positions of endotracheal and nasogastric tubes. Diffuse mild interstitial congestion, left perihilar atelectatic changes persist. Right-sided ventriculoperitoneal shunt tubing, left chest at again demonstrated. The heart size is upper limits of normal. No definite significant interim change Impression: Unchanged, over 2 days, findings as above.
--- NOTE | 2017-03-08 11:39 | Pulmonolgy Critical Care Note ---
Critical Care - Asmt/Plan Problems: (1) Respiratory distress (2) Septic shock (3) ATN (acute tubular necrosis) (4) Diabetes mellitus (5) Spina bifida Respiratory: monitor respiratory rate, adjust FIO2, CXR Cardiac: continue pressors, continue to monitor HR/BP Renal: F/U I&O, keep IV fluid, check electrolytes Infectious Disease: check cultures, continue antibiotics Gastrointestinal: continue feedings/current rate Endocrine: monitor blood sugar, check HgA1C, continue sliding scale insulin Hematologic: monitor H/H, transfuse if hgb<8.5 Neurologic: PRN Ativan, keep patient comfortable Affect: PRN ativan Prophylaxis: Heparin Notes Reviewed: cardio, 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, consultants, case management managermanager acute - Objective Last 24 Hour Vital Signs Date Time Temp Pulse Resp B/P Pulse Ox O2 Delivery O2 Flow Rate FiO2 03/08/17 11:00 102 20 140/72 98 Mechanical Ventilator 30 03/08/17 10:45 102 21 30 03/08/17 10:00 96 19 136/71 98 Mechanical Ventilator 30 03/08/17 09:00 105 20 120/68 98 Mechanical Ventilator 30 03/08/17 08:55 105 12 30 03/08/17 08:54 99 03/08/17 08:00 101 03/08/17 08:00 98.5 99 19 111/63 98 Mechanical Ventilator 30 03/08/17 08:00 30 03/08/17 07:04 92 16 30 03/08/17 07:00 96 20 86/42 98 Mechanical Ventilator 30 03/08/17 06:00 30 03/08/17 06:00 94 19 85/44 98 Mechanical Ventilator 30 03/08/17 05:25 92 16 30 03/08/17 05:00 93 22 85/44 98 Mechanical Ventilator 30 03/08/17 04:00 99 03/08/17 04:00 93 22 81/53 98 Mechanical Ventilator 30 03/08/17 03:01 30 03/08/17 03:00 93 16 81/53 98 Mechanical Ventilator 30 03/08/17 02:47 93 16 100 03/08/17 02:00 106 16 102/72 98 Mechanical Ventilator 30 03/08/17 02:00 30 03/08/17 01:30 93 22 80/52 98 Mechanical Ventilator 30 03/08/17 01:12 107 16 100 03/08/17 01:00 115 29 102/72 98 Mechanical Ventilator 30 03/08/17 00:45 100 03/08/17 00:30 115 29 101/61 98 Mechanical Ventilator 30 03/08/17 00:00 104 03/08/17 00:00 98.3 115 29 88/59 98 Mechanical Ventilator 30 03/07/17 23:58 109 25 Facial 60 03/07/17 23:00 115 29 112/60 98 Mechanical Ventilator 35 03/07/17 22:00 117 33 109/49 95 Nasal Cannula 2.0 03/07/17 21:00 98.5 117 32 142/71 95 Nasal Cannula 2.0 03/07/17 20:15 115 29 112/60 98 Mechanical Ventilator 35 03/07/17 20:00 2.0 03/07/17 20:00 98.5 118 28 116/71 95 Nasal Cannula 2.0 03/07/17 20:00 102 03/07/17 19:30 120 32 112/60 98 Mechanical Ventilator 2.0 35 03/07/17 19:20 Nasal Cannula 2.0 28 03/07/17 19:20 95 Nasal Cannula 2.0 28 03/07/17 19:00 115 20 112/60 98 Mechanical Ventilator 35 03/07/17 18:00 125 20 141/88 98 Mechanical Ventilator 35 03/07/17 17:03 105 24 100 Facial 60 03/07/17 17:00 117 20 117/70 98 Mechanical Ventilator 35 03/07/17 16:00 60 03/07/17 16:00 104 03/07/17 16:00 98.0 104 20 133/63 98 Mechanical Ventilator 35 03/07/17 15:14 112 34 95 Facial 60 03/07/17 15:00 106 24 118/78 96 Mechanical Ventilator 35 03/07/17 14:00 106 23 126/67 95 Mechanical Ventilator 35 03/07/17 13:00 112 20 142/71 100 Mechanical Ventilator 35 03/07/17 12:49 110 22 96 Facial 60 03/07/17 12:30 60 03/07/17 12:10 98 Venturi Mask 10.0 45 03/07/17 12:00 105 03/07/17 12:00 Venturi Mask 10.0 45 03/07/17 12:00 98.0 107 23 126/71 100 Mechanical Ventilator 35 03/07/17 12:00 Venturi Mask 10.0 45 Status: awake Condition: critical HEENT: atraumatic Neck: full ROM Lungs: clear Heart: HR/BP stable, HR/BP unstable Abdomen: soft, non-tender, active bowel sounds, feeding tube Extremities: no C/C/E, edema Decubiti: location Accucheck: 197 Critical Care - Subjective ICU Day: 9 Condition: critical EKG Rhythm: Sinus Rhythm FI02: 30 Vent Support Breath Rate: 12 Vent Support Mode: CPAP Vent Tidal Volume: 600 Sputum Amount: Moderate PEEP: 5.0 PIP: 16 Tube Feeding Amount: 34 I&O: Intake and Output 03/07/17 03/08/17 19:00 07:00 Intake Total 730 ml 775 ml Output Total 725 ml 290 ml Balance 5 ml 485 ml Free Water 300 ml 200 ml IV Total 56 ml 167 ml Tube Feeding 374 ml 408 ml Output Urine Total 725 ml 290 ml CXR: no change ET-Tube: 6.0 ET Position: 23 Labs: Laboratory Tests Test 03/08/17 00:04 03/08/17 02:00 03/08/17 04:15 03/08/17 07:55 Arterial Blood pH 6.766 (7.350-7.450) 7.239 (7.350-7.450) 7.288 (7.350-7.450) Arterial Blood Partial Pressure CO2 131.5 mmHg (35.0-45.0) *H 41.8 mmHg (35.0-45.0) 41.3 mmHg (35.0-45.0) Arterial Blood Partial Pressure O2 36.3 mmHg (75.0-100.0) 261.8 mmHg (75.0-100.0) H 83.9 mmHg (75.0-100.0) Arterial Blood HCO3 18.5 mmol/L (22.0-26.0) L 17.5 mmol/L (22.0-26.0) L 19.3 mmol/L (22.0-26.0) L Arterial Blood Oxygen Saturation 43.9 % (92.0-98.0) L 99.2 % (92.0-98.0) H 94.7 % (92.0-98.0) Arterial Blood Base Excess -17.6 -9.3 -6.8 Cristian Test Positive Positive Positive White Blood Count 13.5 K/UL (4.8-10.8) H Red Blood Count 2.70 M/UL (4.20-5.40) L Hemoglobin 7.9 G/DL (12.0-16.0) L Hematocrit 26.7 % (37.0-47.0) L Mean Corpuscular Volume 99 FL (80-99) Mean Corpuscular Hemoglobin 29.2 PG (27.0-31.0) Mean Corpuscular Hemoglobin Concent 29.6 G/DL (32.0-36.0) L Red Cell Distribution Width 18.6 % (11.6-14.8) H Platelet Count 240 K/UL (150-450) Mean Platelet Volume 5.7 FL (6.5-10.1) L Neutrophils (%) (Auto) % (45.0-75.0) Lymphocytes (%) (Auto) % (20.0-45.0) Monocytes (%) (Auto) % (1.0-10.0) Eosinophils (%) (Auto) % (0.0-3.0) Basophils (%) (Auto) % (0.0-2.0) Sodium Level 146 mEQ/L (135-145) H Potassium Level 5.2 mEQ/L (3.4-4.9) H Chloride Level 111 mEQ/L (98-107) H Carbon Dioxide Level 19 mEQ/L (20-30) L Anion Gap 16 (5-15) H Blood Urea Nitrogen 43 mg/dL (7-23) H Creatinine 2.4 mg/dL (0.5-0.9) H Estimat Glomerular Filtration Rate 23.4 mL/min (>60) Glucose Level 282 mg/dL (74-106) H Calcium Level 9.0 mg/dL (8.6-10.2) Phosphorus Level 5.0 mg/dL (2.5-4.8) H Magnesium Level 2.3 mg/dL (1.7-2.5) Total Bilirubin 0.2 mg/dL (0.0-1.2) Aspartate Amino Transf (AST/SGOT) 21 U/L (5-40) Alanine Aminotransferase (ALT/SGPT) 22 U/L (3-33) Alkaline Phosphatase 136 U/L (35-104) H Total Protein 6.5 g/dL (6.6-8.7) L Albumin 2.9 g/dL (3.5-5.2) L Globulin 3.6 g/dL Albumin/Globulin Ratio 0.8 (1.0-2.7) L LORNE DENNEY Mar 08, 2017 11:39
--- NOTE | 2017-03-08 11:41 | Diagnostic Imaging Report ---
Indication: Status post intubation Technique: One view of the chest Comparison: 7 hours earlier Findings: Endotracheal tube tip projects at approximately 4 cm above the myla. Nasogastric tube projects in good position following for differences in technique, probably unchanged bilateral interstitial congestive change, left perihilar atelectasis. Other findings remain unchanged. Impression: Unchanged, over 7 hours, findings as above.
[2017-03-08] MEDS: cefTRIAXone 1 GM in D5W 55 ML IVPB SCH (18:38)
[2017-03-08] MEDS: Dyna-Hex 2% Top Sol 8oz TOPIC SCH (20:50)
[2017-03-09] VITALS (24 sets, daily range): BP systolic 100–141; BP diastolic 48–81
[2017-03-09] MEDS: NovoLOG Insulin Flexpen SUBQ SCH ×10 (00:03→23:35)
[2017-03-09] MEDS: LORazepam Inj 2mg/ml 1ml IV PRN ×4 (03:33→19:41)
[2017-03-09] MEDS: Midodrine 10mg tab NG SCH ×3 (05:26→22:00)
[2017-03-09 05:27] LABS: MEAN CORPUSCULAR HGB CONC 30.7 G/DL (32.0-36.0); MEAN CORPUSCULAR VOLUME 98 FL (80-99); PLATELET COUNT 226 K/UL (150-450); RED BLOOD COUNT 2.46 M/UL (4.20-5.40); RED CELL DISTRIBUTION WIDTH 18.5 % (11.6-14.8); WHITE BLOOD COUNT 11.6 K/UL (4.8-10.8)
[2017-03-09] MEDS: Morphine Sulfate 2mg/ml Inj IVP PRN ×3 (05:43→15:51)
[2017-03-09 05:51] LABS: ALANINE AMINOTRANSFERASE 17 U/L (3-33); ALBUMIN/GLOBULIN RATIO 1.1 (1.0-2.7); ANION GAP 14 (5-15); ASPARTATE AMINO TRANSFERASE 10 U/L (5-40); CALCIUM 8.7 mg/dL (8.6-10.2); CARBON DIOXIDE 22 mEQ/L (20-30); CHLORIDE 101 mEQ/L (98-107); CREATININE 2.3 mg/dL (0.5-0.9); CRP QUANT 6.3 mg/dL (< 0.5); GLOMERULAR FILTRATION RATE 24.6 mL/min (>60); HEMOLYSIS 5; MAGNESIUM 2.3 mg/dL (1.7-2.5); PHOSPHORUS 3.4 mg/dL (2.5-4.8); POTASSIUM 3.8 mEQ/L (3.4-4.9); SODIUM 137 mEQ/L (135-145); TOTAL PROTEIN 6.4 g/dL (6.6-8.7)
[2017-03-09 07:45] LABS: ANISOCYTOSIS 2+; BAND NEUTROPHILS % (MANUAL) 2 % (0-8); BASOPHILS % (MANUAL) 0 % (0-2); EOSINOPHILS % (MANUAL) 1 % (0-3); HYPOCHROMASIA 3+; LYMPHOCYTES % (MANUAL) 14 % (20-45); NEUTROPHILS % (MANUAL) 72 % (45-75); PLATELET ESTIMATE ADEQUATE; PLATELET MORPHOLOGY NORMAL; TOTAL CELLS COUNTED 100
[2017-03-09] MEDS: Docusate 100mg/10ml Liq ORAL SCH ×2 (08:57→17:37)
[2017-03-09] MEDS: Nystatin Powder 100,000 units/gm 15gm TOPIC SCH ×3 (08:57→17:37)
[2017-03-09] MEDS: Valproic Acid 250mg/5ml Liquid GT SCH ×2 (08:57→20:38)
[2017-03-09] MEDS: Pantoprazole Inj IVP SCH (08:58)
[2017-03-09] MEDS: Levemir Flexpen SUBQ SCH ×2 (08:59→20:40)
[2017-03-09] MEDS: Heparin 5000 units/ml inj SUBQ SCH ×2 (08:59→20:39)
--- NOTE | 2017-03-09 11:08 | Pulmonolgy Critical Care Note ---
Critical Care - Asmt/Plan Problems: (1) Respiratory distress (2) Septic shock (3) ATN (acute tubular necrosis) (4) Diabetes mellitus (5) Spina bifida Respiratory: monitor respiratory rate, adjust FIO2, CXR Cardiac: continue pressors, continue to monitor HR/BP Renal: F/U I&O, keep IV fluid Infectious Disease: check cultures, continue antibiotics Gastrointestinal: continue feedings/current rate, hold feedings Endocrine: monitor blood sugar, check HgA1C, continue sliding scale insulin Hematologic: transfuse if hgb<8.5 Neurologic: PRN Morphine, keep patient comfortable Prophylaxis: Heparin Notes Reviewed: executive personal assistant, cardio 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, consultants, window caserdata analysis manager - Objective Last 24 Hour Vital Signs Date Time Temp Pulse Resp B/P Pulse Ox O2 Delivery O2 Flow Rate FiO2 03/09/17 10:00 105 19 124/60 97 Mechanical Ventilator 30 03/09/17 09:01 75 18 30 03/09/17 09:00 89 19 141/53 97 Mechanical Ventilator 30 03/09/17 08:00 98.8 93 18 127/66 100 Mechanical Ventilator 30 03/09/17 08:00 30 03/09/17 08:00 90 03/09/17 07:00 84 19 112/60 99 Mechanical Ventilator 30 03/09/17 06:52 84 16 30 03/09/17 06:00 93 19 109/81 97 Mechanical Ventilator 30 03/09/17 05:29 86 20 30 03/09/17 05:00 93 19 131/70 97 Mechanical Ventilator 30 03/09/17 04:00 92 03/09/17 04:00 98.2 82 22 134/72 98 Mechanical Ventilator 30 03/09/17 04:00 30 03/09/17 03:25 68 16 30 03/09/17 03:00 95 16 136/69 98 Mechanical Ventilator 30 03/09/17 02:00 72 16 111/70 98 Mechanical Ventilator 30 03/09/17 01:12 70 16 30 03/09/17 01:00 69 16 115/61 98 Mechanical Ventilator 30 03/09/17 00:00 78 03/09/17 00:00 98.2 74 16 123/67 98 Mechanical Ventilator 30 03/09/17 00:00 30 03/08/17 23:00 70 16 119/64 97 Mechanical Ventilator 30 03/08/17 22:46 71 16 30 8/2/17 22:00 73 16 115/66 98 Mechanical Ventilator 30 03/08/17 21:00 73 20 113/62 98 Mechanical Ventilator 30 03/08/17 20:30 67 16 30 03/08/17 20:00 98.6 73 16 98/59 98 Mechanical Ventilator 03/08/17 20:00 30 03/08/17 20:00 68 03/08/17 19:19 75 16 30 03/08/17 19:00 71 20 132/70 98 Mechanical Ventilator 30 03/08/17 18:00 64 20 121/67 98 Mechanical Ventilator 30 03/08/17 17:00 75 20 115/52 98 Mechanical Ventilator 03/08/17 16:50 72 16 30 03/08/17 16:00 98.2 76 20 106/56 98 Mechanical Ventilator 03/08/17 16:00 30 03/08/17 16:00 90 03/08/17 15:00 78 20 119/52 98 Mechanical Ventilator 03/08/17 14:35 84 16 30 03/08/17 14:00 92 20 141/61 98 Mechanical Ventilator 03/08/17 13:00 93 20 125/82 98 Mechanical Ventilator 03/08/17 12:56 88 16 30 03/08/17 12:00 91 03/08/17 12:00 98.0 88 20 148/85 98 Mechanical Ventilator 03/08/17 12:00 30 03/08/17 11:44 99 20 30 Status: awake Condition: critical HEENT: atraumatic Neck: full ROM Lungs: chest wall tender Heart: HR/BP stable, HR/BP unstable Abdomen: soft, non-tender, active bowel sounds Extremities: no C/C/E, edema Decubiti: location Accucheck: 285 Critical Care - Subjective ROS Limited/Unobtainable: Yes ICU Day: 10 Intubation Day: 10 Condition: critical EKG Rhythm: Sinus Rhythm FI02: 30 Vent Support Breath Rate: 16 Vent Support Mode: AC Vent Tidal Volume: 600 Sputum Amount: Small PEEP: 5.0 PIP: 35 Tube Feeding Amount: 34 I&O: Intake and Output 03/08/17 03/09/17 19:00 07:00 Intake Total 1158 ml 1234 ml Output Total 915 ml 870 ml Balance 243 ml 364 ml Free Water 300 ml 100 ml IV Total 450 ml 600 ml Tube Feeding 408 ml 374 ml Other 160 ml Output Urine Total 915 ml 870 ml # Bowel Movements 1 CXR: no changes ET-Tube: 6.0 ET Position: 23 Labs: Laboratory Tests Test 03/09/17 04:30 White Blood Count 11.6 K/UL (4.8-10.8) H Red Blood Count 2.46 M/UL (4.20-5.40) L Hemoglobin 7.4 G/DL (12.0-16.0) L Hematocrit 24.0 % (37.0-47.0) L Mean Corpuscular Volume 98 FL (80-99) Mean Corpuscular Hemoglobin 30.0 PG (27.0-31.0) Mean Corpuscular Hemoglobin Concent 30.7 G/DL (32.0-36.0) L Red Cell Distribution Width 18.5 % (11.6-14.8) H Platelet Count 226 K/UL (150-450) Mean Platelet Volume 6.0 FL (6.5-10.1) L Neutrophils (%) (Auto) % (45.0-75.0) Lymphocytes (%) (Auto) % (20.0-45.0) Monocytes (%) (Auto) % (1.0-10.0) Eosinophils (%) (Auto) % (0.0-3.0) Basophils (%) (Auto) % (0.0-2.0) Differential Total Cells Counted 100 Neutrophils % (Manual) 72 % (45-75) Lymphocytes % (Manual) 14 % (20-45) L Monocytes % (Manual) 11 % (1-10) H Eosinophils % (Manual) 1 % (0-3) Basophils % (Manual) 0 % (0-2) Band Neutrophils 2 % (0-8) Platelet Estimate Adequate Platelet Morphology Normal Hypochromasia 3+ Anisocytosis 2+ Sodium Level 137 mEQ/L (135-145) Potassium Level 3.8 mEQ/L (3.4-4.9) Chloride Level 101 mEQ/L (98-107) Carbon Dioxide Level 22 mEQ/L (20-30) Anion Gap 14 (5-15) Blood Urea Nitrogen 43 mg/dL (7-23) H Creatinine 2.3 mg/dL (0.5-0.9) H Estimat Glomerular Filtration Rate 24.6 mL/min (>60) Glucose Level 301 mg/dL (74-106) H Calcium Level 8.7 mg/dL (8.6-10.2) Phosphorus Level 3.4 mg/dL (2.5-4.8) Magnesium Level 2.3 mg/dL (1.7-2.5) Total Bilirubin < 0.2 mg/dL (0.0-1.2) Aspartate Amino Transf (AST/SGOT) 10 U/L (5-40) Alanine Aminotransferase (ALT/SGPT) 17 U/L (3-33) Alkaline Phosphatase 104 U/L (35-104) C-Reactive Protein, Quantitative 6.3 mg/dL (< 0.5) H Pro-B-Type Natriuretic Peptide 1108 pg/mL (0-125) H Total Protein 6.4 g/dL (6.6-8.7) L Albumin 3.4 g/dL (3.5-5.2) L Globulin 3.0 g/dL Albumin/Globulin Ratio 1.1 (1.0-2.7) Lipase 45 U/L (< 60) LORNE DENNEY Mar 09, 2017 11:08
--- NOTE | 2017-03-09 11:13 | General Progress Note ---
Assessment/Plan Status: unchanged Status Narrative Hgb low- Cr stable Assessment/Plan status: (1) Respiratory distress, intubated (2) Septic shock , UTI and Pneumonia (3) Renal Failure ( Diabetic) and Hyper Natremia (4) Diabetes mellitus (5) Spina bifida (6) HypoThyroid (7) Anemia (8) Sz disorder (9) Full Code status: Favor transfusion Midodrine- DC D5W Monitor renal parameters Avoid nephrotoxics Anemia chanel per orders Subjective ROS Limited/Unobtainable: Yes Allergies: Coded Allergies: CIPROFLOXACIN (Verified Allergy, Severe, Anaphylaxis, 05/18/12) KETOROLAC (Unverified Allergy, Severe, Anaphylaxis, 03/04/14) Throat collapsed LATEX (Verified Allergy, Severe, Anaphylaxis, 03/06/14) verbalized by pt LEVOFLOXACIN (Verified Allergy, Severe, Anaphylaxis, 05/18/12) MORPHINE (Verified Allergy, Intermediate, Itching, 05/18/12) ACETAMINOPHEN (Unverified Allergy, Unknown, 04/01/15) ALOE (Unverified Allergy, Unknown, 11/03/15) ALOE VERA (Unverified Allergy, Unknown, 04/01/15) CELERY (Unverified Allergy, Unknown, 04/01/15) COCONUT (Unverified Allergy, Unknown, 11/03/15) COCONUT OIL (Unverified Allergy, Unknown, 04/01/15) FISH CONTAINING PRODUCTS (Unverified Allergy, Unknown, 10/04/16) HYDROCODONE (Unverified Allergy, Unknown, 04/01/15) LIDOCAINE (Unverified Allergy, Unknown, Rash, 09/21/15) with lidocaine cream MELON (Unverified Allergy, Unknown, 04/01/15) ONION (Unverified Allergy, Unknown, 11/03/15) PINEAPPLE (Unverified Allergy, Unknown, 10/04/16) Red Pepper (Unverified Allergy, Unknown, 04/01/15) TRAMADOL (Unverified Allergy, Unknown, 04/01/15) TROMETHAMINE (Unverified Allergy, Unknown, 04/01/15) WITCH ANNA (Unverified Allergy, Unknown, 04/01/15) Uncoded Allergies: CRANBERRY JUICE (Allergy, Unknown, 10/04/16) onion (Allergy, Unknown, 04/01/15) glueten (Adverse Reaction, Unknown, 09/17/15) Objective Last 24 Hour Vital Signs Date Time Temp Pulse Resp B/P Pulse Ox O2 Delivery O2 Flow Rate FiO2 03/09/17 11:00 104 17 139/72 97 Mechanical Ventilator 30 03/09/17 10:00 105 19 124/60 97 Mechanical Ventilator 30 03/09/17 09:01 75 18 30 03/09/17 09:00 89 19 141/53 97 Mechanical Ventilator 30 03/09/17 08:00 98.8 93 18 127/66 100 Mechanical Ventilator 30 03/09/17 08:00 30 03/09/17 08:00 90 03/09/17 07:00 84 19 112/60 99 Mechanical Ventilator 30 03/09/17 06:52 84 16 30 03/09/17 06:00 93 19 109/81 97 Mechanical Ventilator 30 03/09/17 05:29 86 20 30 03/09/17 05:00 93 19 131/70 97 Mechanical Ventilator 30 03/09/17 04:00 92 03/09/17 04:00 98.2 82 22 134/72 98 Mechanical Ventilator 30 03/09/17 04:00 30 03/09/17 03:25 68 16 30 03/09/17 03:00 95 16 136/69 98 Mechanical Ventilator 30 03/09/17 02:00 72 16 111/70 98 Mechanical Ventilator 30 03/09/17 01:12 70 16 30 03/09/17 01:00 69 16 115/61 98 Mechanical Ventilator 30 03/09/17 00:00 78 03/09/17 00:00 98.2 74 16 123/67 98 Mechanical Ventilator 03/09/17 00:00 30 03/08/17 23:00 70 16 119/64 97 Mechanical Ventilator 30 03/08/17 22:46 71 16 30 03/08/17 22:00 73 16 115/66 98 Mechanical Ventilator 03/08/17 21:00 73 20 113/62 98 Mechanical Ventilator 30 03/08/17 20:30 67 16 30 03/08/17 20:00 98.6 73 16 98/59 98 Mechanical Ventilator 30 03/08/17 20:00 30 03/08/17 20:00 68 03/08/17 19:19 75 16 30 03/08/17 19:00 71 20 132/70 98 Mechanical Ventilator 30 03/08/17 18:00 64 20 121/67 98 Mechanical Ventilator 30 03/08/17 17:00 75 20 115/52 98 Mechanical Ventilator 03/08/17 16:50 72 16 30 03/08/17 16:00 98.2 76 20 106/56 98 Mechanical Ventilator 30 03/08/17 16:00 30 03/08/17 16:00 90 03/08/17 15:00 78 20 119/52 98 Mechanical Ventilator 03/08/17 14:35 84 16 30 03/08/17 14:00 92 20 141/61 98 Mechanical Ventilator 30 03/08/17 13:00 93 20 125/82 98 Mechanical Ventilator 03/08/17 12:56 88 16 30 03/08/17 12:00 91 03/08/17 12:00 98.0 88 20 148/85 98 Mechanical Ventilator 30 03/08/17 12:00 30 03/08/17 11:44 99 20 30 Intake and Output 03/08/17 03/09/17 19:00 07:00 Intake Total 1158 ml 1234 ml Output Total 915 ml 870 ml Balance 243 ml 364 ml Free Water 300 ml 100 ml IV Total 450 ml 600 ml Tube Feeding 408 ml 374 ml Other 160 ml Output Urine Total 915 ml 870 ml # Bowel Movements 1 Laboratory Tests 03/09/17 04:30: White Blood Count 11.6H, Red Blood Count 2.46L, Hemoglobin 7.4L, Hematocrit 24.0L, Mean Corpuscular Volume 98, Mean Corpuscular Hemoglobin 30.0, Mean Corpuscular Hemoglobin Concent 30.7L, Red Cell Distribution Width 18.5H, Platelet Count 226, Mean Platelet Volume 6.0L, Neutrophils (%) (Auto) , Lymphocytes (%) (Auto) , Monocytes (%) (Auto) , Eosinophils (%) (Auto) , Basophils (%) (Auto) , Differential Total Cells Counted 100, Neutrophils % ( Manual) 72, Lymphocytes % (Manual) 14L, Monocytes % (Manual) 11H, Eosinophils % (Manual) 1, Basophils % (Manual) 0, Band Neutrophils 2, Platelet Estimate Adequate, Platelet Morphology Normal, Hypochromasia 3+, Anisocytosis 2+, Sodium Level 137, Potassium Level 3.8, Chloride Level 101, Carbon Dioxide Level 22, Anion Gap 14, Blood Urea Nitrogen 43H, Creatinine 2.3H, Estimat Glomerular Filtration Rate 24.6, Glucose Level 301H, Calcium Level 8.7, Phosphorus Level 3.4, Magnesium Level 2.3, Total Bilirubin < 0.2, Aspartate Amino Transf (AST/ SGOT) 10, Alanine Aminotransferase (ALT/SGPT) 17, Alkaline Phosphatase 104, C- Reactive Protein, Quantitative 6.3H, Pro-B-Type Natriuretic Peptide 1108H, Total Protein 6.4L, Albumin 3.4L, Globulin 3.0, Albumin/Globulin Ratio 1.1, Lipase 45 Height (Feet): 5 Height (Inches): 3.00 Weight (Pounds): 240 General Appearance: other - remains intubated Objective no change in PE ALVIN LUQUE Mar 09, 2017 11:13
--- NOTE | 2017-03-09 11:14 | Diagnostic Imaging Report ---
Indication: Dyspnea Comparison: March 08, 2017 A single view chest radiograph was obtained. Findings: Heart size is normal. Lung volumes are low. Vascularity is mildly prominent centrally. There is a left jugular line present as well as endotracheal tube and nasogastric tubes. Tubes and lines are grossly stable. Impression: Findings appear unchanged from one day earlier
--- NOTE | 2017-03-09 12:15 | Geriatric Medicine Prog Note ---
DATE: 03/08/2017 The patient is in the ICU, bed J. SUBJECTIVE: The patient was reintubated. She became more hyperglycemic. OBJECTIVE: VITAL SIGNS: Blood pressure 132/70, pulse 73, respiratory rate 20, and temperature 98 degrees. RESPIRATORY: . CVS: Regular. LABORATORY DATA: Glucose 376-266. ASSESSMENT: Diabetes mellitus, . PLAN: Increase Levemir from 15 to 25 units q.12 h. with 5 of NovoLog q.6 h. in addition to moderate level sliding scale NovoLog coverage. Glucerna 1.5 35 mL/hour per NG tube. The patient may ultimately need a tracheostomy and gastrostomy tube if she does not improve. Georgi Crowley M.D. DRJossie MONIQUE JOB#: [id number] CC:
[2017-03-09] MEDS: cefTRIAXone 1 GM in D5W 55 ML IVPB SCH (17:37)
[2017-03-09] MEDS ORDERED: NS 275ml ONE (18:40)
[2017-03-09] MEDS ORDERED: Tubing IV Secondary IV ONE (18:41)
[2017-03-09] MEDS: Dyna-Hex 2% Top Sol 8oz TOPIC SCH (20:38)
--- NOTE | 2017-03-09 21:27 | Infectious Diseases Prog Note ---
Assessment/Plan Assessment/Plan ASSESSMENT: 31 y/o female with: Recurrent complicated UTI - UCx P.mirabilis, E.coli - US: Mildly increased renal echogenicity, compatible with medical renal disease. Negative for hydronephrosis. Right renal upper pole cyst. - SPC in place - h/o E Coli and Morganella, PSA CONS bacteremia 08/10 c/w contaminant - TTE(-) SBE Left chest Port-A-Cath, with interim fracture of the tubing at or near the left jugular vein insertion site Leukocytosis - recurrent, stable near normal, afebrile Recurrent Acute VDRF - intubated 02/27, extubated 03/07, re-intubated 03/07 Possible CHF exacerbation - TTE: EF 65% ARF on CKD3 - US: Mildly increased renal echogenicity, compatible with medical renal disease. Negative for hydronephrosis. Right renal upper pole cyst. hx of CVA s/p VPS seizure disorder DM Bipolar disorder Spina bifida [place] resident Quinolone allergy Full Code PLAN: - continue rocephin d# 8 ( ABX d# ). ( 03/02 SP IV vancomycin, zosyn d# 4 ) - monitor CBC, temperatures, re-culture if acute change - monitor BMP - vent support, wean as tolerated Subjective Allergies: Coded Allergies: CIPROFLOXACIN (Verified Allergy, Severe, Anaphylaxis, 05/18/12) KETOROLAC (Unverified Allergy, Severe, Anaphylaxis, 03/04/14) Throat collapsed LATEX (Verified Allergy, Severe, Anaphylaxis, 03/06/14) verbalized by pt LEVOFLOXACIN (Verified Allergy, Severe, Anaphylaxis, 05/18/12) MORPHINE (Verified Allergy, Intermediate, Itching, 05/18/12) ACETAMINOPHEN (Unverified Allergy, Unknown, 04/01/15) ALOE (Unverified Allergy, Unknown, 11/03/15) ALOE VERA (Unverified Allergy, Unknown, 04/01/15) CELERY (Unverified Allergy, Unknown, 04/01/15) COCONUT (Unverified Allergy, Unknown, 11/03/15) COCONUT OIL (Unverified Allergy, Unknown, 04/01/15) FISH CONTAINING PRODUCTS (Unverified Allergy, Unknown, 10/04/16) HYDROCODONE (Unverified Allergy, Unknown, 04/01/15) LIDOCAINE (Unverified Allergy, Unknown, Rash, 09/21/15) with lidocaine cream MELON (Unverified Allergy, Unknown, 04/01/15) ONION (Unverified Allergy, Unknown, 11/03/15) PINEAPPLE (Unverified Allergy, Unknown, 10/04/16) Red Pepper (Unverified Allergy, Unknown, 04/01/15) TRAMADOL (Unverified Allergy, Unknown, 04/01/15) TROMETHAMINE (Unverified Allergy, Unknown, 04/01/15) WITCH ANNA (Unverified Allergy, Unknown, 04/01/15) Uncoded Allergies: CRANBERRY JUICE (Allergy, Unknown, 10/04/16) onion (Allergy, Unknown, 04/01/15) glueten (Adverse Reaction, Unknown, 09/17/15) Objective Vital Signs Last 24 Hour Vital Signs Date Time Temp Pulse Resp B/P Pulse Ox O2 Delivery O2 Flow Rate FiO2 03/09/17 21:00 75 16 108/64 96 Mechanical Ventilator 30 03/09/17 20:00 30 03/09/17 20:00 77 03/09/17 20:00 98.3 73 16 115/63 98 Mechanical Ventilator 30 03/09/17 19:13 79 16 30 03/09/17 19:00 77 16 100/48 96 Mechanical Ventilator 30 03/09/17 18:00 98 16 115/55 99 Mechanical Ventilator 30 03/09/17 17:00 8 16 121/69 99 Mechanical Ventilator 30 03/09/17 16:35 81 18 30 03/09/17 16:00 99.0 86 16 103/56 98 Mechanical Ventilator 30 03/09/17 16:00 30 03/09/17 16:00 88 03/09/17 15:00 86 16 118/64 98 Mechanical Ventilator 30 03/09/17 14:35 84 20 30 03/09/17 14:00 89 17 133/66 97 Mechanical Ventilator 30 03/09/17 13:00 99 17 129/70 97 Mechanical Ventilator 30 03/09/17 12:30 72 20 30 03/09/17 12:00 99.5 103 17 132/61 97 Mechanical Ventilator 30 03/09/17 12:00 104 03/09/17 12:00 30 03/09/17 11:20 82 18 30 03/09/17 11:00 104 17 139/72 97 Mechanical Ventilator 30 03/09/17 10:00 105 19 124/60 97 Mechanical Ventilator 30 03/09/17 09:01 75 18 30 03/09/17 09:00 89 19 141/53 97 Mechanical Ventilator 30 03/09/17 08:00 98.8 93 18 127/66 100 Mechanical Ventilator 30 03/09/17 08:00 30 03/09/17 08:00 90 03/09/17 07:00 84 19 112/60 99 Mechanical Ventilator 30 03/09/17 06:52 84 16 30 03/09/17 06:00 93 19 109/81 97 Mechanical Ventilator 30 03/09/17 05:29 86 20 30 03/09/17 05:00 93 19 131/70 97 Mechanical Ventilator 30 03/09/17 04:00 92 03/09/17 04:00 98.2 82 22 134/72 98 Mechanical Ventilator 30 03/09/17 04:00 30 03/09/17 03:25 68 16 30 03/09/17 03:00 95 16 136/69 98 Mechanical Ventilator 30 03/09/17 02:00 72 16 111/70 98 Mechanical Ventilator 30 03/09/17 01:12 70 16 30 03/09/17 01:00 69 16 115/61 98 Mechanical Ventilator 30 03/09/17 00:00 78 03/09/17 00:00 98.2 74 16 123/67 98 Mechanical Ventilator 30 03/09/17 00:00 30 03/08/17 23:00 70 16 119/64 97 Mechanical Ventilator 30 03/08/17 22:46 71 16 30 03/08/17 22:00 73 16 115/66 98 Mechanical Ventilator 30 Height (Feet): 5 Height (Inches): 3.00 Weight (Pounds): 240 General Appearance: other - on vent. spina bifida HEENT: anicteric Respiratory/Chest: decreased breath sounds Cardiovascular: normal rate Abdomen: normal bowel sounds, soft, non tender Extremities: no cyanosis Skin: no rash Laboratory Tests Test 03/09/17 04:30 White Blood Count 11.6 K/UL (4.8-10.8) H Red Blood Count 2.46 M/UL (4.20-5.40) L Hemoglobin 7.4 G/DL (12.0-16.0) L Hematocrit 24.0 % (37.0-47.0) L Mean Corpuscular Volume 98 FL (80-99) Mean Corpuscular Hemoglobin 30.0 PG (27.0-31.0) Mean Corpuscular Hemoglobin Concent 30.7 G/DL (32.0-36.0) L Red Cell Distribution Width 18.5 % (11.6-14.8) H Platelet Count 226 K/UL (150-450) Mean Platelet Volume 6.0 FL (6.5-10.1) L Neutrophils (%) (Auto) % (45.0-75.0) Lymphocytes (%) (Auto) % (20.0-45.0) Monocytes (%) (Auto) % (1.0-10.0) Eosinophils (%) (Auto) % (0.0-3.0) Basophils (%) (Auto) % (0.0-2.0) Differential Total Cells Counted 100 Neutrophils % (Manual) 72 % (45-75) Lymphocytes % (Manual) 14 % (20-45) L Monocytes % (Manual) 11 % (1-10) H Eosinophils % (Manual) 1 % (0-3) Basophils % (Manual) 0 % (0-2) Band Neutrophils 2 % (0-8) Platelet Estimate Adequate Platelet Morphology Normal Hypochromasia 3+ Anisocytosis 2+ Sodium Level 137 mEQ/L (135-145) Potassium Level 3.8 mEQ/L (3.4-4.9) Chloride Level 101 mEQ/L (98-107) Carbon Dioxide Level 22 mEQ/L (20-30) Anion Gap 14 (5-15) Blood Urea Nitrogen 43 mg/dL (7-23) H Creatinine 2.3 mg/dL (0.5-0.9) H Estimat Glomerular Filtration Rate 24.6 mL/min (>60) Glucose Level 301 mg/dL (74-106) H Calcium Level 8.7 mg/dL (8.6-10.2) Phosphorus Level 3.4 mg/dL (2.5-4.8) Magnesium Level 2.3 mg/dL (1.7-2.5) Total Bilirubin < 0.2 mg/dL (0.0-1.2) Aspartate Amino Transf (AST/SGOT) 10 U/L (5-40) Alanine Aminotransferase (ALT/SGPT) 17 U/L (3-33) Alkaline Phosphatase 104 U/L (35-104) C-Reactive Protein, Quantitative 6.3 mg/dL (< 0.5) H Pro-B-Type Natriuretic Peptide 1108 pg/mL (0-125) H Total Protein 6.4 g/dL (6.6-8.7) L Albumin 3.4 g/dL (3.5-5.2) L Globulin 3.0 g/dL Albumin/Globulin Ratio 1.1 (1.0-2.7) Lipase 45 U/L (< 60) Current Medications Medications (Trade) Dose Ordered Sig/Cabrera Route PRN Reason Start Time Stop Time Status Last Admin Dose Admin Ceftriaxone Sodium/Dextrose (Rocephin/D5W) 55 ml @ 110 mls/hr Q24H IVPB 03/02/17 18:00 03/11/17 17:59 03/09/17 17:37 Chlorhexidine Gluconate 1 applic 1 applic QHS TOPIC 03/02/17 21:00 04/01/17 20:59 03/09/17 20:38 Dextrose (Dextrose 50%) STAT PRN IV Hypoglycemia 02/28/17 07:30 03/30/17 07:29 Docusate Sodium (Colace) 100 mg TWICE A DAY ORAL 03/03/17 09:00 04/02/17 08:59 03/09/17 17:37 Fluoxetine HCl (PROzac) 20 mg DAILY ORAL 03/07/17 13:45 04/06/17 13:44 03/09/17 08:57 Heparin Sodium (Porcine) (Heparin 5000 units/ml) 5,000 units EVERY 12 HOURS SUBQ 02/27/17 21:00 03/29/17 20:59 03/09/17 20:39 Insulin Aspart (NovoLOG) EVERY 6 HOURS SUBQ 03/09/17 00:00 04/08/17 00:00 03/09/17 17:43 Insulin Aspart (NovoLOG) 5 units EVERY 6 HOURS SUBQ 03/09/17 00:00 04/08/17 00:00 03/09/17 17:44 Insulin Detemir (Levemir) 25 units EVERY 12 HOURS SUBQ 03/08/17 21:00 04/07/17 20:59 03/09/17 20:40 Levothyroxine Sodium (Synthroid) 100 mcg DAILY@0630 ORAL 02/28/17 06:30 03/30/17 06:29 03/09/17 05:43 Lorazepam (Ativan 2mg/ml 1ml) 2 mg Q2H PRN IV For Anxiety 03/06/17 23:15 03/13/17 23:14 03/09/17 19:41 Midodrine (Pro-Amatine) 10 mg Q8HR NG 03/08/17 09:30 04/07/17 09:29 03/08/17 09:51 Morphine Sulfate (Morphine Sulfate) 2 mg Q4H PRN IVP Severe Pain (Pain Scale 7-10) 03/08/17 08:15 03/15/17 08:14 03/09/17 15:51 Nystatin (Nystop Powder) 1 applic THREE TIMES A DAY TOPIC 03/07/17 21:00 04/06/17 20:59 03/09/17 17:37 Ondansetron HCl (Zofran) 4 mg Q6H PRN IVP Nausea & Vomiting 02/27/17 18:00 03/29/17 17:59 03/09/17 16:27 Pantoprazole (Protonix) 40 mg DAILY IVP 02/28/17 09:00 03/30/17 08:59 03/09/17 08:58 Polyethylene Glycol (Miralax) 17 gm DAILYPRN PRN ORAL Constipation 02/27/17 18:00 03/29/17 17:59 Quetiapine Fumarate (SEROquel) 50 mg BEDTIME ORAL 03/07/17 21:00 04/06/17 20:59 03/09/17 20:38 Valproic Acid (Depakene) 500 mg Q12HR GT 02/27/17 23:00 03/29/17 22:59 03/09/17 20:38 Thanh Davies M.D. Mar 09, 2017 21:27
[2017-03-10] VITALS (25 sets, daily range): BP systolic 96–144; BP diastolic 36–92
[2017-03-10] MEDS: Morphine Sulfate 2mg/ml Inj IVP PRN ×4 (00:35→15:56)
[2017-03-10] MEDS: NovoLOG Insulin Flexpen SUBQ SCH ×6 (05:32→18:57)
[2017-03-10] MEDS: LORazepam Inj 2mg/ml 1ml IV PRN ×2 (05:41→18:47)
[2017-03-10] MEDS: Midodrine 10mg tab NG SCH ×3 (05:47→22:16)
[2017-03-10 05:55] LABS: BASOPHILS % (AUTO) 1.2 % (0.0-2.0); EOSINOPHILS % (AUTO) 3.8 % (0.0-3.0); MEAN CORPUSCULAR HEMOGLOBIN 29.6 PG (27.0-31.0); MEAN CORPUSCULAR HGB CONC 30.4 G/DL (32.0-36.0); MEAN CORPUSCULAR VOLUME 97 FL (80-99); MEAN PLATELET VOLUME 6.1 FL (6.5-10.1); MONOCYTES % (AUTO) 7.5 % (1.0-10.0); NEUTROPHILS % (AUTO) 77.4 % (45.0-75.0); PLATELET COUNT 253 K/UL (150-450); RED BLOOD COUNT 2.75 M/UL (4.20-5.40); RED CELL DISTRIBUTION WIDTH 18.1 % (11.6-14.8); WHITE BLOOD COUNT 10.9 K/UL (4.8-10.8)
[2017-03-10 06:04] LABS: ALANINE AMINOTRANSFERASE 12 U/L (3-33); ALBUMIN/GLOBULIN RATIO 0.9 (1.0-2.7); ANION GAP 15 (5-15); ASPARTATE AMINO TRANSFERASE 9 U/L (5-40); CARBON DIOXIDE 20 mEQ/L (20-30); CHLORIDE 111 mEQ/L (98-107); CREATININE 2.1 mg/dL (0.5-0.9); GLOMERULAR FILTRATION RATE 27.3 mL/min (>60); HEMOLYSIS 12; MAGNESIUM 2.1 mg/dL (1.7-2.5); PHOSPHORUS 2.8 mg/dL (2.5-4.8); SODIUM 146 mEQ/L (135-145); TOTAL PROTEIN 6.4 g/dL (6.6-8.7)
[2017-03-10 08:40] LABS: ABG PCO2 37.9 mmHg (35.0-45.0)
[2017-03-10 08:41] LABS: ABG ALLEN TEST POSITIVE; ABG BASE EXCESS -5.9
[2017-03-10] MEDS: Valproic Acid 250mg/5ml Liquid GT SCH ×2 (09:23→20:52)
[2017-03-10] MEDS: Pantoprazole Inj IVP SCH (09:23)
[2017-03-10] MEDS: Docusate 100mg/10ml Liq ORAL SCH ×2 (09:23→18:47)
[2017-03-10] MEDS: Levemir Flexpen SUBQ SCH ×2 (09:27→21:07)
[2017-03-10] MEDS: Heparin 5000 units/ml inj SUBQ SCH ×2 (09:27→20:53)
[2017-03-10] MEDS: Nystatin Powder 100,000 units/gm 15gm TOPIC SCH ×3 (09:29→18:47)
--- NOTE | 2017-03-10 11:12 | Diagnostic Imaging Report ---
Indication: DYSPNEA Technique: One view of the chest Comparison: 03/09/2017 Findings: Exam is extremely limited, due to body habitus, suboptimal inspiration, and patient's chin obscuring the upper mediastinum. The position of the endotracheal tube is difficult to determine, probably just above the myla. Stable satisfactory position of nasogastric tube. Cardiomegaly, mild interstitial congestive changes persists. Other lines as previously described are unchanged Impression: Very limited exam. Unchanged, over one day, findings as above.
--- NOTE | 2017-03-10 11:24 | General Progress Note ---
Assessment/Plan Status: stable Status Narrative remain intubated- Cr lower- Hgb Higher- Assessment/Plan Status: (1) Respiratory distress, intubated (2) Septic shock , UTI and Pneumonia (3) Renal Failure ( Diabetic) and Hyper Natremia (4) Diabetes mellitus (5) Spina bifida (6) HypoThyroid (7) Anemia (8) Sz disorder (9) Full Code status: Midodrine- DC D5W Monitor renal parameters Avoid nephrotoxics Anemia chanel per orders Subjective ROS Limited/Unobtainable: Yes Allergies: Coded Allergies: CIPROFLOXACIN (Verified Allergy, Severe, Anaphylaxis, 05/18/12) KETOROLAC (Unverified Allergy, Severe, Anaphylaxis, 03/04/14) Throat collapsed LATEX (Verified Allergy, Severe, Anaphylaxis, 03/06/14) verbalized by pt LEVOFLOXACIN (Verified Allergy, Severe, Anaphylaxis, 05/18/12) MORPHINE (Verified Allergy, Intermediate, Itching, 05/18/12) ACETAMINOPHEN (Unverified Allergy, Unknown, 04/01/15) ALOE (Unverified Allergy, Unknown, 11/03/15) ALOE VERA (Unverified Allergy, Unknown, 04/01/15) CELERY (Unverified Allergy, Unknown, 04/01/15) COCONUT (Unverified Allergy, Unknown, 11/03/15) COCONUT OIL (Unverified Allergy, Unknown, 04/01/15) FISH CONTAINING PRODUCTS (Unverified Allergy, Unknown, 10/04/16) HYDROCODONE (Unverified Allergy, Unknown, 04/01/15) LIDOCAINE (Unverified Allergy, Unknown, Rash, 09/21/15) with lidocaine cream MELON (Unverified Allergy, Unknown, 04/01/15) ONION (Unverified Allergy, Unknown, 11/03/15) PINEAPPLE (Unverified Allergy, Unknown, 10/04/16) Red Pepper (Unverified Allergy, Unknown, 04/01/15) TRAMADOL (Unverified Allergy, Unknown, 04/01/15) TROMETHAMINE (Unverified Allergy, Unknown, 04/01/15) WITCH ANNA (Unverified Allergy, Unknown, 04/01/15) Uncoded Allergies: CRANBERRY JUICE (Allergy, Unknown, 10/04/16) onion (Allergy, Unknown, 04/01/15) glueten (Adverse Reaction, Unknown, 09/17/15) Objective Last 24 Hour Vital Signs Date Time Temp Pulse Resp B/P Pulse Ox O2 Delivery O2 Flow Rate FiO2 03/10/17 11:11 96 16 30 03/10/17 10:00 87 16 123/75 98 Mechanical Ventilator 30 03/10/17 09:00 98.5 98 16 122/61 98 Mechanical Ventilator 30 03/10/17 08:47 93 16 30 03/10/17 08:00 90 03/10/17 08:00 30 03/10/17 08:00 93 16 131/80 98 Mechanical Ventilator 30 03/10/17 07:00 92 16 30 03/10/17 07:00 86 16 104/55 98 Mechanical Ventilator 30 03/10/17 06:00 100 16 118/67 98 Mechanical Ventilator 30 03/10/17 05:22 94 16 30 03/10/17 05:00 91 16 125/84 96 Mechanical Ventilator 30 03/10/17 04:00 30 03/10/17 04:00 75 03/10/17 04:00 98.3 75 18 107/55 98 Mechanical Ventilator 30 03/10/17 03:00 77 16 117/62 100 Mechanical Ventilator 30 03/10/17 02:55 76 16 30 03/10/17 02:00 75 16 107/58 96 Mechanical Ventilator 30 03/10/17 01:14 74 16 30 03/10/17 01:00 82 16 105/56 97 Mechanical Ventilator 30 03/10/17 00:00 75 03/10/17 00:00 30 03/10/17 00:00 98.6 73 19 110/58 98 Mechanical Ventilator 30 03/09/17 23:06 69 16 30 03/09/17 23:00 75 18 114/59 96 Mechanical Ventilator 30 03/09/17 22:00 71 17 108/61 96 Mechanical Ventilator 30 03/09/17 21:18 80 16 30 03/09/17 21:00 75 16 108/64 96 Mechanical Ventilator 30 03/09/17 20:00 30 03/09/17 20:00 77 03/09/17 20:00 98.3 73 16 115/63 98 Mechanical Ventilator 30 03/09/17 19:13 79 16 30 03/09/17 19:00 77 16 100/48 96 Mechanical Ventilator 30 03/09/17 18:00 98 16 115/55 99 Mechanical Ventilator 30 03/09/17 17:00 8 16 121/69 99 Mechanical Ventilator 30 03/09/17 16:35 81 18 30 03/09/17 16:00 99.0 86 16 103/56 98 Mechanical Ventilator 30 03/09/17 16:00 30 03/09/17 16:00 88 03/09/17 15:00 86 16 118/64 98 Mechanical Ventilator 30 03/09/17 14:35 84 20 30 03/09/17 14:00 89 17 133/66 97 Mechanical Ventilator 30 03/09/17 13:00 99 17 129/70 97 Mechanical Ventilator 30 03/09/17 12:30 72 20 30 03/09/17 12:00 99.5 103 17 132/61 97 Mechanical Ventilator 30 03/09/17 12:00 104 03/09/17 12:00 30 Intake and Output 03/09/17 03/10/17 19:00 07:00 Intake Total 1118 ml 506 ml Output Total 1250 ml 1000 ml Balance -132 ml -494 ml Free Water 100 ml IV Total 310 ml Tube Feeding 408 ml 306 ml Blood Product 250 ml Other 50 ml 200 ml Output Urine Total 1250 ml 1000 ml Laboratory Tests 03/10/17 04:00: White Blood Count 10.9H, Red Blood Count 2.75L, Hemoglobin 8.2L, Hematocrit 26.8L, Mean Corpuscular Volume 97, Mean Corpuscular Hemoglobin 29.6, Mean Corpuscular Hemoglobin Concent 30.4L, Red Cell Distribution Width 18.1H, Platelet Count 253, Mean Platelet Volume 6.1L, Neutrophils (%) (Auto) 77.4H, Lymphocytes (%) (Auto) 10.0L, Monocytes (%) (Auto) 7.5, Eosinophils (%) (Auto) 3.8H, Basophils (%) (Auto) 1.2, Sodium Level 146H, Potassium Level 4.0, Chloride Level 111H, Carbon Dioxide Level 20, Anion Gap 15, Blood Urea Nitrogen 41H, Creatinine 2.1H, Estimat Glomerular Filtration Rate 27.3, Glucose Level 190 #H, Calcium Level 9.0, Phosphorus Level 2.8, Magnesium Level 2.1, Total Bilirubin < 0.2, Aspartate Amino Transf (AST/SGOT) 9, Alanine Aminotransferase ( ALT/SGPT) 12, Alkaline Phosphatase 102, Total Protein 6.4L, Albumin 3.1L, Globulin 3.3, Albumin/Globulin Ratio 0.9L 03/10/17 08:33: Arterial Blood pH 7.330L, Arterial Blood Partial Pressure CO2 37.9, Arterial Blood Partial Pressure O2 85.0, Arterial Blood HCO3 19.5L, Arterial Blood Oxygen Saturation 95.1, Arterial Blood Base Excess -5.9, Cristian Test Positive Height (Feet): 5 Height (Inches): 3.00 Weight (Pounds): 240 General Appearance: no apparent distress, lethargic Objective no change in PE ALVIN LUQUE Mar 10, 2017 11:24
--- NOTE | 2017-03-10 12:26 | Pulmonolgy Critical Care Note ---
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 case 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 - Objective Last 24 Hour Vital Signs Date Time Temp Pulse Resp B/P Pulse Ox O2 Delivery O2 Flow Rate FiO2 03/10/17 12:00 80 03/10/17 12:00 98.4 78 16 97/36 98 Mechanical Ventilator 30 03/10/17 12:00 30 03/10/17 11:11 96 16 30 03/10/17 11:00 83 16 122/60 98 Mechanical Ventilator 30 03/10/17 10:00 87 16 123/75 98 Mechanical Ventilator 30 03/10/17 09:00 98.5 98 16 122/61 98 Mechanical Ventilator 30 03/10/17 08:47 93 16 30 03/10/17 08:00 90 03/10/17 08:00 30 03/10/17 08:00 93 16 131/80 98 Mechanical Ventilator 30 03/10/17 07:00 92 16 30 03/10/17 07:00 86 16 104/55 98 Mechanical Ventilator 30 03/10/17 06:00 100 16 118/67 98 Mechanical Ventilator 30 03/10/17 05:22 94 16 30 03/10/17 05:00 91 16 125/84 96 Mechanical Ventilator 30 03/10/17 04:00 30 03/10/17 04:00 75 03/10/17 04:00 98.3 75 18 107/55 98 Mechanical Ventilator 30 03/10/17 03:00 77 16 117/62 100 Mechanical Ventilator 30 03/10/17 02:55 76 16 30 03/10/17 02:00 75 16 107/58 96 Mechanical Ventilator 30 03/10/17 01:14 74 16 30 03/10/17 01:00 82 16 105/56 97 Mechanical Ventilator 30 03/10/17 00:00 75 03/10/17 00:00 30 03/10/17 00:00 98.6 73 19 110/58 98 Mechanical Ventilator 30 03/09/17 23:06 69 16 30 03/09/17 23:00 75 18 114/59 96 Mechanical Ventilator 30 03/09/17 22:00 71 17 108/61 96 Mechanical Ventilator 30 03/09/17 21:18 80 16 30 03/09/17 21:00 75 16 108/64 96 Mechanical Ventilator 30 03/09/17 20:00 30 03/09/17 20:00 77 03/09/17 20:00 98.3 73 16 115/63 98 Mechanical Ventilator 30 03/09/17 19:13 79 16 30 03/09/17 19:00 77 16 100/48 96 Mechanical Ventilator 30 03/09/17 18:00 98 16 115/55 99 Mechanical Ventilator 30 03/09/17 17:00 8 16 121/69 99 Mechanical Ventilator 30 03/09/17 16:35 81 18 30 03/09/17 16:00 99.0 86 16 103/56 98 Mechanical Ventilator 30 03/09/17 16:00 30 03/09/17 16:00 88 03/09/17 15:00 86 16 118/64 98 Mechanical Ventilator 30 03/09/17 14:35 84 20 30 03/09/17 14:00 89 17 133/66 97 Mechanical Ventilator 30 03/09/17 13:00 99 17 129/70 97 Mechanical Ventilator 30 03/09/17 12:30 72 20 30 Status: awake Condition: critical, grave Neck: full ROM Lungs: clear Heart: HR/BP stable Abdomen: soft, non-tender, feeding tube Extremities: no C/C/E Decubiti: location Accucheck: 197 Critical Care - Subjective ROS Limited/Unobtainable: No Condition: critical EKG Rhythm: Sinus Rhythm FI02: 30 Vent Support Breath Rate: 16 Vent Support Mode: AC Vent Tidal Volume: 600 Sputum Amount: Small PEEP: 5.0 PIP: 36 Tube Feeding Amount: 34 I&O: Intake and Output 03/09/17 03/10/17 19:00 07:00 Intake Total 1118 ml 506 ml Output Total 1250 ml 1000 ml Balance -132 ml -494 ml Free Water 100 ml IV Total 310 ml Tube Feeding 408 ml 306 ml Blood Product 250 ml Other 50 ml 200 ml Output Urine Total 1250 ml 1000 ml CXR: no change ET-Tube: 6.0 ET Position: 22 Labs: Laboratory Tests Test 03/10/17 04:00 03/10/17 08:33 White Blood Count 10.9 K/UL (4.8-10.8) H Red Blood Count 2.75 M/UL (4.20-5.40) L Hemoglobin 8.2 G/DL (12.0-16.0) L Hematocrit 26.8 % (37.0-47.0) L Mean Corpuscular Volume 97 FL (80-99) Mean Corpuscular Hemoglobin 29.6 PG (27.0-31.0) Mean Corpuscular Hemoglobin Concent 30.4 G/DL (32.0-36.0) L Red Cell Distribution Width 18.1 % (11.6-14.8) H Platelet Count 253 K/UL (150-450) Mean Platelet Volume 6.1 FL (6.5-10.1) L Neutrophils (%) (Auto) 77.4 % (45.0-75.0) H Lymphocytes (%) (Auto) 10.0 % (20.0-45.0) L Monocytes (%) (Auto) 7.5 % (1.0-10.0) Eosinophils (%) (Auto) 3.8 % (0.0-3.0) H Basophils (%) (Auto) 1.2 % (0.0-2.0) Sodium Level 146 mEQ/L (135-145) H Potassium Level 4.0 mEQ/L (3.4-4.9) Chloride Level 111 mEQ/L (98-107) H Carbon Dioxide Level 20 mEQ/L (20-30) Anion Gap 15 (5-15) Blood Urea Nitrogen 41 mg/dL (7-23) H Creatinine 2.1 mg/dL (0.5-0.9) H Estimat Glomerular Filtration Rate 27.3 mL/min (>60) Glucose Level 190 mg/dL (74-106) #H Calcium Level 9.0 mg/dL (8.6-10.2) Phosphorus Level 2.8 mg/dL (2.5-4.8) Magnesium Level 2.1 mg/dL (1.7-2.5) Total Bilirubin < 0.2 mg/dL (0.0-1.2) Aspartate Amino Transf (AST/SGOT) 9 U/L (5-40) Alanine Aminotransferase (ALT/SGPT) 12 U/L (3-33) Alkaline Phosphatase 102 U/L (35-104) Total Protein 6.4 g/dL (6.6-8.7) L Albumin 3.1 g/dL (3.5-5.2) L Globulin 3.3 g/dL Albumin/Globulin Ratio 0.9 (1.0-2.7) L Arterial Blood pH 7.330 (7.350-7.450) Arterial Blood Partial Pressure CO2 37.9 mmHg (35.0-45.0) Arterial Blood Partial Pressure O2 85.0 mmHg (75.0-100.0) Arterial Blood HCO3 19.5 mmol/L (22.0-26.0) L Arterial Blood Oxygen Saturation 95.1 % (92.0-98.0) Arterial Blood Base Excess -5.9 Cristian Test Positive LORNE DENNEY Mar 10, 2017 12:26
--- NOTE | 2017-03-10 15:14 | Infectious Diseases Prog Note ---
Assessment/Plan Assessment/Plan ASSESSMENT: 31 y/o female with: Recurrent complicated UTI - UCx P.mirabilis, E.coli - US: Mildly increased renal echogenicity, compatible with medical renal disease. Negative for hydronephrosis. Right renal upper pole cyst. - SPC in place - h/o E Coli and Morganella, PSA CONS bacteremia 08/10 c/w contaminant - TTE(-) SBE Left chest Port-A-Cath, with interim fracture of the tubing at or near the left jugular vein insertion site Leukocytosis - recurrent, stable near normal, afebrile Recurrent Acute VDRF - intubated 02/27, extubated 03/07, re-intubated 03/07 intermittent tachycardia, transient hypotension x1, resolved. Possible CHF exacerbation - TTE: EF 65% ARF on CKD3 - US: Mildly increased renal echogenicity, compatible with medical renal disease. Negative for hydronephrosis. Right renal upper pole cyst. hx of CVA s/p VPS seizure disorder DM Bipolar disorder Spina bifida [place] resident Quinolone allergy Full Code PLAN: - continue rocephin d# 9 ( ABX d# ). --final day to be [id number] ( 03/02 SP IV vancomycin, zosyn d# 4 ) - monitor CBC, temperatures, re-culture if acute change - monitor BMP - vent support, wean as tolerated Subjective ROS Limited/Unobtainable: Yes Allergies: Coded Allergies: CIPROFLOXACIN (Verified Allergy, Severe, Anaphylaxis, 05/18/12) KETOROLAC (Unverified Allergy, Severe, Anaphylaxis, 03/04/14) Throat collapsed LATEX (Verified Allergy, Severe, Anaphylaxis, 03/06/14) verbalized by pt LEVOFLOXACIN (Verified Allergy, Severe, Anaphylaxis, 05/18/12) MORPHINE (Verified Allergy, Intermediate, Itching, 05/18/12) ACETAMINOPHEN (Unverified Allergy, Unknown, 04/01/15) ALOE (Unverified Allergy, Unknown, 11/03/15) ALOE VERA (Unverified Allergy, Unknown, 04/01/15) CELERY (Unverified Allergy, Unknown, 04/01/15) COCONUT (Unverified Allergy, Unknown, 11/03/15) COCONUT OIL (Unverified Allergy, Unknown, 04/01/15) FISH CONTAINING PRODUCTS (Unverified Allergy, Unknown, 10/04/16) HYDROCODONE (Unverified Allergy, Unknown, 04/01/15) LIDOCAINE (Unverified Allergy, Unknown, Rash, 09/21/15) with lidocaine cream MELON (Unverified Allergy, Unknown, 04/01/15) ONION (Unverified Allergy, Unknown, 11/03/15) PINEAPPLE (Unverified Allergy, Unknown, 10/04/16) Red Pepper (Unverified Allergy, Unknown, 04/01/15) TRAMADOL (Unverified Allergy, Unknown, 04/01/15) TROMETHAMINE (Unverified Allergy, Unknown, 04/01/15) WITCH ANNA (Unverified Allergy, Unknown, 04/01/15) Uncoded Allergies: CRANBERRY JUICE (Allergy, Unknown, 10/04/16) onion (Allergy, Unknown, 04/01/15) glueten (Adverse Reaction, Unknown, 09/17/15) Objective Vital Signs Last 24 Hour Vital Signs Date Time Temp Pulse Resp B/P Pulse Ox O2 Delivery O2 Flow Rate FiO2 03/10/17 15:00 102 17 30 03/10/17 14:00 102 15 134/80 98 Mechanical Ventilator 30 03/10/17 13:30 94 16 30 03/10/17 13:00 94 15 117/92 98 Mechanical Ventilator 03/10/17 12:00 80 03/10/17 12:00 98.4 78 16 97/36 98 Mechanical Ventilator 30 03/10/17 12:00 30 03/10/17 11:11 96 16 30 03/10/17 11:00 83 16 122/60 98 Mechanical Ventilator 03/10/17 10:00 87 16 123/75 98 Mechanical Ventilator 30 03/10/17 09:00 98.5 98 16 122/61 98 Mechanical Ventilator 30 03/10/17 08:47 93 16 30 03/10/17 08:00 90 03/10/17 08:00 30 03/10/17 08:00 93 16 131/80 98 Mechanical Ventilator 30 03/10/17 07:00 92 16 30 03/10/17 07:00 86 16 104/55 98 Mechanical Ventilator 30 03/10/17 06:00 100 16 118/67 98 Mechanical Ventilator 30 03/10/17 05:22 94 16 30 03/10/17 05:00 91 16 125/84 96 Mechanical Ventilator 30 03/10/17 04:00 30 03/10/17 04:00 75 03/10/17 04:00 98.3 75 18 107/55 98 Mechanical Ventilator 30 03/10/17 03:00 77 16 117/62 100 Mechanical Ventilator 30 03/10/17 02:55 76 16 30 03/10/17 02:00 75 16 107/58 96 Mechanical Ventilator 30 03/10/17 01:14 74 16 30 03/10/17 01:00 82 16 105/56 97 Mechanical Ventilator 30 03/10/17 00:00 75 03/10/17 00:00 30 03/10/17 00:00 98.6 73 19 110/58 98 Mechanical Ventilator 30 03/09/17 23:06 69 16 30 03/09/17 23:00 75 18 114/59 96 Mechanical Ventilator 30 03/09/17 22:00 71 17 108/61 96 Mechanical Ventilator 30 03/09/17 21:18 80 16 30 03/09/17 21:00 75 16 108/64 96 Mechanical Ventilator 30 03/09/17 20:00 30 03/09/17 20:00 77 03/09/17 20:00 98.3 73 16 115/63 98 Mechanical Ventilator 30 03/09/17 19:13 79 16 30 03/09/17 19:00 77 16 100/48 96 Mechanical Ventilator 30 03/09/17 18:00 98 16 115/55 99 Mechanical Ventilator 30 03/09/17 17:00 8 16 121/69 99 Mechanical Ventilator 30 03/09/17 16:35 81 18 30 03/09/17 16:00 99.0 86 16 103/56 98 Mechanical Ventilator 30 03/09/17 16:00 30 03/09/17 16:00 88 Height (Feet): 5 Height (Inches): 3.00 Weight (Pounds): 240 General Appearance: other - intubated on vent support, [id number]%. HEENT: anicteric Respiratory/Chest: rhonchi - bilaterally Cardiovascular: normal peripheral pulses Abdomen: soft, non tender Extremities: no cyanosis Skin: no rash no new micro dta. last labs 02/27/17. Laboratory Tests Test 03/10/17 04:00 03/10/17 08:33 White Blood Count 10.9 K/UL (4.8-10.8) H Red Blood Count 2.75 M/UL (4.20-5.40) L Hemoglobin 8.2 G/DL (12.0-16.0) L Hematocrit 26.8 % (37.0-47.0) L Mean Corpuscular Volume 97 FL (80-99) Mean Corpuscular Hemoglobin 29.6 PG (27.0-31.0) Mean Corpuscular Hemoglobin Concent 30.4 G/DL (32.0-36.0) L Red Cell Distribution Width 18.1 % (11.6-14.8) H Platelet Count 253 K/UL (150-450) Mean Platelet Volume 6.1 FL (6.5-10.1) L Neutrophils (%) (Auto) 77.4 % (45.0-75.0) H Lymphocytes (%) (Auto) 10.0 % (20.0-45.0) L Monocytes (%) (Auto) 7.5 % (1.0-10.0) Eosinophils (%) (Auto) 3.8 % (0.0-3.0) H Basophils (%) (Auto) 1.2 % (0.0-2.0) Sodium Level 146 mEQ/L (135-145) H Potassium Level 4.0 mEQ/L (3.4-4.9) Chloride Level 111 mEQ/L (98-107) H Carbon Dioxide Level 20 mEQ/L (20-30) Anion Gap 15 (5-15) Blood Urea Nitrogen 41 mg/dL (7-23) H Creatinine 2.1 mg/dL (0.5-0.9) H Estimat Glomerular Filtration Rate 27.3 mL/min (>60) Glucose Level 190 mg/dL (74-106) #H Calcium Level 9.0 mg/dL (8.6-10.2) Phosphorus Level 2.8 mg/dL (2.5-4.8) Magnesium Level 2.1 mg/dL (1.7-2.5) Total Bilirubin < 0.2 mg/dL (0.0-1.2) Aspartate Amino Transf (AST/SGOT) 9 U/L (5-40) Alanine Aminotransferase (ALT/SGPT) 12 U/L (3-33) Alkaline Phosphatase 102 U/L (35-104) Total Protein 6.4 g/dL (6.6-8.7) L Albumin 3.1 g/dL (3.5-5.2) L Globulin 3.3 g/dL Albumin/Globulin Ratio 0.9 (1.0-2.7) L Arterial Blood pH 7.330 (7.350-7.450) Arterial Blood Partial Pressure CO2 37.9 mmHg (35.0-45.0) Arterial Blood Partial Pressure O2 85.0 mmHg (75.0-100.0) Arterial Blood HCO3 19.5 mmol/L (22.0-26.0) L Arterial Blood Oxygen Saturation 95.1 % (92.0-98.0) Arterial Blood Base Excess -5.9 Cristian Test Positive Current Medications Medications (Trade) Dose Ordered Sig/Cabrera Route PRN Reason Start Time Stop Time Status Last Admin Dose Admin Ceftriaxone Sodium/Dextrose (Rocephin/D5W) 55 ml @ 110 mls/hr Q24H IVPB 03/02/17 18:00 03/11/17 17:59 03/09/17 17:37 Chlorhexidine Gluconate 1 applic 1 applic QHS TOPIC 03/02/17 21:00 04/01/17 20:59 03/09/17 20:38 Dextrose (Dextrose 50%) STAT PRN IV Hypoglycemia 02/28/17 07:30 03/30/17 07:29 Docusate Sodium (Colace) 100 mg TWICE A DAY ORAL 03/03/17 09:00 04/02/17 08:59 03/10/17 09:23 Fluoxetine HCl (PROzac) 20 mg DAILY ORAL 03/07/17 13:45 04/06/17 13:44 03/10/17 09:23 Heparin Sodium (Porcine) (Heparin 5000 units/ml) 5,000 units EVERY 12 HOURS SUBQ 02/27/17 21:00 03/29/17 20:59 03/10/17 09:27 Insulin Aspart (NovoLOG) EVERY 6 HOURS SUBQ 03/09/17 00:00 04/08/17 00:00 03/10/17 12:27 Insulin Aspart (NovoLOG) 5 units EVERY 6 HOURS SUBQ 03/09/17 00:00 04/08/17 00:00 03/10/17 12:27 Insulin Detemir (Levemir) 25 units EVERY 12 HOURS SUBQ 03/08/17 21:00 04/07/17 20:59 03/10/17 09:27 Levothyroxine Sodium (Synthroid) 100 mcg DAILY@0630 ORAL 02/28/17 06:30 03/30/17 06:29 03/10/17 05:42 Lorazepam (Ativan 2mg/ml 1ml) 2 mg Q2H PRN IV For Anxiety 03/06/17 23:15 03/13/17 23:14 03/10/17 05:41 Midodrine (Pro-Amatine) 10 mg Q8HR NG 03/08/17 09:30 04/07/17 09:29 03/08/17 09:51 Morphine Sulfate (Morphine Sulfate) 2 mg Q4H PRN IVP Severe Pain (Pain Scale 7-10) 03/08/17 08:15 03/15/17 08:14 03/10/17 10:07 Nystatin (Nystop Powder) 1 applic THREE TIMES A DAY TOPIC 03/07/17 21:00 04/06/17 20:59 03/10/17 12:28 Ondansetron HCl (Zofran) 4 mg Q6H PRN IVP Nausea & Vomiting 02/27/17 18:00 03/29/17 17:59 03/09/17 16:27 Pantoprazole (Protonix) 40 mg DAILY IVP 02/28/17 09:00 03/30/17 08:59 03/10/17 09:23 Polyethylene Glycol (Miralax) 17 gm DAILYPRN PRN ORAL Constipation 02/27/17 18:00 03/29/17 17:59 Quetiapine Fumarate (SEROquel) 50 mg BEDTIME ORAL 03/07/17 21:00 04/06/17 20:59 03/09/17 20:38 Valproic Acid (Depakene) 500 mg Q12HR GT 02/27/17 23:00 03/29/17 22:59 03/10/17 09:23 Thanh Davies M.D. Mar 10, 2017 15:14
[2017-03-10] MEDS: cefTRIAXone 1 GM in D5W 55 ML IVPB SCH (18:55)
[2017-03-10] MEDS: Dyna-Hex 2% Top Sol 8oz TOPIC SCH (20:56)
[2017-03-11] VITALS (24 sets, daily range): BP systolic 102–144; BP diastolic 49–92
[2017-03-11] MEDS: NovoLOG Insulin Flexpen SUBQ SCH ×10 (00:01→23:54)
[2017-03-11] MEDS: Morphine Sulfate 2mg/ml Inj IVP PRN ×6 (03:53→23:49)
[2017-03-11] MEDS: LORazepam Inj 2mg/ml 1ml IV PRN (04:52)
[2017-03-11 05:58] LABS: ALANINE AMINOTRANSFERASE 13 U/L (3-33); ALBUMIN/GLOBULIN RATIO 0.8 (1.0-2.7); ANION GAP 18 (5-15); ASPARTATE AMINO TRANSFERASE 15 U/L (5-40); CALCIUM 9.4 mg/dL (8.6-10.2); CARBON DIOXIDE 18 mEQ/L (20-30); CHLORIDE 109 mEQ/L (98-107); CREATININE 2.3 mg/dL (0.5-0.9); GLOMERULAR FILTRATION RATE 24.6 mL/min (>60); HEMOLYSIS 45; MAGNESIUM 2.4 mg/dL (1.7-2.5); PHOSPHORUS 3.4 mg/dL (2.5-4.8); POTASSIUM 4.3 mEQ/L (3.4-4.9); SODIUM 145 mEQ/L (135-145); TOTAL PROTEIN 6.9 g/dL (6.6-8.7)
[2017-03-11 06:02] LABS: BASOPHILS % (AUTO) 0.7 % (0.0-2.0); EOSINOPHILS % (AUTO) 3.9 % (0.0-3.0); LYMPHOCYTES % (AUTO) 11.1 % (20.0-45.0); MEAN CORPUSCULAR HEMOGLOBIN 29.5 PG (27.0-31.0); MEAN CORPUSCULAR VOLUME 98 FL (80-99); MEAN PLATELET VOLUME 6.1 FL (6.5-10.1); MONOCYTES % (AUTO) 7.2 % (1.0-10.0); NEUTROPHILS % (AUTO) 77.2 % (45.0-75.0); PLATELET COUNT 324 K/UL (150-450); RED BLOOD COUNT 3.11 M/UL (4.20-5.40); RED CELL DISTRIBUTION WIDTH 18.5 % (11.6-14.8); WHITE BLOOD COUNT 13.6 K/UL (4.8-10.8)
[2017-03-11] MEDS: Midodrine 10mg tab NG SCH ×3 (06:03→22:00)
[2017-03-11 08:10] LABS: ABG ALLEN TEST POSITIVE; ABG BASE EXCESS -4.8; ABG PCO2 38.4 mmHg (35.0-45.0)
[2017-03-11] MEDS: Docusate 100mg/10ml Liq ORAL SCH (08:50)
[2017-03-11] MEDS: Valproic Acid 250mg/5ml Liquid GT SCH ×2 (08:51→21:26)
[2017-03-11] MEDS: Nystatin Powder 100,000 units/gm 15gm TOPIC SCH ×3 (08:52→18:03)
[2017-03-11] MEDS: Pantoprazole Inj IVP SCH (08:52)
[2017-03-11] MEDS: Levemir Flexpen SUBQ SCH ×2 (08:54→21:29)
[2017-03-11] MEDS: Heparin 5000 units/ml inj SUBQ SCH ×2 (08:54→21:28)
--- NOTE | 2017-03-11 09:31 | Diagnostic Imaging Report ---
Indication: DYSPNEA Technique: XRAY CHEST 1 V. Comparison: 03/10/2017 Findings: The cardiomediastinal silhouette is unchanged. No new infiltrates are identified. NG tube remains in place. Endotracheal tube also remains. Impression: No significant change from prior examination.
[2017-03-11] MEDS ORDERED: Miralax 17gm pkt GT PRN (12:26)
--- NOTE | 2017-03-11 12:32 | General Progress Note ---
Assessment/Plan Status: stable Assessment/Plan Status: (1) Respiratory distress, intubated (2) Septic shock , UTI and Pneumonia (3) Renal Failure , CKD ( Diabetic) and Hyper Natremia (4) Diabetes mellitus (5) Spina bifida (6) HypoThyroid (7) Anemia (8) Sz disorder (9) Full Code status: Midodrine- DC D5W Monitor renal parameters Avoid nephrotoxics Anemia chanel per orders Subjective ROS Limited/Unobtainable: Yes Allergies: Coded Allergies: CIPROFLOXACIN (Verified Allergy, Severe, Anaphylaxis, 05/18/12) KETOROLAC (Unverified Allergy, Severe, Anaphylaxis, 03/04/14) Throat collapsed LATEX (Verified Allergy, Severe, Anaphylaxis, 03/06/14) verbalized by pt LEVOFLOXACIN (Verified Allergy, Severe, Anaphylaxis, 05/18/12) MORPHINE (Verified Allergy, Intermediate, Itching, 05/18/12) ACETAMINOPHEN (Unverified Allergy, Unknown, 04/01/15) ALOE (Unverified Allergy, Unknown, 11/03/15) ALOE VERA (Unverified Allergy, Unknown, 04/01/15) CELERY (Unverified Allergy, Unknown, 04/01/15) COCONUT (Unverified Allergy, Unknown, 11/03/15) COCONUT OIL (Unverified Allergy, Unknown, 04/01/15) FISH CONTAINING PRODUCTS (Unverified Allergy, Unknown, 10/04/16) HYDROCODONE (Unverified Allergy, Unknown, 04/01/15) LIDOCAINE (Unverified Allergy, Unknown, Rash, 09/21/15) with lidocaine cream MELON (Unverified Allergy, Unknown, 04/01/15) ONION (Unverified Allergy, Unknown, 11/03/15) PINEAPPLE (Unverified Allergy, Unknown, 10/04/16) Red Pepper (Unverified Allergy, Unknown, 04/01/15) TRAMADOL (Unverified Allergy, Unknown, 04/01/15) TROMETHAMINE (Unverified Allergy, Unknown, 04/01/15) WITCH ANNA (Unverified Allergy, Unknown, 04/01/15) Uncoded Allergies: CRANBERRY JUICE (Allergy, Unknown, 10/04/16) onion (Allergy, Unknown, 04/01/15) glueten (Adverse Reaction, Unknown, 09/17/15) Objective Last 24 Hour Vital Signs Date Time Temp Pulse Resp B/P Pulse Ox O2 Delivery O2 Flow Rate FiO2 03/11/17 12:00 30 03/11/17 12:00 98.7 87 18 117/68 96 Mechanical Ventilator 30 03/11/17 11:00 75 16 106/50 94 Mechanical Ventilator 30 03/11/17 10:33 104 20 30 03/11/17 10:00 77 16 102/49 96 Mechanical Ventilator 30 03/11/17 09:23 98.1 03/11/17 09:19 84 16 30 03/11/17 09:00 82 17 126/92 98 Mechanical Ventilator 30 03/11/17 08:00 98.1 85 20 122/63 100 Mechanical Ventilator 30 03/11/17 08:00 79 03/11/17 08:00 30 03/11/17 07:11 54 16 30 03/11/17 07:00 62 17 103/59 99 Mechanical Ventilator 30 03/11/17 06:00 68 17 102/63 97 Mechanical Ventilator 30 03/11/17 05:12 99 20 30 03/11/17 05:00 78 17 109/54 96 Mechanical Ventilator 30 03/11/17 04:00 30 03/11/17 04:00 98.5 86 20 109/54 98 Mechanical Ventilator 30 03/11/17 04:00 85 03/11/17 03:20 90 18 30 03/11/17 03:00 87 22 104/54 99 Mechanical Ventilator 30 03/11/17 02:00 87 16 108/53 99 Mechanical Ventilator 30 03/11/17 01:04 97 16 30 03/11/17 01:00 77 18 104/53 96 Mechanical Ventilator 30 03/11/17 00:00 30 03/11/17 00:00 98.2 57 16 107/58 97 Mechanical Ventilator 30 03/11/17 00:00 57 03/10/17 23:06 98 16 30 03/10/17 23:00 62 16 103/56 97 Mechanical Ventilator 30 03/10/17 22:00 69 16 103/56 96 Mechanical Ventilator 30 03/10/17 21:30 99 16 30 03/10/17 21:00 74 16 96/55 96 Mechanical Ventilator 30 03/10/17 20:00 102 03/10/17 20:00 98.5 94 17 101/51 95 Mechanical Ventilator 30 03/10/17 20:00 30 03/10/17 19:20 03/10/17 19:08 104 17 30 03/10/17 19:00 105 23 109/91 96 Mechanical Ventilator 30 03/10/17 18:00 108 22 142/88 95 Mechanical Ventilator 30 03/10/17 17:06 107 22 30 03/10/17 17:00 102 26 104/61 96 Mechanical Ventilator 30 03/10/17 16:00 30 03/10/17 16:00 100 03/10/17 16:00 98.3 100 18 144/65 96 Mechanical Ventilator 30 03/10/17 15:00 102 17 115/70 98 Mechanical Ventilator 30 03/10/17 15:00 102 17 30 03/10/17 14:00 102 15 134/80 98 Mechanical Ventilator 30 03/10/17 13:30 94 16 30 03/10/17 13:00 94 15 117/92 98 Mechanical Ventilator 30 Intake and Output 03/10/17 03/11/17 19:00 07:00 Intake Total 720 ml 650 ml Output Total 1135 ml 960 ml Balance -415 ml -310 ml Free Water 100 ml IV Total 110 ml Tube Feeding 408 ml 340 ml Other 212 ml 200 ml Output Urine Total 1135 ml 960 ml Laboratory Tests 03/11/17 04:00: White Blood Count 13.6H, Red Blood Count 3.11L, Hemoglobin 9.1L, Hematocrit 30.5L, Mean Corpuscular Volume 98, Mean Corpuscular Hemoglobin 29.5, Mean Corpuscular Hemoglobin Concent 30.0L, Red Cell Distribution Width 18.5H, Platelet Count 324, Mean Platelet Volume 6.1L, Neutrophils (%) (Auto) 77.2H, Lymphocytes (%) (Auto) 11.1L, Monocytes (%) (Auto) 7.2, Eosinophils (%) (Auto) 3.9H, Basophils (%) (Auto) 0.7, Sodium Level 145, Potassium Level 4.3, Chloride Level 109H, Carbon Dioxide Level 18L, Anion Gap 18H, Blood Urea Nitrogen 42H, Creatinine 2.3H, Estimat Glomerular Filtration Rate 24.6, Glucose Level 202H, Calcium Level 9.4, Phosphorus Level 3.4, Magnesium Level 2.4, Total Bilirubin < 0.2, Aspartate Amino Transf (AST/SGOT) 15, Alanine Aminotransferase (ALT/SGPT) 13, Alkaline Phosphatase 99, Total Protein 6.9, Albumin 3.2L, Globulin 3.7, Albumin/Globulin Ratio 0.8L 03/11/17 07:59: Arterial Blood pH 7.340L, Arterial Blood Partial Pressure CO2 38.4, Arterial Blood Partial Pressure O2 87.7, Arterial Blood HCO3 20.4L, Arterial Blood Oxygen Saturation 95.4, Arterial Blood Base Excess -4.8, Cristian Test Positive Height (Feet): 5 Height (Inches): 3.00 Weight (Pounds): 239 General Appearance: no apparent distress Cardiovascular: normal rate Respiratory/Chest: decreased breath sounds Abdomen: soft, other - obese Objective no change in PE ALVIN LUQUE Mar 11, 2017 12:32
--- NOTE | 2017-03-11 14:04 | Pulmonolgy Critical Care Note ---
Critical Care - Asmt/Plan Assessment/Plan: ASSESSMENT acute hypoxemic respiratory failure, requiring intubation 02/27 s/p extubation 03/07 s/p reintubation 03/08 failure to wean sepsis septic shock PNA recurrent complicated UTI with Proteus, E coli ARF on CKD st 3 likely diabetic nephropathy anemia of chronic disease s s/p blood transfusion DM OOC spina bifida hypothyroidism seizure disorder probably fatty liver sacral decub st 2 POA Lt ischial tuberosity st 2 POA bipolar disorder hypertriglyceridemia PLAN OF CARE ICU vent support, pulmonary toilet daily CXR ABG last CXR no change failure to wean patient is refusing trach , spoke in details about need for trach patient so far declining, need to think abx ID follows urine cx + E coli, Proteus , blood cx negative nephro follows monitor renal parameters, lytes, avoid nephrotoxic, renal US c/w chronic kidney disease BP support with Midodrine, s/p Albumin BP better with Midodrine, off IVF ECHO with pEF 55-60% and RVSP of 11 endo follows on NovoLog q 6 hrs, Levemir and SS of insulin prn, BS still not well controlled, dose of Levemir increased seizure precautions, continue Depakote wound care as per wound nurse recommendation strict aspiration precaution, NGT feeding, monitor tolerance monitor HH, transfuse prn, with goal to keep Hgb above 7 anemia w/up noted TSH WNL continue current dose of Levothyroxine abdominal US no gallstones, no dilated ducts, liver with hepatocellular disease , likely fatty liver disease DVT GI prophylaxis Bowel regimen pain management check lipid panel in am ( last had TG over 700) case discussed and evaluated by supervising physician Critical Care - Objective Last 24 Hour Vital Signs Date Time Temp Pulse Resp B/P Pulse Ox O2 Delivery O2 Flow Rate FiO2 03/11/17 13:00 77 18 123/55 96 Mechanical Ventilator 30 03/11/17 12:43 82 15 30 03/11/17 12:00 30 03/11/17 12:00 98.7 87 18 117/68 96 Mechanical Ventilator 30 03/11/17 12:00 80 03/11/17 11:00 75 16 106/50 94 Mechanical Ventilator 30 03/11/17 10:33 104 20 30 03/11/17 10:00 77 16 102/49 96 Mechanical Ventilator 30 03/11/17 09:23 98.1 03/11/17 09:19 84 16 30 03/11/17 09:00 82 17 126/92 98 Mechanical Ventilator 30 03/11/17 08:00 98.1 85 20 122/63 100 Mechanical Ventilator 30 03/11/17 08:00 79 03/11/17 08:00 30 03/11/17 07:11 54 16 30 03/11/17 07:00 62 17 103/59 99 Mechanical Ventilator 30 03/11/17 06:00 68 17 102/63 97 Mechanical Ventilator 30 03/11/17 05:12 99 20 30 03/11/17 05:00 78 17 109/54 96 Mechanical Ventilator 30 03/11/17 04:00 30 03/11/17 04:00 98.5 86 20 109/54 98 Mechanical Ventilator 30 03/11/17 04:00 85 03/11/17 03:20 90 18 30 03/11/17 03:00 87 22 104/54 99 Mechanical Ventilator 30 03/11/17 02:00 87 16 108/53 99 Mechanical Ventilator 30 03/11/17 01:04 97 16 30 03/11/17 01:00 77 18 104/53 96 Mechanical Ventilator 30 03/11/17 00:00 30 03/11/17 00:00 98.2 57 16 107/58 97 Mechanical Ventilator 30 03/11/17 00:00 57 03/10/17 23:06 98 16 30 03/10/17 23:00 62 16 103/56 97 Mechanical Ventilator 30 03/10/17 22:00 69 16 103/56 96 Mechanical Ventilator 30 03/10/17 21:30 99 16 30 03/10/17 21:00 74 16 96/55 96 Mechanical Ventilator 30 03/10/17 20:00 102 03/10/17 20:00 98.5 94 17 101/51 95 Mechanical Ventilator 30 03/10/17 20:00 30 03/10/17 19:20 03/10/17 19:08 104 17 30 03/10/17 19:00 105 23 109/91 96 Mechanical Ventilator 30 03/10/17 18:00 108 22 142/88 95 Mechanical Ventilator 30 03/10/17 17:06 107 22 30 03/10/17 17:00 102 26 104/61 96 Mechanical Ventilator 30 03/10/17 16:00 30 03/10/17 16:00 100 03/10/17 16:00 98.3 100 18 144/65 96 Mechanical Ventilator 30 03/10/17 15:00 102 17 115/70 98 Mechanical Ventilator 30 03/10/17 15:00 102 17 30 03/10/17 14:00 102 15 134/80 98 Mechanical Ventilator 30 Status: awake, other - alert, responsive, communicates by writing, Condition: critical HEENT: atraumatic, normocephalic, other - OP with ET in palce, NGT Lungs: clear Heart: HR/BP stable Abdomen: soft, non-tender - obese, other - s/p catheter Extremities: no C/C/E Accucheck: 232 Critical Care - Subjective ROS Limited/Unobtainable: Yes Interval Events: remains intubated failure to wean declining trach still with leukocytosis, afebrile BS OOC Condition: critical IV Access: central - R femoral CL intact EKG Rhythm: Sinus Rhythm FI02: 30 Vent Support Breath Rate: 16 Vent Support Mode: AC Vent Tidal Volume: 600 Sputum Amount: Small PEEP: 5.0 PIP: 39 Tube Feeding Amount: 34 I&O: Intake and Output 03/10/17 03/11/17 19:00 07:00 Intake Total 720 ml 650 ml Output Total 1135 ml 960 ml Balance -415 ml -310 ml Free Water 100 ml IV Total 110 ml Tube Feeding 408 ml 340 ml Other 212 ml 200 ml Output Urine Total 1135 ml 960 ml CXR: 03/11-The cardiomediastinal silhouette is unchanged. No new infiltrates are identified. NG tube remains in place. Endotracheal tube also remains. ET-Tube: 6.0 ET Position: 23 [place] (ChrissieAlysa howard NP Mar 11, 2017 14:04
--- NOTE | 2017-03-11 14:54 | Infectious Diseases Prog Note ---
Assessment/Plan Assessment/Plan ASSESSMENT: 31 y/o female with: Recurrent complicated UTI - UCx P.mirabilis, E.coli - US: Mildly increased renal echogenicity, compatible with medical renal disease. Negative for hydronephrosis. Right renal upper pole cyst. - SPC in place - h/o E Coli and Morganella, PSA CONS bacteremia 08/10 c/w contaminant - TTE(-) SBE Left chest Port-A-Cath, with interim fracture of the tubing at or near the left jugular vein insertion site. no overlying evidence of infection Leukocytosis - recurrent, stable near normal, afebrile Recurrent Acute VDRF - intubated 02/27, extubated 03/07, re-intubated 03/07 intermittent tachycardia, transient hypotension x1, resolved. Possible CHF exacerbation - TTE: EF 65% ARF on CKD3 - US: Mildly increased renal echogenicity, compatible with medical renal disease. Negative for hydronephrosis. Right renal upper pole cyst. hx of CVA s/p VPS seizure disorder DM Bipolar disorder Spina bifida [place] resident Quinolone allergy Full Code PLAN: - continue rocephin d# 10 ( ABX d# 13 / 14 ). --final day to be monday [id number]. she doesn't have any isolates typical to have inducible ampC resistance. ( 03/02 SP IV vancomycin, zosyn d# 4 ) - monitor CBC, temperatures, re-culture if acute change. exam unchanged, continue to monitor this mild leukocytosis closely. - monitor BMP - vent support, wean as tolerated Subjective ROS Limited/Unobtainable: Yes Allergies: Coded Allergies: CIPROFLOXACIN (Verified Allergy, Severe, Anaphylaxis, 05/18/12) KETOROLAC (Unverified Allergy, Severe, Anaphylaxis, 03/04/14) Throat collapsed LATEX (Verified Allergy, Severe, Anaphylaxis, 03/06/14) verbalized by pt LEVOFLOXACIN (Verified Allergy, Severe, Anaphylaxis, 05/18/12) MORPHINE (Verified Allergy, Intermediate, Itching, 05/18/12) ACETAMINOPHEN (Unverified Allergy, Unknown, 04/01/15) ALOE (Unverified Allergy, Unknown, 11/03/15) ALOE VERA (Unverified Allergy, Unknown, 04/01/15) CELERY (Unverified Allergy, Unknown, 04/01/15) COCONUT (Unverified Allergy, Unknown, 11/03/15) COCONUT OIL (Unverified Allergy, Unknown, 04/01/15) FISH CONTAINING PRODUCTS (Unverified Allergy, Unknown, 10/04/16) HYDROCODONE (Unverified Allergy, Unknown, 04/01/15) LIDOCAINE (Unverified Allergy, Unknown, Rash, 09/21/15) with lidocaine cream MELON (Unverified Allergy, Unknown, 04/01/15) ONION (Unverified Allergy, Unknown, 11/03/15) PINEAPPLE (Unverified Allergy, Unknown, 10/04/16) Red Pepper (Unverified Allergy, Unknown, 04/01/15) TRAMADOL (Unverified Allergy, Unknown, 04/01/15) TROMETHAMINE (Unverified Allergy, Unknown, 04/01/15) WITCH ANNA (Unverified Allergy, Unknown, 04/01/15) Uncoded Allergies: CRANBERRY JUICE (Allergy, Unknown, 10/04/16) onion (Allergy, Unknown, 04/01/15) glueten (Adverse Reaction, Unknown, 09/17/15) Objective Vital Signs Last 24 Hour Vital Signs Date Time Temp Pulse Resp B/P Pulse Ox O2 Delivery O2 Flow Rate FiO2 03/11/17 14:09 98.7 03/11/17 14:00 77 18 115/60 100 Mechanical Ventilator 30 03/11/17 13:00 77 18 123/55 96 Mechanical Ventilator 03/11/17 12:43 82 15 30 03/11/17 12:00 30 03/11/17 12:00 98.7 87 18 117/68 96 Mechanical Ventilator 03/11/17 12:00 80 03/11/17 11:00 75 16 106/50 94 Mechanical Ventilator 30 03/11/17 10:33 104 20 30 03/11/17 10:00 77 16 102/49 96 Mechanical Ventilator 03/11/17 09:19 84 16 30 03/11/17 09:00 82 17 126/92 98 Mechanical Ventilator 30 03/11/17 08:00 98.1 85 20 122/63 100 Mechanical Ventilator 30 03/11/17 08:00 79 03/11/17 08:00 30 03/11/17 07:11 54 16 30 03/11/17 07:00 62 17 103/59 99 Mechanical Ventilator 30 03/11/17 06:00 68 17 102/63 97 Mechanical Ventilator 30 03/11/17 05:12 99 20 30 03/11/17 05:00 78 17 109/54 96 Mechanical Ventilator 30 03/11/17 04:00 30 03/11/17 04:00 98.5 86 20 109/54 98 Mechanical Ventilator 30 03/11/17 04:00 85 03/11/17 03:20 90 18 30 03/11/17 03:00 87 22 104/54 99 Mechanical Ventilator 30 03/11/17 02:00 87 16 108/53 99 Mechanical Ventilator 30 03/11/17 01:04 97 16 30 03/11/17 01:00 77 18 104/53 96 Mechanical Ventilator 30 03/11/17 00:00 30 03/11/17 00:00 98.2 57 16 107/58 97 Mechanical Ventilator 30 03/11/17 00:00 57 03/10/17 23:06 98 16 30 03/10/17 23:00 62 16 103/56 97 Mechanical Ventilator 30 03/10/17 22:00 69 16 103/56 96 Mechanical Ventilator 30 03/10/17 21:30 99 16 30 03/10/17 21:00 74 16 96/55 96 Mechanical Ventilator 30 03/10/17 20:00 102 03/10/17 20:00 98.5 94 17 101/51 95 Mechanical Ventilator 30 03/10/17 20:00 30 03/10/17 19:20 03/10/17 19:08 104 17 30 03/10/17 19:00 105 23 109/91 96 Mechanical Ventilator 30 03/10/17 18:00 108 22 142/88 95 Mechanical Ventilator 30 03/10/17 17:06 107 22 30 03/10/17 17:00 102 26 104/61 96 Mechanical Ventilator 30 03/10/17 16:00 30 03/10/17 16:00 100 03/10/17 16:00 98.3 100 18 144/65 96 Mechanical Ventilator 30 03/10/17 15:00 102 17 115/70 98 Mechanical Ventilator 30 03/10/17 15:00 102 17 30 Height (Feet): 5 Height (Inches): 3.00 Weight (Pounds): 239 Objective General Appearance: other - intubated on vent support through ETT, [id number]%. HEENT: anicteric Respiratory/Chest: rhonchi - bilaterally. palpable indwelling port-a-cath on L lower chest wall. no pain to palpation overlying the neck. no erythema Cardiovascular: normal peripheral pulses Abdomen: soft, non tender Extremities: no cyanosis Skin: no rash no new micro dta. last micro 02/27/17. Laboratory Tests Test 03/11/17 04:00 03/11/17 07:59 White Blood Count 13.6 K/UL (4.8-10.8) H Red Blood Count 3.11 M/UL (4.20-5.40) L Hemoglobin 9.1 G/DL (12.0-16.0) L Hematocrit 30.5 % (37.0-47.0) L Mean Corpuscular Volume 98 FL (80-99) Mean Corpuscular Hemoglobin 29.5 PG (27.0-31.0) Mean Corpuscular Hemoglobin Concent 30.0 G/DL (32.0-36.0) L Red Cell Distribution Width 18.5 % (11.6-14.8) H Platelet Count 324 K/UL (150-450) Mean Platelet Volume 6.1 FL (6.5-10.1) L Neutrophils (%) (Auto) 77.2 % (45.0-75.0) H Lymphocytes (%) (Auto) 11.1 % (20.0-45.0) L Monocytes (%) (Auto) 7.2 % (1.0-10.0) Eosinophils (%) (Auto) 3.9 % (0.0-3.0) H Basophils (%) (Auto) 0.7 % (0.0-2.0) Sodium Level 145 mEQ/L (135-145) Potassium Level 4.3 mEQ/L (3.4-4.9) Chloride Level 109 mEQ/L (98-107) H Carbon Dioxide Level 18 mEQ/L (20-30) L Anion Gap 18 (5-15) H Blood Urea Nitrogen 42 mg/dL (7-23) H Creatinine 2.3 mg/dL (0.5-0.9) H Estimat Glomerular Filtration Rate 24.6 mL/min (>60) Glucose Level 202 mg/dL (74-106) H Calcium Level 9.4 mg/dL (8.6-10.2) Phosphorus Level 3.4 mg/dL (2.5-4.8) Magnesium Level 2.4 mg/dL (1.7-2.5) Total Bilirubin < 0.2 mg/dL (0.0-1.2) Aspartate Amino Transf (AST/SGOT) 15 U/L (5-40) Alanine Aminotransferase (ALT/SGPT) 13 U/L (3-33) Alkaline Phosphatase 99 U/L (35-104) Total Protein 6.9 g/dL (6.6-8.7) Albumin 3.2 g/dL (3.5-5.2) L Globulin 3.7 g/dL Albumin/Globulin Ratio 0.8 (1.0-2.7) L Arterial Blood pH 7.340 (7.350-7.450) Arterial Blood Partial Pressure CO2 38.4 mmHg (35.0-45.0) Arterial Blood Partial Pressure O2 87.7 mmHg (75.0-100.0) Arterial Blood HCO3 20.4 mmol/L (22.0-26.0) L Arterial Blood Oxygen Saturation 95.4 % (92.0-98.0) Arterial Blood Base Excess -4.8 Cristian Test Positive Current Medications Medications (Trade) Dose Ordered Sig/Cabrera Route PRN Reason Start Time Stop Time Status Last Admin Dose Admin Ceftriaxone Sodium/Dextrose (Rocephin/D5W) 55 ml @ 110 mls/hr Q24H IVPB 03/10/17 18:00 03/12/17 23:59 03/10/17 18:55 Chlorhexidine Gluconate (Karen-Hex 2%) 1 applic QHS TOPIC 03/02/17 21:00 04/01/17 20:59 03/10/17 20:56 Dextrose (Dextrose 50%) STAT PRN IV Hypoglycemia 02/28/17 07:30 03/30/17 07:29 Docusate Sodium (Colace) 100 mg TWICE A DAY GT 03/11/17 12:25 04/02/17 08:59 Fluoxetine HCl (PROzac) 20 mg DAILY GT 03/11/17 12:25 04/06/17 13:44 Heparin Sodium (Porcine) (Heparin 5000 units/ml) 5,000 units EVERY 12 HOURS SUBQ 02/27/17 21:00 03/29/17 20:59 03/10/17 20:53 Insulin Aspart (NovoLOG) 5 units EVERY 6 HOURS SUBQ 03/09/17 00:00 04/08/17 00:00 03/11/17 12:12 Insulin Aspart EVERY 6 HOURS SUBQ 03/09/17 00:00 04/08/17 00:00 03/11/17 12:12 Insulin Detemir (Levemir) 28 units EVERY 12 HOURS SUBQ 03/11/17 21:00 04/10/17 20:59 Lansoprazole (Prevacid) 30 mg DAILY GT 03/12/17 09:00 04/11/17 08:59 Levothyroxine Sodium (Synthroid) 100 mcg DAILY@0630 GT 03/12/17 06:30 04/11/17 06:29 Lorazepam (Ativan 2mg/ml 1ml) 2 mg Q2H PRN IV For Anxiety 03/11/17 14:30 03/18/17 14:29 Midodrine (Pro-Amatine) 10 mg Q8HR NG 03/08/17 09:30 04/07/17 09:29 03/11/17 06:03 Morphine Sulfate (Morphine Sulfate) 2 mg Q4H PRN IVP Severe Pain (Pain Scale 7-10) 03/08/17 08:15 03/15/17 08:14 03/11/17 13:39 Nystatin (Nystop Powder) 1 applic THREE TIMES A DAY TOPIC 03/07/17 21:00 04/06/17 20:59 03/11/17 12:14 Ondansetron HCl (Zofran) 4 mg Q6H PRN IVP Nausea & Vomiting 02/27/17 18:00 03/29/17 17:59 03/09/17 16:27 Polyethylene Glycol (Miralax) 17 gm DAILYPRN PRN GT Constipation 03/11/17 12:26 03/29/17 17:59 Quetiapine Fumarate (SEROquel) 50 mg BEDTIME GT 03/11/17 12:26 04/06/17 20:59 Valproic Acid (Depakene) 500 mg Q12HR GT 02/27/17 23:00 03/29/17 22:59 03/11/17 08:51 Thanh Davies M.D. Mar 11, 2017 14:54
[2017-03-11] MEDS: Docusate 100mg/10ml Liq GT SCH (17:55)
[2017-03-11] MEDS: cefTRIAXone 1 GM in D5W 55 ML IVPB SCH (17:55)
[2017-03-11] MEDS: Dyna-Hex 2% Top Sol 8oz TOPIC SCH (21:27)
[2017-03-11] MEDS ORDERED: Sterile Water Irrig 1000ml IRRIG ONE (21:30)
[2017-03-11] MEDS ORDERED: NS 275ml ONE (21:30)
[2017-03-11] MEDS ORDERED: Tubing IV Blood Pump IV ONE (21:30)
[2017-03-12] VITALS (24 sets, daily range): BP systolic 85–147; BP diastolic 31–92
[2017-03-12] MEDS: Morphine Sulfate 2mg/ml Inj IVP PRN ×4 (05:29→21:35)
[2017-03-12] MEDS: Midodrine 10mg tab NG SCH ×3 (05:52→21:46)
[2017-03-12] MEDS: NovoLOG Insulin Flexpen SUBQ SCH ×8 (05:55→23:46)
[2017-03-12 06:05] LABS: BASOPHILS % (AUTO) 1.2 % (0.0-2.0); EOSINOPHILS % (AUTO) 3.8 % (0.0-3.0); LYMPHOCYTES % (AUTO) 11.4 % (20.0-45.0); MEAN CORPUSCULAR HEMOGLOBIN 29.8 PG (27.0-31.0); MEAN CORPUSCULAR VOLUME 99 FL (80-99); MEAN PLATELET VOLUME 5.8 FL (6.5-10.1); MONOCYTES % (AUTO) 6.1 % (1.0-10.0); NEUTROPHILS % (AUTO) 77.5 % (45.0-75.0); PLATELET COUNT 346 K/UL (150-450); RED BLOOD COUNT 3.16 M/UL (4.20-5.40); RED CELL DISTRIBUTION WIDTH 18.7 % (11.6-14.8)
[2017-03-12 06:11] LABS: CALCIUM 9.5 mg/dL (8.6-10.2); GLOMERULAR FILTRATION RATE 28.9 mL/min (>60)
[2017-03-12] MEDS: Valproic Acid 250mg/5ml Liquid GT SCH ×2 (08:06→21:36)
[2017-03-12] MEDS: Docusate 100mg/10ml Liq GT SCH ×2 (08:06→17:29)
[2017-03-12] MEDS: Levemir Flexpen SUBQ SCH ×2 (08:08→21:48)
[2017-03-12] MEDS: Heparin 5000 units/ml inj SUBQ SCH ×2 (08:14→21:39)
[2017-03-12] MEDS: Nystatin Powder 100,000 units/gm 15gm TOPIC SCH ×3 (08:15→17:29)
--- NOTE | 2017-03-12 08:48 | Pulmonolgy Critical Care Note ---
Critical Care - Asmt/Plan Assessment/Plan: ASSESSMENT acute hypoxemic respiratory failure, requiring intubation 02/27 s/p extubation 03/07 s/p reintubation 03/08 failure to wean sepsis septic shock PNA recurrent complicated UTI with Proteus, E coli ARF on CKD st 3 likely diabetic nephropathy anemia of chronic disease s s/p blood transfusion DM OOC spina bifida hypothyroidism seizure disorder probably fatty liver sacral decub st 2 POA Lt ischial tuberosity st 2 POA bipolar disorder hypertriglyceridemia PLAN OF CARE ICU vent support, pulmonary toilet daily CXR ABG last CXR no change failure to wean patient is refusing trach , spoke in details about need for trach patient so far declining, need to think abx ID follows urine cx + E coli, Proteus , blood cx negative nephro follows monitor renal parameters, lytes, avoid nephrotoxic, renal US c/w chronic kidney disease BP support with Midodrine, s/p Albumin BP better with Midodrine, off IVF ECHO with pEF 55-60% and RVSP of 11 endo follows on NovoLog q 6 hrs, Levemir and SS of insulin prn, BS still not well controlled, dose of Levemir increased seizure precautions, continue Depakote wound care as per wound nurse recommendation strict aspiration precaution, NGT feeding, monitor tolerance monitor HH, transfuse prn, with goal to keep Hgb above 7 anemia w/up noted TSH WNL continue current dose of Levothyroxine abdominal US no gallstones, no dilated ducts, liver with hepatocellular disease , likely fatty liver disease DVT GI prophylaxis Bowel regimen pain management check lipid panel in am ( last had TG over 700) case discussed and evaluated by supervising physician Critical Care - Objective Last 24 Hour Vital Signs Date Time Temp Pulse Resp B/P Pulse Ox O2 Delivery O2 Flow Rate FiO2 03/12/17 08:00 98.4 89 20 126/55 100 Mechanical Ventilator 30 03/12/17 08:00 30 03/12/17 07:00 94 17 120/73 100 Mechanical Ventilator 03/12/17 06:45 87 18 30 03/12/17 06:00 89 17 113/67 100 Mechanical Ventilator 03/12/17 05:21 97 18 30 03/12/17 05:00 95 22 85/57 100 Mechanical Ventilator 03/12/17 04:00 98.4 94 20 141/92 100 Mechanical Ventilator 30 03/12/17 04:00 96 03/12/17 04:00 30 03/12/17 03:49 78 16 30 03/12/17 03:00 90 22 143/82 100 Mechanical Ventilator 30 03/12/17 02:00 80 17 105/56 100 Mechanical Ventilator 30 03/12/17 01:30 73 16 30 03/12/17 01:00 69 16 104/52 100 Mechanical Ventilator 30 03/12/17 00:00 65 03/12/17 00:00 98.6 67 16 105/56 100 Mechanical Ventilator 30 03/12/17 00:00 30 03/11/17 23:43 98.7 03/11/17 23:25 69 16 30 03/11/17 23:00 67 16 102/56 100 Mechanical Ventilator 30 03/11/17 22:00 79 16 115/64 100 Mechanical Ventilator 30 03/11/17 21:17 95 18 30 03/11/17 21:00 92 21 128/75 100 Mechanical Ventilator 30 03/11/17 20:00 98.7 96 18 144/77 96 Mechanical Ventilator 30 03/11/17 20:00 30 03/11/17 20:00 98 03/11/17 19:00 91 21 141/84 100 Mechanical Ventilator 30 03/11/17 18:54 95 19 30 03/11/17 18:00 87 18 134/71 100 Mechanical Ventilator 30 03/11/17 17:21 66 16 30 03/11/17 17:00 70 16 139/83 100 Mechanical Ventilator 30 03/11/17 16:00 82 03/11/17 16:00 98.5 76 16 109/56 98 Mechanical Ventilator 30 03/11/17 16:00 30 03/11/17 15:00 85 16 122/73 99 Mechanical Ventilator 30 03/11/17 14:53 83 17 30 03/11/17 14:00 77 18 115/60 100 Mechanical Ventilator 30 03/11/17 13:00 77 18 123/55 96 Mechanical Ventilator 30 03/11/17 12:43 82 15 30 03/11/17 12:00 30 03/11/17 12:00 98.7 87 18 117/68 96 Mechanical Ventilator 30 03/11/17 12:00 80 03/11/17 11:00 75 16 106/50 94 Mechanical Ventilator 30 03/11/17 10:33 104 20 30 03/11/17 10:00 77 16 102/49 96 Mechanical Ventilator 30 03/11/17 09:19 84 16 30 03/11/17 09:00 82 17 126/92 98 Mechanical Ventilator 30 Objective: Status: awake, other - alert, responsive, communicates by writing, Condition: critical HEENT: atraumatic, normocephalic, other - OP with ET in palce, NGT Lungs: clear Heart: HR/BP stable Abdomen: soft, non-tender - obese, other - s/p catheter Extremities: no C/C/E Accucheck: 164 Critical Care - Subjective FI02: 30 Vent Support Breath Rate: 16 Vent Support Mode: AC Vent Tidal Volume: 600 Sputum Amount: Small PEEP: 5.0 PIP: 35 Tube Feeding Amount: 15 I&O: Intake and Output 03/11/17 03/12/17 19:00 07:00 Intake Total 1046 ml 607 ml Output Total 980 ml 850 ml Balance 66 ml -243 ml Free Water 450 ml 250 ml IV Total 55 ml Tube Feeding 391 ml 357 ml Other 150 ml Output Urine Total 980 ml 850 ml ET-Tube: 6.0 ET Position: 22 [place] [facility] Mar 12, 2017 08:48
[2017-03-12 09:09] LABS: POTASSIUM 4.9 mEQ/L (3.4-4.9)
[2017-03-12] MEDS: LORazepam Inj 2mg/ml 1ml IV PRN (09:50)
[2017-03-12] MEDS ORDERED: NS 275ml ONE ×2 (09:58)
[2017-03-12] MEDS ORDERED: Sterile Water Irrig 1000ml IRRIG ONE (09:58)
--- NOTE | 2017-03-12 10:33 | General Progress Note ---
Assessment/Plan Status: stable Status Narrative Cr lower Assessment/Plan Status: (1) Respiratory distress, intubated (2) Septic shock , UTI and Pneumonia (3) Renal Failure , CKD ( Diabetic) and Hyper Natremia (4) Diabetes mellitus (5) Spina bifida (6) HypoThyroid (7) Anemia (8) Sz disorder (9) Full Code status: Midodrine- DC D5W Monitor renal parameters Avoid nephrotoxics Anemia chanel per orders Subjective ROS Limited/Unobtainable: Yes Allergies: Coded Allergies: CIPROFLOXACIN (Verified Allergy, Severe, Anaphylaxis, 05/18/12) KETOROLAC (Unverified Allergy, Severe, Anaphylaxis, 03/04/14) Throat collapsed LATEX (Verified Allergy, Severe, Anaphylaxis, 03/06/14) verbalized by pt LEVOFLOXACIN (Verified Allergy, Severe, Anaphylaxis, 05/18/12) MORPHINE (Verified Allergy, Intermediate, Itching, 05/18/12) ACETAMINOPHEN (Unverified Allergy, Unknown, 04/01/15) ALOE (Unverified Allergy, Unknown, 11/03/15) ALOE VERA (Unverified Allergy, Unknown, 04/01/15) CELERY (Unverified Allergy, Unknown, 04/01/15) COCONUT (Unverified Allergy, Unknown, 11/03/15) COCONUT OIL (Unverified Allergy, Unknown, 04/01/15) FISH CONTAINING PRODUCTS (Unverified Allergy, Unknown, 10/04/16) HYDROCODONE (Unverified Allergy, Unknown, 04/01/15) LIDOCAINE (Unverified Allergy, Unknown, Rash, 09/21/15) with lidocaine cream MELON (Unverified Allergy, Unknown, 04/01/15) ONION (Unverified Allergy, Unknown, 11/03/15) PINEAPPLE (Unverified Allergy, Unknown, 10/04/16) Red Pepper (Unverified Allergy, Unknown, 04/01/15) TRAMADOL (Unverified Allergy, Unknown, 04/01/15) TROMETHAMINE (Unverified Allergy, Unknown, 04/01/15) WITCH ANNA (Unverified Allergy, Unknown, 04/01/15) Uncoded Allergies: CRANBERRY JUICE (Allergy, Unknown, 10/04/16) onion (Allergy, Unknown, 04/01/15) glueten (Adverse Reaction, Unknown, 09/17/15) Objective Last 24 Hour Vital Signs Date Time Temp Pulse Resp B/P Pulse Ox O2 Delivery O2 Flow Rate FiO2 03/12/17 10:00 91 17 128/66 94 Mechanical Ventilator 30 03/12/17 09:00 88 17 120/55 94 Mechanical Ventilator 30 03/12/17 08:00 88 03/12/17 08:00 98.4 89 20 126/55 100 Mechanical Ventilator 30 03/12/17 08:00 30 03/12/17 07:00 94 17 120/73 100 Mechanical Ventilator 30 03/12/17 06:45 87 18 30 03/12/17 06:00 89 17 113/67 100 Mechanical Ventilator 30 03/12/17 05:21 97 18 30 03/12/17 05:00 95 22 85/57 100 Mechanical Ventilator 30 03/12/17 04:00 98.4 94 20 141/92 100 Mechanical Ventilator 30 03/12/17 04:00 96 03/12/17 04:00 30 03/12/17 03:49 78 16 30 03/12/17 03:00 90 22 143/82 100 Mechanical Ventilator 30 03/12/17 02:00 80 17 105/56 100 Mechanical Ventilator 30 03/12/17 01:30 73 16 30 03/12/17 01:00 69 16 104/52 100 Mechanical Ventilator 30 03/12/17 00:00 65 03/12/17 00:00 98.6 67 16 105/56 100 Mechanical Ventilator 30 03/12/17 00:00 30 03/11/17 23:43 98.7 03/11/17 23:25 69 16 30 03/11/17 23:00 67 16 102/56 100 Mechanical Ventilator 30 03/11/17 22:00 79 16 115/64 100 Mechanical Ventilator 30 03/11/17 21:17 95 18 30 03/11/17 21:00 92 21 128/75 100 Mechanical Ventilator 30 03/11/17 20:00 98.7 96 18 144/77 96 Mechanical Ventilator 30 03/11/17 20:00 30 03/11/17 20:00 98 03/11/17 19:00 91 21 141/84 100 Mechanical Ventilator 30 03/11/17 18:54 95 19 30 03/11/17 18:00 87 18 134/71 100 Mechanical Ventilator 30 03/11/17 17:21 66 16 30 03/11/17 17:00 70 16 139/83 100 Mechanical Ventilator 30 03/11/17 16:00 82 03/11/17 16:00 98.5 76 16 109/56 98 Mechanical Ventilator 30 03/11/17 16:00 30 03/11/17 15:00 85 16 122/73 99 Mechanical Ventilator 03/11/17 14:53 83 17 30 03/11/17 14:00 77 18 115/60 100 Mechanical Ventilator 30 03/11/17 13:00 77 18 123/55 96 Mechanical Ventilator 30 03/11/17 12:43 82 15 30 03/11/17 12:00 30 03/11/17 12:00 98.7 87 18 117/68 96 Mechanical Ventilator 03/11/17 12:00 80 03/11/17 11:00 75 16 106/50 94 Mechanical Ventilator 03/11/17 10:33 104 20 30 Intake and Output 03/11/17 03/12/17 19:00 07:00 Intake Total 1046 ml 607 ml Output Total 980 ml 850 ml Balance 66 ml -243 ml Free Water 450 ml 250 ml IV Total 55 ml Tube Feeding 391 ml 357 ml Other 150 ml Output Urine Total 980 ml 850 ml Laboratory Tests 03/12/17 05:00: White Blood Count 12.0H, Red Blood Count 3.16L, Hemoglobin 9.4L, Hematocrit 31.4L, Mean Corpuscular Volume 99, Mean Corpuscular Hemoglobin 29.8, Mean Corpuscular Hemoglobin Concent 30.0L, Red Cell Distribution Width 18.7H, Platelet Count 346, Mean Platelet Volume 5.8L, Neutrophils (%) (Auto) 77.5H, Lymphocytes (%) (Auto) 11.4L, Monocytes (%) (Auto) 6.1, Eosinophils (%) (Auto) 3.8H, Basophils (%) (Auto) 1.2, Sodium Level 145, Potassium Level 4.9, Chloride Level 108H, Carbon Dioxide Level 16L, Anion Gap 21H, Blood Urea Nitrogen 42H, Creatinine 2.0H, Estimat Glomerular Filtration Rate 28.9, Glucose Level 216H, Calcium Level 9.5, Triglycerides Level 1508H, Cholesterol Level 298H, LDL Cholesterol -31L, HDL Cholesterol 27, Cholesterol/HDL Ratio 11.0H Height (Feet): 5 Height (Inches): 3.00 Weight (Pounds): 232 General Appearance: no apparent distress EENT: other - remains on Vent Objective no change in PE ALVIN LUQUE Mar 12, 2017 10:33
--- NOTE | 2017-03-12 14:20 | Infectious Diseases Prog Note ---
Assessment/Plan Assessment/Plan ASSESSMENT: 31 y/o female with: Recurrent complicated UTI - UCx P.mirabilis, E.coli - US: Mildly increased renal echogenicity, compatible with medical renal disease. Negative for hydronephrosis. Right renal upper pole cyst. - SPC in place - h/o E Coli and Morganella, PSA CONS bacteremia / c/w contaminant on 02/27/17 - TTE(-) SBE Left chest Port-A-Cath, with interim fracture of the tubing at or near the left jugular vein insertion site. no overlying evidence of infection Leukocytosis - recurrent, stable near normal, afebrile Recurrent Acute VDRF - intubated 02/27, extubated 03/07, re-intubated 03/07, has refused trach to date intermittent tachycardia, transient hypotension x1, resolved. Possible CHF exacerbation - TTE: EF 65% ARF on CKD3 - US: Mildly increased renal echogenicity, compatible with medical renal disease. Negative for hydronephrosis. Right renal upper pole cyst. hx of CVA s/p VPS seizure disorder DM Bipolar disorder Spina bifida [place] resident Quinolone allergy Full Code PLAN: - completing rocephin today ( ABX d# 14 / 14 ). she doesn't have any isolates typical to have inducible ampC resistance. ( 03/02 SP IV vancomycin, zosyn d# 4 ) - monitor CBC, temperatures, re-culture if acute change. exam unchanged, continue to monitor this mild leukocytosis closely, but looks stable to labs on prior admission. - monitor BMP - vent support, wean as tolerated Subjective ROS Limited/Unobtainable: Yes Allergies: Coded Allergies: CIPROFLOXACIN (Verified Allergy, Severe, Anaphylaxis, 05/18/12) KETOROLAC (Unverified Allergy, Severe, Anaphylaxis, 03/04/14) Throat collapsed LATEX (Verified Allergy, Severe, Anaphylaxis, 03/06/14) verbalized by pt LEVOFLOXACIN (Verified Allergy, Severe, Anaphylaxis, 05/18/12) MORPHINE (Verified Allergy, Intermediate, Itching, 05/18/12) ACETAMINOPHEN (Unverified Allergy, Unknown, 04/01/15) ALOE (Unverified Allergy, Unknown, 11/03/15) ALOE VERA (Unverified Allergy, Unknown, 04/01/15) CELERY (Unverified Allergy, Unknown, 04/01/15) COCONUT (Unverified Allergy, Unknown, 11/03/15) COCONUT OIL (Unverified Allergy, Unknown, 04/01/15) FISH CONTAINING PRODUCTS (Unverified Allergy, Unknown, 10/04/16) HYDROCODONE (Unverified Allergy, Unknown, 04/01/15) LIDOCAINE (Unverified Allergy, Unknown, Rash, 09/21/15) with lidocaine cream MELON (Unverified Allergy, Unknown, 04/01/15) ONION (Unverified Allergy, Unknown, 11/03/15) PINEAPPLE (Unverified Allergy, Unknown, 10/04/16) Red Pepper (Unverified Allergy, Unknown, 04/01/15) TRAMADOL (Unverified Allergy, Unknown, 04/01/15) TROMETHAMINE (Unverified Allergy, Unknown, 04/01/15) WITCH ANNA (Unverified Allergy, Unknown, 04/01/15) Uncoded Allergies: CRANBERRY JUICE (Allergy, Unknown, 10/04/16) onion (Allergy, Unknown, 04/01/15) glueten (Adverse Reaction, Unknown, 09/17/15) Objective Vital Signs Last 24 Hour Vital Signs Date Time Temp Pulse Resp B/P Pulse Ox O2 Delivery O2 Flow Rate FiO2 03/12/17 12:34 95 16 30 03/12/17 12:08 98.4 03/12/17 12:00 97 03/12/17 12:00 30 03/12/17 12:00 98.4 94 18 145/59 100 Mechanical Ventilator 30 03/12/17 11:07 87 16 30 03/12/17 11:00 90 15 132/63 94 Mechanical Ventilator 30 03/12/17 10:00 91 17 128/66 94 Mechanical Ventilator 30 03/12/17 09:05 87 18 30 03/12/17 09:00 88 17 120/55 94 Mechanical Ventilator 30 03/12/17 08:00 88 03/12/17 08:00 98.4 89 20 126/55 100 Mechanical Ventilator 30 03/12/17 08:00 30 03/12/17 07:00 94 17 120/73 100 Mechanical Ventilator 30 03/12/17 06:45 87 18 30 03/12/17 06:00 89 17 113/67 100 Mechanical Ventilator 30 03/12/17 05:21 97 18 30 03/12/17 05:00 95 22 85/57 100 Mechanical Ventilator 30 03/12/17 04:00 98.4 94 20 141/92 100 Mechanical Ventilator 30 03/12/17 04:00 96 03/12/17 04:00 30 03/12/17 03:49 78 16 30 03/12/17 03:00 90 22 143/82 100 Mechanical Ventilator 30 03/12/17 02:00 80 17 105/56 100 Mechanical Ventilator 30 03/12/17 01:30 73 16 30 03/12/17 01:00 69 16 104/52 100 Mechanical Ventilator 30 03/12/17 00:00 65 03/12/17 00:00 98.6 67 16 105/56 100 Mechanical Ventilator 30 03/12/17 00:00 30 03/11/17 23:25 69 16 30 03/11/17 23:00 67 16 102/56 100 Mechanical Ventilator 30 03/11/17 22:00 79 16 115/64 100 Mechanical Ventilator 30 03/11/17 21:17 95 18 30 03/11/17 21:00 92 21 128/75 100 Mechanical Ventilator 30 03/11/17 20:00 98.7 96 18 144/77 96 Mechanical Ventilator 30 03/11/17 20:00 30 03/11/17 20:00 98 03/11/17 19:00 91 21 141/84 100 Mechanical Ventilator 30 03/11/17 18:54 95 19 30 03/11/17 18:00 87 18 134/71 100 Mechanical Ventilator 30 03/11/17 17:21 66 16 30 03/11/17 17:00 70 16 139/83 100 Mechanical Ventilator 30 03/11/17 16:00 82 03/11/17 16:00 98.5 76 16 109/56 98 Mechanical Ventilator 30 03/11/17 16:00 30 03/11/17 15:00 85 16 122/73 99 Mechanical Ventilator 30 03/11/17 14:53 83 17 30 Height (Feet): 5 Height (Inches): 3.00 Weight (Pounds): 232 Objective General Appearance: other - intubated on vent support through ETT, [id number]%. HEENT: anicteric Respiratory/Chest: rhonchi - bilaterally. palpable indwelling port-a-cath on L lower chest wall. no pain to palpation overlying the neck. no erythema Cardiovascular: normal peripheral pulses Abdomen: soft, non tender Extremities: no cyanosis Skin: no rash no new micro dta. last micro 02/27/17. no new micro results. Laboratory Tests Test 03/12/17 05:00 White Blood Count 12.0 K/UL (4.8-10.8) H Red Blood Count 3.16 M/UL (4.20-5.40) L Hemoglobin 9.4 G/DL (12.0-16.0) L Hematocrit 31.4 % (37.0-47.0) L Mean Corpuscular Volume 99 FL (80-99) Mean Corpuscular Hemoglobin 29.8 PG (27.0-31.0) Mean Corpuscular Hemoglobin Concent 30.0 G/DL (32.0-36.0) L Red Cell Distribution Width 18.7 % (11.6-14.8) H Platelet Count 346 K/UL (150-450) Mean Platelet Volume 5.8 FL (6.5-10.1) L Neutrophils (%) (Auto) 77.5 % (45.0-75.0) H Lymphocytes (%) (Auto) 11.4 % (20.0-45.0) L Monocytes (%) (Auto) 6.1 % (1.0-10.0) Eosinophils (%) (Auto) 3.8 % (0.0-3.0) H Basophils (%) (Auto) 1.2 % (0.0-2.0) Sodium Level 145 mEQ/L (135-145) Potassium Level 4.9 mEQ/L (3.4-4.9) Chloride Level 108 mEQ/L (98-107) H Carbon Dioxide Level 16 mEQ/L (20-30) L Anion Gap 21 (5-15) H Blood Urea Nitrogen 42 mg/dL (7-23) H Creatinine 2.0 mg/dL (0.5-0.9) H Estimat Glomerular Filtration Rate 28.9 mL/min (>60) Glucose Level 216 mg/dL (74-106) H Calcium Level 9.5 mg/dL (8.6-10.2) Triglycerides Level 1508 mg/dL (< 150) H Cholesterol Level 298 mg/dL (< 200) H LDL Cholesterol -31 mg/dL (60-99) L HDL Cholesterol 27 mg/dL (> 60) Cholesterol/HDL Ratio 11.0 (3.3-4.4) H Current Medications Medications (Trade) Dose Ordered Sig/Cabrera Route PRN Reason Start Time Stop Time Status Last Admin Dose Admin Ceftriaxone Sodium/Dextrose (Rocephin/D5W) 55 ml @ 110 mls/hr Q24H IVPB 03/10/17 18:00 03/12/17 23:59 03/11/17 17:55 Chlorhexidine Gluconate (Karen-Hex 2%) 1 applic QHS TOPIC 03/02/17 21:00 04/01/17 20:59 03/11/17 21:27 Dextrose (Dextrose 50%) STAT PRN IV Hypoglycemia 02/28/17 07:30 03/30/17 07:29 Docusate Sodium (Colace) 100 mg TWICE A DAY GT 03/11/17 12:25 04/02/17 08:59 03/12/17 08:06 Fluoxetine HCl (PROzac) 20 mg DAILY GT 03/11/17 12:25 04/06/17 13:44 03/12/17 08:07 Heparin Sodium (Porcine) (Heparin 5000 units/ml) 5,000 units EVERY 12 HOURS SUBQ 02/27/17 21:00 03/29/17 20:59 03/12/17 08:14 Insulin Aspart (NovoLOG) 5 units EVERY 6 HOURS SUBQ 03/09/17 00:00 04/08/17 00:00 03/12/17 11:16 Insulin Aspart EVERY 6 HOURS SUBQ 03/09/17 00:00 04/08/17 00:00 03/12/17 11:15 Insulin Detemir (Levemir) 28 units EVERY 12 HOURS SUBQ 03/11/17 21:00 04/10/17 20:59 03/12/17 08:08 Lansoprazole (Prevacid) 30 mg DAILY GT 03/12/17 09:00 04/11/17 08:59 03/12/17 08:06 Levothyroxine Sodium (Synthroid) 100 mcg DAILY@0630 GT 03/12/17 06:30 04/11/17 06:29 03/12/17 05:53 Lorazepam (Ativan 2mg/ml 1ml) 2 mg Q2H PRN IV For Anxiety 03/11/17 14:30 03/18/17 14:29 03/12/17 09:50 Midodrine (Pro-Amatine) 10 mg Q8HR NG 03/08/17 09:30 04/07/17 09:29 03/11/17 06:03 Morphine Sulfate (Morphine Sulfate) 2 mg Q4H PRN IVP Severe Pain (Pain Scale 7-10) 03/08/17 08:15 03/15/17 08:14 03/12/17 11:38 Nystatin (Nystop Powder) 1 applic THREE TIMES A DAY TOPIC 03/07/17 21:00 04/06/17 20:59 03/12/17 08:15 Ondansetron HCl (Zofran) 4 mg Q6H PRN IVP Nausea & Vomiting 02/27/17 18:00 03/29/17 17:59 03/09/17 16:27 Polyethylene Glycol (Miralax) 17 gm DAILYPRN PRN GT Constipation 03/11/17 12:26 03/29/17 17:59 Quetiapine Fumarate (SEROquel) 50 mg BEDTIME GT 03/11/17 12:26 04/06/17 20:59 03/11/17 21:27 Valproic Acid (Depakene) 500 mg Q12HR GT 02/27/17 23:00 03/29/17 22:59 03/12/17 08:06 Thanh Davies M.D. Mar 12, 2017 14:20
--- NOTE | 2017-03-12 15:28 | Pulmonolgy Critical Care Note ---
Critical Care - Asmt/Plan Assessment/Plan: ASSESSMENT acute hypoxemic respiratory failure, requiring intubation 02/27 s/p extubation 03/07 s/p reintubation 03/08 failure to wean sepsis septic shock PNA recurrent complicated UTI with Proteus, E coli ARF on CKD st 3 likely diabetic nephropathy anemia of chronic disease s s/p blood transfusion DM OOC spina bifida hypothyroidism seizure disorder probably fatty liver sacral decub st 2 POA Lt ischial tuberosity st 2 POA bipolar disorder hypertriglyceridemia PLAN OF CARE ICU vent support, pulmonary toilet daily CXR ABG last CXR no change failure to wean patient is refusing trach , spoke in details about need for trach patient so far declining, need to think, conflicting about decision abx ID follows urine cx + E coli, Proteus , blood cx negative nephro follows monitor renal parameters, lytes, avoid nephrotoxic, renal US c/w chronic kidney disease BP support with Midodrine, s/p Albumin BP better with Midodrine, off IVF ECHO with pEF 55-60% and RVSP of 11 endo follows on NovoLog q 6 hrs, Levemir and SS of insulin prn, BS still not well controlled, dose of Levemir increased seizure precautions, continue Depakote wound care as per wound nurse recommendation strict aspiration precaution, NGT feeding, monitor tolerance monitor HH, transfuse prn, with goal to keep Hgb above 7 anemia w/up noted TSH WNL continue current dose of Levothyroxine abdominal US no gallstones, no dilated ducts, liver with hepatocellular disease , likely fatty liver disease DVT GI prophylaxis Bowel regimen pain management TG -[id number] , start Tricor pending final decision of patient and family trach vs terminal extubation case discussed and evaluated by supervising physician Critical Care - Objective Last 24 Hour Vital Signs Date Time Temp Pulse Resp B/P Pulse Ox O2 Delivery O2 Flow Rate FiO2 03/12/17 15:20 100 21 30 03/12/17 14:00 94 15 114/49 100 Mechanical Ventilator 30 03/12/17 13:00 92 15 124/64 100 Mechanical Ventilator 30 03/12/17 12:34 95 16 30 03/12/17 12:08 98.4 03/12/17 12:00 97 03/12/17 12:00 30 03/12/17 12:00 98.4 94 18 145/59 100 Mechanical Ventilator 30 03/12/17 11:07 87 16 30 8/6/17 11:00 90 15 132/63 94 Mechanical Ventilator 30 03/12/17 10:00 91 17 128/66 94 Mechanical Ventilator 30 03/12/17 09:05 87 18 30 03/12/17 09:00 88 17 120/55 94 Mechanical Ventilator 30 03/12/17 08:00 88 03/12/17 08:00 98.4 89 20 126/55 100 Mechanical Ventilator 30 03/12/17 08:00 30 03/12/17 07:00 94 17 120/73 100 Mechanical Ventilator 30 03/12/17 06:45 87 18 30 03/12/17 06:00 89 17 113/67 100 Mechanical Ventilator 30 03/12/17 05:21 97 18 30 03/12/17 05:00 95 22 85/57 100 Mechanical Ventilator 30 03/12/17 04:00 98.4 94 20 141/92 100 Mechanical Ventilator 30 03/12/17 04:00 96 03/12/17 04:00 30 03/12/17 03:49 78 16 30 03/12/17 03:00 90 22 143/82 100 Mechanical Ventilator 30 03/12/17 02:00 80 17 105/56 100 Mechanical Ventilator 30 03/12/17 01:30 73 16 30 03/12/17 01:00 69 16 104/52 100 Mechanical Ventilator 30 03/12/17 00:00 65 03/12/17 00:00 98.6 67 16 105/56 100 Mechanical Ventilator 30 03/12/17 00:00 30 03/11/17 23:25 69 16 30 03/11/17 23:00 67 16 102/56 100 Mechanical Ventilator 30 03/11/17 22:00 79 16 115/64 100 Mechanical Ventilator 30 03/11/17 21:17 95 18 30 03/11/17 21:00 92 21 128/75 100 Mechanical Ventilator 30 03/11/17 20:00 98.7 96 18 144/77 96 Mechanical Ventilator 30 03/11/17 20:00 30 03/11/17 20:00 98 03/11/17 19:00 91 21 141/84 100 Mechanical Ventilator 30 03/11/17 18:54 95 19 30 03/11/17 18:00 87 18 134/71 100 Mechanical Ventilator 30 03/11/17 17:21 66 16 30 03/11/17 17:00 70 16 139/83 100 Mechanical Ventilator 30 03/11/17 16:00 82 03/11/17 16:00 98.5 76 16 109/56 98 Mechanical Ventilator 30 03/11/17 16:00 30 Objective: Status: awake, alert, responsive, communicates by writing, Condition: critical HEENT: atraumatic, normocephalic, OP with ET in place, NGT Lungs: clear Heart: HR/BP stable Abdomen: soft, non-tender, obese, s/p catheter Extremities: no C/C/E Accucheck: 183 Critical Care - Subjective ROS Limited/Unobtainable: Yes Interval Events: still with leukocytosis declining trach so far creat with small trend down to 2.0 Condition: critical IV Access: central - R femoral CL intact EKG Rhythm: Sinus Rhythm FI02: 30 Vent Support Breath Rate: 16 Vent Support Mode: AC Vent Tidal Volume: 600 Sputum Amount: Small PEEP: 5.0 PIP: 55 Tube Feeding Amount: 34 I&O: Intake and Output 03/11/17 03/12/17 19:00 07:00 Intake Total 1046 ml 607 ml Output Total 980 ml 850 ml Balance 66 ml -243 ml Free Water 450 ml 250 ml IV Total 55 ml Tube Feeding 391 ml 357 ml Other 150 ml Output Urine Total 980 ml 850 ml CXR: 03/11 - The cardiomediastinal silhouette is unchanged. No new infiltrates are identified. NG tube remains in place. Endotracheal tube also remains. ET-Tube: 6.0 ET Position: 23 [place] (Chrissievirtua berlinAlysa Crocker NP Mar 12, 2017 15:28
[2017-03-12] MEDS: cefTRIAXone 1 GM in D5W 55 ML IVPB SCH (17:27)
[2017-03-12] MEDS: Dyna-Hex 2% Top Sol 8oz TOPIC SCH (21:46)
[2017-03-13] VITALS (24 sets, daily range): BP systolic 91–139; BP diastolic 33–86
[2017-03-13] MEDS: Midodrine 10mg tab NG SCH ×3 (05:32→22:00)
[2017-03-13] MEDS: Morphine Sulfate 2mg/ml Inj IVP PRN ×3 (05:33→20:50)
[2017-03-13] MEDS: LORazepam Inj 2mg/ml 1ml IV PRN ×3 (05:58→19:44)
[2017-03-13] MEDS: NovoLOG Insulin Flexpen SUBQ SCH ×8 (06:17→23:51)
--- NOTE | 2017-03-13 07:15 | Geriatric Medicine Prog Note ---
NOTE: POOR AUDIO HISTORY: The patient has improved diabetic control with Levemir units q.12 h., NovoLog 5 units q.6 h. Blood pressure 128/49, pulse 88, respiratory rate 21, temperature 98 degrees. 1. improved control. 2. Respiratory failure. 3. Malnutrition. . improved diabetic control. OBJECTIVE: VITALS: Blood pressure 128/49, pulse 88, respiratory rate 21, temperature 98 degrees. RESPIRATORY: Decreased breath sounds. CARDIOVASCULAR: Regular. poor control. q.6 h. . Georgi Crowley M.D. DR: KAYDEN JOB#: [id number] CC:
--- NOTE | 2017-03-13 08:00 | Geriatric Medicine Prog Note ---
DATE: 03/10/2017 Subjective: 00:21 required tracheostomy. OBJECTIVE: VITAL SIGNS: Stable. RESPIRATORY: Decreased breath sounds. CVS: Regular. Laboratory Data: Glucose 255. 00:27. Assessment: Diabetes mellitus type 2, 00:30 control. PLAN: Continue Levemir insulin 25 units q.12 h. and NovoLog 5 units q.6 h. with insulin sliding scale moderate dosing. Georgi Crowley M.D. DR: KAYDEN JOB#: [id number] CC:
[2017-03-13] MEDS: Docusate 100mg/10ml Liq GT SCH ×2 (08:15→18:10)
[2017-03-13] MEDS: Valproic Acid 250mg/5ml Liquid GT SCH ×2 (08:15→20:51)
[2017-03-13] MEDS: Levemir Flexpen SUBQ SCH ×2 (08:20→20:53)
[2017-03-13] MEDS: Heparin 5000 units/ml inj SUBQ SCH ×2 (08:21→20:53)
[2017-03-13] MEDS: Nystatin Powder 100,000 units/gm 15gm TOPIC SCH ×3 (08:22→18:10)
[2017-03-13 09:14] LABS: BASOPHILS % (AUTO) 0.7 % (0.0-2.0); EOSINOPHILS % (AUTO) 4.1 % (0.0-3.0); LYMPHOCYTES % (AUTO) 13.3 % (20.0-45.0); MEAN CORPUSCULAR HEMOGLOBIN 30.3 PG (27.0-31.0); MEAN CORPUSCULAR HGB CONC 30.7 G/DL (32.0-36.0); MEAN CORPUSCULAR VOLUME 99 FL (80-99); MEAN PLATELET VOLUME 5.7 FL (6.5-10.1); MONOCYTES % (AUTO) 6.8 % (1.0-10.0); NEUTROPHILS % (AUTO) 75.1 % (45.0-75.0); PLATELET COUNT 406 K/UL (150-450); RED BLOOD COUNT 3.35 M/UL (4.20-5.40); RED CELL DISTRIBUTION WIDTH 18.5 % (11.6-14.8); WHITE BLOOD COUNT 12.2 K/UL (4.8-10.8)
--- NOTE | 2017-03-13 09:40 | General Progress Note ---
Assessment/Plan Status: unchanged Assessment/Plan Status: (1) Respiratory distress, intubated (2) Septic shock , UTI and Pneumonia (3) Renal Failure , CKD ( Diabetic) and Hyper Natremia (4) Diabetes mellitus (5) Spina bifida (6) HypoThyroid (7) Anemia (8) Sz disorder (9) Full Code status: Labs pending Midodrine- DC D5W Monitor renal parameters Avoid nephrotoxics Anemia chanel per orders Subjective ROS Limited/Unobtainable: Yes Allergies: Coded Allergies: CIPROFLOXACIN (Verified Allergy, Severe, Anaphylaxis, 05/18/12) KETOROLAC (Unverified Allergy, Severe, Anaphylaxis, 03/04/14) Throat collapsed LATEX (Verified Allergy, Severe, Anaphylaxis, 03/06/14) verbalized by pt LEVOFLOXACIN (Verified Allergy, Severe, Anaphylaxis, 05/18/12) MORPHINE (Verified Allergy, Intermediate, Itching, 05/18/12) ACETAMINOPHEN (Unverified Allergy, Unknown, 04/01/15) ALOE (Unverified Allergy, Unknown, 11/03/15) ALOE VERA (Unverified Allergy, Unknown, 04/01/15) CELERY (Unverified Allergy, Unknown, 04/01/15) COCONUT (Unverified Allergy, Unknown, 11/03/15) COCONUT OIL (Unverified Allergy, Unknown, 04/01/15) FISH CONTAINING PRODUCTS (Unverified Allergy, Unknown, 10/04/16) HYDROCODONE (Unverified Allergy, Unknown, 04/01/15) LIDOCAINE (Unverified Allergy, Unknown, Rash, 09/21/15) with lidocaine cream MELON (Unverified Allergy, Unknown, 04/01/15) ONION (Unverified Allergy, Unknown, 11/03/15) PINEAPPLE (Unverified Allergy, Unknown, 10/04/16) Red Pepper (Unverified Allergy, Unknown, 04/01/15) TRAMADOL (Unverified Allergy, Unknown, 04/01/15) TROMETHAMINE (Unverified Allergy, Unknown, 04/01/15) WITCH ANNA (Unverified Allergy, Unknown, 04/01/15) Uncoded Allergies: CRANBERRY JUICE (Allergy, Unknown, 10/04/16) onion (Allergy, Unknown, 04/01/15) glueten (Adverse Reaction, Unknown, 09/17/15) Objective Last 24 Hour Vital Signs Date Time Temp Pulse Resp B/P Pulse Ox O2 Delivery O2 Flow Rate FiO2 03/13/17 08:50 88 17 30 03/13/17 08:00 98.2 84 34 125/33 100 Mechanical Ventilator 30 03/13/17 07:00 86 30 110/49 100 Mechanical Ventilator 30 03/13/17 06:31 76 16 30 03/13/17 06:00 90 30 120/63 100 Mechanical Ventilator 30 03/13/17 05:24 96 21 30 03/13/17 05:00 98 32 133/63 100 Mechanical Ventilator 30 03/13/17 04:00 30 03/13/17 04:00 98.4 61 34 103/52 100 Mechanical Ventilator 30 03/13/17 04:00 61 03/13/17 03:03 58 16 30 03/13/17 03:00 65 39 103/52 100 Mechanical Ventilator 30 03/13/17 02:00 94 33 103/52 100 Mechanical Ventilator 30 03/13/17 01:09 67 16 30 03/13/17 01:00 66 31 103/52 100 Mechanical Ventilator 30 03/13/17 00:00 61 03/13/17 00:00 30 03/13/17 00:00 98.3 58 33 103/52 100 Mechanical Ventilator 30 03/12/17 23:04 68 16 30 03/12/17 23:00 64 33 93/41 100 Mechanical Ventilator 30 03/12/17 22:00 84 33 122/42 100 Mechanical Ventilator 30 03/12/17 21:00 85 33 147/31 97 Mechanical Ventilator 30 03/12/17 20:59 83 16 30 03/12/17 20:00 86 03/12/17 20:00 30 03/12/17 20:00 98.2 88 34 132/59 97 Mechanical Ventilator 30 03/12/17 19:01 85 16 30 03/12/17 19:00 97 26 128/49 97 Mechanical Ventilator 30 03/12/17 18:00 86 26 123/47 97 Mechanical Ventilator 30 03/12/17 17:58 98.9 03/12/17 17:31 100 16 30 03/12/17 17:00 90 24 120/56 97 Mechanical Ventilator 30 03/12/17 16:00 97 03/12/17 16:00 30 03/12/17 16:00 98.9 96 18 109/47 95 Mechanical Ventilator 30 03/12/17 15:20 100 21 30 03/12/17 15:00 96 18 127/68 99 Mechanical Ventilator 30 03/12/17 14:00 94 15 114/49 100 Mechanical Ventilator 30 03/12/17 13:00 92 15 124/64 100 Mechanical Ventilator 30 03/12/17 12:34 95 16 30 03/12/17 12:00 97 03/12/17 12:00 30 03/12/17 12:00 98.4 94 18 145/59 100 Mechanical Ventilator 30 03/12/17 11:07 87 16 30 03/12/17 11:00 90 15 132/63 94 Mechanical Ventilator 30 03/12/17 10:00 91 17 128/66 94 Mechanical Ventilator 30 Intake and Output 03/12/17 03/13/17 19:00 07:00 Intake Total 689 ml 640 ml Output Total 690 ml 1270 ml Balance -1 ml -630 ml Free Water 300 ml 300 ml Tube Feeding 389 ml 340 ml Output Urine Total 690 ml 1270 ml # Bowel Movements 1 Laboratory Tests 03/13/17 09:00: White Blood Count 12.2H, Red Blood Count 3.35L, Hemoglobin 10.1L, Hematocrit 33.1L, Mean Corpuscular Volume 99, Mean Corpuscular Hemoglobin 30.3, Mean Corpuscular Hemoglobin Concent 30.7L, Red Cell Distribution Width 18.5H, Platelet Count 406, Mean Platelet Volume 5.7L, Neutrophils (%) (Auto) 75.1H, Lymphocytes (%) (Auto) 13.3L, Monocytes (%) (Auto) 6.8, Eosinophils (%) (Auto) 4.1H, Basophils (%) (Auto) 0.7, Sodium Level [Pending], Potassium Level [Pending ], Chloride Level [Pending], Carbon Dioxide Level [Pending], Blood Urea Nitrogen [Pending], Creatinine [Pending], Estimat Glomerular Filtration Rate [ Pending], Glucose Level [Pending], Calcium Level [Pending] Height (Feet): 5 Height (Inches): 3.00 Weight (Pounds): 230 General Appearance: no apparent distress, lethargic Cardiovascular: normal rate Respiratory/Chest: decreased breath sounds Abdomen: non tender Objective no change in PE FOULADIAN,ALVIN Mar 13, 2017 09:40
[2017-03-13 09:42] LABS: CALCIUM 9.6 mg/dL (8.6-10.2); GLOMERULAR FILTRATION RATE 28.9 mL/min (>60)
--- NOTE | 2017-03-13 11:50 | Pulmonolgy Critical Care Note ---
Critical Care - Asmt/Plan Problems: (1) Respiratory distress (2) Septic shock (3) ATN (acute tubular necrosis) (4) Diabetes mellitus (5) Spina bifida Respiratory: monitor respiratory rate, adjust FIO2, CXR Cardiac: continue to monitor HR/BP Renal: F/U I&O, keep IV fluid Infectious Disease: check cultures, continue antibiotics Gastrointestinal: continue feedings/current rate Endocrine: monitor blood sugar, check HgA1C, continue sliding scale insulin Hematologic: transfuse if hgb<8.5 Neurologic: PRN Ativan, keep patient comfortable Time Spent (Minutes): 40 Notes Reviewed: cardio, 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, consultants, renal case managermanager reading - Objective Last 24 Hour Vital Signs Date Time Temp Pulse Resp B/P Pulse Ox O2 Delivery O2 Flow Rate FiO2 03/13/17 11:00 76 22 118/60 100 Mechanical Ventilator 30 03/13/17 10:40 82 16 30 03/13/17 10:00 78 22 96/39 100 Mechanical Ventilator 30 03/13/17 09:00 85 30 94/35 100 Mechanical Ventilator 30 03/13/17 08:50 88 17 30 03/13/17 08:00 30 03/13/17 08:00 98.2 84 34 125/33 100 Mechanical Ventilator 30 03/13/17 08:00 83 03/13/17 07:00 86 30 110/49 100 Mechanical Ventilator 30 03/13/17 06:31 76 16 30 03/13/17 06:00 90 30 120/63 100 Mechanical Ventilator 30 03/13/17 05:24 96 21 30 03/13/17 05:00 98 32 133/63 100 Mechanical Ventilator 30 03/13/17 04:00 30 03/13/17 04:00 98.4 61 34 103/52 100 Mechanical Ventilator 30 03/13/17 04:00 61 03/13/17 03:03 58 16 30 03/13/17 03:00 65 39 103/52 100 Mechanical Ventilator 30 03/13/17 02:00 94 33 103/52 100 Mechanical Ventilator 30 03/13/17 01:09 67 16 30 03/13/17 01:00 66 31 103/52 100 Mechanical Ventilator 30 03/13/17 00:00 61 03/13/17 00:00 30 03/13/17 00:00 98.3 58 33 103/52 100 Mechanical Ventilator 30 03/12/17 23:04 68 16 30 03/12/17 23:00 64 33 93/41 100 Mechanical Ventilator 30 03/12/17 22:00 84 33 122/42 100 Mechanical Ventilator 30 03/12/17 21:00 85 33 147/31 97 Mechanical Ventilator 30 03/12/17 20:59 83 16 30 03/12/17 20:00 86 03/12/17 20:00 30 03/12/17 20:00 98.2 88 34 132/59 97 Mechanical Ventilator 30 03/12/17 19:01 85 16 30 03/12/17 19:00 97 26 128/49 97 Mechanical Ventilator 30 03/12/17 18:00 86 26 123/47 97 Mechanical Ventilator 30 03/12/17 17:58 98.9 03/12/17 17:31 100 16 30 03/12/17 17:00 90 24 120/56 97 Mechanical Ventilator 30 03/12/17 16:00 97 03/12/17 16:00 30 03/12/17 16:00 98.9 96 18 109/47 95 Mechanical Ventilator 30 03/12/17 15:20 100 21 30 03/12/17 15:00 96 18 127/68 99 Mechanical Ventilator 30 03/12/17 14:00 94 15 114/49 100 Mechanical Ventilator 30 03/12/17 13:00 92 15 124/64 100 Mechanical Ventilator 30 03/12/17 12:34 95 16 30 03/12/17 12:00 97 03/12/17 12:00 30 03/12/17 12:00 98.4 94 18 145/59 100 Mechanical Ventilator 30 Status: awake Condition: critical HEENT: atraumatic Neck: full ROM Lungs: chest wall tender Heart: HR/BP stable, regular Abdomen: non-tender, feeding tube Extremities: edema Decubiti: location Accucheck: 215 Critical Care - Subjective ROS Limited/Unobtainable: No ICU Day: 14 Intubation Day: 14 FI02: 30 Vent Support Breath Rate: 16 Vent Support Mode: AC Vent Tidal Volume: 600 Sputum Amount: Moderate PEEP: 5.0 PIP: 41 Tube Feeding Amount: 34 I&O: Intake and Output 03/12/17 03/13/17 19:00 07:00 Intake Total 689 ml 640 ml Output Total 690 ml 1270 ml Balance -1 ml -630 ml Free Water 300 ml 300 ml Tube Feeding 389 ml 340 ml Output Urine Total 690 ml 1270 ml # Bowel Movements 1 CXR: no change ET-Tube: 6.0 ET Position: 23 Labs: Laboratory Tests Test 03/13/17 09:00 White Blood Count 12.2 K/UL (4.8-10.8) H Red Blood Count 3.35 M/UL (4.20-5.40) L Hemoglobin 10.1 G/DL (12.0-16.0) L Hematocrit 33.1 % (37.0-47.0) L Mean Corpuscular Volume 99 FL (80-99) Mean Corpuscular Hemoglobin 30.3 PG (27.0-31.0) Mean Corpuscular Hemoglobin Concent 30.7 G/DL (32.0-36.0) L Red Cell Distribution Width 18.5 % (11.6-14.8) H Platelet Count 406 K/UL (150-450) Mean Platelet Volume 5.7 FL (6.5-10.1) L Neutrophils (%) (Auto) 75.1 % (45.0-75.0) H Lymphocytes (%) (Auto) 13.3 % (20.0-45.0) L Monocytes (%) (Auto) 6.8 % (1.0-10.0) Eosinophils (%) (Auto) 4.1 % (0.0-3.0) H Basophils (%) (Auto) 0.7 % (0.0-2.0) Sodium Level 143 mEQ/L (135-145) Potassium Level 5.0 mEQ/L (3.4-4.9) H Chloride Level 107 mEQ/L (98-107) Carbon Dioxide Level 20 mEQ/L (20-30) Anion Gap 16 (5-15) H Blood Urea Nitrogen 40 mg/dL (7-23) H Creatinine 2.0 mg/dL (0.5-0.9) H Estimat Glomerular Filtration Rate 28.9 mL/min (>60) Glucose Level 235 mg/dL (74-106) H Calcium Level 9.6 mg/dL (8.6-10.2) LORNE DENNEY Mar 13, 2017 11:50
--- NOTE | 2017-03-13 12:19 | Diagnostic Imaging Report ---
Indication: Dyspnea Comparison: 03/11/17 A single view chest radiograph was obtained. Findings: Linear parenchymal densities consistent with atelectasis noted bilaterally. Lung volumes are very low. There is probable interstitial edema. Tubes and lines are stable. Impression: Limited evaluation showing probable interstitial edema and some platelike atelectasis.
[2017-03-13] MEDS ORDERED: Levemir Flexpen SUBQ SCH (13:09)
--- NOTE | 2017-03-13 13:13 | Infectious Diseases Prog Note ---
Assessment/Plan Assessment/Plan ASSESSMENT: 31 y/o female with: Recurrent complicated UTI - UCx P.mirabilis, E.coli - US: Mildly increased renal echogenicity, compatible with medical renal disease. Negative for hydronephrosis. Right renal upper pole cyst. - SPC in place - h/o E Coli and Morganella, PSA CONS bacteremia 08/10 c/w contaminant on 02/27/17 - TTE(-) SBE Left chest Port-A-Cath, with interim fracture of the tubing at or near the left jugular vein insertion site. no overlying evidence of infection Leukocytosis - recurrent, stable near normal, afebrile Recurrent Acute VDRF - intubated 02/27, extubated 03/07, re-intubated 03/07, has refused trach to date intermittent tachycardia, transient hypotension x1, resolved. Possible CHF exacerbation - TTE: EF 65% ARF on CKD3 - US: Mildly increased renal echogenicity, compatible with medical renal disease. Negative for hydronephrosis. Right renal upper pole cyst. hx of CVA s/p VPS seizure disorder DM Bipolar disorder Spina bifida [place] resident Quinolone allergy Full Code PLAN: - monitor off abx (03/12 s/p IV rocephin d#10) ( 03/02 SP IV vancomycin, zosyn d# 4 ) - monitor CBC, temperatures, re-culture if acute change. exam unchanged, continue to monitor this mild leukocytosis closely, but looks stable to labs on prior admission. - monitor BMP - vent support, wean as tolerated Subjective Constitutional: Reports: no symptoms Allergies: Coded Allergies: CIPROFLOXACIN (Verified Allergy, Severe, Anaphylaxis, 05/18/12) KETOROLAC (Unverified Allergy, Severe, Anaphylaxis, 03/04/14) Throat collapsed LATEX (Verified Allergy, Severe, Anaphylaxis, 03/06/14) verbalized by pt LEVOFLOXACIN (Verified Allergy, Severe, Anaphylaxis, 05/18/12) MORPHINE (Verified Allergy, Intermediate, Itching, 05/18/12) ACETAMINOPHEN (Unverified Allergy, Unknown, 04/01/15) ALOE (Unverified Allergy, Unknown, 11/03/15) ALOE VERA (Unverified Allergy, Unknown, 04/01/15) CELERY (Unverified Allergy, Unknown, 04/01/15) COCONUT (Unverified Allergy, Unknown, 11/03/15) COCONUT OIL (Unverified Allergy, Unknown, 04/01/15) FISH CONTAINING PRODUCTS (Unverified Allergy, Unknown, 10/04/16) HYDROCODONE (Unverified Allergy, Unknown, 04/01/15) LIDOCAINE (Unverified Allergy, Unknown, Rash, 09/21/15) with lidocaine cream MELON (Unverified Allergy, Unknown, 04/01/15) ONION (Unverified Allergy, Unknown, 11/03/15) PINEAPPLE (Unverified Allergy, Unknown, 10/04/16) Red Pepper (Unverified Allergy, Unknown, 04/01/15) TRAMADOL (Unverified Allergy, Unknown, 04/01/15) TROMETHAMINE (Unverified Allergy, Unknown, 04/01/15) WITCH ANNA (Unverified Allergy, Unknown, 04/01/15) Uncoded Allergies: CRANBERRY JUICE (Allergy, Unknown, 10/04/16) onion (Allergy, Unknown, 04/01/15) glueten (Adverse Reaction, Unknown, 09/17/15) Objective Vital Signs Last 24 Hour Vital Signs Date Time Temp Pulse Resp B/P Pulse Ox O2 Delivery O2 Flow Rate FiO2 03/13/17 12:51 86 16 30 03/13/17 12:00 98.1 84 34 94/34 100 Mechanical Ventilator 03/13/17 11:00 76 22 118/60 100 Mechanical Ventilator 03/13/17 10:40 82 16 30 03/13/17 10:00 78 22 96/39 100 Mechanical Ventilator 03/13/17 09:00 85 30 94/35 100 Mechanical Ventilator 03/13/17 08:50 88 17 30 03/13/17 08:00 30 03/13/17 08:00 98.2 84 34 125/33 100 Mechanical Ventilator 03/13/17 08:00 83 03/13/17 07:00 86 30 110/49 100 Mechanical Ventilator 03/13/17 06:31 76 16 30 03/13/17 06:00 90 30 120/63 100 Mechanical Ventilator 30 03/13/17 05:24 96 21 30 03/13/17 05:00 98 32 133/63 100 Mechanical Ventilator 03/13/17 04:00 30 03/13/17 04:00 98.4 61 34 103/52 100 Mechanical Ventilator 30 03/13/17 04:00 61 03/13/17 03:03 58 16 30 03/13/17 03:00 65 39 103/52 100 Mechanical Ventilator 30 03/13/17 02:00 94 33 103/52 100 Mechanical Ventilator 30 03/13/17 01:09 67 16 30 03/13/17 01:00 66 31 103/52 100 Mechanical Ventilator 30 03/13/17 00:00 61 03/13/17 00:00 30 03/13/17 00:00 98.3 58 33 103/52 100 Mechanical Ventilator 30 03/12/17 23:04 68 16 30 03/12/17 23:00 64 33 93/41 100 Mechanical Ventilator 30 03/12/17 22:00 84 33 122/42 100 Mechanical Ventilator 30 03/12/17 21:00 85 33 147/31 97 Mechanical Ventilator 30 03/12/17 20:59 83 16 30 03/12/17 20:00 86 03/12/17 20:00 30 03/12/17 20:00 98.2 88 34 132/59 97 Mechanical Ventilator 30 03/12/17 19:01 85 16 30 03/12/17 19:00 97 26 128/49 97 Mechanical Ventilator 30 03/12/17 18:00 86 26 123/47 97 Mechanical Ventilator 30 03/12/17 17:58 98.9 03/12/17 17:31 100 16 30 03/12/17 17:00 90 24 120/56 97 Mechanical Ventilator 30 03/12/17 16:00 97 03/12/17 16:00 30 03/12/17 16:00 98.9 96 18 109/47 95 Mechanical Ventilator 30 03/12/17 15:20 100 21 30 03/12/17 15:00 96 18 127/68 99 Mechanical Ventilator 30 03/12/17 14:00 94 15 114/49 100 Mechanical Ventilator 30 Height (Feet): 5 Height (Inches): 3.00 Weight (Pounds): 230 Objective General Appearance: intubated on vent support through ETT, [id number]%. HEENT: anicteric Respiratory/Chest: rhonchi - bilaterally. palpable indwelling port-a-cath on L lower chest wall. no pain to palpation overlying the neck. no erythema Cardiovascular: normal peripheral pulses Abdomen: soft, non tender Extremities: no cyanosis Skin: no rash no new micro data. last micro 02/27/17. Laboratory Tests Test 03/13/17 09:00 White Blood Count 12.2 K/UL (4.8-10.8) H Red Blood Count 3.35 M/UL (4.20-5.40) L Hemoglobin 10.1 G/DL (12.0-16.0) L Hematocrit 33.1 % (37.0-47.0) L Mean Corpuscular Volume 99 FL (80-99) Mean Corpuscular Hemoglobin 30.3 PG (27.0-31.0) Mean Corpuscular Hemoglobin Concent 30.7 G/DL (32.0-36.0) L Red Cell Distribution Width 18.5 % (11.6-14.8) H Platelet Count 406 K/UL (150-450) Mean Platelet Volume 5.7 FL (6.5-10.1) L Neutrophils (%) (Auto) 75.1 % (45.0-75.0) H Lymphocytes (%) (Auto) 13.3 % (20.0-45.0) L Monocytes (%) (Auto) 6.8 % (1.0-10.0) Eosinophils (%) (Auto) 4.1 % (0.0-3.0) H Basophils (%) (Auto) 0.7 % (0.0-2.0) Sodium Level 143 mEQ/L (135-145) Potassium Level 5.0 mEQ/L (3.4-4.9) H Chloride Level 107 mEQ/L (98-107) Carbon Dioxide Level 20 mEQ/L (20-30) Anion Gap 16 (5-15) H Blood Urea Nitrogen 40 mg/dL (7-23) H Creatinine 2.0 mg/dL (0.5-0.9) H Estimat Glomerular Filtration Rate 28.9 mL/min (>60) Glucose Level 235 mg/dL (74-106) H Calcium Level 9.6 mg/dL (8.6-10.2) PCXR: negative for pneumonia Current Medications Medications (Trade) Dose Ordered Sig/Cabrera Route PRN Reason Start Time Stop Time Status Last Admin Dose Admin Chlorhexidine Gluconate (Karen-Hex 2%) 1 applic QHS TOPIC 03/02/17 21:00 04/01/17 20:59 8/6/17 21:46 Dextrose (Dextrose 50%) STAT PRN IV Hypoglycemia 02/28/17 07:30 03/30/17 07:29 Docusate Sodium (Colace) 100 mg TWICE A DAY GT 03/11/17 12:25 04/02/17 08:59 03/13/17 08:15 Fenofibrate (Tricor) 145 mg DAILY ORAL 03/12/17 17:00 04/11/17 16:59 03/13/17 08:15 Fluoxetine HCl (PROzac) 20 mg DAILY GT 03/11/17 12:25 04/06/17 13:44 03/13/17 08:16 Heparin Sodium (Porcine) (Heparin 5000 units/ml) 5,000 units EVERY 12 HOURS SUBQ 02/27/17 21:00 03/29/17 20:59 03/13/17 08:21 Insulin Aspart (NovoLOG) EVERY 6 HOURS SUBQ 03/09/17 00:00 04/08/17 00:00 03/13/17 12:38 Insulin Aspart (NovoLOG) 5 units EVERY 6 HOURS SUBQ 03/09/17 00:00 04/08/17 00:00 03/13/17 12:39 Insulin Detemir (Levemir) 33 units EVERY 12 HOURS SUBQ 03/13/17 21:00 04/12/17 20:59 Lansoprazole (Prevacid) 30 mg DAILY GT 03/12/17 09:00 04/11/17 08:59 03/13/17 08:15 Levothyroxine Sodium (Synthroid) 100 mcg DAILY@0630 GT 03/12/17 06:30 04/11/17 06:29 03/13/17 06:16 Lorazepam (Ativan 2mg/ml 1ml) 2 mg Q2H PRN IV For Anxiety 03/11/17 14:30 03/18/17 14:29 03/13/17 05:58 Midodrine (Pro-Amatine) 10 mg Q8HR NG 03/08/17 09:30 04/07/17 09:29 03/13/17 05:32 Morphine Sulfate (Morphine Sulfate) 2 mg Q4H PRN IVP Severe Pain (Pain Scale 7-10) 03/08/17 08:15 03/15/17 08:14 03/13/17 05:33 Nystatin (Nystop Powder) 1 applic THREE TIMES A DAY TOPIC 03/07/17 21:00 04/06/17 20:59 03/13/17 12:36 Ondansetron HCl (Zofran) 4 mg Q6H PRN IVP Nausea & Vomiting 02/27/17 18:00 03/29/17 17:59 03/09/17 16:27 Polyethylene Glycol (Miralax) 17 gm DAILYPRN PRN GT Constipation 03/11/17 12:26 03/29/17 17:59 Quetiapine Fumarate (SEROquel) 50 mg BEDTIME GT 03/11/17 12:26 04/06/17 20:59 03/12/17 21:38 Valproic Acid (Depakene) 500 mg Q12HR GT 02/27/17 23:00 03/29/17 22:59 03/13/17 08:15 Thanh Davies M.D. Mar 13, 2017 13:13
[2017-03-13] MEDS ORDERED: Sterile Water Irrig 1000ml IRRIG ONE (16:29)
[2017-03-13] MEDS: Dyna-Hex 2% Top Sol 8oz TOPIC SCH (20:51)
[2017-03-14] VITALS (16 sets, daily range): BP systolic 100–147; BP diastolic 45–77
[2017-03-14] MEDS: LORazepam Inj 2mg/ml 1ml IV PRN (03:02)
[2017-03-14] MEDS: NovoLOG Insulin Flexpen SUBQ SCH ×4 (05:51→11:36)
[2017-03-14] MEDS: Midodrine 10mg tab NG SCH (05:52)
[2017-03-14] MEDS: Morphine Sulfate 2mg/ml Inj IVP PRN ×4 (06:20→20:58)
[2017-03-14] MEDS: Heparin 5000 units/ml inj SUBQ SCH (09:33)
[2017-03-14] MEDS: Docusate 100mg/10ml Liq GT SCH (09:33)
[2017-03-14] MEDS: Valproic Acid 250mg/5ml Liquid GT SCH (09:33)
[2017-03-14] MEDS: Levemir Flexpen SUBQ SCH (09:34)
[2017-03-14] MEDS: Nystatin Powder 100,000 units/gm 15gm TOPIC SCH ×3 (09:34→18:28)
--- NOTE | 2017-03-14 09:41 | Pulmonolgy Critical Care Note ---
Critical Care - Asmt/Plan Problems: (1) Respiratory distress (2) Septic shock (3) ATN (acute tubular necrosis) (4) Diabetes mellitus (5) Spina bifida Respiratory: monitor respiratory rate, adjust FIO2, CXR, other - pt wants to get extubated today afternoon when her family has arrived. Cardiac: continue to monitor HR/BP Renal: F/U I&O, keep IV fluid, check electrolytes Infectious Disease: check cultures, continue antibiotics Gastrointestinal: continue feedings/current rate Endocrine: monitor blood sugar, check HgA1C Neurologic: PRN Ativan, PRN Morphine Prophylaxis: Protonix Critical Care - Objective Last 24 Hour Vital Signs Date Time Temp Pulse Resp B/P Pulse Ox O2 Delivery O2 Flow Rate FiO2 03/14/17 09:15 83 16 30 03/14/17 09:00 94 18 132/58 98 Mechanical Ventilator 30 03/14/17 08:00 98.1 89 18 125/67 98 Mechanical Ventilator 30 03/14/17 08:00 30 03/14/17 08:00 88 03/14/17 07:01 82 16 30 03/14/17 07:00 97 18 125/55 100 Mechanical Ventilator 30 03/14/17 06:00 81 18 116/73 100 Mechanical Ventilator 30 03/14/17 05:22 104 20 30 03/14/17 05:00 82 24 114/50 100 Mechanical Ventilator 30 03/14/17 04:00 98.3 92 26 103/45 100 Mechanical Ventilator 30 03/14/17 04:00 30 03/14/17 04:00 87 03/14/17 03:09 91 17 30 03/14/17 03:00 86 24 124/67 100 Mechanical Ventilator 30 03/14/17 02:00 74 24 102/48 100 Mechanical Ventilator 30 03/14/17 01:14 68 16 30 03/14/17 01:00 76 24 102/48 100 Mechanical Ventilator 30 03/14/17 00:00 98.1 76 20 100/47 98 Mechanical Ventilator 30 03/14/17 00:00 77 03/14/17 00:00 30 03/13/17 23:10 99 16 30 03/13/17 23:00 92 26 132/51 100 Mechanical Ventilator 30 03/13/17 22:00 98 24 124/55 99 Mechanical Ventilator 30 03/13/17 21:07 94 19 30 03/13/17 21:00 99 25 139/53 99 Mechanical Ventilator 30 03/13/17 20:00 98.3 94 25 138/63 98 Mechanical Ventilator 30 03/13/17 20:00 87 03/13/17 20:00 30 03/13/17 19:04 93 19 30 03/13/17 19:00 90 24 128/70 100 Mechanical Ventilator 30 03/13/17 18:00 99 24 108/58 95 Mechanical Ventilator 30 03/13/17 17:11 83 16 30 03/13/17 17:00 75 24 91/41 95 Mechanical Ventilator 30 03/13/17 16:00 81 03/13/17 16:00 30 03/13/17 16:00 98.2 118 24 103/86 98 Mechanical Ventilator 03/13/17 15:46 98.1 03/13/17 15:20 88 18 30 03/13/17 15:00 83 24 121/48 100 Mechanical Ventilator 03/13/17 14:00 80 22 113/51 100 Mechanical Ventilator 03/13/17 13:00 67 24 106/49 100 Mechanical Ventilator 30 03/13/17 12:51 86 16 30 03/13/17 12:00 81 03/13/17 12:00 30 03/13/17 12:00 98.1 84 34 94/34 100 Mechanical Ventilator 03/13/17 11:00 76 22 118/60 100 Mechanical Ventilator 03/13/17 10:40 82 16 30 03/13/17 10:00 78 22 96/39 100 Mechanical Ventilator 30 Status: awake Condition: critical HEENT: atraumatic Neck: full ROM Lungs: chest wall tender Heart: HR/BP stable Abdomen: soft, active bowel sounds, feeding tube Accucheck: 261 Critical Care - Subjective ROS Limited/Unobtainable: Yes ICU Day: 15 Condition: critical EKG Rhythm: Sinus Rhythm FI02: 30 Vent Support Breath Rate: 16 Vent Support Mode: AC Vent Tidal Volume: 600 Sputum Amount: Moderate PEEP: 5.0 PIP: 26 Tube Feeding Amount: 34 I&O: Intake and Output 03/13/17 03/14/17 19:00 07:00 Intake Total 758 ml 606 ml Output Total 635 ml 725 ml Balance 123 ml -119 ml Free Water 350 ml 300 ml Tube Feeding 408 ml 306 ml Output Urine Total 635 ml 725 ml # Bowel Movements 2 CXR: no change ET-Tube: 6.0 ET Position: 23 LORNE DENNEY Mar 14, 2017 09:41
--- NOTE | 2017-03-14 09:44 | General Progress Note ---
Assessment/Plan Status: stable - from renal stand Assessment/Plan Status: (1) Respiratory distress, intubated (2) Septic shock , UTI and Pneumonia (3) Renal Failure , CKD ( Diabetic) and Hyper Natremia (4) Diabetes mellitus (5) Spina bifida (6) HypoThyroid (7) Anemia (8) Sz disorder (9) Full Code status: No Labs today Midodrine- Monitor renal parameters Avoid nephrotoxics Anemia chanel per orders Subjective ROS Limited/Unobtainable: Yes Allergies: Coded Allergies: CIPROFLOXACIN (Verified Allergy, Severe, Anaphylaxis, 05/18/12) KETOROLAC (Unverified Allergy, Severe, Anaphylaxis, 03/04/14) Throat collapsed LATEX (Verified Allergy, Severe, Anaphylaxis, 03/06/14) verbalized by pt LEVOFLOXACIN (Verified Allergy, Severe, Anaphylaxis, 05/18/12) MORPHINE (Verified Allergy, Intermediate, Itching, 05/18/12) ACETAMINOPHEN (Unverified Allergy, Unknown, 04/01/15) ALOE (Unverified Allergy, Unknown, 11/03/15) ALOE VERA (Unverified Allergy, Unknown, 04/01/15) CELERY (Unverified Allergy, Unknown, 04/01/15) COCONUT (Unverified Allergy, Unknown, 11/03/15) COCONUT OIL (Unverified Allergy, Unknown, 04/01/15) FISH CONTAINING PRODUCTS (Unverified Allergy, Unknown, 10/04/16) HYDROCODONE (Unverified Allergy, Unknown, 04/01/15) LIDOCAINE (Unverified Allergy, Unknown, Rash, 09/21/15) with lidocaine cream MELON (Unverified Allergy, Unknown, 04/01/15) ONION (Unverified Allergy, Unknown, 11/03/15) PINEAPPLE (Unverified Allergy, Unknown, 10/04/16) Red Pepper (Unverified Allergy, Unknown, 04/01/15) TRAMADOL (Unverified Allergy, Unknown, 04/01/15) TROMETHAMINE (Unverified Allergy, Unknown, 04/01/15) WITCH ANNA (Unverified Allergy, Unknown, 04/01/15) Uncoded Allergies: CRANBERRY JUICE (Allergy, Unknown, 10/04/16) onion (Allergy, Unknown, 04/01/15) glueten (Adverse Reaction, Unknown, 09/17/15) Objective Last 24 Hour Vital Signs Date Time Temp Pulse Resp B/P Pulse Ox O2 Delivery O2 Flow Rate FiO2 03/14/17 09:15 83 16 30 03/14/17 09:00 94 18 132/58 98 Mechanical Ventilator 30 03/14/17 08:00 98.1 89 18 125/67 98 Mechanical Ventilator 30 03/14/17 08:00 30 03/14/17 08:00 88 03/14/17 07:01 82 16 30 03/14/17 07:00 97 18 125/55 100 Mechanical Ventilator 30 03/14/17 06:00 81 18 116/73 100 Mechanical Ventilator 30 03/14/17 05:22 104 20 30 03/14/17 05:00 82 24 114/50 100 Mechanical Ventilator 30 03/14/17 04:00 98.3 92 26 103/45 100 Mechanical Ventilator 30 03/14/17 04:00 30 03/14/17 04:00 87 03/14/17 03:09 91 17 30 03/14/17 03:00 86 24 124/67 100 Mechanical Ventilator 30 03/14/17 02:00 74 24 102/48 100 Mechanical Ventilator 30 03/14/17 01:14 68 16 30 03/14/17 01:00 76 24 102/48 100 Mechanical Ventilator 30 03/14/17 00:00 98.1 76 20 100/47 98 Mechanical Ventilator 30 03/14/17 00:00 77 03/14/17 00:00 30 03/13/17 23:10 99 16 30 03/13/17 23:00 92 26 132/51 100 Mechanical Ventilator 30 03/13/17 22:00 98 24 124/55 99 Mechanical Ventilator 30 03/13/17 21:07 94 19 30 03/13/17 21:00 99 25 139/53 99 Mechanical Ventilator 30 03/13/17 20:00 98.3 94 25 138/63 98 Mechanical Ventilator 30 03/13/17 20:00 87 03/13/17 20:00 30 03/13/17 19:04 93 19 30 03/13/17 19:00 90 24 128/70 100 Mechanical Ventilator 30 03/13/17 18:00 99 24 108/58 95 Mechanical Ventilator 30 03/13/17 17:11 83 16 30 03/13/17 17:00 75 24 91/41 95 Mechanical Ventilator 30 03/13/17 16:00 81 03/13/17 16:00 30 03/13/17 16:00 98.2 118 24 103/86 98 Mechanical Ventilator 30 03/13/17 15:46 98.1 03/13/17 15:20 88 18 30 03/13/17 15:00 83 24 121/48 100 Mechanical Ventilator 30 03/13/17 14:00 80 22 113/51 100 Mechanical Ventilator 30 03/13/17 13:00 67 24 106/49 100 Mechanical Ventilator 30 03/13/17 12:51 86 16 30 03/13/17 12:00 81 03/13/17 12:00 30 03/13/17 12:00 98.1 84 34 94/34 100 Mechanical Ventilator 30 03/13/17 11:00 76 22 118/60 100 Mechanical Ventilator 30 03/13/17 10:40 82 16 30 03/13/17 10:00 78 22 96/39 100 Mechanical Ventilator 30 Intake and Output 03/13/17 03/14/17 19:00 07:00 Intake Total 758 ml 606 ml Output Total 635 ml 725 ml Balance 123 ml -119 ml Free Water 350 ml 300 ml Tube Feeding 408 ml 306 ml Output Urine Total 635 ml 725 ml # Bowel Movements 2 Height (Feet): 5 Height (Inches): 3.00 Weight (Pounds): 229 General Appearance: no apparent distress Objective no change in PE ALVIN LUQUE Mar 14, 2017 09:44
[2017-03-14] MEDS ORDERED: LORazepam Inj 2mg/ml 1ml IV PRN (13:00)
--- NOTE | 2017-03-14 13:05 | Infectious Diseases Prog Note ---
Assessment/Plan Assessment/Plan ASSESSMENT: 31 y/o female with: Recurrent complicated UTI - UCx P.mirabilis, E.coli - US: Mildly increased renal echogenicity, compatible with medical renal disease. Negative for hydronephrosis. Right renal upper pole cyst. - SPC in place - h/o E Coli and Morganella, PSA CONS bacteremia 08/10 c/w contaminant on 02/27/17 - TTE(-) SBE Left chest Port-A-Cath, with interim fracture of the tubing at or near the left jugular vein insertion site. no overlying evidence of infection Leukocytosis - recurrent, stable near normal, afebrile Recurrent Acute VDRF - intubated 02/27, extubated 03/07, re-intubated 03/07, has refused trach to date intermittent tachycardia, transient hypotension x1, resolved. Possible CHF exacerbation - TTE: EF 65% ARF on CKD3 - US: Mildly increased renal echogenicity, compatible with medical renal disease. Negative for hydronephrosis. Right renal upper pole cyst. hx of CVA s/p VPS seizure disorder DM Bipolar disorder Spina bifida [place] resident Quinolone allergy Full Code PLAN: - monitor off abx (03/12 s/p IV rocephin d#10) ( 03/02 SP IV vancomycin, zosyn d# 4 ) - monitor CBC, temperatures, re-culture if acute change. exam unchanged, continue to monitor this mild leukocytosis closely, but looks stable to labs on prior admission. - monitor BMP - vent support, wean as tolerated Subjective Constitutional: Reports: no symptoms Allergies: Coded Allergies: CIPROFLOXACIN (Verified Allergy, Severe, Anaphylaxis, 05/18/12) KETOROLAC (Unverified Allergy, Severe, Anaphylaxis, 03/04/14) Throat collapsed LATEX (Verified Allergy, Severe, Anaphylaxis, 03/06/14) verbalized by pt LEVOFLOXACIN (Verified Allergy, Severe, Anaphylaxis, 05/18/12) MORPHINE (Verified Allergy, Intermediate, Itching, 05/18/12) ACETAMINOPHEN (Unverified Allergy, Unknown, 04/01/15) ALOE (Unverified Allergy, Unknown, 11/03/15) ALOE VERA (Unverified Allergy, Unknown, 04/01/15) CELERY (Unverified Allergy, Unknown, 04/01/15) COCONUT (Unverified Allergy, Unknown, 11/03/15) COCONUT OIL (Unverified Allergy, Unknown, 04/01/15) FISH CONTAINING PRODUCTS (Unverified Allergy, Unknown, 10/04/16) HYDROCODONE (Unverified Allergy, Unknown, 04/01/15) LIDOCAINE (Unverified Allergy, Unknown, Rash, 09/21/15) with lidocaine cream MELON (Unverified Allergy, Unknown, 04/01/15) ONION (Unverified Allergy, Unknown, 11/03/15) PINEAPPLE (Unverified Allergy, Unknown, 10/04/16) Red Pepper (Unverified Allergy, Unknown, 04/01/15) TRAMADOL (Unverified Allergy, Unknown, 04/01/15) TROMETHAMINE (Unverified Allergy, Unknown, 04/01/15) WITCH ANNA (Unverified Allergy, Unknown, 04/01/15) Uncoded Allergies: CRANBERRY JUICE (Allergy, Unknown, 10/04/16) onion (Allergy, Unknown, 04/01/15) glueten (Adverse Reaction, Unknown, 09/17/15) Objective Vital Signs Last 24 Hour Vital Signs Date Time Temp Pulse Resp B/P Pulse Ox O2 Delivery O2 Flow Rate FiO2 03/14/17 12:00 90 03/14/17 12:00 98.2 96 22 142/60 96 Bi-pap 60 03/14/17 12:00 60 03/14/17 11:07 85 16 100 Facial 60 03/14/17 11:07 60 03/14/17 11:05 Bi-pap 60 03/14/17 11:00 98 23 145/64 100 Mechanical Ventilator 30 03/14/17 10:00 96 22 147/75 98 Mechanical Ventilator 30 03/14/17 09:15 83 16 30 03/14/17 09:00 94 18 132/58 98 Mechanical Ventilator 30 03/14/17 08:00 98.1 89 18 125/67 98 Mechanical Ventilator 30 03/14/17 08:00 30 03/14/17 08:00 88 03/14/17 07:01 82 16 30 03/14/17 07:00 97 18 125/55 100 Mechanical Ventilator 30 03/14/17 06:00 81 18 116/73 100 Mechanical Ventilator 30 03/14/17 05:22 104 20 30 03/14/17 05:00 82 24 114/50 100 Mechanical Ventilator 30 03/14/17 04:00 98.3 92 26 103/45 100 Mechanical Ventilator 30 03/14/17 04:00 30 03/14/17 04:00 87 03/14/17 03:09 91 17 30 03/14/17 03:00 86 24 124/67 100 Mechanical Ventilator 30 03/14/17 02:00 74 24 102/48 100 Mechanical Ventilator 30 03/14/17 01:14 68 16 30 03/14/17 01:00 76 24 102/48 100 Mechanical Ventilator 30 03/14/17 00:00 98.1 76 20 100/47 98 Mechanical Ventilator 30 03/14/17 00:00 77 03/14/17 00:00 30 03/13/17 23:10 99 16 30 03/13/17 23:00 92 26 132/51 100 Mechanical Ventilator 30 03/13/17 22:00 98 24 124/55 99 Mechanical Ventilator 30 03/13/17 21:07 94 19 30 03/13/17 21:00 99 25 139/53 99 Mechanical Ventilator 30 03/13/17 20:00 98.3 94 25 138/63 98 Mechanical Ventilator 30 03/13/17 20:00 87 03/13/17 20:00 30 03/13/17 19:04 93 19 30 03/13/17 19:00 90 24 128/70 100 Mechanical Ventilator 30 03/13/17 18:00 99 24 108/58 95 Mechanical Ventilator 30 03/13/17 17:11 83 16 30 03/13/17 17:00 75 24 91/41 95 Mechanical Ventilator 30 03/13/17 16:00 81 03/13/17 16:00 30 03/13/17 16:00 98.2 118 24 103/86 98 Mechanical Ventilator 30 03/13/17 15:46 98.1 03/13/17 15:20 88 18 30 03/13/17 15:00 83 24 121/48 100 Mechanical Ventilator 30 03/13/17 14:00 80 22 113/51 100 Mechanical Ventilator 30 Height (Feet): 5 Height (Inches): 3.00 Weight (Pounds): 229 Objective General Appearance: intubated on vent support through ETT, ZCC111%. HEENT: anicteric Respiratory/Chest: rhonchi - bilaterally. palpable indwelling port-a-cath on L lower chest wall. no pain to palpation overlying the neck. no erythema Cardiovascular: normal peripheral pulses Abdomen: soft, non tender Extremities: no cyanosis Skin: no rash no new micro data. last micro 02/27/17. Current Medications Medications (Trade) Dose Ordered Sig/Cabrera Route PRN Reason Start Time Stop Time Status Last Admin Dose Admin Chlorhexidine Gluconate (Karen-Hex 2%) 1 applic QHS TOPIC 03/14/17 21:00 04/13/17 20:59 Dextrose (Dextrose 50%) STAT PRN IV Hypoglycemia 03/14/17 13:00 04/13/17 12:59 Docusate Sodium (Colace) 100 mg TWICE A DAY GT 03/14/17 18:00 04/13/17 17:59 Fenofibrate (Tricor) 145 mg DAILY ORAL 03/15/17 09:00 04/14/17 08:59 Fluoxetine HCl (PROzac) 20 mg DAILY GT 03/15/17 09:00 04/14/17 08:59 Heparin Sodium (Porcine) (Heparin 5000 units/ml) 5,000 units EVERY 12 HOURS SUBQ 03/14/17 21:00 04/13/17 20:59 Insulin Aspart (NovoLOG) EVERY 6 HOURS SUBQ 03/14/17 18:00 04/13/17 17:59 Insulin Aspart (NovoLOG) 5 units EVERY 6 HOURS SUBQ 03/14/17 18:00 04/13/17 17:59 Insulin Detemir (Levemir) 33 units EVERY 12 HOURS SUBQ 03/14/17 21:00 04/13/17 20:59 Lansoprazole (Prevacid) 30 mg DAILY GT 03/15/17 09:00 04/14/17 08:59 Levothyroxine Sodium (Synthroid) 100 mcg DAILY@0630 GT 03/15/17 06:30 04/14/17 06:29 Lorazepam (Ativan 2mg/ml 1ml) 2 mg Q2H PRN IV For Anxiety 03/14/17 13:00 03/21/17 12:59 Midodrine (Pro-Amatine) 10 mg Q8HR NG 03/14/17 14:00 04/13/17 13:59 Morphine Sulfate (Morphine Sulfate) 2 mg Q4H PRN IVP Severe Pain (Pain Scale 7-10) 03/14/17 15:42 03/21/17 15:41 Nystatin (Nystop Powder) 1 applic THREE TIMES A DAY TOPIC 03/14/17 13:00 04/13/17 12:59 Ondansetron HCl (Zofran) 4 mg Q6H PRN IVP Nausea & Vomiting 03/14/17 13:00 04/13/17 12:59 Polyethylene Glycol (Miralax) 17 gm DAILYPRN PRN GT Constipation 03/15/17 13:00 04/14/17 12:59 Quetiapine Fumarate (SEROquel) 50 mg BEDTIME GT 03/14/17 21:00 04/13/17 20:59 Valproic Acid (Depakene) 500 mg Q12HR GT 03/14/17 21:00 04/13/17 20:59 Thanh Davies M.D. Mar 14, 2017 13:05
[2017-03-14] MEDS ORDERED: Midodrine 10mg tab NG SCH (14:00)
[2017-03-14] MEDS ORDERED: DiphenhydrAMINE 50mg/ml Inj IVP PRN ×2 (17:00→20:00)
[2017-03-14] MEDS ORDERED: Docusate 100mg/10ml Liq GT SCH (18:00)
[2017-03-14] MEDS ORDERED: NovoLOG Insulin Flexpen SUBQ SCH ×2 (18:00)
[2017-03-14] MEDS ORDERED: DiphenhydrAMINE 50mg/ml Inj IVP ONE (20:15)
[2017-03-14] MEDS ORDERED: Levemir Flexpen SUBQ SCH (21:00)
[2017-03-14] MEDS ORDERED: Dyna-Hex 2% Top Sol 8oz TOPIC SCH (21:00)
[2017-03-14] MEDS ORDERED: Heparin 5000 units/ml inj SUBQ SCH (21:00)
[2017-03-14] MEDS ORDERED: Valproic Acid 250mg/5ml Liquid GT SCH (21:00)
[2017-03-14] MEDS: PCA Morphine 1mg/ml 30 ML IV SCH (21:52)
[2017-03-15] VITALS: BP 162/89
[2017-03-15] MEDS: PCA Morphine 1mg/ml 30 ML IV SCH ×2 (00:44→03:55)
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
[2017-03-15] MEDS ORDERED: Miralax 17gm pkt GT PRN (13:00)
== END 2017-03-15 04:10 | disposition expired | DRG 720 ==
LOC: EDBD 13:35 → EMR 14:13 → EDBEDREQSVC 16:12 → EDBEDREQ 16:12 → ICU 16:29 → EDBEDREQ 18:15 → ICU 02-28 16:45 → 4W 03-14 12:15
PROC: 0BH17EZ Insertion of Endotracheal Airway into Trachea, Via Natural or Artificial Opening (ICD-10-PCS; principal; 2017-02-27)
PROC: 5A1955Z Respiratory Ventilation, Greater than 96 Consecutive Hours (ICD-10-PCS; principal; 2017-02-27)
PROC: 06HM33Z Insertion of Infusion Device into Right Femoral Vein, Percutaneous Approach (ICD-10-PCS; principal; 2017-02-27)
DX: A41.9 Sepsis, unspecified organism (principal); N17.0 Acute kidney failure with tubular necrosis; J96.02 Acute respiratory failure with hypercapnia; R65.21 Severe sepsis with septic shock; J18.9 Pneumonia, unspecified organism; Z99.11 Dependence on respirator [ventilator] status; L89.152 Pressure ulcer of sacral region, stage 2; N39.0 Urinary tract infection, site not specified; Q05.9 Spina bifida, unspecified; E87.5 Hyperkalemia; I50.9 Heart failure, unspecified; N18.3 Chronic kidney disease, stage 3 (moderate); E87.0 Hyperosmolality and hypernatremia; E11.65 Type 2 diabetes mellitus with hyperglycemia; E11.21 Type 2 diabetes mellitus with diabetic nephropathy; Z79.4 Long term (current) use of insulin; E03.9 Hypothyroidism, unspecified; D64.9 Anemia, unspecified; G40.909 Epilepsy, unspecified, not intractable, without status epilepticus; E66.01 Morbid (severe) obesity due to excess calories; Z68.41 Body mass index [BMI] 40.0-44.9, adult; F31.9 Bipolar disorder, unspecified; G47.30 Sleep apnea, unspecified; Z74.01 Bed confinement status; Z51.5 Encounter for palliative care; K76.0 Fatty (change of) liver, not elsewhere classified; B96.20 Unspecified Escherichia coli [E. coli] as the cause of diseases classified elsewhere
CPT/HCPCS: 31500; 36415; 36600; 71010; 76700; 76775; 80048; 80053; 80061; 81003; 82248; 82533; 82550; 82553; 82607; 82728; 82746; 82803; 82962; 82977; 83036; 83540; 83550; 83605; 83690; 83735; 83880; 84100; 84439; 84443; 84478; 84484; 84550; 85007; 85025; 86140; 86850; 86900; 86901; 86920; 87040; 87086; 87181; 93005; 93306; 94002; 94003; 94664; 94760; J1815; J2310; J2405; S5561